=== PATIENT | female | born 1995 | race Caucasian/White ===

== ENCOUNTER 2017-10-27 15:04 | Observation (INO) | payer OTHER ==
[2017-10-27] MEDS ORDERED: NA CHLORIDE 0.9% 1,000 ML ONE (16:38)
[2017-10-27 16:45] LABS: Absolute Lymphocytes (CBC) 1.3 K/uL (0.7-4.9); Absolute Monocytes 0.9 K/uL (0.1-1.3); Absolute Neutrophil 11.9 K/uL (1.8-8.0); Basophils % 0.2 % (0-1.3); Hematocrit 35.7 % (36.0-45.0); MCH 30.3 pg (27.0-35.0); MCV 93.3 fL (80-100); MPV 11.7 fL (7.6-11.3); Monocytes % 6.1 % (3.3-12.3); RBC Red Blood Cell Count 3.82 M/uL (3.86-4.86)
[2017-10-27] MEDS ORDERED: Ringers Lactate 1,000 ML IV ONE ×2 (17:03→19:09)
[2017-10-27 17:42] LABS: Urine Blood NEGATIVE (NEG); Urine Glucose NEGATIVE (NEG); Urine Protein 1+ (NEG); Urine pH 5.5 (5.0-7.0)
[2017-10-27] MEDS ORDERED: PROMETHAZINE 25 MG/ML VIAL ONE (17:45)
--- NOTE | 2017-10-27 19:20 | ER ---
Nurse's Notes [facility] Name: Haley Liu Age: 22 yrs Sex: Female : 1995 Arrival Date: 10/27/2017 Time: 15:08 Bed 19 Private MD: ALLAN SAHA Diagnosis: Vomiting;Dehydration Presentation: 10/27 15:38 Presenting complaint: Patient states: Seen by Dr. John this morning for OB ss appointment. Pt reports she has been having N/V x 2 days and was seen in L\\T\\D last night and given a Phenergan shot. Pt reports that Dr. John instructed her to come to ER because she might be dehydrated. Pt did not come to ER right away because she "had a lot to do today". Transition of care: patient was not received from another setting of care. Onset of symptoms was October 25, 2017. Risk Assessment: Do you want to hurt yourself or someone else? Patient reports no desire to harm self or others. Initial Sepsis Screen: Does the patient meet any 2 criteria? No. Patient's initial sepsis screen is negative. Does the patient have a suspected source of infection? No. Patient's initial sepsis screen is negative. Care prior to arrival: None. 15:38 Method Of Arrival: Ambulatory ss 15:38 Acuity: SARAH 3 ss 15:41 Note Pt is 35 weeks . 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 - Social history:: Smoking status: Patient/guardian denies using tobacco. - Ebola Screening: : Patient denies exposure to infectious person Patient denies travel to an Ebola-affected area in the 21 days before illness onset. Screenin:40 Abuse screen: Denies threats or abuse. Nutritional screening: N/V x 2 days. rb1 Tuberculosis screening: No symptoms or risk factors identified. Fall Risk None identified. Assessment: 15:40 General: Appears uncomfortable, Behavior is calm, cooperative, Denies fever. General: rb1 pt. is 35 weeks . Neuro: Level of Consciousness is awake, alert, obeys commands, Oriented to person, place, time, situation. Cardiovascular: Capillary refill < 3 seconds is brisk in bilateral fingers. Respiratory: Airway is patent Respiratory effort is even, unlabored, Respiratory pattern is regular, symmetrical. GI: Reports nausea, vomiting. : No signs and/or symptoms were reported regarding the genitourinary system. Derm: Skin is pink, warm \\T\\ dry. Musculoskeletal: Range of motion: intact in all extremities. 15:40 Pain: Denies pain. rb1 16:00 Reassessment: [facility] is at pt. bedside. rb1 16:22 Reassessment: [facility] recommends inpatient care for depression and for suicide rb1 ideation with a plan. 16:40 Reassessment: Patient appears in no apparent distress at this time. No changes from rb1 previously documented assessment. 17:40 Reassessment: Pt. is feeling very nauseous; provider notified. Received order for rb1 Phenergan 12.5 mg IVP once. 18:40 Reassessment: Patient appears in no apparent distress at this time. Patient and/or rb1 family updated on plan of care and expected duration. Pain level reassessed. Patient is alert, oriented x 3, equal unlabored respirations, skin warm/dry/pink. Denies having contractions. 19:00 Reassessment: RECD REPORT FROM MARGE FERNANDEZ. 22YO WF P/W DEHYDRATION AND HYPEREMESIS, bp DIRECTED TO ER BY OB-HOSE SUSPENDER CUTTER, 35WK . PT CONTINUES +NAUSEA/VOMITING, IVF INFUSING. 19:03 Reassessment: Labor and Delivery brought Betamethasone Sodium Phosphate/Betamethasone rb1 Acetate 30 mg/ 5 ml. Received order from the L \\T\\ D nurse JIM Garcia for 2.5 ml to be given IM x once. The pt. is currently in the ED receiving IV fluids due to dehydration and requested for us to call L \\T\\ D to ask for her 1829 dose of this medication. Medication was administered in the left gluteus. Vital Signs: 15:40 BP 134 / 85; Pulse 89; Resp 18; Temp 98.6(TE); Pulse Ox 97% on R/A; Weight 56.25 kg; ss Height 5 ft. 4 in. (162.56 cm); Pain 6/10; 16:54 BP 120 / 71 Sitting (auto/reg); Pulse 92; Resp 18; Pulse Ox 97% on R/A; Pain 0/10; vd2 17:45 BP 125 / 85; Pulse 90; Resp 17; Pulse Ox 100% ; rb1 18:31 BP 135 / 95; Pulse 80; Resp 18; Pulse Ox 99% on R/A; rb1 19:00 BP 102 / 78; Pulse 99; Resp 14; Pulse Ox 100% ; bp 20:00 BP 138 / 77; Pulse 68; Resp 14; Pulse Ox 97% ; bp 15:40 Body Mass Index 21.28 (56.25 kg, 162.56 cm) ss 18:31 pt. was vomiting rb1 ED Course: 15:08 Patient arrived in ED. sb2 15:09 ALLAN SAHA is Private Physician. sb2 15:35 Sonido Catalan PA is PHCP. jr8 15:35 Sincere Cardenas MD is Attending Physician. jr8 15:40 Triage completed. ss 15:40 Arm band placed on right wrist. ss 15:40 Patient has correct armband on for positive identification. Bed in low position. Call rb1 light in reach. Side rails up X 1. Pulse ox on. NIBP on. 16:10 Inserted saline lock: 22 gauge in right antecubital area, using aseptic technique. ss Blood collected. 16:55 Jackie Guy, JIM is Primary Nurse. ss 19:00 Report given to JIM Nguyen. rb1 19:08 Primary Nurse role handed off by Jackie Guy RN bp 19:08 Patrick Rucker RN is Primary Nurse. bp 19:19 Antwon oJhn MD is Referral Physician. jr8 19:22 Antwon John MD is Hospitalizing Provider. jr8 20:22 No provider procedures requiring assistance completed. Patient admitted, IV remains in bp place. Administered Medications: Discontinued: Lactated Ringers Solution 1000 ml IV at bolus continuous 16:40 Drug: NS 0.9% 1000 ml Route: IV; Rate: 1000 ml; Site: right antecubital; ss 18:00 Follow up: IV Status: Completed infusion rb1 16:54 CANCELLED (Physician Discretion): NS 0.9% 1000 ml IV at 1000 ml once jr8 17:08 Drug: Lactated Ringers Solution 1000 ml Route: IV; Rate: 1000 ml/hr; Site: right rb1 antecubital; 18:45 Follow up: IV Status: Completed infusion rb1 17:44 Drug: Phenergan 12.5 mg Route: IVP; Site: right antecubital; rb1 19:07 Follow up: Response: Nausea unchanged bp 19:07 Drug: Lactated Ringers Solution 1000 ml Route: IV; Rate: bolus; Site: right antecubital;bp 19:41 Follow up: IV Status: Order to discontinue infusion bp 19:42 Drug: Zofran 4 mg Route: IVP; Site: right wrist; bp 19:45 Follow up: Response: No adverse reaction bp 19:42 Drug: Lactated Ringers Solution 1000 ml Route: IV; Rate: 150 ml/hr; Site: right wrist; bp 20:42 Follow up: IV Status: Infusion continued upon admission bp Output: 18:30 Gastric: 200ml (Emesis); Total: 200ml. rb1 Outcome: 19:20 Discharge ordered by . jrTiffanie 19:23 Decision to Hospitalize by Provider. jr8 20:41 Admitted to L \\T\\ D, accompanied by tech, family with patient, via wheelchair, room 279, bp with chart, Report called to PEDRITO FERNANDEZ 20:41 Condition: stable 20:41 Instructed on the need for admit. 21:07 Patient left the ED. bp Signatures: Jackie Guy, RN RN Celine Saxena 2 Sonido Catalan PA PA jr8 Marge Collins RN RN rb1 Patrick Rucker RN RN bp Guerda March sb2 Corrections: (The following items were deleted from the chart) 19:26 18:31 BP 135 / 95; Pulse 80bpm; Resp 18bpm; Pulse Ox 99% RA; rb1 rb1
--- NOTE | 2017-10-27 19:20 | EDPHYS ---
Physician Documentation [facility] Name: Haley Liu Age: 22 yrs Sex: Female : 1995 Arrival Date: 10/27/2017 Time: 15:08 Bed 19 Private MD: ALLAN SAHA ED Physician Sincere Cardenas HPI: 10/27 16:31 This 22 yrs old Female presents to ER via Ambulatory with complaints of n/v. jr8 16:31 Patient stated that she is 35 weeks . Has had 4 days worth of vomiting. Saw L\T\D jr8 last night and was given medication. Saw OB today and told to come to ED for IV hydration. Baby moving just fine. Was monitored last night without acute finding. No bleeding or discharge. No abdominal pain, diarrhea, or fevers . Severity of symptoms: At their worst the symptoms were moderate in the emergency department the symptoms are unchanged. The patient has not experienced similar symptoms in the past. The patient has been recently seen by a physician: the patient's primary care provider. 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 - Social history:: Smoking status: Patient/guardian denies using tobacco. - Ebola Screening: : Patient denies exposure to infectious person Patient denies travel to an Ebola-affected area in the 21 days before illness onset. ROS: 16:31 Eyes: Negative for injury, pain, redness, and discharge, ENT: Negative for injury, jr8 pain, and discharge, Neck: Negative for injury, pain, and swelling, Cardiovascular: Negative for chest pain, palpitations, and edema, Respiratory: Negative for shortness of breath, cough, wheezing, and pleuritic chest pain, Back: Negative for injury and pain, MS/Extremity: Negative for injury and deformity, Skin: Negative for injury, rash, and discoloration, Neuro: Negative for headache, weakness, numbness, tingling, and seizure. 16:31 Abdomen/GI: Positive for nausea and vomiting, Negative for abdominal pain, diarrhea, constipation, abdominal cramps, abdominal distension, anorexia, dysphagia, hematemesis, black/tarry stool, rectal pain, rectal bleeding, bowel incontinence, flatulence. Exam: 16:36 Eyes: Pupils equal round and reactive to light, extra-ocular motions intact. Lids and jr8 lashes normal. Conjunctiva and sclera are non-icteric and not injected. Cornea within normal limits. Periorbital areas with no swelling, redness, or edema. ENT: Nares patent. No nasal discharge, no septal abnormalities noted. Tympanic membranes are normal and external auditory canals are clear. Oropharynx with no redness, swelling, or masses, exudates, or evidence of obstruction, uvula midline. Mucous membranes moist. Neck: Trachea midline, no thyromegaly or masses palpated, and no cervical lymphadenopathy. Supple, full range of motion without nuchal rigidity, or vertebral point tenderness. No Meningismus. Cardiovascular: Regular rate and rhythm with a normal S1 and S2. No gallops, murmurs, or rubs. Normal PMI, no JVD. No pulse deficits. Respiratory: Lungs have equal breath sounds bilaterally, clear to auscultation and percussion. No rales, rhonchi or wheezes noted. No increased work of breathing, no retractions or nasal flaring. Abdomen/GI: Soft, non-tender, with normal bowel sounds. No distension or tympany. No guarding or rebound. No evidence of tenderness throughout. Gravid abdomen Back: No spinal tenderness. No costovertebral tenderness. Full range of motion. Skin: Warm, dry with normal turgor. Normal color with no rashes, no lesions, and no evidence of cellulitis. MS/ Extremity: Pulses equal, no cyanosis. Neurovascular intact. Full, normal range of motion. Neuro: Awake and alert, GCS 15, oriented to person, place, time, and situation. Cranial nerves II-XII grossly intact. Motor strength 5/5 in all extremities. Sensory grossly intact. Cerebellar exam normal. Normal gait. Vital Signs: 15:40 BP 134 / 85; Pulse 89; Resp 18; Temp 98.6(TE); Pulse Ox 97% on R/A; Weight 56.25 kg; ss Height 5 ft. 4 in. (162.56 cm); Pain 6/10; 16:54 BP 120 / 71 Sitting (auto/reg); Pulse 92; Resp 18; Pulse Ox 97% on R/A; Pain 0/10; vd2 17:45 BP 125 / 85; Pulse 90; Resp 17; Pulse Ox 100% ; rb1 18:31 BP 135 / 95; Pulse 80; Resp 18; Pulse Ox 99% on R/A; rb1 19:00 BP 102 / 78; Pulse 99; Resp 14; Pulse Ox 100% ; bp 20:00 BP 138 / 77; Pulse 68; Resp 14; Pulse Ox 97% ; bp 15:40 Body Mass Index 21.28 (56.25 kg, 162.56 cm) ss 18:31 pt. was vomiting rb1 MDM: 15:35 Patient medically screened. jr8 19:18 Data reviewed: vital signs, nurses notes, lab test result(s), and as a result, I will jr8 discharge patient. Data interpreted: Pulse oximetry: on room air is 100 %. Interpretation: normal. Counseling: I had a detailed discussion with the patient and/or guardian regarding: the historical points, exam findings, and any diagnostic results supporting the discharge/admit diagnosis, lab results, the need for outpatient follow up, an OB/Gyne specialist, to return to the emergency department if symptoms worsen or persist or if there are any questions or concerns that arise at home. Response to treatment: the patient's symptoms have markedly improved after treatment, patient is well hydrated. ED course: Has urinated a couple of times while in ED. Still vomiting. Will admit to Dr. John . 10/27 15:41 Order name: Basic Metabolic Panel; Complete Time: 16:50 [facility] 10/27 15:41 Order name: CBC with Diff; Complete Time: 16:55 [facility] 10/27 15:41 Order name: Creatinine for Radiology; Complete Time: 16:37 [facility] 10/27 17:10 Order name: Urine Dipstick--Ancillary (enter results); Complete Time: 17:43 10/27 15:41 Order name: IV Saline Lock; Complete Time: 16:32 10/27 15:41 Order name: Labs collected and sent; Complete Time: 16:32 [facility] 10/27 15:41 Order name: Urine Dipstick-Ancillary (obtain specimen); Complete Time: 16:56 jr Administered Medications: Discontinued: Lactated Ringers Solution 1000 ml IV at bolus continuous 16:40 Drug: NS 0.9% 1000 ml Route: IV; Rate: 1000 ml; Site: right antecubital; ss 18:00 Follow up: IV Status: Completed infusion rb1 16:54 CANCELLED (Physician Discretion): NS 0.9% 1000 ml IV at 1000 ml once jr8 17:08 Drug: Lactated Ringers Solution 1000 ml Route: IV; Rate: 1000 ml/hr; Site: right rb1 antecubital; 18:45 Follow up: IV Status: Completed infusion rb1 17:44 Drug: Phenergan 12.5 mg Route: IVP; Site: right antecubital; rb1 19:07 Follow up: Response: Nausea unchanged bp 19:07 Drug: Lactated Ringers Solution 1000 ml Route: IV; Rate: bolus; Site: right antecubital;bp 19:41 Follow up: IV Status: Order to discontinue infusion bp 19:42 Drug: Zofran 4 mg Route: IVP; Site: right wrist; bp 19:45 Follow up: Response: No adverse reaction bp 19:42 Drug: Lactated Ringers Solution 1000 ml Route: IV; Rate: 150 ml/hr; Site: right wrist; bp 20:42 Follow up: IV Status: Infusion continued upon admission bp Disposition: 10/27/17 19:23 Hospitalization ordered by Antwon John for Observation. Preliminary diagnosis are Vomiting, Dehydration. - Bed requested for [facility]. - Status is Observation. bp - Condition is Fair. - Problem is new. - Symptoms have improved. UTI on Admission? No Addendum: 11/01/2017 23:40 Co-signature as Attending Physician, Sincere Cardenas MD. r n Signatures: Dispatcher [employer] EDNV Ximena Staton RN JIM Sincere Cardenas MD MD rn Smirch, Shelby, RN RN ss Sonido Catalan PA PA jr8 Shahla Collins, RN RN rb1 Patrick Rucker RN RN bp Corrections: (The following items were deleted from the chart) 10/27 16:54 16:49 NS 0.9% 1000 ml IV at 1000 ml once ordered. jr8 jr8 16:56 15:41 Urine Test ordered. 8 19:20 19:20 10/27/2017 19:20 Discharged to Home. Impression: Dehydration; Vomiting. Condition jr8 is Stable. Forms are Medication Reconciliation Form, Thank You Letter, Antibiotic Education, Prescription Opioid Use. Follow up: Antwon John; When: 1 - 2 days; Reason: Recheck today's complaints, Continuance of care, Re-evaluation by your physician. Problem is new. Symptoms have improved. jr8 19:22 19:18 ED course: No more vomiting. Has urinated a couple of times while in ED. Feeling jr8 better. Consulted Dr. John. Ok to go home if she is doing better. Will f/u on outpatient basis. If worse to come back . jr8 20:08 19:23 Hospitalization Ordered by Antwon John MD for Observation. Preliminary mw diagnosis is Vomiting; Dehydration. Bed requested for [facility]. Status is Observation. Condition is Fair. Problem is new. Symptoms have improved. UTI on Admission? No. jr8 21:07 20:08 10/27/2017 19:23 Hospitalization Ordered by Antwon John MD for Observation. bp Preliminary diagnosis is Vomiting; Dehydration. Bed requested for [facility]. Status is Observation. Condition is Fair. Problem is new. Symptoms have improved. UTI on Admission? No. mw
[2017-10-27] MEDS ORDERED: ONDANSETRON 4 MG/2 ML VIAL ONE (19:26)
[2017-10-27] MEDS ORDERED: PROMETHAZINE 25 MG/ML VIAL IV PRN (21:24)
[2017-10-27] MEDS ORDERED: ACETAMINOPHEN 500 MG TAB PO PRN (21:24)
[2017-10-27] MEDS ORDERED: ZOLPIDEM TARTRATE 10 MG TABLET PO PRN (21:42)
[2017-10-27] MEDS: PROMETHAZINE 25 MG/ML VIAL IM PRN (21:58)
[2017-10-27] MEDS: METOCLOPRAMIDE 10 MG/2mL INJ IV PRN (21:58)
[2017-10-27 22:34] VITALS: BMI 21.1
[2017-10-28] MEDS: ONDANSETRON 4 MG/2 ML VIAL IV PRN ×2 (00:53→07:18)
[2017-10-28 02:20] VITALS: O2SAT 99
[2017-10-28] MEDS: PROMETHAZINE 25 MG/ML VIAL IM PRN (02:49)
[2017-10-28] MEDS: Ringers Lactate 1,000 ML IV SCH ×2 (02:50→09:55)
[2017-10-28] MEDS: METOCLOPRAMIDE 10 MG/2mL INJ IV PRN ×2 (03:33→09:07)
[2017-10-28 05:47] LABS: BUN Blood Urea Nitrogen 7 mg/dL (7-18); Bicarbonate 18 mmol/L (21-32); Glucose Level 106 mg/dL (74-106); Sodium Level 140 mmol/L (136-145)
[2017-10-28 05:54] LABS: Absolute Lymphocytes (CBC) 1.1 K/uL (0.7-4.9); Absolute Monocytes 0.5 K/uL (0.1-1.3); Absolute Neutrophil 9.8 K/uL (1.8-8.0); Basophils % 0.1 % (0-1.3); Hematocrit 28.3 % (36.0-45.0); Lymphocytes % 9.9 % (15.3-44.8); MCV 90.8 fL (80-100); MPV 11.4 fL (7.6-11.3); RBC Red Blood Cell Count 3.11 M/uL (3.86-4.86)
[2017-10-28] MEDS ORDERED: PANTOPRAZOLE 40MG TABLET PO SCH (07:30)
[2017-10-28 08:49] LABS: Blood Morphology Comment NOT SEEN (NOT SEEN); Platelet Estimate ADEQ
--- NOTE | 2017-10-28 12:18 | PREOPHP ---
Date of Admission: 10/27/2017 History Of Present Illness: This is a 22-year-old, 2 para 0, at 35 weeks and 2-3 days. Has been seen in consultation with Dr. Cristiano Grayson in [place]. History of cardiomyopathy she said was di agnosed in 2003. Screening thus far for herself and the baby seems to have been quite normal. It rojas s been suggested she be delivered at 38 weeks because of high risk concerns that Dr. Grayson has express ed. The patient has had approximately 24-36 hours of nausea and vomiting, has not been able to keep anything down. She has been on Zofran and promethazine. Came to the emergency room. Was noted to b e dehydrated. Started on hydration, but was still vomiting. She has been started on Reglan for anti emetic purposes. The patient has not vomited now in about 10 hours. Potassium levels were normal, b ut she was obviously mild to moderately dehydrated. Blood sugars are normal, so she does not apparen tly have diabetic ketoacidosis or anything of that nature. She has a history of esophageal reflux an d gastric problems has been seen by Dr. Lowery and was told she had 12 ulcers in her esophagus and st omach. We will start her on Nexium and continue Reglan, and if we can get her to either stop vomitin g or vomit less, we will dismiss her as she looks quite alert and does not seem to be in any acute di stress. The remainder of the physical exam is quite normal. Baby looks good. She is not in labor. Family History: Noncontributory to current illness. Allergies: SHE HAS NO ALLERGIES. SHE DOES NOT SMOKE. Diagnosis: Intrauterine gestation, 35 weeks and 3 days with persistent vomiting and mild to moderate dehydration. NBC/MODL Voice ID: [id number]
[2017-10-28 13:49] VITALS: BP 111/65; TEMP 97.4
== END 2017-10-28 13:15 | disposition home or self-care (01) ==
LOC: ER 15:04 → ERHOLD 20:22 → 2ND-WC 20:25
PROVIDERS: ADMIT Specialist; ATTEND Specialist
DX: O21.2 Late vomiting of pregnancy (principal); O26.899 Other specified pregnancy related conditions, unspecified trimester; E86.0 Dehydration; Z3A.01 Less than 8 weeks gestation of pregnancy; K22.10 Ulcer of esophagus without bleeding; K25.9 Gastric ulcer, unspecified as acute or chronic, without hemorrhage or perforation
CPT/HCPCS: 36415; 80048; 81003; 85025; 99285; G0378; J2405; J2550; J2765; J7030

== ENCOUNTER 2017-11-14 16:43 | Inpatient (IN) | payer OTHER ==
[2017-11-14] MEDS ORDERED: METHYLERGONOVINE 0.2MG/ML AMP IM PRN (17:14)
[2017-11-14] MEDS ORDERED: MEPERIDINE HCL 25 MG/0.5 ML IV PRN (17:14)
[2017-11-14] MEDS ORDERED: MIDAZOLAM HCL 2 MG/2 ML INJ IV PRN (17:14)
[2017-11-14] MEDS ORDERED: Ringers Lactate 1,000 ML IV PRN (17:14)
[2017-11-14] MEDS ORDERED: BUTORPHANOL 1 MG/ML INJ IV PRN (17:14)
[2017-11-14] MEDS ORDERED: CARBOPROST TROME 250 MCG/ML IM PRN (17:14)
[2017-11-14] MEDS ORDERED: PROMETHAZINE 25 MG/ML VIAL IM PRN (17:14)
[2017-11-14] MEDS ORDERED: OXYTOCIN/LR 20 UNIT/1,000 ML BAG IV ONE (17:24)
[2017-11-14] MEDS ORDERED: OXYTOCIN/LR 20 UNIT/1,000 ML BAG IV SCH (18:00)
[2017-11-14] MEDS ORDERED: Ringers Lactate 1,000 ML IV SCH (18:00)
[2017-11-14 18:10] LABS: RPR Titer ND
[2017-11-14 18:13] LABS: Absolute Lymphocytes (CBC) 1.8 K/uL (0.7-4.9); Absolute Monocytes 0.9 K/uL (0.1-1.3); Absolute Neutrophil 11.5 K/uL (1.8-8.0); Basophils % 0.1 % (0-1.3); Eosinophils % 0.2 % (0-4.4); Hematocrit 29.3 % (36.0-45.0); Lymphocytes % 12.3 % (15.3-44.8); MCH 30.1 pg (27.0-35.0); MCV 91.5 fL (80-100); MPV 12.1 fL (7.6-11.3); Monocytes % 6.2 % (3.3-12.3)
[2017-11-14 18:16] LABS: Urine Appearance CLOUDY; Urine Bilirubin NEGATIVE (NEG); Urine Blood 2+ (NEG); Urine Color YELLOW; Urine Glucose NEGATIVE (NEG); Urine Protein NEGATIVE (NEG); Urine Specific Gravity 1.015 (1.005-1.030); Urine Urobilinogen 0.2 mg/dL (0.2-1.0); Urine pH 6.5 (5.0-7.0)
[2017-11-14 18:44] VITALS: BMI 23.0
[2017-11-14 18:47] LABS: Urine Microscopic Reflex ORDER UMIC
[2017-11-14 18:48] LABS: Urine Culture Reflex Order REFLEXED
[2017-11-14 18:49] LABS: Urine Bacteria <20 /HPF (<20); Urine RBC NONE SEEN /HPF (NONE SEEN)
[2017-11-14] MEDS ORDERED: ROPIVACAINE HCL 100 ML IV PRN (21:14)
[2017-11-14] MEDS ORDERED: FENTANYL CITR 100 MCG/2 ML IV ONE (21:14)
[2017-11-14] MEDS ORDERED: ROPIVACAINE HCL 0.2% 20ML AMP IV ONE (21:15)
[2017-11-14 22:03] LABS: RPR (Rapid Plasma Reagin) NON-REACT (NON-REACT)
[2017-11-14] MEDS ORDERED: BUPIVACAINE 0.25% PF 10 ML VIAL ONE (22:33)
--- NOTE | 2017-11-14 23:34 | PREOPHP ---
Date of Admission: 11/14/2017 History Of Present Illness: Haley Liu is a 22-year-old female, at 38 weeks' gestation, had a h istory of cardiomyopathy, but was seen in consultation with high-risk INSTRUCTIONAL MATERIAL DIRECTOR who thought she was fine and did not have any significant cardiac problems. They thought she would be able to labor and portia cam without problems, suggested delivery at 38 weeks. The patient came in the office this morning, c ontracting, 2.5 cm, and was sent to Labor and Delivery. She was observed for a while, but showed no cervical change in having only a regular contractions, went home, but has re-presented having more re gular contractions. The patient is now 3 cm, but the baby is still fairly high. Membranes bulging. Baby looks good. Good reactive pattern. Vital signs are all stable. We will admit, put her on lig ht Pitocin. At this point, she seems to be uncomfortable. We gave her Stadol IV and Phenergan IM. She was reporting some chest discomfort. I think this is more anxiety more than anything else. If i t continues, however, we will get a Cardiology consult. Doing well at this point. KELSEA/CHARLENE Voice ID: [id number]
[2017-11-15] MEDS ORDERED: Oxycodone HCl/Acetaminophen 1 TAB TAB PO PRN (01:10)
[2017-11-15] MEDS ORDERED: BISACODYL 10 MG RECTAL SUPP RECT PRN (01:10)
[2017-11-15] MEDS ORDERED: ACETAMINOPHEN 500 MG TAB PO PRN (01:10)
[2017-11-15] MEDS ORDERED: DIPHENHYDRAMINE 25 MG TAB/CAP PO PRN (01:10)
[2017-11-15] MEDS ORDERED: DOCUSATE NA/SENNA CONC 1 TAB PO PRN (01:10)
[2017-11-15] MEDS ORDERED: OXYTOCIN/LR 20 UNITS/1,000 ML BAG IV SCH (02:00)
[2017-11-15] MEDS: IBUPROFEN 200 MG TAB PO PRN ×2 (07:44→17:00)
--- NOTE | 2017-11-15 12:07 | OP ---
Hospital Course: Haley Liu, 22-year-old female, 2, para 0, miscarriage 1, spontaneous, supposed history of cardiomyopathy in 2013, was seen in consultation by Dr. Kenny in [facility] and Dr. Cristiano Grayson in [place], is thought to be normal, no problems and vaginal delivery sug gested. 38 weeks, suggested for delivery, patient came in today, ramila, noted to be 2 to 2.5, seen in Labor and Delivery, irregular contractions and according to nurses, she wished to go home. S [facility] home, came back later in more active labor. Admitted to the hospital, started on IV drip Pitocin , progressed rapidly, epidural anesthesia to approximately 4-5 cm, second stage, consisted of 1 push, spontaneous vaginal delivery of an estimated 7-pound female, 8 and 9, two small first-degree l acerations repaired with 2-0 chromic, [place] delivery of the placenta, inspected and noted to be inta ct and normal. Less than 300 cc blood loss. Rh positive, immune to Rubella. Negative beta strep sc reen. Tolerated all procedures well. Mild nausea noted. Final Diagnoses: Intrauterine gestation, 38 weeks and 1 day at time of delivery, history of cardiomy opathy, no active problems with the heart, spontaneous vaginal delivery, epidural anesthesia. KELSEA/CHARLENE Voice ID: [id number] Report ID: [id number]
--- NOTE | 2017-11-15 12:19 | PN ---
the patient has done quite well. She is ambulating, voiding, lochia is normal. Rh positi ve, immune to Rubella. She has not had a Tdap shot in over a year, full discussion about this during the . The patient is offered a Tdap whether or not she will accept it, we will see. Full instructions given to report any temperature elevation of 100 degrees or greater, severe p ain, heavy bleeding, fever or any other type of abnormalities. We will go over it again tomorrow. T he patient has no complaints or problems. She will be dismissed sometime tomorrow after breakfast. She will contact the office today for her checkup. She says she wants Nexplanon for control and she will start the process of getting that approved. KELSEA/CHARLENE Voice ID: [id number] Report ID: [id number]
[2017-11-15] MEDS: Oxycodone HCl/Acetaminophen 1 TAB TAB PO PRN (19:55)
[2017-11-16] MEDS: Oxycodone HCl/Acetaminophen 1 TAB TAB PO PRN (05:30)
[2017-11-16] MEDS ORDERED: Tdap (Diph,Pertuss(Acell),Tet Vac) 0.5 ML SYR IMVAC ONE (07:54)
[2017-11-16 08:16] VITALS: BP 142/84; TEMP 97.5
--- NOTE | 2017-11-17 05:36 | DS ---
Date of Discharge: 11/16/2017 Hospital Course: This is a 22-year-old female, 2, para 0, at 38 weeks 1 day, history of card iomyopathy but she has been cleared by Dr. Kenny, welfare visitor, as being healthy and no significant cardiac issues. She was also seen by Dr. Tyler Grayson and he suggested that she be delivered at 38 w eeks. Patient in fact went into labor at 38 weeks and 1 day, came in and subsequently delivered an e stimated 7 pound female, Apgars 9 and 9. Epidural anesthesia. Two small first-degree lacerations, r equiring 2 stitches each. 300 cc blood loss, with delivery of the placenta which was inspected and n oted to be intact and normal. Beta strep negative. She is immune to Rubella and Rh positive. Tdap has been discussed with the patient on numerous occasions and again today. She is dismissed this mor ty with tramadol, although she may elect to take Motrin instead. Final Diagnoses: Intrauterine gestation, 38 weeks 1 day, vaginal delivery, epidural anesthesia. KELSEA/CHARLENE Voice ID: [id number] Report ID: [id number]
[2017-11-17 19:04] LABS: HBsAG Nonreactive (Nonreactive)
== END 2017-11-16 09:05 | disposition home or self-care (01) | DRG 775 ==
LOC: 2ND-WC 16:43
PROVIDERS: ADMIT Specialist; ATTEND Specialist
PROC: 10E0XZZ Delivery of Products of Conception, External Approach (ICD-10-PCS; principal; 2017-11-15)
PROC: 0HQ9XZZ Repair Perineum Skin, External Approach (ICD-10-PCS; 2017-11-15)
DX: O70.0 First degree perineal laceration during delivery (principal); Z3A.38 38 weeks gestation of pregnancy; Z37.0 Single live birth; Z23 Encounter for immunization
CPT/HCPCS: 36415; 81003; 81015; 85025; 86592; 86850; 86900; 86901; 87086; 87088; 87340; 90715; J0595; J2210; J2550; J2590; J2795; J3010

== ENCOUNTER 2018-05-01 08:43 | Emergency (ER) | payer OTHER, SELFPAY ==
--- NOTE | 2018-05-01 09:15 | ER ---
Nurse's Notes [facility] Name: Haley Liu Age: 22 yrs Sex: Female : 1995 Arrival Date: 05/01/2018 Time: 08:46 Bed 15 Private MD: ALLAN SAHA Diagnosis: Dental caries Presentation: 05/01 08:49 Presenting complaint: Patient states: toothache x 2-3 days ago. Transition of care: aa5 patient was not received from another setting of care. Onset of symptoms was April 2018. Risk Assessment: Do you want to hurt yourself or someone else? Patient reports no desire to harm self or others. Initial Sepsis Screen: Does the patient meet any 2 criteria? No. Patient's initial sepsis screen is negative. Does the patient have a suspected source of infection? No. Patient's initial sepsis screen is negative. Care prior to arrival: None. 08:49 Method Of Arrival: Ambulatory aa5 08:49 Acuity: SARAH 4 aa5 Triage Assessment: 10:09 General: Appears uncomfortable, Behavior is calm, cooperative. 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 - Social history:: Smoking status: Patient/guardian denies using tobacco, Patient/guardian denies using alcohol, street drugs, The patient lives with family, with spouse. - Ebola Screening: : No symptoms or risks identified at this time. - Family history:: not pertinent. Screenin:06 Abuse screen: Denies threats or abuse. Denies injuries from another. Nutritional ls4 screening: No deficits noted. Tuberculosis screening: No symptoms or risk factors identified. Fall Risk None identified. Assessment: 10:07 EENT: Reports pain in lower left second molar (#18) Pain is 10 out of 10 on a pain ls4 scale. Vital Signs: 08:50 BP 125 / 83; Pulse 77; Resp 16 S; Temp 97.6(TE); Pulse Ox 99% on R/A; Height 5 ft. 4 aa5 in. (162.56 cm) (R); Pain 9/10; 08:57 Weight 66.54 kg (M); 3 08:57 Body Mass Index 25.18 (66.54 kg, 162.56 cm) [facility] ED Course: 08:46 Patient arrived in ED. mr 08:47 ALLAN SAHA is Private Physician. mr 08:49 Triage completed. aa5 08:50 Arm band placed on. aa5 08:52 Kadeem Ojeda MD is Attending Physician. ga2 09:55 Candy Enrique, RN is Primary Nurse. ls4 10:06 Patient has correct armband on for positive identification. Bed in low position. Call ls4 light in reach. Side rails up X 1. 10:06 No provider procedures requiring assistance completed. Patient did not have IV access ls4 during this emergency room visit. Administered Medications: 09:45 Drug: TORadol 60 mg Route: IM; Site: right deltoid; ls4 10:00 Follow up: Response: No adverse reaction; Marked relief of symptoms ls4 Outcome: 09:15 Discharge ordered by . ma2 10:18 Patient left the ED. ls4 10:18 Discharge instructions given to patient, Instructed on discharge instructions, follow ls4 up and referral plans. medication usage, Demonstrated understanding of instructions, follow-up care, medications, Prescriptions given X 2. 15:46 Discharged to home ambulatory. ls4 15:46 Condition: good Signatures: Kim Damon ClintIvelisse, RN RN aa5 Julianna Mar [facility] Kadeem Ojeda MD MD ma2 Stewart, Lisa, JIM RN ls4 Corrections: (The following items were deleted from the chart) 10:10 08:50 PMHx: CARIDOMYOPATHY; aa5 ls4
--- NOTE | 2018-05-01 09:15 | EDPHYS ---
Physician Documentation [facility] Name: Haley Liu Age: 22 yrs Sex: Female : 1995 Arrival Date: 05/01/2018 Time: 08:46 Bed 15 Private MD: ALLAN SAHA ED Physician Kadeem Ojeda HPI: 05/01 09:13 This 22 yrs old Female presents to ER via Ambulatory with complaints of ma2 Toothache. 09:13 The patient presents with pain. Onset: The symptoms/episode began/occurred gradually, 2 ma2 day(s) ago. Duration: The symptoms are continuous. Associated signs and symptoms: Pertinent negatives: dysphagia, inability to eat, redness in area, swelling. Severity of symptoms: At their worst the symptoms were moderate, in the emergency department the symptoms are unchanged. 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 - Social history:: Smoking status: Patient/guardian denies using tobacco, Patient/guardian denies using alcohol, street drugs, The patient lives with family, with spouse. - Ebola Screening: : No symptoms or risks identified at this time. - Family history:: not pertinent. ROS: 09:13 Constitutional: Negative for fever, chills, and weight loss. ma2 09:13 ENT: Positive for dental pain, Negative for ear pain, hearing loss, Teeth pain sinus congestion. 09:13 All other systems are negative. Exam: 09:13 Constitutional: This is a well developed, well nourished patient who is awake, alert, ma2 and in no acute distress. Head/Face: Normocephalic, atraumatic. Eyes: Pupils equal round and reactive to light, extra-ocular motions intact. Lids and lashes normal. Conjunctiva and sclera are non-icteric and not injected. Cornea within normal limits. Periorbital areas with no swelling, redness, or edema. Neck: Trachea midline, no thyromegaly or masses palpated, and no cervical lymphadenopathy. Supple, full range of motion without nuchal rigidity, or vertebral point tenderness. No Meningismus. Chest/axilla: Normal chest wall appearance and motion. Nontender with no deformity. No lesions are appreciated. Cardiovascular: Regular rate and rhythm with a normal S1 and S2. No gallops, murmurs, or rubs. Normal PMI, no JVD. No pulse deficits. Respiratory: Lungs have equal breath sounds bilaterally, clear to auscultation and percussion. No rales, rhonchi or wheezes noted. No increased work of breathing, no retractions or nasal flaring. Abdomen/GI: Soft, non-tender, with normal bowel sounds. No distension or tympany. No guarding or rebound. No evidence of tenderness throughout. 09:13 ENT: TM's: are normal, Nose: is normal, Mouth: Posterior pharynx: is normal, Dental exam: abscess, is not appreciated, dental caries, that is mild, that is moderate, specifically in the lower left second molar (#18), gum swelling, that is mild, Voice: is normal. Vital Signs: 08:50 BP 125 / 83; Pulse 77; Resp 16 S; Temp 97.6(TE); Pulse Ox 99% on R/A; Height 5 ft. 4 aa5 in. (162.56 cm) (R); Pain 9/10; 08:57 Weight 66.54 kg (M); dh3 08:57 Body Mass Index 25.18 (66.54 kg, 162.56 cm) 3 MDM: 08:52 Patient medically screened. md2 09:13 Differential diagnosis: dental caries. Data reviewed: vital signs, nurses notes. ma2 Counseling: I had a detailed discussion with the patient and/or guardian regarding: the historical points, exam findings, and any diagnostic results supporting the discharge/admit diagnosis, the presence of at least one elevated blood pressure reading (>120/80) during this emergency department visit, the need for outpatient follow up. Response to treatment: the patient's symptoms have resolved after treatment. Administered Medications: 09:45 Drug: TORadol 60 mg Route: IM; Site: right deltoid; ls4 10:00 Follow up: Response: No adverse reaction; Marked relief of symptoms ls4 Disposition: 05/01/18 09:15 Discharged to Home. Impression: Dental caries. - Condition is Stable. - Discharge Instructions: Dental Pain. - Prescriptions for Augmentin 875- 125 mg Oral Tablet - take 1 tablet by ORAL route every 12 hours for 10 days; 20 tablet. Tylenol- Codeine #3 300-30 mg Oral Tablet - take 2 tablet by ORAL route every 6 hours As needed; 6 tablet. - Medication Reconciliation Form, Thank You Letter, Antibiotic Education, Prescription Opioid Use form. - Follow up: Private Physician; When: Tomorrow; Reason: Continuance of care. Signatures: Ivelisse Jaramillo RN RN aa5 Kadeem Ojeda MD MD ma2 Candy Enrique RN RN ls4 Corrections: (The following items were deleted from the chart) 10:10 08:50 PMHx: CARIDOMYOPATHY; aa5 ls4 10:18 09:15 05/01/2018 09:15 Discharged to Home. Impression: Dental caries. Condition is ls4 Stable. Forms are Medication Reconciliation Form, Thank You Letter, Antibiotic Education, Prescription Opioid Use. Follow up: Private Physician; When: Tomorrow; Reason: Continuance of care. ma2
[2018-05-01] MEDS ORDERED: KETOROLAC 30 MG/ML INJ ONE (10:13)
[2018-05-01 10:45] VITALS: BP 125/83; TEMP 97.6; O2SAT 99
== END 2018-05-01 10:18 | disposition home or self-care (01) ==
LOC: ER 08:43
DX: K02.9 Dental caries, unspecified (principal)
CPT/HCPCS: 96372; 99283

== ENCOUNTER 2019-01-01 11:43 | Inpatient (IN) | payer SELFPAY ==
[2019-01-01] MEDS ORDERED: FENTANYL CITR 100 MCG/2 ML ONE ×2 (13:26→15:24)
[2019-01-01] MEDS ORDERED: ONDANSETRON 4 MG/2 ML VIAL ONE (13:26)
[2019-01-01] MEDS ORDERED: KETOROLAC 30 MG/ML INJ ONE (13:26)
[2019-01-01] MEDS ORDERED: FAMOTIDINE 20 MG/2 ML VIAL IV ONE (13:27)
[2019-01-01 13:33] LABS: Absolute Lymphocytes (CBC) 1.1 K/uL (0.7-4.9); Basophils % 0.5 % (0-1.3); Hematocrit 39.6 % (36.0-45.0); Lymphocytes % 13.7 % (15.3-44.8); MPV 9.5 fL (7.6-11.3); RBC Red Blood Cell Count 4.29 M/uL (3.86-4.86)
[2019-01-01 13:41] LABS: Urine Blood NEGATIVE (NEG); Urine Glucose NEGATIVE (NEG); Urine Protein TRACE (NEG)
[2019-01-01 13:56] LABS: Albumin 4.2 g/dL (3.4-5.0); Bilirubin Direct 2.2 mg/dL (0-0.2); Bilirubin Total 2.9 mg/dL (0.2-1.0); Potassium 3.5 mmol/L (3.5-5.1); Protein, Total 8.1 g/dL (6.4-8.2)
[2019-01-01 13:58] LABS: Urine Bacteria >50 /HPF (<20); Urine Culture Reflex Order NOT NEEDED; Urine Mucus MOD /HPF (NONE SEEN); Urine RBC <5 /HPF (NONE SEEN)
--- NOTE | 2019-01-01 14:03 | RAD REPORT ---
EXAM DESCRIPTION: US - Abdomen Exam Limited - 01/01/2019 1:43 pm CLINICAL HISTORY: upper abd/epigastric pain, vomiting COMPARISON: Abdomen Exam Limited dated 06/20/2015 FINDINGS: The gallbladder demonstrates multiple shadowing gallstones. No pericholecystic fluid or ga llbladder wall thickening. The common bile duct is dilated measuring 13 mm. The liver demonstrates no findings of intrahepatic biliary dilatation. IMPRESSION: Cholelithiasis. Dilated common duct measuring 13 mm.
--- NOTE | 2019-01-01 14:40 | RAD REPORT ---
EXAM DESCRIPTION: CTAbdomen Pelvis W Contrast - 01/01/2019 2:26 pm CLINICAL HISTORY: Abdominal pain. upper abd pain. vomiting COMPARISON: Abdomen Pelvis W Contrast dated 06/20/2015; CT ABD PELVIS W CONTRAST dated 11/14/2012 TECHNIQUE: Biphasic CT imaging of the abdomen and pelvis was performed with 100 ml non-ionic IV cont rast. All CT scans are performed using dose optimization technique as appropriate and may include automated exposure control or mA/KV adjustment according to patient size. FINDINGS: The lung bases are clear. The liver demonstrates mild intrahepatic biliary dilatation. Common bile duct is dilated to 10 mm as it traverses the pancreatic head. Several gallstones are present gallbladder. A 5 mm stone is suspect ed in the distal common bile duct. Spleen, pancreas, adrenal glands and kidneys are within normal wilson its. No bowel obstruction, free air, free fluid or abscess. The appendix is normal. No evidence of signi ficant lymphadenopathy. No suspicious bony findings. IMPRESSION: Cholelithiasis is identified with suspicion of a 5 mm stone in the distal common bile du ct, compatible with choledocholithiasis. This results in mild to moderate intrahepatic and extrahepat ic biliary tree dilatation. Followup MRCP evaluation may be helpful.
--- NOTE | 2019-01-01 15:16 | ER ---
Nurse's Notes [facility] Name: Haley Liu Age: 23 yrs Sex: Female : 1995 Arrival Date: 01/01/2019 Time: 11:[address] Private MD: Diagnosis: acute abdominal pain;acute vomiting;choledocholithiasis with obstruction Presentation: 01/01 12:10 Presenting complaint: Patient states: Nausea, vomiting, and back pain for the past 2 aj1 days. Patient reports upper back pain. Denies fever. Transition of care: patient was not received from another setting of care. Onset of symptoms was December 2018. Risk Assessment: Do you want to hurt yourself or someone else? Patient reports no desire to harm self or others. Initial Sepsis Screen: Does the patient meet any 2 criteria? No. Patient's initial sepsis screen is negative. Does the patient have a suspected source of infection? No. Patient's initial sepsis screen is negative. Care prior to arrival: None. 12:10 Method Of Arrival: Ambulatory aj1 12:10 Acuity: SARAH 3 aj1 Triage Assessment: 12:11 General: Appears in no apparent distress. uncomfortable, Behavior is calm, cooperative, aj1 appropriate for age. Pain: Complains of pain in thoracic area Pain currently is 9 out of 10 on a pain scale. Neuro: Level of Consciousness is awake, alert, obeys commands. Cardiovascular: Patient's skin is warm and dry. Respiratory: Airway is patent Respiratory effort is even, unlabored, Respiratory pattern is regular, symmetrical. GI: Reports nausea, vomiting, Patient currently denies diarrhea. 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 - Social history:: Smoking status: Patient/guardian denies using tobacco. - Ebola Screening: : Patient denies travel to an Ebola-affected area in the 21 days before illness onset. - Family history:: not pertinent. - Hospitalizations: : No recent hospitalization is reported. Screenin:02 Abuse screen: Denies threats or abuse. Denies injuries from another. Nutritional ca1 screening: No deficits noted. Tuberculosis screening: No symptoms or risk factors identified. Fall Risk None identified. Assessment: 13:02 General: Appears in no apparent distress. uncomfortable, Behavior is cooperative, ca1 appropriate for age, crying. Pain: Complains of pain in back, right upper quadrant and left upper quadrant Pain currently is 10 out of 10 on a pain scale. Pain began 2 hours ago. Is continuous, Aggravated by repositioning. Neuro: Level of Consciousness is awake, alert, obeys commands, Oriented to person, place, time, situation, Appropriate for age. Cardiovascular: Heart tones S1 S2 present Capillary refill < 3 seconds Patient's skin is warm and dry. Respiratory: Airway is patent Respiratory effort is even, unlabored, Respiratory pattern is regular, symmetrical, Breath sounds are clear bilaterally. GI: Abdomen is round non-distended, Bowel sounds present X 4 quads. Abd is soft X 4 quads Abdomen is tender to palpation in right upper quadrant and left upper quadrant Reports nausea, vomiting. : No deficits noted. No signs and/or symptoms were reported regarding the genitourinary system. EENT: No deficits noted. No signs and/or symptoms were reported regarding the EENT system. Derm: Skin is intact, is healthy with good turgor, Skin is pink, warm \T\ dry. Musculoskeletal: Circulation, motion, and sensation intact. Capillary refill < 3 seconds, Range of motion: intact in all extremities. 14:00 Reassessment: Patient appears in no apparent distress at this time. Patient and/or ca1 family updated on plan of care and expected duration. Pain level reassessed. Patient is alert, oriented x 3, equal unlabored respirations, skin warm/dry/pink. 15:00 Reassessment: Patient appears in no apparent distress at this time. Patient and/or ca1 family updated on plan of care and expected duration. Pain level reassessed. Patient is alert, oriented x 3, equal unlabored respirations, skin warm/dry/pink. 16:09 Reassessment: Patient appears in no apparent distress at this time. Patient and/or ca1 family updated on plan of care and expected duration. Pain level reassessed. Patient is alert, oriented x 3, equal unlabored respirations, skin warm/dry/pink. Dr. Dakota at bedside. 17:00 Reassessment: Patient appears in no apparent distress at this time. No changes from ca1 previously documented assessment. Patient is alert, oriented x 3, equal unlabored respirations, skin warm/dry/pink. Vital Signs: 12:11 BP 136 / 91; Pulse 81; Resp 16; Temp 98.1; Pulse Ox 100% on R/A; Weight 84.82 kg (R); aj1 Height 5 ft. 4 in. (162.56 cm) (R); Pain 9/10; 13:02 BP 151 / 98; Pulse 78; Resp 16 S; Pulse Ox 100% on R/A; ca1 14:00 BP 131 / 79; Pulse 68; Resp 17 S; Pulse Ox 100% on R/A; ca1 15:00 BP 135 / 79; Pulse 65; Resp 18 S; Pulse Ox 100% on R/A; ca1 16:09 BP 122 / 76; Pulse 76; Resp 16 S; Pulse Ox 100% on R/A; ca1 17:26 BP 112 / 72; Pulse 73; Resp 16; Temp 98.4(O); Pulse Ox 100% ; lt1 12:11 Body Mass Index 32.10 (84.82 kg, 162.56 cm) aj1 ED Course: 11:46 Patient arrived in ED. mr 12:11 Triage completed. aj1 12:11 Arm band placed on Patient placed in waiting room, Patient notified of wait time. EKG aj1 completed in triage. Results shown to MD. 12:47 Marianna Silver, RN is Primary Nurse. ca1 13:02 Patient has correct armband on for positive identification. Placed in gown. Bed in low ca1 position. Call light in reach. Side rails up X 1. Pulse ox on. NIBP on. Warm blanket given. 13:02 No provider procedures requiring assistance completed. ca1 13:03 Freddy Schaefer MD is Attending Physician. wa 13:24 Initial lab(s) drawn, by me, sent to lab. Inserted saline lock: 20 gauge in right lt1 antecubital area, using aseptic technique. 13:51 US Abdomen Limited In Process Unspecified. EDMS 14:27 CT Abd/Pelvis - IV Contrast Only In Process Unspecified. EDMS 15:15 Aileen Duncan MD is Hospitalizing Provider. wa 15:52 Protime (+INR) Sent. ca1 17:47 Patient admitted, IV remains in place. ca1 17:48 Patient moved to MRI via wheelchair. ca1 Administered Medications: 13:30 Drug: Zofran 4 mg Route: IVP; Site: right antecubital; ca1 14:30 Follow up: Response: No adverse reaction; Nausea is decreased ca1 13:32 Drug: fentaNYL (PF) 25 mcg {Note: RASS - 0.} Route: IVP; Site: right antecubital; ca1 14:30 Follow up: Response: No adverse reaction; Pain is decreased; RASS: Alert and Calm (0) ca1 13:35 Drug: Pepcid 20 mg Route: IVP; Site: right antecubital; ca1 14:30 Follow up: Response: No adverse reaction; Pain is increased ca1 13:40 Drug: TORadol 30 mg Route: IVP; Site: right antecubital; ca1 14:30 Follow up: Response: No adverse reaction; Pain is decreased ca1 15:18 Drug: Flagyl 500 mg Volume: 100 ml; Route: IVPB; Rate: 200 ml/hr; Infused Over: 30 ca1 mins; Site: right antecubital; 16:08 Follow up: Response: No adverse reaction; IV Status: Completed infusion ca1 15:20 Drug: fentaNYL (PF) 75 mcg {Note: RASS - 0.} Route: IVP; Site: right antecubital; ca1 15:54 Follow up: Response: No adverse reaction; Pain is decreased; RASS: Alert and Calm (0) ca1 16:09 Drug: LevaQUIN 500 mg Volume: 100 ml; Route: IVPB; Infused Over: 60 mins; Site: right ca1 antecubital; 17:20 Follow up: Response: No adverse reaction; Pain is unchanged, physician notified; RASS: ca1 Alert and Calm (0); IV Status: Completed infusion 17:20 Drug: Dilaudid 1 mg {Note: RASS - 0.} Route: IVP; Site: right antecubital; ca1 18:00 Follow up: Response: No adverse reaction; Pain is decreased; RASS: Alert and Calm (0) ca1 Outcome: 15:16 Decision to Hospitalize by Provider. wa 17:47 Admitted to Tele accompanied by tech, via wheelchair, room 405, with chart, Report ca1 called to JIM Porras 17:47 Condition: stable 17:47 Instructed on the need for admit. 18:22 Patient left the ED. lt1 Signatures: Dispatcher [employer] Cristy Taylor RN RN aj1 Nelson, Kim mr Freddy Schaefer MD MD wa Acob, Cheryl, RN RN ca1 Ale Charles lt1
--- NOTE | 2019-01-01 15:17 | EDPHYS ---
Physician Documentation [facility] Name: Haley Liu Age: 23 yrs Sex: Female : 1995 Arrival Date: 01/01/2019 Time: 11:[address] Private MD: ED Physician Freddy Schaefer HPI: 01/01 13:36 This 23 yrs old Female presents to ER via Ambulatory with complaints of wa Nausea/Vomiting, Back Pain. 13:36 The patient presents to the emergency department with nausea, vomiting, abdominal pain. wa Onset: The symptoms/episode began/occurred gradually, 2 day(s) ago. Possible causes: unknown. The symptoms are aggravated by nothing. The symptoms are alleviated by nothing. Associated signs and symptoms: Pertinent positives: abdominal pain, nausea, vomiting, Pertinent negatives: diarrhea, dysuria, hematuria. Severity of symptoms: At their worst the symptoms were moderate in the emergency department the symptoms are worse markedly. The patient has not experienced similar symptoms in the past. The patient has not recently seen a physician. 23 yo F c/o upper abd pain that radiates to back with assoc. vomiting x 2 days. denies fever, diarrhea. 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 - Social history:: Smoking status: Patient/guardian denies using tobacco. - Ebola Screening: : Patient denies travel to an Ebola-affected area in the 21 days before illness onset. - Family history:: not pertinent. - Hospitalizations: : No recent hospitalization is reported. ROS: 13:41 Constitutional: Negative for fever, chills, and weight loss, Eyes: Negative for injury, wa pain, redness, and discharge, ENT: Negative for injury, pain, and discharge, Neck: Negative for injury, pain, and swelling, Cardiovascular: Negative for chest pain, palpitations, and edema, Respiratory: Negative for shortness of breath, cough, wheezing, and pleuritic chest pain, Back: Negative for injury and pain, : Negative for injury, bleeding, discharge, and swelling, MS/Extremity: Negative for injury and deformity, Skin: Negative for injury, rash, and discoloration, Neuro: Negative for headache, weakness, numbness, tingling, and seizure, Psych: Negative for depression, anxiety, suicide ideation, homicidal ideation, and hallucinations. 13:41 Abdomen/GI: Positive for abdominal pain, nausea and vomiting, Negative for diarrhea. 13:41 All other systems are negative. Exam: 13:42 Head/Face: Normocephalic, atraumatic. Eyes: Pupils equal round and reactive to light, wa extra-ocular motions intact. Lids and lashes normal. Conjunctiva and sclera are non-icteric and not injected. Cornea within normal limits. Periorbital areas with no swelling, redness, or edema. ENT: Nares patent. No nasal discharge, no septal abnormalities noted. Tympanic membranes are normal and external auditory canals are clear. Oropharynx with no redness, swelling, or masses, exudates, or evidence of obstruction, uvula midline. Mucous membranes moist. Neck: Trachea midline, no thyromegaly or masses palpated, and no cervical lymphadenopathy. Supple, full range of motion without nuchal rigidity, or vertebral point tenderness. No Meningismus. Chest/axilla: Normal chest wall appearance and motion. Nontender with no deformity. No lesions are appreciated. Cardiovascular: Regular rate and rhythm with a normal S1 and S2. No gallops, murmurs, or rubs. Normal PMI, no JVD. No pulse deficits. Respiratory: Lungs have equal breath sounds bilaterally, clear to auscultation and percussion. No rales, rhonchi or wheezes noted. No increased work of breathing, no retractions or nasal flaring. Skin: Warm, dry with normal turgor. Normal color with no rashes, no lesions, and no evidence of cellulitis. MS/ Extremity: Pulses equal, no cyanosis. Neurovascular intact. Full, normal range of motion. Neuro: Awake and alert, GCS 15, oriented to person, place, time, and situation. Cranial nerves II-XII grossly intact. Motor strength 5/5 in all extremities. Sensory grossly intact. Cerebellar exam normal. Normal gait. Psych: Awake, alert, with orientation to person, place and time. Behavior, mood, and affect are within normal limits. 13:42 Constitutional: The patient appears alert, tearful due to pain 13:42 Abdomen/GI: Inspection: abdomen appears normal, Bowel sounds: normal, in all quadrants, Palpation: moderate abdominal tenderness, in the epigastric area and right upper quadrant, voluntary guarding. Vital Signs: 12:11 BP 136 / 91; Pulse 81; Resp 16; Temp 98.1; Pulse Ox 100% on R/A; Weight 84.82 kg (R); aj1 Height 5 ft. 4 in. (162.56 cm) (R); Pain 9/10; 13:02 BP 151 / 98; Pulse 78; Resp 16 S; Pulse Ox 100% on R/A; ca1 14:00 BP 131 / 79; Pulse 68; Resp 17 S; Pulse Ox 100% on R/A; ca1 15:00 BP 135 / 79; Pulse 65; Resp 18 S; Pulse Ox 100% on R/A; ca1 16:09 BP 122 / 76; Pulse 76; Resp 16 S; Pulse Ox 100% on R/A; ca1 17:26 BP 112 / 72; Pulse 73; Resp 16; Temp 98.4(O); Pulse Ox 100% ; lt1 12:11 Body Mass Index 32.10 (84.82 kg, 162.56 cm) aj1 MDM: 13:03 Patient medically screened. mt 13:43 Differential diagnosis: noted yellowish urine, consider gallstones with ductal wa blockage. pancreatitis? r/o viral hepatitis. 15:09 Data reviewed: vital signs, nurses notes. Test interpretation: by ED physician or mt midlevel provider: labs noted for elevated liver enzymes including bilirubin. abd US noted for choledocholithiasis with ductal dilatation at 13 mm. . Response to treatment: the patient's symptoms have mildly improved after treatment. Physician consultation: Aileen Duncan MD. Admission orders: after a detailed discussion of the patient's condition and case, the admit orders are written by me. ED course: noted with ductal stone obstruction causing symptoms. will admit for eval for MR/ERCP. pain control. abx. 15:23 Test interpretation: by ED physician or midlevel provider: EKG: interp by me: HR 74. wa sinus. nml axis. no obvious zonal ischemic changes. 01/01 13:10 Order name: Basic Metabolic Panel; Complete Time: 15:02 mt 01/01 13:10 Order name: CBC with Diff; Complete Time: 13:46 mt 01/01 13:10 Order name: Hepatic Function; Complete Time: 15:02 mt 01/01 13:10 Order name: Lipase; Complete Time: 15:03 mt 01/01 13:10 Order name: Urine Microscopic Only; Complete Time: 15:02 mt 01/01 13:37 Order name: Urine Dipstick--Ancillary (enter results) 01/01 13:11 Order name: US Abdomen Limited; Complete Time: 15:03 mt 01/01 13:13 Order name: CT Abd/Pelvis - IV Contrast Only; Complete Time: 15:04 mt 01/01 13:37 Order name: Urine --Ancillary (enter results) 01/01 13:42 Order name: Urine --Ancillary EDNJ 01/01 13:42 Order name: Urine Dipstick-Ancillary EDNJ 01/01 13:46 Order name: Hepatitis Panel mt 01/01 15:24 Order name: Cholangiogram EDNJ 01/01 15:34 Order name: Protime (+INR) EDNJ 01/01 13:10 Order name: IV Saline Lock; Complete Time: 13:24 mt 01/01 13:10 Order name: Labs collected and sent; Complete Time: 13:24 mt 01/01 13:10 Order name: Urine Dipstick-Ancillary (obtain specimen); Complete Time: 13:33 mt 01/01 13:10 Order name: Urine Test (obtain specimen); Complete Time: 13:33 mt Administered Medications: 13:30 Drug: Zofran 4 mg Route: IVP; Site: right antecubital; ca1 14:30 Follow up: Response: No adverse reaction; Nausea is decreased ca1 13:32 Drug: fentaNYL (PF) 25 mcg {Note: RASS - 0.} Route: IVP; Site: right antecubital; ca1 14:30 Follow up: Response: No adverse reaction; Pain is decreased; RASS: Alert and Calm (0) ca1 13:35 Drug: Pepcid 20 mg Route: IVP; Site: right antecubital; ca1 14:30 Follow up: Response: No adverse reaction; Pain is increased ca1 13:40 Drug: TORadol 30 mg Route: IVP; Site: right antecubital; ca1 14:30 Follow up: Response: No adverse reaction; Pain is decreased ca1 15:18 Drug: Flagyl 500 mg Volume: 100 ml; Route: IVPB; Rate: 200 ml/hr; Infused Over: 30 ca1 mins; Site: right antecubital; 16:08 Follow up: Response: No adverse reaction; IV Status: Completed infusion ca1 15:20 Drug: fentaNYL (PF) 75 mcg {Note: RASS - 0.} Route: IVP; Site: right antecubital; ca1 15:54 Follow up: Response: No adverse reaction; Pain is decreased; RASS: Alert and Calm (0) ca1 16:09 Drug: LevaQUIN 500 mg Volume: 100 ml; Route: IVPB; Infused Over: 60 mins; Site: right ca1 antecubital; 17:20 Follow up: Response: No adverse reaction; Pain is unchanged, physician notified; RASS: ca1 Alert and Calm (0); IV Status: Completed infusion 17:20 Drug: Dilaudid 1 mg {Note: RASS - 0.} Route: IVP; Site: right antecubital; ca1 18:00 Follow up: Response: No adverse reaction; Pain is decreased; RASS: Alert and Calm (0) ca1 Disposition: 01/01/19 15:16 Hospitalization ordered by Aileen Duncan for Inpatient Admission. Preliminary diagnosis are acute abdominal pain, acute vomiting, choledocholithiasis with obstruction. - Bed requested for Telemetry/MedSurg (Inpatient). - Status is Inpatient Admission. lt1 - Condition is Stable. - Problem is new. - Symptoms have improved. UTI on Admission? No Signatures: Dispatcher [employer] EDMS Cristy Romero RN RN aj1 Freddy Schaefer MD MD wa Aguilar, Jose, RN RN ja1 Marianna Silver RN RN [facility] Jillian Charlesah lt1 Corrections: (The following items were deleted from the chart) 17:18 15:16 Hospitalization Ordered by Aileen Duncan MD for Inpatient Admission. Preliminary ja1 diagnosis is acute abdominal pain; acute vomiting; choledocholithiasis with obstruction. Bed requested for Telemetry/MedSurg (Inpatient). Status is Inpatient Admission. Condition is Stable. Problem is new. Symptoms have improved. UTI on Admission? No. mt 18:22 17:18 01/01/2019 15:16 Hospitalization Ordered by Aileen Duncan MD for Inpatient lt1 Admission. Preliminary diagnosis is acute abdominal pain; acute vomiting; choledocholithiasis with obstruction. Bed requested for Telemetry/MedSurg (Inpatient). Status is Inpatient Admission. Condition is Stable. Problem is new. Symptoms have improved. UTI on Admission? No. ja1
[2019-01-01] MEDS ORDERED: Levofloxacin500mg IV 500 MG/100 ML BAG IV ONE (15:25)
[2019-01-01] MEDS ORDERED: METRONIDAZOLE 500mg IVPB 500 MG/100 ML BAG IV ONE (15:25)
--- NOTE | 2019-01-01 15:43 | P.HP ---
Certification for Inpatient Patient admitted to: Inpatient With expected LOS: >2 Midnights Patient will require the following post-hospital care: None Practitioner: I am a practitioner with admitting privileges, knowledge of patient current condition, hospital course, and medical plan of care. Services: Services provided to patient in accordance with Admission requirements found in Title 42 Section 412.3 of the Code of Federal Regulations Patient History Date of Service: 01/01/19 Primary Care Provider: None Reason for admission: Abdominal pain History of Present Illness: Patient is a 23-year-old female with no significant past medical history other than cardiomyopathy which occurred due to her drug abuse in the past. Patient has been clean and sober for over 2 years. Has had echocardiogram and EKGs and cleared by her hand clipper Dr. Henson. She had recent . Patient was in her usual state of health until 3 days prior to admission when the patient had sudden onset of epigastric abdominal pain which was radiating to the back. Pain is constant moderate progressively worsening. No alleviating factors. Patient also reports some nausea and vomiting multiple times. She has had decreased p.o. intake. Denies any fevers chills shortness of breath or chest pain. Patient came into the ER for further evaluation of her worsening symptoms. In the ER her vital signs were stable she was afebrile workup revealed hyperbilirubinemia and elevated liver enzymes. Imaging studies reported gallstones and common bile duct dilatation with 5 mm stone in the CBD. Patient was given IV pain medications which improved her symptoms for about an hr. Patient was referred for admission. When seen in the ER patient was awake alert oriented x3 reporting pain Allergies No Known Drug Allergies Allergy (Verified 10/28/17 01:05) Unknown Home medications list reviewed: Yes Home Medications: Ucu531/FA/Omega3/Dha/Fish Oil [ Gummies] 1 each PO DAILY 10/27/17 Tramadol HCl [Ultram] 50 mg PO Q6HR PRN #15 tablet 11/16/17 - Past Medical/Surgical History Diabetic: No -: Cardiomyopathy Past Surgical History: Patient denies surgical history - Family History Father -: Hypertension, Lung disease, Diabetes Notes: CHF, MAC disease Mother Notes: psychologica disorders - Social History Smoking Status: Never smoker Alcohol use: No CD- Drugs: No Caffeine use: No Place of Residence: Home Review of Systems 10-point ROS is otherwise unremarkable Gastrointestinal: As per HPI Physical Examination - Vital Signs Temperature: 98.1 F Blood Pressure: 136/91 Pulse: 81 Respirations: 16 Pulse Ox (%): 100 - Physical Exam General: Alert, Oriented x3, Acute distress, Obese HEENT: Atraumatic, PERRLA, Mucous membr. moist/pink, EOMI, Scleral icterus Neck: Supple, 2+ carotid pulse no bruit Respiratory: Clear to auscultation bilaterally, Normal air movement Cardiovascular: No edema, Normal pulses, Regular rate/rhythm, Normal S1 S2 Gastrointestinal: Normal bowel sounds, Soft and benign, Non-distended, No tenderness, No rebound, No guarding, Tenderness (Epigastric and right upper quadrant) Musculoskeletal: No tenderness Integumentary: No rashes, No erythema Neurological: Normal gait, Normal speech, Normal strength at 5/5 x4 extr, Normal tone, Normal affect - Studies Laboratory Data (last 24 hrs) 01/01/19 13:22: WBC 8.3, Hgb 13.6, Hct 39.6, Plt Count 223 01/01/19 13:22: Sodium 139, Potassium 3.5, BUN 11, Creatinine 0.97, Glucose 124 H, Total Bilirubin 2.9 H, AST 249 H, ALT 573 H*, Alkaline Phosphatase 142 H, Lipase 158 Imagings Data: CT abd Choledocholithiasis 5mm stone. cholelithiasis. US abd CBD distention 13mm. cholelithiasis Assessment and Plan - Problems (Diagnosis) (1) Right upper quadrant abdominal pain Current Visit: Yes Status: Acute (2) Cholelithiasis Current Visit: Yes Status: Acute Qualifiers: Cholelithiasis location: gallbladder and bile duct Cholecystitis presence: without cholecystitis Biliary obstruction: with biliary obstruction Qualified Code(s): K80.71 - Calculus of gallbladder and bile duct without cholecystitis with obstruction (3) Choledocholithiasis Current Visit: Yes Status: Acute (4) Hyperbilirubinemia Current Visit: Yes Status: Acute (5) Obesity Current Visit: Yes Status: Acute Qualifiers: Obesity type: due to excess calories Obesity classification: adult class 1 (BMI 30 - 34.9) Serious obesity comorbidity presence: without serious comorbidity Body mass index: BMI 32.0-32.9 Qualified Code(s): E66.09 - Other obesity due to excess calories; Z68.32 - Body mass index (BMI) 32.0-32.9, adult - Plan NPO IV pain medications morphine 2mg IV q4hr MRCP Consult GI. Spoke with Dr. Lowery. Patient will need ERCP IV abx IVFs Discharge Plan: Home Plan to discharge in: 48 Hours - Advance Directives Does patient have a Living Will: No Does patient have a Durable POA for Healthcare: No
[2019-01-01 16:03] LABS: Protime INR 1.03
[2019-01-01] MEDS ORDERED: HYDROMORPHONE HCL 1 MG/ML INJ ONE (17:17)
[2019-01-01] MEDS: METRONIDAZOLE 500mg IVPB 500 MG/100 ML BAG IV SCH (18:34)
[2019-01-01 18:45] VITALS: BMI 32.1
[2019-01-01] MEDS ORDERED: KCL 20 MEQ/100 mL IVPB 20 MEQ/100 ML BAG IV SCH (20:00)
--- NOTE | 2019-01-01 20:02 | RAD REPORT ---
EXAM DESCRIPTION: MRI - Cholangiogram - 01/01/2019 6:13 pm CLINICAL HISTORY: Abdominal pain, nausea and vomiting COMPARISON: CT study December 01 TECHNIQUE: Axial and coronal heavily T2 weighted sequences were obtained. Coronal T2 HASTE fat satur ation static and coronal multiplane reconstruction imaging generated and reviewed. Horizontal and dorina tical axis rotational views obtained using maximum intensity projection (MIP) protocol. FINDINGS: A 6 millimeter mobile gallstone is present within the gallbladder. No other gallstones con firmed. Gallbladder wall does not appear edematous. No intrahepatic biliary tree dilatation. Extrahepatic biliary tree is mildly dilated to 9 mm. A 4 mil limeter duct stone is present distally. No stricture or mass. No pancreatic duct dilatation. IMPRESSION: Choledocholithiasis with 4 millimeter duct stone present. Common bile duct is dilated to 9 mm. Cholelithiasis.
[2019-01-01] MEDS ORDERED: HYDROMORPHONE HCL 2 MG/ML inj IM ONE (20:45)
[2019-01-01] MEDS ORDERED: PROMETHAZINE 25 MG/ML VIAL IM ONE (20:46)
[2019-01-01] MEDS: CIPROFLOXACIN 400mg IV 400 MG/200 ML BAG IV SCH (20:57)
[2019-01-01] MEDS: NA CHLORIDE 0.9% 1,000 ML IV SCH (20:57)
[2019-01-01] MEDS ORDERED: LORAZEPAM 0.5 MG TABLET PO ONE (23:23)
[2019-01-01] MEDS ORDERED: LIDOCAINE 1% MPF 5 ML VIAL ONE (23:29)
[2019-01-02] MEDS: MORPHINE 2 MG/ML SYR IV PRN ×2 (00:13→04:06)
[2019-01-02] MEDS: ONDANSETRON 4 MG/2 ML VIAL IV PRN ×5 (00:13→21:01)
[2019-01-02] MEDS: CIPROFLOXACIN 400mg IV 400 MG/200 ML BAG IV SCH ×3 (00:19→20:02)
[2019-01-02] MEDS: METRONIDAZOLE 500mg IVPB 500 MG/100 ML BAG IV SCH ×3 (00:19→17:00)
[2019-01-02] MEDS: NA CHLORIDE 0.9% 1,000 ML IV SCH ×4 (03:30→23:40)
[2019-01-02] MEDS: HYDROMORPHONE HCL 0.5 MG/0.5 ML INJ IV PRN ×5 (05:48→21:01)
[2019-01-02 06:01] LABS: Absolute Lymphocytes (CBC) 1.3 K/uL (0.7-4.9); Basophils % 0.3 % (0-1.3); Hematocrit 35.7 % (36.0-45.0); Lymphocytes % 26.4 % (15.3-44.8); MPV 9.5 fL (7.6-11.3); RBC Red Blood Cell Count 3.81 M/uL (3.86-4.86)
[2019-01-02 06:18] LABS: Albumin 3.1 g/dL (3.4-5.0); Potassium 3.7 mmol/L (3.5-5.1); Protein, Total 6.3 g/dL (6.4-8.2)
[2019-01-02] MEDS ORDERED: KCL 20 MEQ/100 mL IVPB 20 MEQ/100 ML BAG IV SCH (09:00)
[2019-01-02] MEDS ORDERED: KETOROLAC 30 MG/ML INJ IV PRN (12:09)
--- NOTE | 2019-01-02 12:22 | EKG ---
Test Date: 2019-01-01 Test Time: 12:28:02 Grain Thresher: JAKOB MEASUREMENT RESULTS: Intervals: Rate: 74 TN: 154 QRSD: 86 QT: 402 QTc: 446 [place]: P: 64 TN: 154 QRS: 71 T: 53 INTERPRETIVE STATEMENTS: Normal sinus rhythm Normal ECG Compared to ECG 08/07/2014 11:46:15 Myocardial infarct finding no longer present Electronically Signed On 01-02-19 12:19:38 CHIMNEY CONSTRUCTION SUPERVISOR by Kahlil Card
--- NOTE | 2019-01-02 14:10 | P.PN ---
Subjective Date of Service: 01/02/19 Primary Care Provider: None Chief Complaint: Abdominal pain Patient is still complaining of abdominal pain, rated as severe. No vomiting. She also denies any diarrhea. She has been afebrile. Physical Examination - Vital Signs Temperature: 98.1 F Blood Pressure: 113/65 Pulse: 79 Respirations: 18 Pulse Ox (%): 96 - Physical Exam General: Alert, In no apparent distress, Oriented x3 HEENT: Mucous membr. moist/pink Neck: Supple Respiratory: Clear to auscultation bilaterally, Normal air movement Cardiovascular: No edema, Regular rate/rhythm, Normal S1 S2, No murmurs Gastrointestinal: Normal bowel sounds, Soft and benign, Non-distended, Tenderness (Epigastrium and right upper quadrant.) Musculoskeletal: No swelling, No erythema Integumentary: No rashes Neurological: Normal speech, Normal strength at 5/5 x4 extr Assessment And Plan - Current Problems (Diagnosis) (1) Choledocholithiasis Current Visit: Yes Status: Acute (2) Hyperbilirubinemia Current Visit: Yes Status: Acute (3) Obesity Current Visit: Yes Status: Acute Qualifiers: Obesity type: due to excess calories Obesity classification: adult class 1 (BMI 30 - 34.9) Serious obesity comorbidity presence: without serious comorbidity Body mass index: BMI 32.0-32.9 Qualified Code(s): E66.09 - Other obesity due to excess calories; Z68.32 - Body mass index (BMI) 32.0-32.9, adult - Plan LFT have trended down. Continue supportive measures with IV hydration, IV hydromorphone p.r.n. and Toradol IV p.r.n. for pain. Continue antibiotic coverage. Awaiting GI consult. The patient may need both ERCP and lap cholecystectomy. Continue to monitor liver enzymes. Keep NPO.
[2019-01-02] MEDS ORDERED: Ringers Lactate 1,000 ML IV ONE (17:18)
[2019-01-02] MEDS ORDERED: PROPOFOL 200 MG/20 ML VIAL IV ONE (17:36)
[2019-01-02] MEDS ORDERED: LIDOCAINE 1% MPF 5 ML VIAL ONE (17:36)
--- NOTE | 2019-01-02 18:54 | ENDO RPT ---
[address], [address] ERCP PROCEDURE REPORT EXAM DATE: 01/02/2019 PATIENT NAME: Haley Liu MR #: [id number] BIRTHDATE: 1995 ATTENDING: Freddy Lowery Dr STATUS: inpatient RESTAURANT CASHIER: Pia Hargrove and Jnaa Quick RN INDICATIONS: The patient is a 23 yr old Female here for an ERCP due to stone, abdominal pain, abnormal Liver Function Tests, and abnormal imaging PROCEDURE PERFORMED: ERCP MEDICATIONS: Per Anesthesia. CONSENT: The patient understands the risks and benefits of the procedure and understands that these risks include, but are not limited to: sedation, allergic reaction, infection, perforation and/or bleeding. Alternative means of evaluation and treatment include, among others: physical exam, x-rays, and/or surgical intervention. The patient elects to proceed with this endoscopic procedure. DESCRIPTION OF PROCEDURE: During intra-op preparation period all mechanical medical equipment was checked for proper function. Hand hygiene and appropriate measures for infection prevention was taken. Procedure, possible complications, and alternatives including but not limited to the possibility of bleeding, perforation, tear, infection, sepsis, need for surgery, need for blood transfusion, and anesthesia related complications were explained to the patient. In addition, 5-30% incidence of acute pancreatitis as a result of ERCP were explained. After the risks, benefits and alternatives of the procedure were thoroughly explained, Informed was verified, confirmed and timeout was successfully executed by the treatment team. With the patient in left semi-prone position, medications were administered intravenously.The [id number] ([id number]) was passed from the mouth into the esophagus and further advanced from the esophagus into the stomach. From stomach scope was directed to the second portion of the duodenum. Major papilla was aligned with the duodenoscope. The scope position was confirmed fluoroscopically. Rest of the findings/therapeutics are given below. The scope was then completely withdrawn from the patient and the procedure completed. The pulse, BP, and O2 saturation were monitored and documented by the physician and the nursing staff throughout the entire procedure. The patient was cared for as planned according to standard protocol. The patient was then discharged to recovery in stable condition and with appropriate post procedure care. Filling defect was noted in the common bile duct. A stricture was found at the ampulla / common bile duct with a defective fluoroscopy machine - no fluoro pedal. ADVERSE EVENT: none IMPRESSIONS: 1. Filling defect in the distal common bile duct 2. 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 antibiotics 2. will refer to tertiary center with well functioning fluoroscopy machine REPEAT EXAM: Freddy Lowery Dr eSigned: Freddy Lowery Dr 01/02/2019 6:53 PM cc: CPT CODES: ICD9 CODES: PATIENT NAME: Haley LiuDamián MR#: [id number]
--- NOTE | 2019-01-02 19:10 | RAD REPORT ---
EXAM DESCRIPTION: RAD - Fluoroscopy ERCP - 01/02/2019 7:04 pm FINDINGS: There were 4 spot images submitted from a fluoroscopic assisted ERCP. Detail is extremely limited on the images and correlation is needed with findings during real-time evaluation. Fluoro time was 5 minutes 31 seconds.
[2019-01-03] MEDS: METRONIDAZOLE 500mg IVPB 500 MG/100 ML BAG IV SCH ×3 (00:36→16:47)
[2019-01-03] MEDS: HYDROMORPHONE HCL 0.5 MG/0.5 ML INJ IV PRN ×6 (01:23→20:52)
[2019-01-03] MEDS: ONDANSETRON 4 MG/2 ML VIAL IV PRN ×4 (01:23→20:52)
[2019-01-03 04:51] LABS: AST/SGOT 185 U/L (15-37); Albumin 2.7 g/dL (3.4-5.0); Alkaline Phosphatase 103 U/L (45-117); BUN Blood Urea Nitrogen 7 mg/dL (7-18); Bicarbonate 23 mmol/L (21-32); Bilirubin Total 1.6 mg/dL (0.2-1.0); Glucose Level 74 mg/dL (74-106); Potassium 3.7 mmol/L (3.5-5.1); Protein, Total 5.6 g/dL (6.4-8.2); Sodium Level 140 mmol/L (136-145)
[2019-01-03 04:52] LABS: ALT/SGPT 355 U/L (12-78)
[2019-01-03] MEDS ORDERED: KCL 20 MEQ/100 mL IVPB 20 MEQ/100 ML BAG IV SCH (08:00)
[2019-01-03] MEDS: CIPROFLOXACIN 400mg IV 400 MG/200 ML BAG IV SCH ×2 (09:27→20:22)
[2019-01-03] MEDS: NA CHLORIDE 0.9% 1,000 ML IV SCH ×2 (10:39→18:27)
--- NOTE | 2019-01-03 15:24 | P.DS ---
Admission Date: 01/01/19 Discharge Date: 01/03/19 Primary Care Provider: None Disposition: [facility] Discharge Condition: FAIR Reason for Admission: Abdominal pain Consultations: GI-Dr. Lowery Procedures: ERCP - Problems (1) Choledocholithiasis Current Visit: Yes Status: Acute (2) Hyperbilirubinemia Current Visit: Yes Status: Acute (3) Obesity Current Visit: Yes Status: Acute Qualifiers: Obesity type: due to excess calories Obesity classification: adult class 1 (BMI 30 - 34.9) Serious obesity comorbidity presence: without serious comorbidity Body mass index: BMI 32.0-32.9 Qualified Code(s): E66.09 - Other obesity due to excess calories; Z68.32 - Body mass index (BMI) 32.0-32.9, adult Brief History of Present Illness: 23-year-old woman with a remote history of cardiomyopathy presented to the emergency department with a complaint of sudden onset of epigastric pain, worse with meals and associated with nausea and vomiting. Images studies in the emergency department demonstrated common bile duct dilatation and gallstones. Her liver enzymes and total bilirubin were elevated. The patient was therefore admitted further management of choledocholithiasis. Hospital Course: She was treated supportively with IV hydration, IV hydromorphone p.r.n. for pain and kept NPO. She was evaluated by GI-Dr. Lowery. ERCP was attempted, patient noted to have biliary stricture, but Dr. Lowery report for faulty fluoroscopy and could not complete the procedure. He therefore recommended patient to be transferred to our facility where ERCP can be performed. Her vital sign of the stable. Patient has been afebrile. Liver enzymes and total bilirubin of started trending down. She has been accepted [facility] to [facility]. She is deemed stable for transfer. Vital Signs/Physical Exam: Temp Pulse Resp BP Pulse Ox 98.3 F 66 18 111/58 L 95 01/03/19 12:00 01/03/19 12:00 01/03/19 13:42 01/03/19 12:00 01/03/19 13:42 General: Alert, In no apparent distress, Oriented x3 HEENT: Mucous membr. moist/pink Neck: Supple, JVD not distended Respiratory: Clear to auscultation bilaterally, Normal air movement Cardiovascular: No edema, Regular rate/rhythm, Normal S1 S2 Gastrointestinal: Normal bowel sounds, Tenderness (Epigastrium and RUQ) Musculoskeletal: No swelling, No erythema Integumentary: No rashes Neurological: Normal speech Laboratory Data at Discharge: WBC 4.7 K/uL (4.3-10.9) D 01/02/19 05:31 Hgb 12.2 g/dL (12.0-15.0) 01/02/19 05:31 Hct 35.7 % (36.0-45.0) L 01/02/19 05:31 Plt Count 189 K/uL (152-406) 01/02/19 05:31 PT 12.1 SECONDS (9.5-12.5) 01/01/19 15:50 INR 1.03 01/01/19 15:50 Sodium 140 mmol/L (136-145) 01/03/19 03:50 Potassium 3.7 mmol/L (3.5-5.1) 01/03/19 03:50 BUN 7 mg/dL (7-18) 01/03/19 03:50 Creatinine 0.65 mg/dL (0.55-1.3) 01/03/19 03:50 Glucose 74 mg/dL (74-106) 01/03/19 03:50 Total Bilirubin 1.6 mg/dL (0.2-1.0) H 01/03/19 03:50 AST 185 U/L (15-37) H 01/03/19 03:50 ALT 355 U/L (12-78) H* 01/03/19 03:50 Alkaline Phosphatase 103 U/L (45-117) 01/03/19 03:50 Lipase 158 U/L (73-393) 01/01/19 13:22 Home Medications: NK [No Home Meds] 01/01/19
[2019-01-03 21:44] VITALS: O2SAT 97
[2019-01-03 22:07] VITALS: BP 123/72; TEMP 98.6
[2019-01-04 14:35] LABS: HBsAG Nonreactive (Nonreactive)
--- OUTSIDE RECORDS SUMMARY | 2019-01-07 21:20 | XMS REPORT ---
:1995 [facility] Address [address] [place] [address] Care Team Providers Name Role Phone PAULA GRAYSON Unavailable Unavailable Problems This patient has no known problems. Allergies, Adverse Reactions, Alerts This patient has no known allergies or adverse reactions. Medications This patient has no known medications. Results Test Description Test Time Test Comments Text Results Atomic Results Result Comments COMPREHENSIVE METABOLIC PANEL 2019-01-06 10:48:00 Test Item Value Reference Range Comments TOTAL PROTEIN (BEAKER) (test 6.5 gm/dL 6.0-8.3 ssei=538) ALBUMIN (BEAKER) (test 3.7 g/dL 3.5-5.0 bfyp=7218) ALKALINE PHOSPHATASE 110 U/L 40-150 (BEAKER) (test vabj=716) BILIRUBIN TOTAL (BEAKER) 1.0 mg/dL 0.2-1.2 (test exmq=747) SODIUM (BEAKER) (test 141 meq/L 136-145 ojcz=510) POTASSIUM (BEAKER) (test 4.0 meq/L 3.5-5.1 grcr=983) CHLORIDE (BEAKER) (test 107 meq/L 98-107 mifl=086) CO2 (BEAKER) (test mlbu=609) 27 meq/L 22-29 BLOOD UREA NITROGEN (BEAKER) 7 mg/dL 7-21 (test clcw=035) CREATININE (BEAKER) (test 0.80 mg/dL 0.57-1.25 vfpt=114) GLUCOSE RANDOM (BEAKER) 178 mg/dL 70-105 (test cnvb=055) CALCIUM (BEAKER) (test 8.8 mg/dL 8.4-10.2 vzew=985) AST (SGOT) (BEAKER) (test 172 U/L 5-34 fpuy=846) ALT (SGPT) (BEAKER) (test 386 U/L 6-55 uksl=406) EGFR (BEAKER) (test 89 mL/min/1.73 sq m ESTIMATED GFR IS NOT pape=2493) ACCURATE CREATININE CLEARANCE IN PREDICTING GLOMERULAR FILTRATION RATE. ESTIMATED GFR IS NOT APPLICABLE FOR DIALYSIS PATIENTS. CBC (HEMOGRAM ONLY)2019-01-06 10:30:00 Test Item Value Reference Range Comments WHITE BLOOD CELL COUNT (BEAKER) (test pqjq=673) 12.2 K/ L 3.5-10.5 RED BLOOD CELL COUNT (BEAKER) (test euox=600) 3.80 M/ L 3.93-5.22 HEMOGLOBIN (BEAKER) (test kevo=265) 11.9 GM/DL 11.2-15.7 HEMATOCRIT (BEAKER) (test kdcz=760) 36.6 % 34.1-44.9 MEAN CORPUSCULAR VOLUME (BEAKER) (test zjcf=245) 96.3 fL 79.4-94.8 MEAN CORPUSCULAR HEMOGLOBIN (BEAKER) (test 31.3 pg 25.6-32.2 wyvm=941) MEAN CORPUSCULAR HEMOGLOBIN CONC (BEAKER) (test 32.5 GM/DL 32.2-35.5 ssfe=716) RED CELL DISTRIBUTION WIDTH (BEAKER) (test 15.3 % 11.7-14.4 zagh=676) PLATELET COUNT (BEAKER) (test mndd=098) 206 K/CU MM 150-450 MEAN PLATELET VOLUME (BEAKER) (test boox=634) 11.4 fL 9.4-12.3 NUCLEATED RED BLOOD CELLS (BEAKER) (test 0 /100 WBC 0-0 dzcj=607) FL, [id number] 08:59:00Reason for exam:->bile duct diseaseIs the patient ?->NoWhen was patient's last menstrual cycle?->12/05/18FINAL REPORT A fluoroscopic unit was utilized for a procedure performed in the operating room. No interpretation was requested. Please refer to the operative report regarding findings. Please refer to PACS for patient radiation dose information. Signed: Adilene Victoria MDReport Verified Date/Time: 01/05/2019 08:59:15 Reading Location: [facility] Radiology Reading Room [facility]IC [id number] 05:12:00 Test Item Value Reference Range Comments TOTAL PROTEIN (BEAKER) 5.9 gm/dL 6.0-8.3 (test tmrs=927) ALBUMIN (BEAKER) (test 3.4 g/dL 3.5-5.0 nirk=1121) ALKALINE PHOSPHATASE 120 U/L 40-150 (BEAKER) (test bzog=167) BILIRUBIN TOTAL (BEAKER) 1.5 mg/dL 0.2-1.2 (test uwte=741) SODIUM (BEAKER) (test 140 meq/L 136-145 wnte=489) POTASSIUM (BEAKER) (test 4.0 meq/L 3.5-5.1 dqfb=549) CHLORIDE (BEAKER) (test 109 meq/L 98-107 eyxu=876) CO2 (BEAKER) (test 25 meq/L 22-29 mtnk=657) BLOOD UREA NITROGEN 4 mg/dL 7-21 (BEAKER) (test zmbo=826) CREATININE (BEAKER) (test 0.74 mg/dL 0.57-1.25 pkrs=242) GLUCOSE RANDOM (BEAKER) 90 mg/dL 70-105 (test dvbw=087) CALCIUM (BEAKER) (test 8.5 mg/dL 8.4-10.2 dgzo=995) AST (SGOT) (BEAKER) (test 194 U/L 5-34 eyff=181) ALT (SGPT) (BEAKER) (test 348 U/L 6-55 emle=925) EGFR (BEAKER) (test 97 mL/min/1.73 sq m ESTIMATED GFR IS NOT vjcj=8383) ACCURATE CREATININE CLEARANCE IN PREDICTING GLOMERULAR FILTRATION RATE. ESTIMATED GFR IS NOT APPLICABLE FOR DIALYSIS PATIENTS. [id number] 06:55:00 Test Item Value Reference Range Comments LIPASE (BEAKER) (test nryc=690) 30 U/L 8-78 COMPREHENSIVE METABOLIC [id number] 06:55:00 Test Item Value Reference Range Comments TOTAL PROTEIN (BEAKER) 6.1 gm/dL 6.0-8.3 (test cihu=359) ALBUMIN (BEAKER) (test 3.5 g/dL 3.5-5.0 flrd=0702) ALKALINE PHOSPHATASE 129 U/L 40-150 (BEAKER) (test yrkq=446) BILIRUBIN TOTAL (BEAKER) 2.7 mg/dL 0.2-1.2 (test yacy=792) SODIUM (BEAKER) (test 139 meq/L 136-145 biea=769) POTASSIUM (BEAKER) (test 3.7 meq/L 3.5-5.1 tmtj=189) CHLORIDE (BEAKER) (test 108 meq/L 98-107 kevi=487) CO2 (BEAKER) (test 25 meq/L 22-29 cpct=440) BLOOD UREA NITROGEN 4 mg/dL 7-21 (BEAKER) (test qxiz=136) CREATININE (BEAKER) (test 0.76 mg/dL 0.57-1.25 czag=430) GLUCOSE RANDOM (BEAKER) 139 mg/dL 70-105 (test utnz=447) CALCIUM (BEAKER) (test 8.5 mg/dL 8.4-10.2 siek=545) AST (SGOT) (BEAKER) (test 228 U/L 5-34 kpxe=676) ALT (SGPT) (BEAKER) (test 374 U/L 6-55 jkdc=160) EGFR (BEAKER) (test 94 mL/min/1.73 sq m ESTIMATED GFR IS NOT xstx=8476) ACCURATE CREATININE CLEARANCE IN PREDICTING GLOMERULAR FILTRATION RATE. ESTIMATED GFR IS NOT APPLICABLE FOR DIALYSIS PATIENTS. PROTHROMBIN TIME/[id number] 06:49:00 Test Item Value Reference Range Comments PROTIME (BEAKER) (test ppho=791) 12.6 seconds 11.9-14.2 INR (BEAKER) (test cvne=997) 1.0 <=5.9 Effective 07/26/2018: PT Reference Range ChangeNew: 11.9-14.2 Previous: 11.7- 14.7RECOMMENDED COUMADIN/WARFARIN INR THERAPY RANGESSTANDARD DOSE: 2.0-3.0 Includes: PROPHYLAXIS for venous thrombosis, systemic embolization; TREATMENT for venous thrombosis and/or pulmonary embolus.HIGH RISK: Target INR is2.5-3.5 for patients wiht mechanical heart valves.CBC W/PLT COUNT & AUTO [id number] 06:09:00 Test Item Value Reference Range Comments WHITE BLOOD CELL COUNT (BEAKER) (test gzrn=387) 4.7 K/ L 3.5-10.5 RED BLOOD CELL COUNT (BEAKER) (test ulwf=717) 3.76 M/ L 3.93-5.22 HEMOGLOBIN (BEAKER) (test khzc=303) 11.7 GM/DL 11.2-15.7 HEMATOCRIT (BEAKER) (test hvqx=340) 35.6 % 34.1-44.9 MEAN CORPUSCULAR VOLUME (BEAKER) (test yrex=701) 94.7 fL 79.4-94.8 MEAN CORPUSCULAR HEMOGLOBIN (BEAKER) (test 31.1 pg 25.6-32.2 vpnm=761) MEAN CORPUSCULAR HEMOGLOBIN CONC (BEAKER) (test 32.9 GM/DL 32.2-35.5 wukk=162) RED CELL DISTRIBUTION WIDTH (BEAKER) (test 14.4 % 11.7-14.4 qsgh=322) PLATELET COUNT (BEAKER) (test fsad=420) 187 K/CU MM 150-450 MEAN PLATELET VOLUME (BEAKER) (test xyew=809) 11.1 fL 9.4-12.3 NUCLEATED RED BLOOD CELLS (BEAKER) (test 0 /100 WBC 0-0 ixhl=804) NEUTROPHILS RELATIVE PERCENT (BEAKER) (test 54 % rlls=074) LYMPHOCYTES RELATIVE PERCENT (BEAKER) (test 31 % kiws=491) MONOCYTES RELATIVE PERCENT (BEAKER) (test 11 % rohz=146) EOSINOPHILS RELATIVE PERCENT (BEAKER) (test 3 % qcld=409) BASOPHILS RELATIVE PERCENT (BEAKER) (test 0 % wuxa=089) NEUTROPHILS ABSOLUTE COUNT (BEAKER) (test 2.52 K/ L 1.56-6.13 wcei=025) LYMPHOCYTES ABSOLUTE COUNT (BEAKER) (test 1.43 K/ L 1.18-3.74 ejsw=823) MONOCYTES ABSOLUTE COUNT (BEAKER) (test 0.52 K/ L 0.24-0.36 pjvx=537) EOSINOPHILS ABSOLUTE COUNT (BEAKER) (test 0.15 K/ L 0.04-0.36 bokd=983) BASOPHILS ABSOLUTE COUNT (BEAKER) (test 0.01 K/ L 0.01-0.08 gpiz=017) IMMATURE GRANULOCYTES-RELATIVE PERCENT (BEAKER) 0 % 0-1 (test lbxg=0774)
== END 2019-01-03 22:30 | disposition short-term general hospital (02) | DRG 446 ==
LOC: ER 11:43 → ERHOLD 15:30 → 4TH 17:49
PROVIDERS: ADMIT Family Medicine; ATTEND Family Medicine
PROC: 0FJB8ZZ Inspection of Hepatobiliary Duct, Via Natural or Artificial Opening Endoscopic (ICD-10-PCS; principal; 2019-01-02 17:00)
DX: K80.50 Calculus of bile duct without cholangitis or cholecystitis without obstruction (principal); E80.6 Other disorders of bilirubin metabolism; E66.9 Obesity, unspecified; Z68.32 Body mass index [BMI] 32.0-32.9, adult
CPT/HCPCS: 36415; 74177; 74181; 76705; 80048; 80053; 80074; 80076; 81003; 81015; 81025; 83690; 85025; 85610; 93005; 94760; 96365; 96367; 96375; 99285; C1769; J0744; J1170; J2270; J2405; J2550; J2704; J3010; J7030; J7120; Q9967

== ENCOUNTER 2019-07-27 11:40 | Emergency (ER) | payer SELFPAY ==
--- OUTSIDE RECORDS SUMMARY | 2019-07-27 11:50 | XMS REPORT | Clinical Summary ---
:1995 Author Organization [facility] Address [address] [place] [address] Care Team Providers Name Role Phone Unavailable Primary Care Provider Unavailable Allergies No Known Allergies Medications Medication Sig Dispensed Refills Start Date End Date Status traMADol (ULTRAM) Take 1 tablet 20 tablet 0 01/06/2019 019 Discontinued 50 mg tablet (50 mg total) by mouth every 6 (six) hours as needed for Pain for up to 5 days. Max Daily Amount: 200 mg HYDROcodone-acetam Take 1 tablet 20 tablet 0 01/06/20192018 inophen (NORCO by mouth every 5-325) 5-325 mg 6 (six) hours per tablet as needed for Pain for up to 5 days. Max Daily Amount: 4 tablets Active Problems Problem Noted Date Choledocholithiasis 01/04/2019 Encounters Date Type Specialty Care Team Description 01/05/2019 Anesthesia Event Rudi Elliott CRNA 01/05/2019 Surgery Jimi, LAPAROSCOPY,CHO SHEKHAR Cuevas MD 01/05/2019 Anesthesia Event Gastroenterology Alexys Karimi MD 01/05/2019 Surgery Gastroenterology Santy, ERCP,PAPILL OTOMY MD Darrian 01/04/2019 Travel 01/03/2019 Hospital General Internal [place] Choledochol ithiasis - Encounter Medicine [place] (Primary Dx) 01/06/2019 01/03/2019 Orders Only Internal Medicine [place] MD after 07/26/2018 Family History Medical History Relation Name Comments Diabetes Father Relation Name Status Comments Father Social History Tobacco Use Types Packs/Day Years Used Date Never Smoker Smokeless Tobacco: Never Used Alcohol Use Drinks/Week oz/Week Comments No Alcohol Habits Answer Date Recorded How often do you have a drink containing alcohol? Never 01/04/2019 How many drinks containing alcohol do you have on a typical Not asked day when you are drinking? How often do you have six or more drinks on one occasion? No t asked Sex Assigned at Date Recorded Not on file Job Start Date Occupation Industry Not on file Not on file Not on file Travel History Travel Start Travel End No recent travel history available. Last Filed Vital Signs Vital Sign Reading Time Taken Blood Pressure 110/58 01/06/2019 10:51 AM PHOTOGRAPHIC PROCESS WORKER Pulse 76 01/06/2019 10:51 AM PHOTOGRAPHIC PROCESS WORKER Temperature 36.5 C (97.7 F) 01/06/2019 10:51 AM PHOTOGRAPHIC PROCESS WORKER Respiratory Rate 17 01/06/2019 10:51 AM PHOTOGRAPHIC PROCESS WORKER Oxygen Saturation 97% 01/06/2019 10:51 AM PHOTOGRAPHIC PROCESS WORKER Inhaled Oxygen Concentration - - Weight 86.2 kg (190 lb) 01/04/2019 12:34 AM PHOTOGRAPHIC PROCESS WORKER Height 162.6 cm (5' 4") 01/04/2019 12:34 AM PHOTOGRAPHIC PROCESS WORKER Body Mass Index 32.61 01/04/2019 12:34 AM PHOTOGRAPHIC PROCESS WORKER Plan of Treatment Health Maintenance Due Date Last Done Comments INFLUENZA VACCINE (#1) 2018 04/11/2017 Procedures Procedure Name Priority Date/Time Associated Diagnosis Comme nts TRANSFUSION SERVICE 01/06/2019 5:52 REPORT - SCAN PM PHOTOGRAPHIC PROCESS WORKER CBC (HEMOGRAM ONLY) Routine 01/06/2019 10:21 Resu lts for this AM PHOTOGRAPHIC PROCESS WORKER procedure are i n the results section. COMPREHENSIVE Routine 01/06/2019 10:21 Results fo r this METABOLIC PANEL AM PHOTOGRAPHIC PROCESS WORKER procedure ar e in the results section. TISSUE EXAM AP Routine 01/05/2019 5:09 Results for this PM PHOTOGRAPHIC PROCESS WORKER procedure are i n the results section. LAPAROSCOPY,CHOLECYST 01/05/2019 3:17 Choledocholithi asis ECTOMY PM PHOTOGRAPHIC PROCESS WORKER Special Needs REQ TF ABORH, MANUAL Routine 01/05/2019 12:45 PM Results for this PHOTOGRAPHIC PROCESS WORKER procedure are i n the results section. TYPE AND SCREEN, OMKAR 01/05/2019 11:53 AM Resu lts for this AUTOMATED PHOTOGRAPHIC PROCESS WORKER procedure are i n the results section. [place] ERCP Routine 01/05/2019 7:45 AM Results for this PHOTOGRAPHIC PROCESS WORKER procedure are i n the results section. REPORT OF PROCEDURE 01/05/2019 7:25 AM - ENDOSCOPY URL PHOTOGRAPHIC PROCESS WORKER ERCP,BALLOON 01/05/2019 7:00 AM Abnormal findings on SWEEPING PHOTOGRAPHIC PROCESS WORKER diagnostic imaging of digestive system Case Notes OKAYED BY GLORIA TO POST IN R OOM 2 @ 7:00/JOEL 01/04 @ 1:05 Special Needs (C-ARM) PROCEDURE W/ C-ARM 01/05/2019 7:00 AM PHOTOGRAPHIC PROCESS WORKER Abnormal fi ndings on diagnostic imaging of digestive system Case Notes OKAYED BY GLORIA TO POST IN R OOM 2 @ 7:00/JOEL 01/04 @ 1:05 Special Needs (C-ARM) ERCP,PAPILLOTOMY 01/05/2019 7:00 AM PHOTOGRAPHIC PROCESS WORKER Abnorma l findings on diagnostic imaging of digestive system Case Notes OKAYED BY GLORIA TO POST IN R OOM 2 @ 7:00/JOEL 01/04 @ 1:05 Special Needs (C-ARM) POCT , URINE Routine 01/05/2019 6:49 AM PHOTOGRAPHIC PROCESS WORKER Results for this procedure are i n the results section . COMPREHENSIVE METABOLIC Routine 01/05/2019 3:33 AM PHOTOGRAPHIC PROCESS WORKER Results for this PANEL procedure are i n the results section . CBC W/PLT COUNT & AUTO Routine 01/04/2019 5:48 AM PHOTOGRAPHIC PROCESS WORKER Results for this DIFFERENTIAL procedure are i n the results section . PROTHROMBIN TIME/INR Routine 01/04/2019 5:48 AM PHOTOGRAPHIC PROCESS WORKER Results for this procedure are i n the results section . LIPASE Routine 01/04/2019 5:48 AM PHOTOGRAPHIC PROCESS WORKER Resu lts for this procedure are i n the results section . CBC W/PLT COUNT & AUTO Routine 01/04/2019 5:48 AM PHOTOGRAPHIC PROCESS WORKER Results for this DIFFERENTIAL procedure are i n the results section . COMPREHENSIVE METABOLIC Routine 01/04/2019 5:48 AM PHOTOGRAPHIC PROCESS WORKER Results for this PANEL procedure are i n the results section . after 07/26/2018 Results TRANSFUSION SERVICE REPORT - SCAN (01/06/2019 5:52 PM PHOTOGRAPHIC PROCESS WORKER) Narrative Performed At This result has an attachment that is no t available. CBC (Hemogram only) (01/06/2019 10:21 AM PHOTOGRAPHIC PROCESS WORKER) WBC 12.2 (H) 3.5 - 10.5 K/L [facility] RBC 3.80 (L) 3.93 - 5.22 M/L [facility] Hemoglobin 11.9 11.2 - 15.7 GM/DL [facility] Hematocrit 36.6 34.1 - 44.9 % [facility] MCV 96.3 (H) 79.4 - 94.[address] [facility] MCH 31.3 25.6 - 32.[address] [facility] MCHC 32.5 32.2 - 35.5 GM/DL [facility] RDW 15.3 (H) 11.7 - 14.4 % [facility] Platelets 206 150 - 450 K/CU MM [facility] MPV 11.4 9.4 - 12.3 fL [facility] nRBC 0 0 - 0 /[address] [facility] Specimen Blood Performing Organization Address City/State/Zipcode Phone Number [facility] [address] [place] [address] CENTER Comprehensive metabolic panel (01/06/2019 10:21 AM PHOTOGRAPHIC PROCESS WORKER)Only the most recent of3 resultswithin the time period is included. Protein, Total 6.5 6.0 - 8.3 gm/dL [facility] Albumin 3.7 3.5 - 5.0 g/dL [facility] Alkaline Phosphatase 110 40 - 150 U/L [facility] Total Bilirubin 1.0 0.2 - 1.2 mg/dL [facility] Sodium 141 136 - 145 meq/L [facility] Potassium 4.0 3.5 - 5.1 meq/L [facility] Chloride 107 98 - 107 meq/L [facility] CO2 27 22 - 29 meq/L [facility] BUN 7 7 - 21 mg/dL [facility] Creatinine 0.80 0.57 - 1.25 mg/dL [facility] ER Glucose 178 (H) 70 - 105 mg/dL [facility] Calcium 8.8 8.4 - 10.2 mg/dL [facility] ER AST 172 (H) 5 - 34 U/L [facility] ER ALT 386 (H) 6 - 55 U/L [facility] ER EGFR 89Comment: ESTIMATED GFR mL/min/1.73 sq m [facility] IS NOT ACCURATE [facility] CREATININE CLEARANCE IN PREDICTING GLOMERULAR FILTRATION RATE. ESTIMATED GFR IS NOT APPLICABLE FOR DIALYSIS PATIENTS. Specimen Blood Performing Organization Address City/State/Zipcode Phone Number [place] [phone] [place] [address] CENTER Tissue Exam (01/05/2019 5:09 PM PHOTOGRAPHIC PROCESS WORKER) Case Report Surgical Pathology Report Case: [id number] [facility] Authorizing Provider:Mason Mcmahon MDCollected: 01/05/2019 1709 [facility] Ordering Location: [facility] PERIOPERATIVE Received:01/08/2019 0821 SERVICES Pathologist: Cecy Sam MD Specimen:Gallbladder DIAGNOSIS GALLBLADDER, CHOLECYSTECTOMY: CH I [facility] - CHRONIC CHOLECYSTITIS WITH EROSION [facility] - CHOLELITHIASIS - ONE REACTIVE LYMPH NODE Signing Pathologist Direct Phone Line: CPT Code(s) CC/ew [facility] [id number] [facility] CLINICAL HISTORY [facility] Preoperative and postoperative diagnosis: Choled ocholithiasis. [facility] SPECIMEN SOURCE Gallbladder tissue [facility] GROSS DESCRIPTION Received in one part. [facility] Received in formalin labeled with the patient's name, accession number, and "gallbladder" is a previously opened gallbladder measuring 7 x 4 x 1.5 cm with an attached cystic duct measuring 0.5 cm in diameter x 0.2 cm. A node is not identified. The serosal surface is vazquez-g reen and smooth. There are 10 mL of adherent yellow-green viscid bile admixed with two bosselated, ovoid, henderson yellow calculi measuring 0.2 and 0.6 cm in greatest dimensio n. Mucosa is green, velvety slightly, no discrete lesions are identified. The wall measures up to 0.2 cm thick. Ink code: Adventitial surface margin blue and d uct blue. Mining Engineering Technologist sections are submitted in cassettes A1-A2 with the margins included in cassette A1. KM/bc MICROSCOPIC DESCRIPTION Performed [facility] Specimen Tissue Performing Organization Address City/[facility] Phone Number [address] [address] C[place]H, manual (01/05/2019 12:45 PM PHOTOGRAPHIC PROCESS WORKER) ABO Grouping A [facility] Rh Factor POS [facility] Specimen Blood Performing Organization Address City/[facility] Phone Number [address] [phone] Type and screen, automated (01/05/2019 11:53 AM PHOTOGRAPHIC PROCESS WORKER) ABO/RH AUTOMATED (BEAKER) A POSITIVE [facility] Ab Scrn NEGATIVE [facility] Specimen Blood Performing Organization Address [facility] Phone Number [address] [phone] [place] ERCP (01/05/2019 7:45 AM PHOTOGRAPHIC PROCESS WORKER) Specimen Narrative Performed At FINAL REPORT GE RIS A fluoroscopic unit was utilized for a p rocedure performed in the operating room. No interpretation was re quested. Please refer to the operative report regarding findings. Ple ase refer to PACS for patient radiation dose information. Signed: Adilene Victoria MD Report Verified Date/Time:01/05/2019 08:59:15 Reading Location: [facility] Reading Room Procedure Note Interface, External Ris In - 01/05/2019 9:01 AM PHOTOGRAPHIC PROCESS WORKER FINAL REPORT A fluoroscopic unit was utilized for a p rocedure performed in the operating room. No interpretation was re quested. Please refer to the operative report regarding findings. Ple ase refer to PACS for patient radiation dose information. Signed: Adilene Victoria MD Report Verified Date/Time: 01/05/2019 0 8:59:15 Reading Location: [facility] Reading Room Performing Organization Address City/State/Zipcode Phone Number GE RIS REPORT OF PROCEDURE - ENDOSCOPY URL (01/05/2019 7:25 AM PHOTOGRAPHIC PROCESS WORKER) Narrative Performed At This result has an attachment that is no t available. POCT , urine (01/05/2019 6:49 AM PHOTOGRAPHIC PROCESS WORKER) Test Urine, POC Negative Control line present?, POC Yes Background clear?, POC Yes UPT Cassette Lot #, POC [id number] UPT Cassette Expiration Date, POC 10-29-2019 Specimen CBC with platelet count + automated diff (01/04/2019 5:48 AM PHOTOGRAPHIC PROCESS WORKER) WBC 4.7 3.5 - 10.5 K/L [facility] RBC 3.76 (L) 3.93 - 5.22 M/L [facility] Hemoglobin 11.7 11.2 - 15.7 GM/DL [facility] Hematocrit 35.6 34.1 - 44.9 % [facility] MCV 94.7 79.4 - 94.8 fL [facility] MCH 31.1 25.6 - 32.2 pg [facility] MCHC 32.9 32.2 - 35.5 GM/DL [facility] RDW 14.4 11.7 - 14.4 % [facility] Platelets 187 150 - 450 K/CU MM [facility] MPV 11.1 9.4 - 12.3 fL [facility] nRBC 0 0 - 0 /100 WBC [facility] % Neutros 54 % [facility] % Lymphs 31 % [facility] % Monos 11 % [facility] % Eos 3 % [facility] % Baso 0 % [facility] # Neutros 2.52 1.56 - 6.13 K/L [facility] # Lymphs 1.43 1.18 - 3.74 K/L [facility] # Monos 0.52 (H) 0.24 - 0.36 K/L [facility] # Eos 0.15 0.04 - 0.36 K/L [facility] # Baso 0.01 0.01 - 0.08 K/L [facility] Immature Granulocytes-Relative 0 0 - 1 % C HI [facility] Specimen Blood Performing Organization Address City/State/Zipcode Phone Number [facility] [address] [place] [address] CENTER Prothrombin time/INR (01/04/2019 5:48 AM PHOTOGRAPHIC PROCESS WORKER) Protime 12.6 11.9 - 14.2 seconds [facility] INR 1.0 <=5.9 [facility] Specimen Blood Narrative Performed At Effective 07/26/2018: PT Reference Range [facility] Change New: 11.9-14.2Previous: 11.7-14.7 RECOMMENDED COUMADIN/WARFARIN INR THERAPY RANGES STANDARD DOSE: 2.0-3.0Includes: PROPHYLAXIS for venous thrombosis, systemic embolization; TREATMENT for venous thrombosis and/or pulmonary embolus. HIGH RISK: Target INR is 2.5-3.5 for patients wiht mechanical heart valves. Performing Organization Address City/State/Zipcode Phone Number [place] [phone] [place] [address] [place] Lipase (01/04/2019 5:48 AM PHOTOGRAPHIC PROCESS WORKER) Lipase 30 8 - 78 U/L [facility] Specimen Blood Performing Organization Address [facility]/Zipcode Phone Number [address] [address] [place] after 07/26/2018 Advance Directives For more information, please contact:[address] [phone] Code Status Date Activated Date Inactivated Comments Full Code 01/04/2019 1:20 AM 01/06/2019 2:12 PM This code status was determined by: Patient
--- OUTSIDE RECORDS SUMMARY | 2019-07-27 11:51 | XMS REPORT ---
:1995 Author Organization [facility] t Address [facility] [place] [address] Care Team Providers Name Role Phone SRUTHI GRAYSON Attending Clinician Unavailable SRUTHI GRAYSON Admitting Clinician Unavailable Problems This patient has no known problems. Allergies, Adverse Reactions, Alerts This patient has no known allergies or adverse reactions. Medications This patient has no known medications. Procedures This patient has no known procedures. Results Test Description Test Time Test Comments Results Result Comments Source TISSUE EXAM 2019-01-10 Surgical Pathology 14:05:00 Report Case: [id number] Authorizing Provider: Mason Krause MD Collected: 01/05/2019 1709 Ordering Location: [facility] PERIOPERATIVE Received: 01/08/2019 0821 SERVICES Pathologist: Cecy Sam MD Specimen: Gallbladder GALLBLADDER, CHOLECYSTECTOMY: - CHRONIC CHOLECYSTITIS WITH EROSION - CHOLELITHIASIS - ONE REACTIVE LYMPH NODE Signing Pathologist Direct Phone Line: [phone] jhon signed by Cecy Sam MD on 01/10/2019 at 2:05 [facility]/ [id number] and postoperative diagnosis: Choledocholithiasis.G allbladder tissueReceived in one part. Received in formalin labeled with the patient's name, accession number, and "gallbladder" is a previously opened gallbladder measuring 7 x 4 x 1.5 cm with an attached cystic duct measuring 0.5 cm in diameter x 0.2 cm. A node is not identified. The serosal surface is vazquez-green and smooth. There are 10 mL of adherent yellow-green viscid bile admixed with two bosselated, ovoid, henderson yellow calculi measuring 0.2 and 0.6 cm in greatest dimension. Mucosa is green, velvety slightly, no discrete lesions are identified. The wall measures up to 0.2 cm thick.Ink code: Adventitial surface margin blue and duct blue.Customer Response Representative sections are submitted in cassettes A1-A2 with the margins included in cassette A1. KM/bc Performed COMPREHENSIVE METABOLIC PANEL 2019-01-06 10:48:00 Test Item Value Reference Range Interpretation Comme nts TOTAL PROTEIN (BEAKER) 6.5 gm/dL 6.0-8.3 (test code = 770) ALBUMIN (BEAKER) (test code 3.7 g/dL 3.5-5.0 = 1145) ALKALINE PHOSPHATASE 110 U/L 40-150 (BEAKER) (test code = 346) BILIRUBIN TOTAL (BEAKER) 1.0 mg/dL 0.2-1.2 (test code = 377) SODIUM (BEAKER) (test code 141 meq/L 136-145 = 381) POTASSIUM (BEAKER) (test 4.0 meq/L 3.5-5.1 code = 379) CHLORIDE (BEAKER) (test 107 meq/L 98-107 code = 382) CO2 (BEAKER) (test code = 27 meq/L 22-29 355) BLOOD UREA NITROGEN 7 mg/dL 7-21 (BEAKER) (test code = 354) CREATININE (BEAKER) (test 0.80 mg/dL 0.57-1.25 code = 358) GLUCOSE RANDOM (BEAKER) 178 mg/dL 70-105 H (test code = 652) CALCIUM (BEAKER) (test code 8.8 mg/dL 8.4-10.2 = 697) AST (SGOT) (BEAKER) (test 172 U/L 5-34 H code = 353) ALT (SGPT) (BEAKER) (test 386 U/L 6-55 H code = 347) EGFR (BEAKER) (test code = 89 mL/min/1.73 sq m ESTIMATED GFR IS NOT 1092) ACCURATE CRE ATININE CLEARANCE IN [place] EDICTING GLOMERULAR FILT RATION RATE. ESTIMATED GFR IS NOT APPLICABLE FOR DIALYSIS PATIENTS. CBC (HEMOGRAM ONLY)2019-01-06 10:30:00 Test Item Value Reference Range Interpretation Comments WHITE BLOOD CELL COUNT (BEAKER) 12.2 K/ L 3.5-10.5 H (test code = 775) RED BLOOD CELL COUNT (BEAKER) 3.80 M/ L 3.93-5.22 L (test code = 761) HEMOGLOBIN (BEAKER) (test code = 11.9 GM/DL 11.2-15.7 410) HEMATOCRIT (BEAKER) (test code = 36.6 % 34.1-44.9 411) MEAN CORPUSCULAR VOLUME (BEAKER) 96.3 fL 79.4-94.8 H (test code = 753) MEAN CORPUSCULAR HEMOGLOBIN 31.3 pg 25.6-32.2 (BEAKER) (test code = 751) MEAN CORPUSCULAR HEMOGLOBIN CONC 32.5 GM/DL 32.2-35.5 (BEAKER) (test code = 752) RED CELL DISTRIBUTION WIDTH 15.3 % 11.7-14.4 H (BEAKER) (test code = 412) PLATELET COUNT (BEAKER) (test 206 K/CU MM 150-450 code = 756) MEAN PLATELET VOLUME (BEAKER) 11.4 fL 9.4-12.3 (test code = 754) NUCLEATED RED BLOOD CELLS 0 /100 WBC 0-0 (BEAKER) (test code = 413) [place], [id number] 08:59:00Reason for exam:->bile duct diseaseIs the patient ?->NoWhen was patient's last menstrual cycle?->12/05/18FINAL REPORT A fluoroscopic unit was utilized for a procedure performed in the operating room. No interpretation was requested. Please refer to the operative report regarding findings. Please refer to PACS for patient radiation dose information. Signed: Adilene Victoria MDReport Verified Date/Time: 01/05/2019 08:59:15 Reading Location: [facility] Radiology Reading Room REHENSIVE METABOLIC [id number] 05:12:00 Test Item Value Reference Range Interpretation Comments TOTAL PROTEIN 5.9 gm/dL 6.0-8.3 L (BEAKER) (test code = 770) ALBUMIN (BEAKER) 3.4 g/dL 3.5-5.0 L (test code = 1145) ALKALINE PHOSPHATASE 120 U/L 40-150 (BEAKER) (test code = 346) BILIRUBIN TOTAL 1.5 mg/dL 0.2-1.2 H (BEAKER) (test code = 377) SODIUM (BEAKER) (test 140 meq/L 136-145 code = 381) POTASSIUM (BEAKER) 4.0 meq/L 3.5-5.1 (test code = 379) CHLORIDE (BEAKER) 109 meq/L 98-107 H (test code = 382) CO2 (BEAKER) (test 25 meq/L 22-29 code = 355) BLOOD UREA NITROGEN 4 mg/dL 7-21 L (BEAKER) (test code = 354) CREATININE (BEAKER) 0.74 mg/dL 0.57-1.25 (test code = 358) GLUCOSE RANDOM 90 mg/dL 70-105 (BEAKER) (test code = 652) CALCIUM (BEAKER) 8.5 mg/dL 8.4-10.2 (test code = 697) AST (SGOT) (BEAKER) 194 U/L 5-34 H (test code = 353) ALT (SGPT) (BEAKER) 348 U/L 6-55 H (test code = 347) EGFR (BEAKER) (test 97 mL/min/1.73 ESTIMA ALAINA GFR IS code = 1092) sq m NOT ACCURATE CREATININE CLEARANCE IN PREDICTING GLOMERULAR FILTRATION RATE . ESTIMATED GFR I S NOT APPLICABLE FOR DIALYSIS PATIEN TS. [id number] 06:55:00 Test Item Value Reference Range Interpretation Comments LIPASE (BEAKER) (test code = 749) 30 U/L 8-78 COMPREHENSIVE METABOLIC [id number] 06:55:00 Test Item Value Reference Range Interpretation Comments TOTAL PROTEIN 6.1 gm/dL 6.0-8.3 (BEAKER) (test code = 770) ALBUMIN (BEAKER) 3.5 g/dL 3.5-5.0 (test code = 1145) ALKALINE PHOSPHATASE 129 U/L 40-150 (BEAKER) (test code = 346) BILIRUBIN TOTAL 2.7 mg/dL 0.2-1.2 H (BEAKER) (test code = 377) SODIUM (BEAKER) (test 139 meq/L 136-145 code = 381) POTASSIUM (BEAKER) 3.7 meq/L 3.5-5.1 (test code = 379) CHLORIDE (BEAKER) 108 meq/L 98-107 H (test code = 382) CO2 (BEAKER) (test 25 meq/L 22-29 code = 355) BLOOD UREA NITROGEN 4 mg/dL 7-21 L (BEAKER) (test code = 354) CREATININE (BEAKER) 0.76 mg/dL 0.57-1.25 (test code = 358) GLUCOSE RANDOM 139 mg/dL 70-105 H (BEAKER) (test code = 652) CALCIUM (BEAKER) 8.5 mg/dL 8.4-10.2 (test code = 697) AST (SGOT) (BEAKER) 228 U/L 5-34 H (test code = 353) ALT (SGPT) (BEAKER) 374 U/L 6-55 H (test code = 347) EGFR (BEAKER) (test 94 mL/min/1.73 ESTIMA ALAINA GFR IS code = 1092) sq m NOT ACCURATE CREATININE CLEARANCE IN PREDICTING GLOMERULAR FILTRATION RATE . ESTIMATED GFR I S NOT APPLICABLE FOR DIALYSIS PATIEN TS. PROTHROMBIN [id number] 06:49:00 Test Item Value Reference Range Interpretation Comments PROTIME (BEAKER) (test code = 12.6 seconds 11.9-14.2 759) INR (BEAKER) (test code = 370) 1.0 <=5.9 Effective 07/26/2018: PT Reference Range ChangeNew: 11.9-14.2 Previous: 11.7- 14.7RECOMMENDED COUMADIN/WARFARIN INR THERAPY RANGESSTANDARD DOSE: 2.0-3.0 Includes: PROPHYLAXIS for venous thrombosis, systemic embolization; TREATMENT for venous thrombosis and/or pulmonary embolus.HIGH RISK: Target INR is2.5-3.5 for patients wiht mechanical heart valves.CBC W/PLT COUNT & AUTO [id number] 06:09:00 Test Item Value Reference Range Interpretation Comments WHITE BLOOD CELL COUNT (BEAKER) 4.7 K/ L 3.5-10.5 (test code = 775) RED BLOOD CELL COUNT (BEAKER) 3.76 M/ L 3.93-5.22 L (test code = 761) HEMOGLOBIN (BEAKER) (test code = 11.7 GM/DL 11.2-15.7 410) HEMATOCRIT (BEAKER) (test code = 35.6 % 34.1-44.9 411) MEAN CORPUSCULAR VOLUME (BEAKER) 94.7 fL 79.4-94.8 (test code = 753) MEAN CORPUSCULAR HEMOGLOBIN 31.1 pg 25.6-32.2 (BEAKER) (test code = 751) MEAN CORPUSCULAR HEMOGLOBIN CONC 32.9 GM/DL 32.2-35.5 (BEAKER) (test code = 752) RED CELL DISTRIBUTION WIDTH 14.4 % 11.7-14.4 (BEAKER) (test code = 412) PLATELET COUNT (BEAKER) (test 187 K/CU MM 150-450 code = 756) MEAN PLATELET VOLUME (BEAKER) 11.1 fL 9.4-12.3 (test code = 754) NUCLEATED RED BLOOD CELLS 0 /100 WBC 0-0 (BEAKER) (test code = 413) NEUTROPHILS RELATIVE PERCENT 54 % (BEAKER) (test code = 429) LYMPHOCYTES RELATIVE PERCENT 31 % (BEAKER) (test code = 430) MONOCYTES RELATIVE PERCENT 11 % (BEAKER) (test code = 431) EOSINOPHILS RELATIVE PERCENT 3 % (BEAKER) (test code = 432) BASOPHILS RELATIVE PERCENT 0 % (BEAKER) (test code = 437) NEUTROPHILS ABSOLUTE COUNT 2.52 K/ L 1.56-6.13 (BEAKER) (test code = 670) LYMPHOCYTES ABSOLUTE COUNT 1.43 K/ L 1.18-3.74 (BEAKER) (test code = 414) MONOCYTES ABSOLUTE COUNT (BEAKER) 0.52 K/ L 0.24-0.36 H (test code = 415) EOSINOPHILS ABSOLUTE COUNT 0.15 K/ L 0.04-0.36 (BEAKER) (test code = 416) BASOPHILS ABSOLUTE COUNT (BEAKER) 0.01 K/ L 0.01-0.08 (test code = 417) IMMATURE GRANULOCYTES-RELATIVE 0 % 0-1 PERCENT (BEAKER) (test code = 2661)
[2019-07-27 12:51] LABS: Urine Blood NEGATIVE (NEG); Urine Glucose NEGATIVE (NEG); Urine Protein TRACE (NEG); Urine Specific Gravity >1.030 (1.005-1.030); Urine pH 5.5 (5.0-7.0)
[2019-07-27 13:21] LABS: Absolute Lymphocytes (CBC) 0.9 K/uL (0.7-4.9); Basophils % 0.3 % (0-1.3); Hematocrit 39.4 % (36.0-45.0); Lymphocytes % 7.8 % (15.3-44.8); MPV 10.7 fL (7.6-11.3); RBC Red Blood Cell Count 4.25 M/uL (3.86-4.86)
[2019-07-27] MEDS ORDERED: NA CHLORIDE 0.9% 1,000 ML ONE (13:22)
[2019-07-27] MEDS ORDERED: ONDANSETRON 4 MG/2 ML VIAL ONE (13:22)
[2019-07-27 13:56] LABS: BUN Blood Urea Nitrogen 7 mg/dL (7-18); Bicarbonate 24 mmol/L (21-32); Glucose Level 97 mg/dL (74-106); HCG, Quantitative 89330 mIU/mL (1-3); Potassium 3.9 mmol/L (3.5-5.1); Sodium Level 137 mmol/L (136-145)
[2019-07-27 14:30] VITALS: BP 114/50; TEMP 97.7; O2SAT 96
--- NOTE | 2019-07-30 17:00 | EDPHYS ---
Physician Documentation [facility] Name: Haley Liu Age: 24 yrs Sex: Female : 1995 Arrival Date: 07/27/2019 Time: 11:42 Bed 15 Private MD: SHAUNNA Physician Tramaine Mace HPI: 07/26 12:42 This 24 yrs old Female presents to ER via Ambulatory with complaints of bill Vomiting. 12:42 The patient presents to the emergency department with nausea, vomiting, that is bill intermittent. Onset: The symptoms/episode began/occurred 2 day(s) ago. Possible causes: . The symptoms are aggravated by food , The symptoms are alleviated by remaining still. Associated signs and symptoms: The patient has no apparent associated signs or symptoms. Severity of symptoms: At their worst the symptoms were mild in the emergency department the symptoms are unchanged. The patient has not experienced similar symptoms in the past. 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 - Social history:: Smoking status: Patient denies any tobacco usage or history of. - Family history:: not pertinent. ROS: 12:42 Constitutional: Negative for fever, chills, and weight loss, Eyes: Negative for injury, bill pain, redness, and discharge, ENT: Negative for injury, pain, and discharge, Neck: Negative for injury, pain, and swelling, Cardiovascular: Negative for chest pain, palpitations, and edema, Respiratory: Negative for shortness of breath, cough, wheezing, and pleuritic chest pain, Back: Negative for injury and pain, : Negative for injury, bleeding, discharge, and swelling, MS/Extremity: Negative for injury and deformity, Skin: Negative for injury, rash, and discoloration, Neuro: Negative for headache, weakness, numbness, tingling, and seizure, Psych: Negative for depression, anxiety, suicide ideation, homicidal ideation, and hallucinations, Allergy/Immunology: Negative for hives, rash, and allergies, Endocrine: Negative for neck swelling, polydipsia, polyuria, polyphagia, and marked weight changes, Hematologic/Lymphatic: Negative for swollen nodes, abnormal bleeding, and unusual bruising. 12:42 Abdomen/GI: Positive for nausea and vomiting. Exam: 12:42 Constitutional: This is a well developed, well nourished patient who is awake, alert, bill and in no acute distress. Head/Face: Normocephalic, atraumatic. Eyes: Pupils equal round and reactive to light, extra-ocular motions intact. Lids and lashes normal. Conjunctiva and sclera are non-icteric and not injected. Cornea within normal limits. Periorbital areas with no swelling, redness, or edema. ENT: Nares patent. No nasal discharge, no septal abnormalities noted. Tympanic membranes are normal and external auditory canals are clear. Oropharynx with no redness, swelling, or masses, exudates, or evidence of obstruction, uvula midline. Mucous membranes moist. Neck: Trachea midline, no thyromegaly or masses palpated, and no cervical lymphadenopathy. Supple, full range of motion without nuchal rigidity, or vertebral point tenderness. No Meningismus. Chest/axilla: Normal chest wall appearance and motion. Nontender with no deformity. No lesions are appreciated. Cardiovascular: Regular rate and rhythm with a normal S1 and S2. No gallops, murmurs, or rubs. Normal PMI, no JVD. No pulse deficits. Respiratory: Lungs have equal breath sounds bilaterally, clear to auscultation and percussion. No rales, rhonchi or wheezes noted. No increased work of breathing, no retractions or nasal flaring. Back: No spinal tenderness. No costovertebral tenderness. Full range of motion. Skin: Warm, dry with normal turgor. Normal color with no rashes, no lesions, and no evidence of cellulitis. MS/ Extremity: Pulses equal, no cyanosis. Neurovascular intact. Full, normal range of motion. Neuro: Awake and alert, GCS 15, oriented to person, place, time, and situation. Cranial nerves II-XII grossly intact. Motor strength 5/5 in all extremities. Sensory grossly intact. Cerebellar exam normal. Normal gait. Psych: Awake, alert, with orientation to person, place and time. Behavior, mood, and affect are within normal limits. 12:42 Abdomen/GI: Inspection: abdomen appears normal, Bowel sounds: normal, Palpation: abdomen is soft and non-tender, Liver: no appreciated palpable abnormalities, Hernia: not appreciated. Vital Signs: 12:03 BP 114 / 50; Pulse 91; Resp 18; Temp 97.7; Pulse Ox 96% on R/A; Weight 86.18 kg; Height ph 5 ft. 3 in. (160.02 cm); 14:00 BP 110 / 64; Pulse 88; Resp 16; Temp 97.8(O); Pulse Ox 99% on R/A; Pain 0/10; ls4 12:03 Body Mass Index 33.66 (86.18 kg, 160.02 cm) ph MDM: 12:03 Patient medically screened. [facility] 12:44 Data reviewed: vital signs, nurses notes, lab test result(s), urinalysis. [facility] 12:44 Differential diagnosis: Nonspecific abd pain, viral gastroenteritis, gastroenteritis. [facility] Data interpreted: invasive physician: not applicable for this patient encounter. Counseling: I had a detailed discussion with the patient and/or guardian regarding: the historical points, exam findings, and any diagnostic results supporting the discharge/admit diagnosis, lab results, the need for outpatient follow up, for definitive care, an OB/Gyne specialist. Medication response: Zofran markedly relieved the patient's nausea. 12:47 ED course: 1 st trimesre, nausea and vomiting, no ob yet, no pelvic pain, no vag bill bleeding , pt explained plan, will fu, return if symptoms worsen. 13:52 ED course: improved, will dc to follow up, hyperemesis , gravidarium. [facility] 07/26 12:33 Order name: Urine Dipstick--Ancillary (enter results); Complete Time: 13:51 07/26 12:33 Order name: Urine --Ancillary (enter results); Complete Time: 13:51 07/26 12:41 Order name: Quantitative Hcg; Complete Time: 14:02 [facility] 07/26 12:41 Order name: Abo/rh Typing; Complete Time: 13:51 [facility] 07/26 12:41 Order name: Basic Metabolic Panel; Complete Time: 14:02 [facility] 07/26 12:41 Order name: CBC with Diff; Complete Time: 13:51 [facility] 07/26 12:41 Order name: Urine Test (obtain specimen); Complete Time: 13:23 [facility] 07/26 12:41 Order name: IV Saline Lock; Complete Time: 13:23 [facility] 07/26 12:41 Order name: Labs collected and sent; Complete Time: 13: [facility] 07/26 12:41 Order name: NPO; Complete Time: 13: [facility] 07/26 12:41 Order name: Urine Dipstick-Ancillary (obtain specimen); Complete Time: 13:23 [facility] Administered Medications: 13:10 Drug: NS 0.9% 1000 ml Route: IV; Rate: 1 bolus; Site: right antecubital; ls4 14:20 Follow up: IV Status: Completed infusion; IV Intake: 1000ml ls4 13:10 Drug: Zofran (Ondansetron) 4 mg Route: IVP; Site: right antecubital; ls4 13:30 Follow up: Response: No adverse reaction; Marked relief of symptoms ls4 Disposition: 07/27/19 13:52 Discharged to Home. Impression: Vomiting, related conditions, unspecified, first trimester. - Condition is Stable. - Discharge Instructions: Hyperemesis Gravidarum, Nausea and Vomiting, Adult, First Trimester of , Nsnk-nx-Vnop, Nausea and Vomiting, Adult, Qtrx-vw-Zcit, First Trimester of , Pelvic Rest. - Prescriptions for Diclegis 10- 10 mg Oral tablet,delayed release (DR/EC) - take 1 tablet by ORAL route 3 times per day and 2 tablets at bedtime; 60 tablet. Vitamin 27- 0.8 mg Oral Tablet - take 1 tablet by ORAL route once daily; 30 tablet. Zofran 4 mg Oral Tablet - take 1 tablet by ORAL route every 12 hours As needed; 20 tablet. - Medication Reconciliation Form, Thank You Letter, Antibiotic Education, Prescription Opioid Use form. - Follow up: Private Physician; When: 2 - 3 days; Reason: Recheck today's complaints, Continuance of care, Re-evaluation by your physician. Follow up: Antwon John; When: 2 - 3 days; Reason: Recheck today's complaints, Re-evaluation by your physician. - Problem is new. - Symptoms have improved. Signatures: Dispatcher [employer] Tramaine Garcia MD MD cha Hall, Patricia RN RN Candy Souza RN RN ls4 Corrections: (The following items were deleted from the chart) 14:19 13:52 07/27/2019 13:52 Discharged to Home. Impression: Vomiting; related ls4 conditions, unspecified, first trimester. Condition is Stable. Discharge Instructions: Hyperemesis Gravidarum, Nausea and Vomiting, Adult, First Trimester of , Wcxn-sb-Kmwl, Nausea and Vomiting, Adult, Azsr-ek-Obbc, First Trimester of , Pelvic Rest. Prescriptions for Diclegis 10-10 mg Oral tablet,delayed release (DR/EC) - take 1 tablet by ORAL route 3 times per day and 2 tablets at bedtime; 60 tablet, Vitamin 27-0.8 mg Oral Tablet - take 1 tablet by ORAL route once daily; 30 tablet, Zofran 4 mg Oral Tablet - take 1 tablet by ORAL route every 12 hours As needed; 20 tablet. and Forms are Medication Reconciliation Form, Thank You Letter, Antibiotic Education, Prescription Opioid Use. Follow up: Private Physician; When: 2 - 3 days; Reason: Recheck today's complaints, Continuance of care, Re-evaluation by your physician. Follow up: Antwon John; When: 2 - 3 days; Reason: Recheck today's complaints, Re-evaluation by your physician. Problem is new. Symptoms have improved. bill
--- NOTE | 2019-07-30 17:00 | ER ---
Nurse's Notes [facility] Name: Haley Liu Age: 24 yrs Sex: Female : 1995 Arrival Date: 07/27/2019 Time: 11:42 Bed 15 Private MD: Diagnosis: Vomiting; related conditions, unspecified, first trimester Presentation: 07/26 12:03 Chief complaint: Patient states: Persistent N/V x 1 week, LMP May 29, positive UPT ph approx 3 weeks ago but is unable to get in to see OB, denies abdominal pain, fever or diarrhea. Coronavirus screen: Patient denies a cough. Patient denies shortness of breath or difficulty breathing. Patient denies measured and/or subjective temperature greater than 100.4F prior to today's visit. Patient denies travel on a cruise ship or to a country the [facility] currently lists as an affected area. Patient denies contact with known and/or suspected case of COVID-19. Ebola Screen: No symptoms or risks identified at this time. Initial Sepsis Screen: Does the patient meet any 2 criteria? No. Patient's initial sepsis screen is negative. Does the patient have a suspected source of infection? No. Patient's initial sepsis screen is negative. Risk Assessment: Do you want to hurt yourself or someone else? Patient reports no desire to harm self or others. Onset of symptoms was July 27, 2019. 12:03 Method Of Arrival: Ambulatory ph 12:03 Acuity: SARAH 3 ph Triage Assessment: 12:10 General: Appears in no apparent distress. Behavior is calm, cooperative. ls4 12:10 Pain: Denies pain. Neuro: No deficits noted. Cardiovascular: No deficits noted. ls4 Respiratory: No deficits noted. Denies cough, shortness of breath labored breathing. GI: Reports nausea, vomiting. Derm: Skin is pink, warm \T\ dry. Musculoskeletal: No deficits noted. 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 - Social history:: Smoking status: Patient denies any tobacco usage or history of. - Family history:: not pertinent. Screenin:24 Abuse screen: Denies threats or abuse. Denies injuries from another. Nutritional ls4 screening: No deficits noted. Tuberculosis screening: No symptoms or risk factors identified. Fall Risk None identified. Assessment: 12:10 GI: Abdomen is round non-distended, Bowel sounds present X 4 quads. Abd is soft and non ls4 tender X 4 quads. 13:10 Reassessment: Patient appears in no apparent distress at this time. Patient and/or ls4 family updated on plan of care and expected duration. Pain level reassessed. Patient is alert, oriented x 3, equal unlabored respirations, skin warm/dry/pink. Patient denies pain at this time. 14:10 Reassessment: Patient appears in no apparent distress at this time. Patient and/or ls4 family updated on plan of care and expected duration. Pain level reassessed. Patient is alert, oriented x 3, equal unlabored respirations, skin warm/dry/pink. Vital Signs: 12:03 BP 114 / 50; Pulse 91; Resp 18; Temp 97.7; Pulse Ox 96% on R/A; Weight 86.18 kg; Height ph 5 ft. 3 in. (160.02 cm); 14:00 BP 110 / 64; Pulse 88; Resp 16; Temp 97.8(O); Pulse Ox 99% on R/A; Pain 0/10; ls4 12:03 Body Mass Index 33.66 (86.18 kg, 160.02 cm) ph ED Course: 11:42 Patient arrived in ED. ag5 12:03 Tramaine Mace MD is Attending Physician. bill 12:05 Triage completed. ph 12:05 Arm band placed on Patient placed in an exam room. ph 12:10 Patient has correct armband on for positive identification. Bed in low position. Call ls4 light in reach. Side rails up X 1. environmental monitoring technician on. Pulse ox on. Sitter at bedside. 12:10 Warm blanket given. Verbal reassurance given. ls4 12:24 Candy Enrique, JIM is Primary Nurse. ls4 12:35 No provider procedures requiring assistance completed. Inserted saline lock: 18 gauge ls4 in right antecubital area, using aseptic technique. Blood collected. 12:35 Initial lab(s) drawn, by me, sent to lab. Urine collected: clean catch specimen. ls4 Patient maintains SpO2 saturation greater than 95% on room air. 13:52 Antwon John MD is Referral Physician. [facility] 14:19 IV discontinued, intact, bleeding controlled, No redness/swelling at site. Pressure ls4 dressing applied. Administered Medications: 13:10 Drug: NS 0.9% 1000 ml Route: IV; Rate: 1 bolus; Site: right antecubital; ls4 14:20 Follow up: IV Status: Completed infusion; IV Intake: 1000ml ls4 13:10 Drug: Zofran (Ondansetron) 4 mg Route: IVP; Site: right antecubital; ls4 13:30 Follow up: Response: No adverse reaction; Marked relief of symptoms ls4 Intake: 14:20 IV: 1000ml; Total: 1000ml. ls4 Outcome: 13:52 Discharge ordered by . [facility] 14:19 Patient left the ED. ls4 14:19 Discharged to home ambulatory, with family. ls4 14:19 Condition: improved 14:19 Discharge instructions given to patient, Instructed on discharge instructions, follow up and referral plans. medication usage, safety practices, Demonstrated understanding of instructions, follow-up care, medications, Prescriptions given X 3. Signatures: Tramaine Mace MD MD cha Hall, Patricia RN RN Candy Souza RN RN ls4 Blanca Orellana ag5
== END 2019-07-27 14:19 | disposition home or self-care (01) ==
LOC: ER 11:40
DX: O21.9 Vomiting of pregnancy, unspecified (principal); Z3A.00 Weeks of gestation of pregnancy not specified
CPT/HCPCS: 36415; 80048; 81003; 81025; 84702; 85025; 86900; 86901; 96361; 96374; 99285; J2405; J7030

== ENCOUNTER 2019-08-23 07:44 | Emergency (ER) | payer OTHER ==
[2019-08-23] MEDS ORDERED: METOCLOPRAMIDE 10 MG/2mL INJ ONE (08:56)
[2019-08-23] MEDS ORDERED: NA CHLORIDE 0.9% 1,000 ML ONE (08:56)
[2019-08-23] MEDS ORDERED: NA CHLORIDE 0.9% 50 ML IV ONE (08:57)
--- OUTSIDE RECORDS SUMMARY | 2019-08-23 09:07 | XMS REPORT | Clinical Summary ---
:1995 Author Organization [facility] Address [address] [place] [address] Care Team Providers Name Role Phone Unavailable [...] Only Internal Medicine El Durham MD after 08/22/2018 Family History Medical History Relation Name Comments [...] Taken Blood Pressure 110/58 01/06/2019 10:51 AM CONVEYOR FEEDER Pulse 76 01/06/2019 10:51 AM CONVEYOR FEEDER Temperature 36.5 C (97.7 F) 01/06/2019 10:51 AM CONVEYOR FEEDER Respiratory Rate 17 01/06/2019 10:51 AM CONVEYOR FEEDER Oxygen Saturation 97% 01/06/2019 10:51 AM CONVEYOR FEEDER Inhaled Oxygen Concentration - - Weight 86.2 kg (190 lb) 01/04/2019 12:34 AM CONVEYOR FEEDER Height 162.6 cm (5' 4") 01/04/2019 12:34 AM CONVEYOR FEEDER Body Mass Index 32.61 01/04/2019 12:34 AM CONVEYOR FEEDER Plan of Treatment Health Maintenance Due Date Last Done Comments INFLUENZA VACCINE (#1) 2018 04/11/2017 Procedures Procedure Name Priority Date/Time Associated Diagnosis Comme nts TRANSFUSION SERVICE 01/06/2019 5:52 REPORT - SCAN PM CONVEYOR FEEDER CBC (HEMOGRAM ONLY) Routine 01/06/2019 10:21 Resu lts for this AM CONVEYOR FEEDER procedure are i n the results section. COMPREHENSIVE Routine 01/06/2019 10:21 Results fo r this METABOLIC PANEL AM CONVEYOR FEEDER procedure ar e in the results section. TISSUE EXAM AP Routine 01/05/2019 5:09 Results for this PM CONVEYOR FEEDER procedure are i n the results section. LAPAROSCOPY,CHOLECYST 01/05/2019 3:17 Choledocholithi asis ECTOMY PM CONVEYOR FEEDER Special Needs REQ TF ABORH, MANUAL Routine 01/05/2019 12:45 PM Results for this CONVEYOR FEEDER procedure are i n the results section. TYPE AND SCREEN, OMKAR 01/05/2019 11:53 AM Resu lts for this AUTOMATED CONVEYOR FEEDER procedure are i n the results section. FL ERCP Routine 01/05/2019 7:45 AM Results for this CONVEYOR FEEDER procedure are i n the results section. REPORT OF PROCEDURE 01/05/2019 7:25 AM - ENDOSCOPY URL CONVEYOR FEEDER ERCP,BALLOON 01/05/2019 7:00 AM Abnormal findings on SWEEPING CONVEYOR FEEDER diagnostic imaging of digestive system Case Notes OKAYED BY GLORIA TO POST IN R OOM 2 @ 7:00/JOEL 01/04 @ 1:05 Special Needs (C-ARM) PROCEDURE W/ C-ARM 01/05/2019 7:00 AM CONVEYOR FEEDER Abnormal fi ndings on diagnostic imaging of digestive system Case Notes OKAYED BY GLORIA TO POST IN R OOM 2 @ 7:00/JOEL 01/04 @ 1:05 Special Needs (C-ARM) ERCP,PAPILLOTOMY 01/05/2019 7:00 AM CONVEYOR FEEDER Abnorma l findings on diagnostic imaging of digestive system Case Notes OKAYED BY GLORIA TO POST IN R OOM 2 @ 7:00/JOEL 01/04 @ 1:05 Special Needs (C-ARM) POCT , URINE Routine 01/05/2019 6:49 AM CONVEYOR FEEDER Results for this procedure are i n the results section . COMPREHENSIVE METABOLIC Routine 01/05/2019 3:33 AM CONVEYOR FEEDER Results for this PANEL procedure are i n the results section . CBC W/PLT COUNT & AUTO Routine 01/04/2019 5:48 AM CONVEYOR FEEDER Results for this DIFFERENTIAL procedure are i n the results section . PROTHROMBIN TIME/INR Routine 01/04/2019 5:48 AM CONVEYOR FEEDER Results for this procedure are i n the results section . LIPASE Routine 01/04/2019 5:48 AM CONVEYOR FEEDER Resu lts for this procedure are i n the results section . CBC W/PLT COUNT & AUTO Routine 01/04/2019 5:48 AM CONVEYOR FEEDER Results for this DIFFERENTIAL procedure are i n the results section . COMPREHENSIVE METABOLIC Routine 01/04/2019 5:48 AM CONVEYOR FEEDER Results for this PANEL procedure are i n the results section . after 08/22/2018 Results TRANSFUSION SERVICE REPORT - SCAN (01/06/2019 5:52 PM CONVEYOR FEEDER) Narrative Performed At This result has an attachment that is no t available. CBC (Hemogram only) (01/06/2019 10:21 AM CONVEYOR FEEDER) WBC 12.2 (H) 3.5 - 10.5 K/L [facility] RBC 3.80 (L) 3.93 - 5.22 M/L [facility] Hemoglobin 11.9 11.2 - 15.7 GM/DL [facility] Hematocrit 36.6 34.1 - 44.9 % [facility] MCV 96.3 (H) 79.4 - 94.8 fL [facility] MCH 31.3 25.6 - 32.2 [address] [facility] MCHC 32.5 32.2 - 35.5 GM/DL [facility] RDW 15.3 (H) 11.7 - 14.4 % [facility] Platelets 206 150 - 450 K/CU MM [facility] MPV 11.4 9.4 - 12.3 fL [facility] nRBC 0 0 - 0 /100 WBC [facility] Specimen Blood Performing Organization Address City/State/Zipcode Phone Number [facility] [address] [place] [address] CENTER Comprehensive metabolic panel (01/06/2019 10:21 AM CONVEYOR FEEDER)Only the most recent of3 resultswithin the time period is included. Protein, Total 6.5 6.0 - 8.3 gm/dL [facility] ER Albumin 3.7 3.5 - 5.0 g/dL [facility] Alkaline Phosphatase 110 40 - 150 U/L [facility] ER Total Bilirubin 1.0 0.2 [...] ER Creatinine 0.80 0.57 - 1.25 mg/dL [facility] ER Glucose 178 (H) 70 - 105 mg/dL [facility]Sven ALTH [facility] ER Calcium 8.8 8.4 - 10.2 mg/dL [facility] ER AST 172 (H) 5 - 34 U/L [facility] ALTH [facility] ER ALT 386 (H) 6 - 55 U/L [facility] ALTH [facility] ER EGFR 89Comment: ESTIMATED GFR mL/min/1.73 sq m [facility] IS NOT ACCURATE [facility] CREATININE CLEARANCE IN PREDICTING GLOMERULAR FILTRATION RATE. ESTIMATED GFR IS NOT APPLICABLE FOR DIALYSIS PATIENTS. Specimen Blood Performing Organization Address City/State/Zipcode Phone Number [place] [phone] [place] [address] CENTER Tissue Exam (01/05/2019 5:09 PM CONVEYOR FEEDER) Case Report Surgical Pathology Report Case: [id number] [facility] Authorizing Provider:Mason Mcmahon MDCollected: 01/05/2019 1709 [facility] Ordering Location: [facility] PERIOPERATIVE Received:01/08/2019 0821 SERVICES Pathologist: Cecy Sam MD Specimen:Gallbladder DIAGNOSIS GALLBLADDER, CHOLECYSTECTOMY: [facility] - CHRONIC CHOLECYSTITIS WITH EROSION [facility] - CHOLELITHIASIS - ONE REACTIVE LYMPH NODE Signing Pathologist Direct Phone Line: [phone] CPT Code(s) CC/ew [facility] ALTH [address] [facility] ER CLINICAL HISTORY [facility] Preoperative and postoperative diagnosis: Choled ocholithiasis. [facility] SPECIMEN SOURCE Gallbladder tissue [facility] GROSS DESCRIPTION Received in one part. [facility] Received in formalin labeled with the patient's [...] surface margin blue and d uct blue. Manufacturing Clerk sections are submitted in cassettes A1-A2 with the margins included in cassette A1. KM/bc MICROSCOPIC DESCRIPTION Performed [facility] ER Specimen Tissue Performing Organization Address City/[facility] Phone Number [address] [address] C[place] ABORH, manual (01/05/2019 12:45 PM CONVEYOR FEEDER) ABO Grouping A [facility] Rh Factor POS [facility] Specimen Blood Performing Organization Address City/[facility] Phone Number [address] [phone] Type and screen, automated (01/05/2019 11:53 AM CONVEYOR FEEDER) ABO/RH AUTOMATED (BEAKER) A POSITIVE [facility] Ab Scrn NEGATIVE [facility] Specimen Blood Performing Organization Address [facility] Phone Number [address] [phone] [place] ERCP (01/05/2019 7:45 AM CONVEYOR FEEDER) Specimen Narrative Performed At FINAL REPORT GE RIS A fluoroscopic unit was utilized for a p rocedure performed in the operating room. No interpretation was re quested. Please refer to the operative report regarding findings. Ple ase refer to PACS for patient radiation dose information. Signed: Adilene Victoria MD Report Verified Date/Time:01/05/2019 08:59:15 Reading Location: [facility] Reading Room Procedure Note Interface, External Ris In - 01/05/2019 9:01 AM CONVEYOR FEEDER FINAL REPORT A fluoroscopic unit was utilized for a p rocedure performed in the operating room. No interpretation was re quested. Please refer to the operative report regarding findings. Ple ase refer to PACS for patient radiation dose information. Signed: Adilene Victoria MD Report Verified Date/Time: 01/05/2019 0 8:59:15 Reading Location: [facility] Reading Room Performing Organization Address City/State/Zipcode Phone Number GE RIS REPORT OF PROCEDURE - ENDOSCOPY URL (01/05/2019 7:25 AM CONVEYOR FEEDER) Narrative Performed At This result has an attachment that is no t available. POCT , urine (01/05/2019 6:49 AM CONVEYOR FEEDER) Test Urine, POC Negative Control line present?, POC Yes Background clear?, POC Yes UPT Cassette Lot #, POC [id number] UPT Cassette Expiration Date, POC 10-29-2019 Specimen CBC with platelet count + automated diff (01/04/2019 5:48 AM CONVEYOR FEEDER) WBC 4.7 3.5 - 10.5 K/L [facility] RBC 3.76 (L) 3.93 - 5.22 M/L [facility] Hemoglobin 11.7 11.2 - 15.7 GM/DL [facility] Hematocrit 35.6 34.1 - 44.9 % [facility] MCV 94.7 79.4 - 94.8 fL [facility] MCH 31.1 25.6 - 32.2 pg [facility] MCHC 32.9 32.2 - 35.5 GM/DL [facility] RDW 14.4 11.7 - 14.4 % [facility] Platelets 187 150 - 450 K/CU MM [facility] MPV 11.1 9.4 - 12.3 fL [facility] nRBC 0 0 - 0 /100 WBC [facility] % Neutros 54 % [facility] % Lymphs 31 % [facility] % Monos 11 % [facility] % Eos 3 % [facility] % Baso 0 % [facility] # Neutros 2.52 1.56 - 6.13 K/L [facility] # Lymphs 1.43 1.18 - 3.74 K/L [facility] # Monos 0.52 (H) 0.24 - 0.36 K/L [facility] # Eos 0.15 0.04 - 0.36 K/L [facility] # Baso 0.01 0.01 - 0.08 K/L [facility] Immature Granulocytes-Relative 0 0 - 1 % C HI [facility] Specimen Blood Performing Organization Address City/State/Zipcode Phone Number [facility] [address] [place] [address] CENTER Prothrombin time/INR (01/04/2019 5:48 AM CONVEYOR FEEDER) Protime 12.6 11.9 - 14.2 seconds [facility] INR 1.0 <=5.9 [facility] Specimen Blood Narrative Performed At Effective 07/26/2018: PT Reference Range [facility] Change New: 11.9-14.2Previous: 11.7-14.7 RECOMMENDED COUMADIN/WARFARIN INR THERAPY RANGES STANDARD DOSE: 2.0-3.0Includes: PROPHYLAXIS for venous thrombosis, systemic embolization; TREATMENT for venous thrombosis and/or pulmonary embolus. HIGH RISK: Target INR is 2.5-3.5 for patients wiht mechanical heart valves. Performing Organization Address City/State/Zipcode Phone Number [place] [phone] [place] [address] [place] Lipase (01/04/2019 5:48 AM CONVEYOR FEEDER) Lipase 30 8 - 78 U/L [facility] Specimen Blood Performing Organization Address [facility]/Zipcode Phone Number [address] [address] [place] after 08/22/2018 Advance Directives For more information, please contact:[address] [phone] Code Status Date Activated Date Inactivated Comments Full Code 01/04/2019 1:20 AM 01/06/2019 2:12 PM This code status was determined by: Patient
--- OUTSIDE RECORDS SUMMARY | 2019-08-23 09:09 | XMS REPORT | Summary of Care ---
:1995 Author Organization [facility] Address [address] [place] [address] Care Team Providers Name Role Phone Robert Shah Primary Care Provider Reason for Visit Reason Comments New OB Visit Encounter Details Date Type Department Care Team Description 08/02/2019 Initial [facility] [place] RMP- Stephanie Mojica upervision of high risk , antepartum (Primary Dx); Visit CHIDI Emmanuel Mult[facility]; [address] Nausea an d vomiting during prior to 22 weeks gestation; [address] Obesity in ; [place], [place] BMI 32.0-32.9,a dult [id number] [phone] Allergies No Known Allergiesdocumented as of this encounter (statuses as of 08/02/2019) Medications Medication Sig Dispensed Refills Start Date End Date Status ondansetron Take 4 mg by 0 Activ e (ZOFRAN) 4 mg mouth every 8 tablet (eight) hours as needed. proMETHazine 25 mg Take 1 tablet 30 tablet 1 08/02/2019 Active tabletIndications: by mouth every Nausea and vomiting 4 (four) hours during as needed for prior to 22 weeks Nausea and gestation Vomiting (N/V). LOESTRIN FE Take 1 tablet 1 Package 3 09/11/2018 08/02/2019 Di scontinued (MICROGESTIN FE by mouth 03/19) 1 mg-20 mcg daily. (21)/75 mg (7) tabletIndications: Oral contraception initial prescription documented as of this encounter (statuses as of 08/02/2019) Active Problems Problem Noted Date Cervical Papanicolaou smear negative within last 12 mo [facility] 05/04/2017 Overview: 12/2016 NIL see scanned records Supervision of high-risk 04/05/2017 History of miscarriage 04/05/2017 Cardiomyopathy 04/05/2017 Overview: As per patient diagnosed in 2013, last t ana seen by fitness sales associate was x1year ago Estimated Date of Delivery Comments Yes 03/05/2020 documented as of this encounter (statuses as of 08/02/2019) Resolved Problems Problem Noted Date Resolved Date Encounter for routine gynecological examination 01/16/2014 04/05/2017 Overview: ICD10 Diagnosis Term Change House Attendant Utility Screening for STD (sexually transmitted disease) 01/16/2014 04/05/2017 OCP (oral contraceptive pills) initiation 01/16/2014 04/05/2017 Dysmenorrhea 01/16/2014 04/05/2017 Irregular menstrual cycle 01/16/2014 04/05/2017 documented as of this encounter (statuses as of 08/02/2019) Immunizations Name Administration Dates Next Due Influenza Virus Vaccine Quad IM 3+ YRS 04/11/2017 Td 10/16/2010 documented as of this encounter Social History Tobacco Use Types Packs/Day Years Used Date Never Smoker Smokeless Tobacco: Never Used Alcohol Use Drinks/Week oz/Week Comments No Estimated Date of Delivery Comments Yes 03/05/2020 Sex Assigned at Date Recorded Not on file Job Start Date Occupation Industry Not on file Not on file Not on file Travel History Travel Start Travel End No recent travel history available. COVID-19 Exposure Response Date Recorded In the last month, have you been in contact with No / Unsure 08/02/2019 10:45 AM CDT someone who was confirmed or suspected to have Coronavirus / COVID-19? documented as of this encounter Last Filed Vital Signs Vital Sign Reading Time Taken Comments Blood Pressure 110/78 08/02/2019 10:47 AM CDT Pulse 78 08/02/2019 10:47 AM CDT Temperature 36.1 C (97 F) 08/02/2019 10:47 AM CDT Respiratory Rate 16 08/02/2019 10:47 AM CDT Oxygen Saturation - - Inhaled Oxygen Concentration - - Weight 84 kg (185 lb 2 oz) 08/02/2019 10:47 AM CDT Height 160 cm (5' 3") 08/02/2019 10:47 AM CDT Body Mass Index 32.79 08/02/2019 10:47 AM CDT documented in this encounter Progress Notes Stephanie Mojica, ENVIRONMENTAL MARKETER - 08/02/2019 10:30 AM CDT Chief complaint: Chief Complaint Patient presents with New OB Visit HPI CC: Initial Visit Haley Liu is a 24 year old, , /White female. Patient's last menstrual period was 05/30/2019 (approximate). She is 9w1d with an intrauterine . Her Estimated Date ofDelivery: 03/05/20. She is being seen today for her first obstetrical visit. Patient complains of nausea and was started on Zofran.She denies FM, contractions, LOF and bleeding today. Patient denies current or past physical, sexual or emotional abuse. OB History Para Term AB Living 3 1 1 1 1 SAB TAB Ectopic Multiple Live Births 1 1 # Outcome Date GA Lbr Bg/2nd Weight Sex Delivery Anes PTL Lv 3 Current 2 Term 11/15/17 41w3d 6 lb 6 oz (2.892 kg) F Vag-Spont JERAMY 1 SAB 02/05/16 8w0d Histories OB History Para Term AB Living 3 1 1 1 1 SAB TAB Ectopic Multiple Live Births 1 1 # Outcome Date GA Lbr Bg/2nd Weight Sex Delivery Anes PTL Lv 3 Current 2 Term 11/15/17 41w3d 6 lb 6 oz (2.892 kg) F Vag-Spont JERAMY 1 SAB 02/05/16 8w0d Past Medical History: Diagnosis Date Anxiety 2014 ongoing, controlled, not on medication Cardiomyopathy 2013 does not do regularly 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 Chlamydia 01/2016 treated Depression 2014 ongoing, controlled, not on medication Dysmenorrhea 01/16/2014 Irregular menstrual cycle 01/16/2014 Family History Problem Relation Age of Onset Diabetes Father Heart Father Breast Cancer Maternal Grandmother No Significant Medical Problems Mother No Significant Medical Problems Sister No Significant Medical Problems Brother High cholesterol NoFHx Hypertension NoFHx Mental retardation NoFHx Neurological NoFHx Osteoporosis NoFHx Psychiatry NoFHx Other - see comments NoFHx Arthritis NoFHx Asthma NoFHx defects NoFHx Colon Cancer NoFHx Ovarian Cancer NoFHx Uterine Cancer NoFHx Cancer NoFHx Depression NoFHx Genetic NoFHx Family Status Relation Name Status Fa Alive MGMo Mo Alive Sis Alive Bro Alive MGFa PGMo PGFa NoFHx (Not Specified) Past Surgical History: Procedure Laterality Date CHOLECYSTECTOMY 12/2018 gallbladder removed Social History Socioeconomic History Marital status: Spouse name: Not on file Number of children: 0 Years of education: Not on file Highest education level: Not on file Occupational History Occupation: none Social Needs Financial resource strain: Not on file Food insecurity: Worry: Not on file Inability: Not on file Transportation needs: Medical: Not on file Non-medical: Not on file Tobacco Use Smoking status: Never Smoker Smokeless tobacco: Never Used Substance and Sexual Activity Alcohol use: No Drug use: No Sexual activity: Yes Partners: Male Comment: last sexual intercourse 08/01/2019 Lifestyle Physical activity: Days per week: Not on file Minutes per session: Not on file Stress: Not on file Relationships Social connections: Talks on phone: Not on file Gets together: Not on file Attends latter-day service: Not on file Active member of club or organization: Not on file Attends meetings of clubs or organizations: Not on file Relationship status: Not on file Intimate partner violence: Fear of current or ex partner: Not on file Emotionally abused: Not on file Physically abused: Not on file Forced sexual activity: Not on file Other Topics Concern Service Not Asked Blood Transfusions No Caffeine Concern Not Asked Occupational Exposure Not Asked Hobby Hazards Not Asked Sleep Concern Not Asked Stress Concern Not Asked Weight Concern Not Asked Special Diet Not Asked Back Care Not Asked Exercise Not Asked Bike Helmet Not Asked Seat Belt Not Asked Self-Exams Not Asked Social History Narrative No domestic violence or abuse Patient lives with father and brother and child. Mandaen preference: [employer]. No inside pets in the home. Social History Substance and Sexual Activity Sexual Activity Yes Partners: Male Comment: last sexual intercourse 08/01/2019 Genetic Screen Autism / Mental Retardation: No Tyler Disease: No Congenital Heart Defect: No Cystic Fibrosis: No Down Syndrome: No Familial Dysautonomia: No Hemophilia or other Blood Disorders: No Carissa Chorea: No Maternal Metabolic Disorder--specify (eg. Type 1 Diabetes, PKU): No Muscular Dystrophy: No Neural Tube Defect: No Recurrent Loss or a Stillbirth: No Sickle Cell Disease or Trait: No Sandeep Sachs: No Teratological Substances (specify type & strength/dose) since LMP: No Thalassemia: No Other Inherited Genetic or Chromosomal Disorder (specify): No No Significant History of Genetic Disorders: No Significant History of Genetic Disorders Labs Labs are pending. Radiology No new radiology. Allergies Haley has No Known Allergies. Medications Haley has a current medication list which includes the following prescription(s): ondansetron. Review of Systems Constitutional: Negative for activity change, appetite change, fatigue, unexpected weight change, weight gain and weight loss. HENT: Negative for sore throat. Eyes: Negative for visual disturbance. Respiratory: Negative for cough and shortness of breath. Breasts: Negative for discharge, mass, pain and unequal size. Cardiovascular: Negative for chest pain, palpitations and leg swelling. Gastrointestinal: Negative. Negative for abdominal pain, anal bleeding, blood in stool, constipation, diarrhea, nausea, rectal pain and vomiting. Genitourinary: Negative for bladder incontinence, dysuria, urgency, flank pain, vaginal bleeding, vaginal discharge, genital sores, vaginal pain and pelvic pain. Skin: Negative for color change and rash. Neurological: Negative. Negative for dizziness, syncope and headaches. Psychiatric/Behavioral: Negative for confusion, self-injury and sleep disturbance. The patient is not nervous/anxious. Hematological: Negative for cold intolerance and heat intolerance. Endocrine: Negative for hair loss, cold intolerance, heat intolerance, weight gain and weight loss. BP 110/78 (BP Location: Right arm, Patient Position: Sitting, BP CUFF SIZE: Adult Medium) | Pulse 78 | Temp 36.1 C (97 F) (Oral) | Resp 16 | Ht 5' 3" (1.6 m) | Wt 185 lb 2 oz (84 kg) | LMP 05/30/2019 (Approximate) | BMI 32.79 kg/m Pregravid BMI: 35.1 Physical Exam Vitals reviewed. Constitutional: She is oriented to person, place, and time. She appears well- developed, well-nourished and well-groomed. She has no deformities. Neck: No tenderness and no mass. No thyroid nodules and no thyromegaly palpated. Cardiovascular: Regular rate and rhythm. No murmur auscultated. Pulmonary/Chest: Breath sounds clear to auscultation. Normal inspiratory effort. Abdominal: Abdomen is soft. No mass palpated. No tenderness present. There is no guarding. Neuro/Psychiatric: She has a normal mood and affect. She is oriented to person, place, and time. Skin: Skin normal. No lesion and no rash present. Breast: Right breast exhibits no mass, no nipple discharge and no tenderness. Left breast exhibits no mass, no nipple discharge and no tenderness. Normal left breast and normal right breast Rectal: normal rectum External genitalia: Normal external genitalia appropriate for age. Normal hair distribution. No labial lesion. Vagina:Normal vagina. No lesion inspected. No abnormal vaginal discharge found. Cervix: Normal cervix. No lesion. No tenderness and no discharge present. Uterus: Uterus is normal size and non-tender. Normal uterus Adnexa: Right adnexa without tenderness or mass. Left adnexa without tenderness or mass. Normal leftadnexa and normal right adnexa Anus/perineum: Normal perineum. PHYSICAL: General Exam: HEENT: Normal Thyroid: Normal Lymph Node: Normal Neurological: Normal Abdomen: Normal Skin: Normal Extremities: Normal Pelvic Exam: Vulva: Normal Vagina: Normal Cervix: Normal Uterus: 8cm Weeks Adnexa: Normal Spines: Average Sacrum: Concave Subpubic Arch: Normal Assessment/Plan Supervision of high risk , antepartum (primary encounter diagnosis) Multiparity Comment: Routine Visit Plan: POCT URINALYSIS W SPECIFIC GRAVITY, POCT TEST, POCT URINALYSIS W SPECIFIC GRAVITY, PAP Smear-Liquid Based, GC & CHLAMYDIA AMPLIFIED ASSAY, TRICHOMONAS AMPLIFIED ASSAY, CBC WITH DIFF, HCV ANTIBODY, HEPATITIS B SURFACE ANTIGEN, HIV 1/2 AG-AB WITH REFLEX, WORKUP, BLOOD BANK, POCT URINALYSIS W SPECIFIC GRAVITY, RUBELLA SCREEN (YURIDIA) IGG, GALV ONLY - SYPHILIS IGG/IGM, URINE CULTURE, VZV ANTIBODY SCREEN, Glucose 1 Hour Post Prandial, VZV ANTIBODY SCREEN, URINE CULTURE, GALV ONLY - SYPHILIS IGG/IGM, RUBELLA SCREEN (YURIDIA) IGG, HIV 1/2 AG-AB WITH REFLEX, HEPATITIS B SURFACE ANTIGEN, HCV ANTIBODY, CBC WITH DIFF, TRICHOMONAS AMPLIFIED ASSAY, GC & CHLAMYDIA AMPLIFIED ASSAY, PAP Smear-Liquid Based, WORKUP, BLOOD BANK, CBC WITH DIFFERENTIAL, Glucose 1 Hour Post Prandial Denies zika virus risk, signs and symptoms such as fever,rash,joint pain, conjunctivitis (red eyes), muscle pain, headaches; outside [place] travel to areas affected by zika, and FOB exposure to zika.Educated on use of mosquito repellent. Covid x12 screening done, screening results are negative. Nausea and vomiting during prior to 22 weeks gestation Comment: patient complains of symtpoms Plan: proMETHazine 25 mg tablet Obesity in BMI 32.0-32.9,adult Comment: BMI: 32.79 Plan: Patient encouraged to limit weight gain and advised to eat healthy diet, fruits, vegetables, increased fiber and water intake and protein low in fat. Encouraged exercise for 30 min everyday; begin regimen with caution to prevent injury. Encouraged to decrease BMI to <25. Return to clinic in 4 weeks. Discussed treatment options. Medications as ordered. Reviewed patient instructions and provided printed copy. This visit did not involve counseling and coordination that comprised more than 50% of the visit time. CHIDI Lopez 08/02/2019 1:18 PM Minna Mayo RN - 08/02/2019 10:30 AM CDTPatient is 24 year old female here for current . Patient is . 1) Previous delivery methods Vaginal delivery 2) Patient is not experiencing cramping 3) Patient is not experiencing bleeding. 4) LMP: 05/30/2019 5) Last Pap was: 12/2017 Results: Neg per patient, 6) Have you had a flu vaccine this season? no 7) PPD candidate? no 8) Patient complains of Nausea all day. Went to ER for nausea was given Zofran. 9) Patient denies history of physical, emotional, or sexual abuse. Patient states she currently feels safe at home. NOB packet given and reviewed with patient. documented in this encounter Plan of Treatment Date Type Specialty Care Team Description 08/03/2019 Transmission Superintendent Visit [facility], [facility] 08/30/2019 Routine Visit [facility] Katy Mojica, ENVIRONMENTAL MARKETER [address] [facility] [place], [place] [address] [phone] Name Type Priority Associated Diagnoses Date/Ti me PAP Smear-Liquid Based LAB Routine Supervision of hig h risk 08/02/2019 11:41 AM , antepartum CDT GC & CHLAMYDIA AMPLIFIED LAB Routine Supervision of h igh risk 08/02/2019 11:41 AM ASSAY , antepartum CDT TRICHOMONAS AMPLIFIED LAB Routine Supervision of high risk 08/02/2019 11:41 AM ASSAY , antepartum CDT CBC WITH DIFF LAB Routine Supervision of high risk 11:35 AM , antepartum CDT HCV ANTIBODY LAB Routine Supervision of high risk 05/2019 11:35 AM , antepartum CDT HEPATITIS B SURFACE LAB Routine Supervision of high r isk 08/02/2019 11:35 AM ANTIGEN , antepartum CDT HIV 1/2 AG-AB WITH REFLEX LAB Routine Supervision of high risk 08/02/2019 11:35 AM , antepartum CDT RUBELLA SCREEN (YURIDIA) LAB Routine Supervision of hig h risk 08/02/2019 11:35 AM IGG , antepartum CDT GALV ONLY - SYPHILIS LAB Routine Supervision of high risk 08/02/2019 11:35 AM IGG/IGM , antepartum CDT URINE CULTURE LAB Routine Supervision of high risk 11:41 AM , antepartum CDT VZV ANTIBODY SCREEN LAB Routine Supervision of high r isk 08/02/2019 11:35 AM , antepartum CDT CBC WITH DIFFERENTIAL LAB Routine Supervision of high risk 08/02/2019 11:35 AM , antepartum CDT Name Type Priority Associated Diagnoses Order S chedule POCT URINALYSIS W LAB Routine Supervision of high ris k 20 Occurrences starting SPECIFIC GRAVITY , antepartum until 05/28/2020, 1 c ompleted PAP Smear-Liquid Based LAB Routine Supervision of hig h risk Expected: 08/02/2019, , antepartum s: 08/01/2020 GC & CHLAMYDIA AMPLIFIED LAB Routine Supervision of h igh risk Expected: 08/02/2019, ASSAY , antepartum s: 08/01/2020 TRICHOMONAS AMPLIFIED LAB Routine Supervision of high risk Expected: 08/02/2019, ASSAY , antepartum s: 08/01/2020 CBC WITH DIFF LAB Routine Supervision of high risk Ex pected: 08/02/2019, , antepartum s: 08/01/2020 HCV ANTIBODY LAB Routine Supervision of high risk Exp ected: 08/02/2019, , antepartum s: 08/01/2020 HEPATITIS B SURFACE LAB Routine Supervision of high r isk Expected: 08/02/2019, ANTIGEN , antepartum s: 08/01/2020 HIV 1/2 AG-AB WITH LAB Routine Supervision of high ri sk Expected: 08/02/2019, REFLEX , antepartum s: 08/01/2020 WORKUP, BLOOD LAB Routine Supervision of hig h risk Expected: 08/02/2019, BANK , antepartum s: 08/01/2020 POCT URINALYSIS W LAB Routine Supervision of high ris k 20 Occurrences starting SPECIFIC GRAVITY , antepartum until 05/28/2020 RUBELLA SCREEN (YURIDIA) LAB Routine Supervision of hig h risk Expected: 08/02/2019, IGG , antepartum s: 08/01/2020 GALV ONLY - SYPHILIS LAB Routine Supervision of high risk Expected: 08/02/2019, IGG/IGM , antepartum s: 08/01/2020 URINE CULTURE LAB Routine Supervision of high risk Ex pected: 08/02/2019, , antepartum s: 08/01/2020 VZV ANTIBODY SCREEN LAB Routine Supervision of high r isk Expected: 08/02/2019, , antepartum s: 08/01/2020 Glucose 1 Hour Post LAB Routine Supervision of high r isk Expected: 08/02/2019, Prandial , antepartum s: 08/01/2020 Health Maintenance Due Date Last Done Comments INFLUENZA VACCINE (Season 10/30/2019 04/11/2017 Ended) HPV VACCINES (1 - Female 07/23/2020 Postpon ed from 2-dose series) 07/11/2006 (Preg nant or ) CHLAMYDIA SCREENING 08/01/2020 08/02/2019, 04/05/2017, 01/16/2014, Additional history exists DTaP,Tdap,and Td Vaccines 08/01/2020 10/16/2010 Postpo adria from (2 - Tdap) 07/11/2006 (Preg nant or ) Depression Screening 08/01/2020 08/02/2019 PAP SMEAR 01/26/2021 01/26/2018 PNEUMOCOCCAL 0-64 YEARS Aged Out No longe r eligible COMBINED SERIES based on patient 's age to complete this topic documented as of this encounter Procedures Procedure Name Priority Date/Time Associated Diagnosis Comme nts POCT URINALYSIS Routine 08/02/2019 10:47 Supervision of high R esults for this AM CDT risk , procedure ar e in antepartum the results section. POCT TEST Routine 08/02/2019 10:46 Supervision of hi gh Results for this AM CDT risk , procedure ar e in antepartum the results section. documented in this encounter Results POCT URINALYSIS W SPECIFIC GRAVITY (08/02/2019 10:47 AM CDT) Pathologist Sig nature POCT U SP GRAV . 1.005 - 1.025 mg/dl POCT PH U 6 5 - 8 mg/dl POCT U LEUK EST 1+ Negative - Negative POCT U NIT negative Negative - Negative POCT U PROT 1+ Negative - Negative POCT U GLU negative Negative - Negative POCT U KETONE negative Negative - Negative POCT U UROBILI . 0.2 - 1 mg/dl POCT U BILI . Negative - Negative POCT U BLD negative Negative - Negative POCT U COLOR POCT U APPEAR Specimen Urine - URINE, CLEAN CATCH POCT TEST (08/02/2019 10:46 AM CDT) Pathologist Sig nature POCT PREG Positive On board controls acceptable Yes with C Line POCT PREG LOT # POCT PREG TEST DATE Specimen Urine - URINE, CLEAN CATCH documented in this encounter Visit Diagnoses Diagnosis Supervision of high risk , ante - Primary Multiparity Nausea and vomiting during mynor or to 22 weeks gestation Obesity in Obesity complicating , childbir th, or the puerperium, unspecified as to episode of care or not applicable BMI 32.0-32.9,adult Body Mass Index 32.0-32.9, adult documented in this encounter Insurance Payer Benefit Plan / Subscriber ID Effective Phone Address T ype Group Dates MEDICAID MEDICAID PENDING [id number] [place] [address] documented as of this encounter Advance Directives Name Relationship Healthcare Agent Relationship Co mmunication Zan Liu Father Primary healthcare agent Kevin Pinto Significant Other First alternate healthcare agent
--- OUTSIDE RECORDS SUMMARY | 2019-08-23 09:09 | XMS REPORT | Continuity of Care Document ---
:1995 Author Organization [facility] t Address [address] [place] [address] Care Team Providers Name Role Phone Ultrasound Attending Clinician Unavailable Robert Mai Attending Clinician JAY GRAYSON Attending Clinician Unavailable Jay Grayson MD Attending Clinician Reynaldo Elliott CRNA Attending Clinician Jimi BONDS Attending Clinician Darrian Karimi MD Attending Clinician Santy BONDS Attending Clinician JAY GRAYSON Admitting Clinician Unavailable Problems Condition Condition Condition Status Onset Resolution Last Treating Co mments Source Name Details Category Date Date Treatment Clinician Date Choledocho Choledocho Disease Active 2018-[address] lithiasis lithiasis 03-06 [facility] Allergies, Adverse Reactions, Alerts This patient has no known allergies or adverse reactions. Family History Family Member Diagnosis Comments Start Date Stop Date Source Natural father Diabetes [facility] Social History Social Habit Start Date Stop Date Quantity Comments Source History SDOH Alcohol [facility] History SDOH Alcohol [facility] Binge [facility] Sex Assigned [facility] History SDOH Alcohol 2019-01-04 2019-01-[address] [facility] Luvanessa - Frequency 00:00:00 00:00:00 [facility] Smoking Status Start Date Stop Date Source Never smoker [facility] M edical Center Medications Ordered Filled Start Stop Current Ordering Indication Dosage Frequency Signature Comments Components Source Medication Medication Date Date Medication? Clinician (SIG) Name Name HYDROcodone 2018-02- No 1{tbl} Take [address] -acetaminop 03-08 tablet by Moni willett (NORCO 00:00: 23:59 mouth Medic al 5-325) 00 :00 every 6 Center 5-325 mg (six) per tablet hours as needed for Pain for up to 5 days. Max Daily Amount: 4 tablets traMADol 2018-02 No 50mg Take [address] (ULTRAM) 50 03-08 tablet (50 L ukes - mg tablet 00:00: 00:00 mg total) Me dical 00 :00 by mouth Center every 6 (six) hours as needed for Pain for up to 5 days. Max Daily Amount: 200 mg Vital Signs Vital Name Observation Time Observation Value Comments Source Systolic blood 2019-01-06 10:51:00 110 mm[Hg] [facility] Diastolic blood 2019-01-06 10:51:00 58 mm[Hg] [facility] Heart rate 2019-01-06 10:51:00 76 /min [facility] Body temperature 2019-01-06 10:51:00 36.5 Esme [facility] Respiratory rate 2019-01-06 10:51:00 17 /min [facility] Oxygen saturation in 2019-01-06 10:51:00 97 /min [facility] Arterial blood by Medical Ce nter Pulse oximetry Body height 2019-01-04 00:34:00 162.6 cm [facility] Body weight Measured 2019-01-04 00:34:00 86.183 kg [facility] BMI 2019-01-04 00:34:00 32.61 kg/m2 [facility] Procedures Procedure Date / Time Performed Performing Clinician Sour e TRANSFUSION SERVICE 2019-01-06 17:52:09 ProviderGustavo Ranken [facility] Vipin REPORT - SCAN Scanning [facility] 2019-01-06 10:21:[address] [facility] CBC (HEMOGRAM ONLY) 2019-01-06 10:21:00 El Grayson [facility] TISSUE EXAM 2019-01-05 17:09:00 Mason Krause [facility] LAPAROSCOPY,CHOLECYSTECTO 2019-01-05 15:17:00 Mason Krause [facility] ABORH, MANUAL 2019-01-05 12:45:00 Dede Frank [facility] TYPE AND SCREEN, 2019-01-05 11:53:00 Gladys Bell [facility] [place] ERCP 2019-01-05 07:45:00 Darrian Madera [facility] REPORT OF PROCEDURE - 2019-01-05 07:25:33 Darrian Madera [facility] ENDOSCOPY [facility] ERCP,PAPILLOTOMY 2019-01-05 07:00:00 Darrian Madera [facility] PROCEDURE W/ C-ARM 2019-01-05 07:00:00 Darrian Madera [facility] ERCP,BALLOON SWEEPING 2019-01-05 07:00:00 Darrian Madera [facility] POCT , URINE 2019-01-05 06:49:[address] [facility] 2019-01-05 03:33:00 El Grayson [facility] 2019-01-04 05:48:[address] [facility] LIPASE 2019-01-04 05:48:00 Curtis Pierson [facility] PROTHROMBIN TIME/INR 2019-01-04 05:48:00 Curtis Pierson [facility] CBC W/PLT COUNT & AUTO 2019-01-04 05:48:00 [facility] Plan of Care Planned Activity Planned Date Details Comments Source Future Scheduled 2018-10-[address] [facility] - Test 00:00:00 (#1) [code = [facility] INFLUENZA VACCINE (#1)] Encounters Start End Encounter Admission Attending Care Care Encounter Source Date/Time Date/Time Type Type Clinicians Facility Department ID 2019-08-22 2019-08-22 Photographic Process Attendant Javier, [facility] [id number] 11:25:11 11:55:11 Visit [facility] PORTFOLIO ARCHITECT [id number] [facility] [id number] MATERNAL [id number] & CHILD [address] 2019-08-07 2019-08-07 Telephone Pablo [facility] [id number] 00:00:00 00:00:00 Zina Jones PORTFOLIO ARCHITECT [id number] [facility] [id number] MATERNAL [id number] & CHILD 107 [address] Results Test Description Test Time Test Comments Results Result Comments Source Tissue Exam 2019-01-10 14:05:00 Test Item Value Reference Range Interpretation Comme nts Case Report (test code = 104) Surgical Pathology Report Case: [id number] Authorizing Provider: Mason Krause MD Collected: 01/05/2019 1709 Ordering Location: [facility] PERI[facility] Received: 01/08/2019 0821 SERVICES Pathologist: Cecy Sam MD Specimen: Gallbladder DIAGNOSIS (test code = 3220) b0zyqYDiOBGen7qjQWEhvDTzUaVySyOvYjIsMg pc iUDtSAxrvoCeZOwwp2BnU8ZxLoPjSPmzlkJgPNNz VuloivrpRBThTQL9okGeYDLwAXmbHKKwWWgvNm7l aJWchDorPrAoELCnp2rodgMWmwopcAv0s1aeURJo YdO4nSGgNOnaO6rdbpKouGLxGORsLWh0sZ62HRAc vF1anIFxQIhdadJtMdO6IRwxLNVzHoW0LTZwbRPd XTRtQ8soNWRaLZlqVKUzJDpvpBZxTBK3qJwlw4C0 iLUrnPQwbQaeZuUkPgPpYTOHb7NoIFh3rCtaX7Aa MFXuAlE0tKTtINYoBDtkKDNfNGMjiiQ2dY08WWdg suB1uNPuh1Iky77ye446kC1iqMXeALE0FXOrZVNb oTGbQDDnBNK2YUMecPViK3t2MsWyqXMiW2B7CvGk hRNhE5I4XhZocNRuT8S6CeZdmGBpYPNkkJFuFo8w pHCdvQDkdh7jct85ZZH3d7UodPieWFT7OHW8OjZm Lf5trLObKKRqFF1lGmCtpDCtKZFmre07hWleJQbk njHydN6fLwHuSPJxvMPxUJLdVL8ydZKcIOEzxG7j tgchLQAhPwKkttzsSIOjdAfkuiNtOd1srIqnIEF7 UCgyF3wfdY4rOwR5HKjqK1vytR3oMBe6BWwnfGV4 XPFizH0uFP4omgrps6exLoMoKD9erczxx8udWuGc SM8bcrx2y9biUoNkTM9shsjkq3gtCjYgEZphVJQj sgwsWBBxr1AgqkblMAIzm7KqO4IbuYhzS34gaPls N76gIAFhrOypmH8hfNchdH8eGaJrYsNwDGkxiTpe wPUvchfwEOmjncDmSUgawqihGRBfZYviJ4fvKkUw CMGeaVlcAYrxl0FeQUMpWUKqBfGuJ2KDAYERHPVV DERzXBNIV2eAY2nMXLWELU5RNKlgjSRnWONxTAOU SPLFXasKQOKAS3kPG2eHZHyHORWaM0cXHGOBKb2Z YN5GNCGbhjBcBG3qO2yOCBNSHYWMPDBKQIGhJXYn ohIySC3sA93WWKYBCBQWLRIVQXoDKDAEPS9EBDPf kOFrBOBgdw00MGZ2AnXhh5Y9VZO9VUIkDFTxt2sl SWTzoXDuFnXwLcHmTtRgCuhhaAEcEZAjPoLfr7in o311nWCmj4oiZENdNvE0mKTyPVQyqKXdJ767HMXj LRfye8hwf7FpDINcxWRln1I5IHWZzjpegNh9nIsc G92sq6H0XuwpI5rdOYYuNAWfD8TjWK5sHRHyRar2 OQG4GIV9NXNaWHUjJ2UxBJ2bLSEjuWIbAYp7s6uz qBajHBCyESJ1j4ohUEchxlUdXL4qtw4njHg4l4mm fhXnLORbCMVjzAQEIABlS6EwlRlxKf1ulOk9oJhh KflrMNS9Bmh7NA4xlw05frx8eRlmDULmobhqWkA5 IRnmKLQaexujGLh0VFjhPKFryUH5FRGbeABvA7Ck QUAgSZ6bcen8UFT4QBemNSRlCrO4RWButOQmTDEt wNozJEtof585AAC8ChCdYV7oS9Zkw7O4pF7tzKZr VWBtgAFgPfCiNARfyg8hsCGtBAoyu2YzPGU6jyC0 qQTjlRRnVULhNaE9NOkpBY8slx97ONPkKLL1gz0x vLEugOncbyXayFLlDAutD0PoGAQgl563KSIbI4Cy SZEdm0K2zsSyViEpYNWafRY8gyL0UCOoUV5cmmdl h7ksLFrlQJtoNKXktkF1jxC8KXTicGItX7MwqB4w ZNCdUQ9hoeeel3ffTDA8VOudDNKqHXH9MjSlILVc v0Blqpj1VaYhw9FyiWCzNNkoX30zc237UKSvapFl W1fmmQBcocifiNTkjqmcTOjlcaI3WHMgGAkypknl NYHxGJbwX2gcAkOgWXBtxSrtOVxzh8ZvQQHxXSCe MbUmwYMwTJMtDaw0EQPvxWWpVXKeErInA8chyvqo OaACKUDus5qxB8fgtYBBbMJeD3RdAVqsqiGmWHvk OZshKyXgVTr7MB67FrFhMXRiaa01 CPT Code(s) (test code = 3357) i5duuVKmFNHygOLdDzUqLSUhWTMnn5gsICXa bGFu PzWpAsQcPnSeDhdzhXTiUYFeClHnb7seg953mQNd w6kkXOUmMiL9hNNuKMMszSWhI380WGMpISxvr7tj t6IoORUdcHEbj0M4TYNPommakFb3pCxwR91sm9W9 MeyjE7iwOQQoHIYfU3WsCX6rJHXfGkt2ELK6QLE4 PPNoHDBxP8VkNL0gZMTnhJTgCFd5p5iauPjlPWVy BYU4h9phNHilkrZiPG5nke7ztNq5z7fbcjEyAMWm MVRpzPGEVSHpB9XnrUwsHe0jsJx9eMsvHdirFJP6 Iml5FB6vrw02nai6tQtpWLOmolfsRsT4ZIlcOXGd dsebENl9KVboUCSdkSvcBHyqKPFnjxbdBEwlHMQr pTxkKZopILFbAmfrXOpvGJChBEJ2YHazf111EBP0 PSfan0lmj3yabIEwNbr6HIXbKeOqVlrhUZhyh3Gp p6nvYDAbzp0xWRG1jUEhfOkij7A6aDDyBWLngIQg maAaBOZkGfM3TYajJK7eiq50ELKyGOY8it3tkLGb pFudvbQrzZOdBYoaB4ZbDEYep265CUKjL5BwQRDt k9A8olWcQzJxQNGtxJL0zfP4YDVvFCg6rHWtzbV3 lfWwzVUuQ8vcxX36YnMeoFBnP2PtlQ93SbWroQYn M4LbfG58WvBmdIGiU5PflH25WnLjrSVuPNTggVGd Py4fgJNkbMBpd0DjrGQqWJilE25os896XCJtfxUe C6xkpDHcyysliTQcwsaeOSpxlaS0ADRfBSGbSIko XGYxXGZzMjBcbGFuZzEwMzNcaGljaFxmMVxkYmNo YSDkQVbmS1rsIuCuJrBeSKOQVf5djhXakPDoWIz4 PeG8GABpyd9= CLINICAL HISTORY (test code = 3356) e6homUZyPPLqwPHaWvDkSMSvBKXni8k cZGVmbGFu KbDdFkXkTuXcMjqdnYWrUYAoAgEeu2phi915pRCq k3otTEMkOtF4vIZrUFKoaYXuC490i0uqc1xpaoPg xRB9NOVyFTO7UJsjqfOudyA5NJvrgSXyQzY1TCzv tbNmTFrecuTsbpFkHxh3VTSiN683MZP2zKhhp1za JRA8VPVlWABwLiWwNb5coQOkO010CWQdWRWUNTDk cSa6WJDvmkOuplJczKIGc335B070k4xfQVFdydBa cFlUnjyrd5ipV600KLQviHAnlaRyKhFzFTAstPEq mHM1BQVaNL6sbgowUxXqRC3nbqlmMqJsAT2oqjo7 ZbHtJP0ynosbYqPvUTpqYJPkoqduAWAbx9Gqmsdh LB1jH6Xqw6O2iN1urHHmQZIciUAcCdOcKIBxhk5k uXRiGFwru8FgZSV6ofS4rNHzpIFdSRHyXT43Licl f3EmJrtsBMT8KSDhcfYtf2Vru3lxCsNcbtOtA2fc T5DvEXBqIZGjWNAtJsZwyiXgv6Jnf0RpvBYukUm2 s3qyOXKpRQQfjDeqe4luLIC5SRCnT9O3wYVjt3bb DFzvQHIaxSD8gcrvOPjnCHBsxiT1hrriCGfrJWLw aQZ5bzopFNqkISNvArD4qkrsSFuvJEHwEYB3SAji x983UIA9NDqhCcboOAplVYQbjuUymwAtfHyhJRNu VGEnUKtaYJNhKOfsDIDvXIJnMsFgsXpqfEsicP7e MwOnGpNqTWzlEQ6vZBWaA9ufkCFlWVBqHDJiY4pp EvOdwW2ydUxiBXbtnxJuHCXtcpEExkDkgCXnIVTq syEqLU3oBKCdv0UmdHDvFEAejyEjDRvrA50wg8sq IbXKsP8jYVOkY8asbXm3pWzrm4ptJyvnOLR6 SPECIMEN SOURCE (test code = 3377) z3vhgNCgSOUlhYOwFbAjRYDlQJRfa0zm ZGVmbGFu BeQeRqYrLuKeKnpyzOZsWYWfCmFpq0vsl215mFVz q7uyMUTzLjY1cJVjAKHbnREnP850a0vgd8tbyvZv dLL7LZQpQEX1YYbfdoAvtpT6IAwqqSDkCaL6SGcm cuMiZUnbvdGhpwCcMig6VWKpJ375MCM0bJeiz8dc JOK6YKPrJGDhIjYdXh0xzFMcD228QMSqVHCFFLOx cRp7OFNonwXozsTeaYZEl633E092o1cpKZFscxHe vRnChaafd9tbP403CWGlfKVibuInXxNiYAWoeAGx vIE5MNExPH1qpagdDsDiVI5imazyDxKyMS6mfhb7 CiCuIS0szqqcYdRdTTtlCWHnqniyRGLzn5Uvhekr OU4zE0Xmj2J8aF4shTUmSHXuoWRiFtGlSHVkcj1d nVGuEBnbr8UmGXD7moN1aKZcpBMiHNSkTG37Edsc q4RbMxhiSMR5KTObmsZys1Yef1jtBqNjxgXnP9es K3PmTKUaEGIgAMSjHwUklbHzd8Fgm3JuhPCzfJp8 q5qmRJZgCOQvzYspi2btHBV8PIRbP1T9qZYat5xi BYfnMCHbcSK7avnqWOdqPQXextP4nuxsVDqeAPOt mRJ3bolaRFedIAMfWiL6qxluOBfjNMUdYMN9TOuk c327PHM4LGjjMkacNNgiSDLmtnVwayQcqEfaIAWc UZOxDUuaFBIxSUpdWHNqLMSpPnCqvLvewLexnC8i AnLtDqPsILceRG1wZUFaN6dtfMFkRMTnPYWqJ2jv PmWbfR3kzCnnNPvhupOyZZytjFojrXCoJDVkWDKi n0W2UKgsVRX8 GROSS DESCRIPTION (test code = 3366) a7qjmMScKNBjxCVgGfFjHFPlAUUew5 lcZGVmbGFu KaRdZzCuVhCiOqpdoKGrKKQhUvVbq5nam344hGCj y1rwIYZrBvM5rWUuMXSgxHYwB009RHMvERvrn7ok l8UcIVOnoZEof0T9KIJLmjeemZw5xEnxU75jh3F0 KnimO1onTDDnAUAcQ4ViPU8fUUHtCvx6GOV0JEP5 DCCsRQLvU8VwNF4dKAArfVSbBWv7x9oflDyoQEZl OTU1l5xmMDfldnKfCN4lwp9ivBp8r9yhndHcSEUw OAXjsDCRIMCkG0BctPltMo6qyXv2mStyBlouXZJ9 Ige7YX3ngo36jth4yJzzQCBktpwoHpH0DLbxKBNn wddvJBm7NSwbFCNwoDbuEDurCPIharkeLOwfERIs xUrmDOlcDDHgDbmaCWddPZUwZQB8RFhsg454MZR1 ZIzpf2faq8ccmQOlBpc4HNWaJpHlZgrcCMiqy2Qx a1zmMFNhqy7iQOC3gWWxcTewh0Z3vZCkYDGctUOk gmDsRWUdSjW7JTshEK9cnx23CRVkPXN8bp0coTAh aQptksNpjTIdZToiR6ZgZEIah055TXOpD4EcIDRp l0V3gmTxYcDpJSLlzRE8qvZ0MKJiTVr2iRTecmJ2 atEyfURnP7tkbS46UeMdbRUnR4SvaU57GmNrtELj L4UltO61OnFcoJDtT1JjrR60CkLlsCQpPKClnUMn Wr8pdXZzvGLsx0EttCBxDAosP92tc622SBHokpDl B8gucDBuflicvHSgeoarZMemcnO2BVInZCTtFJmi XGYxXGZzMjBcbGFuZzEwMzNcaGljaFxmMVxkYmNo [file] FDNeBNF5PIZLDG1zEPpJW3KxTSbsVMV6 MICROSCOPIC DESCRIPTION (test code = j1xkaLHyVVWdyOXtMwPaXIIdMLDxv7 [place] [address]) NvOvJcOsIiWuSkvsgHUsPMPnJzYmq7jzn402zLYl t6xeKREwXnM4fSVyQJVorGSgM696p7hki6rtjmXt fDE4PPVgXFD0MKaomlBhpgY2GQvdiOKyBlY8HNwv kjFzOJsorpEdkfYuKxv4SZNdI433PSV0jSzop0te YBZ5SRVlSAJaUrOdNi7lzGVbU773UDJwLTCILTLi jAt7MALooqEgzvGtiQFKq004O076l2ynWEOdtbIa cFkQqvryg6fqJ129DUOhsCHyotVgJiRzIPXmaAIt fZP2PHGmAJ4vjicjDfRxWR5parebXgDzCS4lill9 ZgRkEY7vmsgfTiZeQIvwPSRadzaeRJGlp7Vgkqau VE5qE4Vay7E6eW4arYHaVTPiwFLoKfUdMEYnxg3d kSLsHPxoh8MqLHG8jlP5nNPwwZAlIFOcCC15Ablj b3YcApzeEPL9PBRgbhKlg9Czm7tsAsPzalQrK0br E8XvRFSmNJXtMUYeAyQstgHih2Dxq5BtpNTodLr9 w1ewJGAkXNKcxFoic4tpXUA3ZACsS8M9vUTim1vo UTorLTTyvGU4llghVRwkTLJtyeA5bpuxFNsuREQp fYG1wffdDTkuPZZeGbG8vrxcRPabFGFsNWY2XZvk b477YCQ0ZNguNlmrPXebYXKevwMtctUrpAcqCOUf CNIlMXapWTCfHBzbKOFtNCMcZaIabUvsvBrpjW5y XcRvFkLyQYmoXN2fVOGrS6fwlCCjCAAmVYGkV9wx ZeOpzU8pmMcoJZsytvSeRVRhtlYkbu0iSQNvqNMc fQ== [id number] 14:05:00Surgical Pathology Report Case: [id number] Authorizing Provider: Mason Krause MD Collected: 01/05/2019 1709 Ordering Location: [facility] PER[facility] Received: 01/08/2019 0821 SERVICES Pathologist: Cecy Sam MD Specimen: Ga llbladder GALLBLADDER, CHOLECYSTECTOMY: - CHRONIC CHOLECYSTITIS WITH EROSION - CHOLELITHIASIS - ONE REACTIVE LYMPH NODESigning Pathologist Direct Phone Line: [phone] signed by Cecy Sam MD on 01/10/2019 at 2:05 [facility]/ [id number] and postoperative diagnosis: Choledocholithiasis.Gallbladder tissueReceived in one part. Received in formalin labeled with the patient's name, accession number, and "gallbladder" is a previously opened gallbladder measuring 7 x 4 x 1.5 cm with an attached cystic d uct measuring 0.5 cm in diameter x 0.2 cm. A node is not identified. The serosal surface is vazquez-green and smooth. There are 10 mL of adherent yellow- green viscid bile admixed with two bosselated, ovoid, henderson yellow calculi measuring 0.2 and 0.6 cm in greatest dimension. Mucosa is green, velvety s lightly, no discrete lesions are identified. The wall measures up to 0.2 cm thick.Ink code: Adventitial surface margin blue and duct blue.First Assist sections are submitted in cassettes A1-A2 withthe margins included in cassette A1. KM/ PerformedComprehensive metabolic [id number] 10:48:00 Test Item Value Reference Range Interpretation Comments Protein, Total (test 6.5 6.0- 8.3 gm/dL code = 2885-2) Albumin (test code = 3.7 g/dL 3.5-5 98084-7) Alkaline Phosphatase 110 U/L 40-150 (test code = 6768-6) Total Bilirubin (test 1.0 mg/dL 0.2-1.2 code = 1975-2) Sodium (test code = 141 meq/L 660-934 5009-2) Potassium (test code = 4.0 meq/L 3.5-5.1 2823-3) Chloride (test code = 107 meq/L 98-107 2075-0) CO2 (test code = 27 meq/L 22-29 2028-9) BUN (test code = 7 mg/dL 7-21 3094-0) Creatinine (test code = 0.80 mg/dL 0.57-1.25 2160-0) Glucose (test code = 178 mg/dL 70-105 H 2345-7) Calcium (test code = 8.8 mg/dL 8.4-10.2 05091-5) AST (test code = 172 U/L 5-34 H 1920-8) ALT (test code = 386 U/L 6-55 H 1742-6) EGFR (test code = 89 mL/min/1.73 [place] [address]-8) NOT ACCURATE CREATININE CLEARANCE IN PREDICTING GLOMERULAR FILTRATION RATE . ESTIMATED GFR I S NOT APPLICABLE FOR DIALYSIS PATIEN TS. Lab Interpretation Abnormal (test code = 29492-5) [facility]PRE[facility] MET[facility]OL[facility] [id number] 10:48:00 Test Item Value Reference Range Interpretation Comments TOTAL PROTEIN 6.5 gm/dL 6.0-8.3 (BEAKER) (test code = 770) ALBUMIN (BEAKER) 3.7 g/dL 3.5-5.0 (test code = 1145) ALKALINE PHOSPHATASE 110 U/L 40-150 (BEAKER) (test code = 346) BILIRUBIN TOTAL 1.0 mg/dL 0.2-1.2 (BEAKER) (test code = 377) SODIUM (BEAKER) (test 141 meq/L 136-145 code = 381) POTASSIUM (BEAKER) 4.0 meq/L 3.5-5.1 (test code = 379) CHLORIDE (BEAKER) 107 meq/L 98-107 (test code = 382) CO2 (BEAKER) (test 27 meq/L 22-29 code = 355) BLOOD UREA NITROGEN 7 mg/dL 7-21 (BEAKER) (test code = 354) CREATININE (BEAKER) 0.80 mg/dL 0.57-1.25 (test code = 358) GLUCOSE RANDOM 178 mg/dL 70-105 H (BEAKER) (test code = 652) CALCIUM (BEAKER) 8.8 mg/dL 8.4-10.2 (test code = 697) AST (SGOT) (BEAKER) 172 U/L 5-34 H (test code = 353) ALT (SGPT) (BEAKER) 386 U/L 6-55 H (test code = 347) EGFR (BEAKER) (test 89 mL/min/1.73 ESTIMA ALAINA GFR IS code = 1092) sq m NOT ACCURATE CREATININE CLEARANCE IN PREDICTING GLOMERULAR FILTRATION RATE . ESTIMATED GFR I S NOT APPLICABLE FOR DIALYSIS PATIEN TS. CBC (Hemogram only)2019-01-06 10:30:00 Test Item Value Reference Range Interpretation Comments WBC (test code = 6690-2) 12.2 3.5- 10.5 K/L H RBC (test code = 789-8) 3.80 3.93- 5.22 M/L L MCHC (test code = 786-4) 32.5 32.2- 35.5 GM/DL Hematocrit (test code = 4544-3) 36.6 % 34.1-44.9 MCV (test code = 787-2) 96.3 fL 79.4-94.8 H MCH (test code = 785-6) 31.3 pg 25.6-32.2 RDW (test code = 788-0) 15.3 % 11.7-14.4 H Platelets (test code = 777-3) 206 150- 450 K/CU MM MPV (test code = 05598-0) 11.4 fL 9.4-12.3 nRBC (test code = 413) 0 0- 0 /100 WBC Lab Interpretation (test code = Abnormal 28869-9) [facility] 10:30:00 Test Item Value Reference [...] WBC 0-0 (BEAKER) (test code = 413) ABORH, [id number] 13:33:00 Test Item Value Reference Range Interpretation Comments ABO Grouping (test code = 2588) A Rh Factor (test code = 2589) POS [facility] CenterType and screen, [id number] 13:00:00 Test Item Value Reference Range Interpretation Comments ABO/RH AUTOMATED (BEAKER) (test A POSITIVE code = 2260) Ab Scrn (test code = 890-4) NEGATIVE [facility] CenterFL, [id number] 08:59:00Reason for exam:- >bile duct diseaseIs the patient ?->NoWhen was patient's last menstrual cycle?->12/05/18FINAL REPORT A fluoroscopic unit was utilized for a procedure performed in the operating room. No interpretation was requested. Please refer to the operative report regarding findings. Please refer to PACS for patient radiation dose information. Signed: Adilene Muñoz Verified Date/Time: 01/05/2019 08:59:15 Reading Location: [facility] Radiology Reading Room [facility] [id number] 08:59:00Interface, External Ris In - 01/05/2019 9:01 AM CSTFINAL REPORT A fluoroscopic unit was utilized for a procedure performed in the operating room. No interpretation was requested. Please refer to the operative report regarding findings. Please refer to PACS for patient radiationdose information. Signed: Adilene Muñoz Verified Date/Time: 01/05/2019 08:59:15 Reading Loc ation: [facility] , [id number] 06:49:00 Test Item Value Reference Range Interpretation Comments Test Urine, POC (test Negative code = 4660951) Control line present?, POC (test Yes code = 0467213) Background clear?, POC (test code Yes = 5410954) UPT Cassette Lot #, POC (test code [id number] = [id number]) UPT Cassette Expiration Date, POC 10-29-2019 (test code = 3473963) [facility] CenterCOMPREHENSIVE METABOL[facility] [id number] 05:12:00 Test Item Value Reference Range Interpretation [...] S NOT APPLICABLE FOR DIALYSIS PATIEN TS. [id number] 06:55:00 Test Item Value Reference Range Interpretation Comments Lipase (test code = 3040-3) 30 U/L 878 Lab Interpretation (test code = Normal 52087-6) [facility] CenterLIPASE2019-11-07 06:55:00 Test Item Value Reference Range Interpretation Comments LIPASE (BEAKER) (test code = 749) 30 U/L 8-78 COMPREHENSIVE METABOLIC [id number] 06:55:00 Test Item Value Reference Range Interpretation [...] S NOT APPLICABLE FOR DIALYSIS PATIEN TS. Prothrombin time/[id number] 06:49:00 Test Item Value Reference Range Interpretation Comments Protime (test code = 12.6 11.9- 14.2 5902-2) seconds INR (test code = 1.0 <=5.9 6301-6) TEGAN (test code = TEGAN) Effective 07/26/2018: PT Reference Range ChangeNew: 11.9-14.2 Previous: 11.7-14.7 RECOMMENDED COUMADIN/WARFARIN INR THERAPY RANGESSTANDARD DOSE: 2.0-3.0 Includes: PROPHYLAXIS for venous thrombosis, systemic embolization; TREATMENT for venous thrombosis and/or pulmonary embolus.HIGH RISK: Target INR is 2.5-3.5 for patients wiht mechanical heart valves. Lab Interpretation Normal (test code = 16962-4) [facility] CenterPROTHROMBIN TIME/[id number] 06:49:00 Test Item Value Reference Range Interpretation [...] is2.5-3.5 for patients wiht mechanical heart valves.CBC with platelet count + automated [id number] 06:09:00 Test Item Value Reference Range Interpretation Comments WBC (test code = 6690-2) 4.7 3.5- 10.5 K/L RBC (test code = 789-8) 3.76 3.93- 5.22 M/L L MCHC (test code = 786-4) 32.9 32.2- 35.5 GM/DL Hematocrit (test code = 4544-3) 35.6 % 34.1-44.9 MCV (test code = 787-2) 94.7 fL 79.4-94.8 MCH (test code = 785-6) 31.1 pg 25.6-32.2 RDW (test code = 788-0) 14.4 % 11.7-14.4 Platelets (test code = 777-3) 187 150- 450 K/CU MM MPV (test code = 76646-3) 11.1 fL 9.4-12.3 nRBC (test code = 413) 0 0- 0 /100 WBC % Neutros (test code = 429) 54 % % Lymphs (test code = 430) 31 % % Monos (test code = 431) 11 % % Eos (test code = 432) 3 % % Baso (test code = 437) 0 % # Neutros (test code = 670) 2.52 1.56- 6.13 K/L # Lymphs (test code = 414) 1.43 1.18- 3.74 K/L # Monos (test code = 415) 0.52 0.24- 0.36 K/L H # Eos (test code = 416) 0.15 0.04- 0.36 K/L # Baso (test code = 417) 0.01 0.01- 0.08 K/L Immature Granulocytes-Relative 0 % 0-1 (test code = 2801) Lab Interpretation (test code = Abnormal 16609-9) [facility] W/PLT COUNT & AUTO [id number] 06:09:00 Test Item Value Reference Range Interpretation [...] % 0-1 PERCENT (BEAKER) (test code = 2807)
--- OUTSIDE RECORDS SUMMARY | 2019-08-23 09:09 | XMS REPORT | Summary of Care ---
:1995 Author Organization [facility] Address [address] [place] [address] Care Team Providers Name Role Phone Robert Shah Primary Care Provider Reason for Visit Reason Comments New OB Visit Encounter Details Date Type Department Care Team Description 08/02/2019 Initial [facility] RMP- Stephanie Mojica upervision of high risk , antepartum (Primary Dx); Visit [facility] Multiparity; [address] Nausea an d vomiting during prior to 22 weeks gestation; [address] Obesity in ; [place], [place] BMI 32.0-32.9,a dult [id number] [phone] Allergies No Known Allergiesdocumented as of this [...] Papanicolaou smear negative within last 12 mo [facility] 05/04/2017 Overview: 12/2016 NIL see scanned records Supervision of high-risk 04/05/2017 History of miscarriage 04/05/2017 Cardiomyopathy 04/05/2017 Overview: As per patient diagnosed in 2013, last t ana seen by lean coach was x1year ago Estimated Date of Delivery Comments Yes 03/05/2020 documented as of this encounter (statuses as of 08/02/2019) Resolved Problems Problem Noted Date Resolved Date Encounter for routine gynecological examination 01/16/2014 04/05/2017 Overview: ICD10 Diagnosis Term It Trainer Utility Screening for STD (sexually transmitted disease) [...] in this encounter Progress Notes Stephanie Mojica, GARMENT MANUFACTURING SUPERVISOR - 08/02/2019 10:30 AM CDT Chief complaint: [...] does not do regularly follow up with Senior Cytogenetic Technologist Chlamydia 01/2016 treated Depression 2014 ongoing, controlled, [...] file Gets together: Not on file Attends taoist service: Not on file Active member of [...] lives with father and brother and child. Roman Catholic preference: Spiritism. No inside pets in the home. Social [...] Date Type Specialty Care Team Description 08/03/2019 Noise Tester Visit [facility] Satellites Lab, [facility] 08/30/2019 Routine Visit OB Satellites Katy Mojica, GARMENT MANUFACTURING SUPERVISOR [address] [facility] Ana [place], [place] [address] [phone] Name Type Priority Associated Diagnoses Date/Ti me [...] T ype Group Dates MEDICAID MEDICAID PENDING 2019-[address] [place] [address] documented as of this encounter Advance Directives Name Relationship Healthcare Agent Relationship Co mmunication Zan Liu Father Primary healthcare agent Kevin Pinto Significant Other First alternate healthcare agent
--- OUTSIDE RECORDS SUMMARY | 2019-08-23 09:09 | XMS REPORT | Summary of Care ---
:1995 Author Organization [facility] - Health Address [address] [place] [address] Care Team Providers Name Role Phone Robert Shah Primary Care Provider Encounter Details Date Type Department Care Team Description 08/02/2019 Orders Only [facility] Doctor Unassigned, No [address] [facility] Name [place] [id number] Allergies No Known Allergiesdocumented as of this encounter (statuses as of 08/02/2019) Medications Medication Sig Dispensed Refills Start Date End Date Status LOESTRIN FE (MICROGESTIN Take 1 tablet by 1 Package 3 09/12/19 19 Active FE 03/19) 1 mg-20 mcg mouth daily. (21)/75 mg (7) tabletIndications: Oral contraception initial prescription ondansetron (ZOFRAN) 4 Take 4 mg by 0 Active mg tablet mouth every 8 (eight) hours as needed. documented as of this encounter (statuses as of 08/02/2019) Active Problems Problem Noted Date Cervical Papanicolaou smear negative within last 12 mo [facility] 05/04/2017 Overview: 12/2016 NIL see scanned records Supervision of high-risk 04/05/2017 History of miscarriage 04/05/2017 Cardiomyopathy 04/05/2017 Overview: As per patient diagnosed in 2013, last t ana seen by pharmacy benefit manager was x1year ago Estimated Date of Delivery Comments Yes 03/05/2020 documented as of this encounter (statuses as of 08/02/2019) Resolved Problems Problem Noted Date Resolved Date Encounter for routine gynecological examination 01/16/2014 04/05/2017 Overview: ICD10 Diagnosis Term Data Entry Processor Utility Screening for STD (sexually transmitted disease) [...] of this encounter Last Filed Vital Signs Not on filedocumented in this encounter Plan of Treatment Health Maintenance Due Date Last Done Comments Depression Screening 09/12/2019 09/11/2018 INFLUENZA VACCINE (Season 10/30/2019 04/11/2017 Ended) HPV VACCINES (1 - Female 07/23/2020 Postpon ed from 2-dose series) 07/11/2006 (Preg nant or ) CHLAMYDIA SCREENING 08/01/2020 08/02/2019, 04/05/2017, 01/16/2014, Additional history exists DTaP,Tdap,and Td Vaccines 08/01/2020 10/16/2010 Postpo adria from (2 - Tdap) 07/11/2006 (Preg nant or ) PAP SMEAR 01/26/2021 01/26/2018 PNEUMOCOCCAL 0-64 YEARS Aged Out No longe r eligible COMBINED SERIES based on patient 's age to complete this topic documented as of this encounter Procedures Procedure Name Priority Date/Time Associated Diagnosis Comme nts REPORT OF Routine 08/02/2019 12:01 AM CDT documented in this encounter Results Not on filedocumented in this encounter Insurance Payer Benefit Plan / Subscriber ID Effective Phone Address T ype Group Dates MEDICAID MEDICAID PENDING 2019-[address] [place] [address] documented as of this encounter Advance Directives Name Relationship Healthcare Agent Relationship Co mmunication Zan Liu Father Primary healthcare agent Kevin Pinto Significant Other First alternate healthcare agent
--- OUTSIDE RECORDS SUMMARY | 2019-08-23 09:10 | XMS REPORT | Summary of Care ---
:1995 Author Organization [facility] Address [address] [place] [address] Care Team Providers Name Role Phone Robert Shah Primary Care Provider Reason for Referral (Routine) Status Reason Specialty Diagnoses / Referred By Referred To Procedures Contact Contact New Request Maternal Diagnoses Supervision of high risk in first trimester Stephanie Mojica Medicine Procedures CONSULT MATERNAL MEDICINE ULTRASOUND Preferred Location: [facility] [address] [place] [address] Reason for Visit Reason Comments Referral/consult Encounter Details Date Type Department Care Team Description [facility]/07[facility]2019 [facility] F[facility] Referral/consult [place]anca [address] [place] [address] [address] [place] [address] [phone] Allergies No Known Allergiesdocumented as of this encounter (statuses as of 08/08/2019) Medications Medication Sig Dispensed Refills Start Date End Date Status proMETHazine 25 mg Take 1 tablet by 30 tablet 1 08/02/2019 Active tabletIndications: mouth every 4 Nausea and vomiting (four) hours as during prior needed for Nausea to 22 weeks gestation and Vomiting (N/V). ondansetron (ZOFRAN) 4 Take 1 tablet by 30 tablet 0 08/03/2019 Active mg tabletIndications: mouth every 8 Nausea and vomiting (eight) hours as during prior needed for Nausea to 22 weeks gestation and Vomiting (N/V). vit Take 1 Packet by 30 Each 6 08/08/2019 Active 80-uisg-xduth-dha mouth daily. (SELECT-OB + DHA) 29 mg iron-1 mg -250 mg combo packIndications: Supervision of high risk in first trimester documented as of this encounter (statuses as of 08/08/2019) Active Problems Problem Noted Date Cervical Papanicolaou smear negative within last 12 mo [facility] 05/04/2017 Overview: 12/2016 NIL see scanned records Supervision of high-risk 04/05/2017 History of miscarriage 04/05/2017 Cardiomyopathy 04/05/2017 Overview: As per patient diagnosed in 2013, last t ana seen by pit tanner was x1year ago Estimated Date of Delivery Comments Yes 03/05/2020 documented as of this encounter (statuses as of 08/08/2019) Resolved Problems Problem Noted Date Resolved Date Encounter for routine gynecological examination 01/16/2014 04/05/2017 Overview: ICD10 Diagnosis Term Manager Social Utility Screening for STD (sexually transmitted disease) 01/16/2014 04/05/2017 OCP (oral contraceptive pills) initiation 01/16/2014 04/05/2017 Dysmenorrhea 01/16/2014 04/05/2017 Irregular menstrual cycle 01/16/2014 04/05/2017 documented as of this encounter (statuses as of 08/08/2019) Immunizations Name Administration Dates Next Due Influenza [...] filedocumented in this encounter Plan of Treatment Date Type Specialty Care Team Description 08/30/2019 Routine Visit OB Satellites Katy Mojica, MACHINE BOSS [address] [place], [place] [address] [phone] Health Maintenance Due Date Last Done Comments INFLUENZA VACCINE (Season 10/30/2019 04/11/2017 Ended) HPV VACCINES (1 - Female 07/23/2020 Postpon ed from 2-dose series) 07/11/2006 (Preg nant or ) CHLAMYDIA SCREENING 08/01/2020 08/02/2019, 08/02/2019, 04/05/2017, Additional history exists DTaP,Tdap,and Td Vaccines 08/01/2020 10/16/2010 Postpo adria from (2 - Tdap) 07/11/2006 (Preg nant or ) Depression Screening 08/01/2020 08/02/2019 PAP SMEAR 01/26/2021 01/26/2018 PNEUMOCOCCAL 0-64 YEARS Aged Out No longe r eligible COMBINED SERIES based on patient 's age to complete this topic documented as of this encounter Results Not on filedocumented in this encounter Visit Diagnoses Diagnosis Supervision of high risk in rst trimester - Primary Unspecified high-risk documented in this encounter Insurance Payer Benefit Plan / Subscriber ID Effective Dates Phone Addre ss Type Group [facility] MEDICAID OF xxxxxxxxx 2019-Present [phone] [place] [address] [place] [address] documented as of this encounter Advance Directives Name Relationship Healthcare Agent Relationship Co mmunication Zan Liu Father Primary healthcare agent Kevin Pinto Significant Other First alternate healthcare agent
--- OUTSIDE RECORDS SUMMARY | 2019-08-23 09:10 | XMS REPORT | Summary of Care ---
:1995 Author Organization [facility] [employer] Address [address] [place] [address] Care Team Providers Name Role Phone Robert Shah Primary Care Provider Reason for Visit Reason Comments Assessment Encounter Details Date Type Department Care Team Description 08/03/2019 Telephone [facility] RMP- A Stephanie Dunbar FNP Assessment [address] [facility] [address] [place] [address] [address] [place] [address] [phone] Allergies No Known Allergiesdocumented as of this encounter (statuses as of 08/03/2019) Medications Medication Sig Dispensed Refills Start Date End Date Status proMETHazine 25 mg Take 1 tablet 30 tablet 1 08/02/2019 Active tabletIndications: by mouth every Nausea and vomiting 4 (four) hours during as needed for prior to 22 weeks Nausea and gestation Vomiting (N/V). ondansetron Take 1 tablet 30 tablet 0 08/03/2019 Act roxana (ZOFRAN) 4 mg by mouth every tabletIndications: 8 (eight) Nausea and vomiting hours as during needed for prior to 22 weeks Nausea and gestation Vomiting (N/V). ondansetron Take 4 mg by 0 08/03/2019 Disc ontinued (ZOFRAN) 4 mg mouth every 8 tablet (eight) hours as needed. documented as of this encounter (statuses as of 08/03/2019) Active Problems Problem Noted Date Cervical Papanicolaou smear negative within last 12 mo [facility] 05/04/2017 Overview: 12/2016 NIL see scanned records Supervision of high-risk 04/05/2017 History of miscarriage 04/05/2017 Cardiomyopathy 04/05/2017 Overview: As per patient diagnosed in 2013, last t ana seen by learning support assistant was x1year ago Estimated Date of Delivery Comments Yes 03/05/2020 documented as of this encounter (statuses as of 08/03/2019) Resolved Problems Problem Noted Date Resolved Date Encounter for routine gynecological examination 01/16/2014 04/05/2017 Overview: ICD10 Diagnosis Term Geothermal Operations Engineer Utility Screening for STD (sexually transmitted disease) 01/16/2014 04/05/2017 OCP (oral contraceptive pills) initiation 01/16/2014 04/05/2017 Dysmenorrhea 01/16/2014 04/05/2017 Irregular menstrual cycle 01/16/2014 04/05/2017 documented as of this encounter (statuses as of 08/03/2019) Immunizations Name Administration Dates Next Due Influenza [...] Treatment Date Type Specialty Care Team Description 08/06/2019 Angle Furnaceman Visit OB Satellites Lab, [facility] 08/30/2019 Routine Visit OB Satellites Katy Mojica, ATTORNEY RECRUITER [address] [facility], [place] [address] [phone] Health Maintenance Due Date Last Done Comments [...] filedocumented in this encounter Visit Diagnoses Diagnosis Nausea and vomiting during mynor or to 22 weeks gestation - Primary documented in this encounter Insurance Payer Benefit Plan / Subscriber ID Effective Phone Address T ype Group Dates MEDICAID MEDICAID PENDING 2019-[address] [place] [address] documented as of this encounter Advance Directives Name Relationship Healthcare Agent Relationship Co mmunication Zan Liu Father Primary healthcare agent eKvin Pinto Significant Other First alternate healthcare agent
--- OUTSIDE RECORDS SUMMARY | 2019-08-23 09:10 | XMS REPORT | Summary of Care ---
:1995 Author Organization [facility] [employer] Address [address] [place] [address] Care Team Providers Name Role Phone Robert Shah Primary Care Provider Reason for Visit Reason Comments Assessment Encounter Details Date Type Department Care Team Description 08/03/2019 Telephone [facility] RMP- A Stephanie Dunbar FNP Assessment [address] [facility] [address] [place] [address] [address] [place] [address] [phone] Allergies No Known Allergiesdocumented as of this [...] Papanicolaou smear negative within last 12 mo [facility] 05/04/2017 Overview: 12/2016 NIL see scanned records Supervision of high-risk 04/05/2017 History of miscarriage 04/05/2017 Cardiomyopathy 04/05/2017 Overview: As per patient diagnosed in 2013, last t ana seen by clinical medical transcriptionist was x1year ago Estimated Date of Delivery Comments Yes 03/05/2020 documented as of this encounter (statuses as of 08/03/2019) Resolved Problems Problem Noted Date Resolved Date Encounter for routine gynecological examination 01/16/2014 04/05/2017 Overview: ICD10 Diagnosis Term Entry Processor Utility Screening for STD (sexually [...] Date Type Specialty Care Team Description 08/06/2019 Property And Equipment Clerk Visit OB Satellites Lab, [facility] 08/30/2019 Routine Visit [facility] Satellites Katy Mojica, LOAN TELLER [address] [facility], [place] [address] [phone] Health Maintenance Due Date Last Done Comments [...] T ype Group Dates MEDICAID MEDICAID PENDING 2019-[address] [place] [address] documented as of this encounter Advance Directives Name Relationship Healthcare Agent Relationship Co mmunication Zan Liu Father Primary healthcare agent Kevin Pinto Significant Other First alternate healthcare agent
--- OUTSIDE RECORDS SUMMARY | 2019-08-23 09:10 | XMS REPORT | Summary of Care ---
:[address] [facility] Address [address] [place] [address] Care Team Providers Name Role Phone Robert Shah Primary Care Provider Reason for Referral (Routine) Status Reason Specialty Diagnoses / Referred By Referred To Procedures Contact Contact New Request Maternal Diagnoses Supervision of high risk in first trimester Stephanie Mojica Medicine Procedures CONSULT MATERNAL MEDICINE ULTRASOUND Preferred Location: [facility] [address] [place] [address] Reason for Visit Reason Comments Referral/consult Encounter Details Date Type Department Care Team Description 08/07/2019 [facility] FNP Referral/consult [place]anca [address] [place] [address] [address] [place] [address] [phone] Allergies No Known Allergiesdocumented as of this [...] Packet by 30 Each 6 08/08/2019 Active 93-hjtl-vxlcy-dha mouth daily. (SELECT-OB + DHA) 29 mg iron-1 mg -250 mg combo packIndications: Supervision of high risk in first trimester documented as of this encounter (statuses as of 08/08/2019) Active Problems Problem Noted Date Cervical Papanicolaou smear negative within last 12 mo [facility] 05/04/2017 Overview: 12/2016 NIL see scanned records Supervision of high-risk 04/05/2017 History of miscarriage 04/05/2017 Cardiomyopathy 04/05/2017 Overview: As per patient diagnosed in 2013, last t ana seen by creche attendant was x1year ago Estimated Date of Delivery Comments Yes 03/05/2020 documented as of this encounter (statuses as of 08/08/2019) Resolved Problems Problem Noted Date Resolved Date Encounter for routine gynecological examination 01/16/2014 04/05/2017 Overview: ICD10 Diagnosis Term Landing Worker Utility Screening for STD (sexually transmitted disease) [...] 08/30/2019 Routine Visit OB Satellites Katy Mojica, BUSINESS SERVICES CLERK [address] [place], [place] [address] [phone] Health Maintenance Due Date Last Done Comments [...] Effective Dates Phone Addre ss Type Group [facility] MEDICAID OF xxxxxxxxx 2019-Present [phone] [place] [address] [place] [address] documented as of this encounter Advance Directives Name Relationship Healthcare Agent Relationship Co mmunication Zan Liu Father Primary healthcare agent Kevin Pinto Significant Other First alternate healthcare agent
--- OUTSIDE RECORDS SUMMARY | 2019-08-23 09:10 | XMS REPORT | Summary of Care ---
:1995 Author Organization [facility] [employer] Address [address] [place] [address] Care Team Providers Name Role Phone Robert Shah Primary Care Provider Reason for Visit Reason Comments Assessment Encounter Details Date Type Department Care Team Description 08/03/2019 Telephone [facility] RMP- A Stephanie Dunbar FNP Assessment [address] [facility] [address] [place] [address] [address] [place] [address] [phone] Allergies No Known Allergiesdocumented as of this [...] negative within last 12 mo [facility] 05/04/2017 Overview: 12/2016 NIL see scanned records Supervision of high-risk 04/05/2017 History of miscarriage 04/05/2017 Cardiomyopathy 04/05/2017 Overview: As per patient diagnosed in 2013, last t ana seen by merchandising manager was x1year ago Estimated Date of Delivery Comments Yes 03/05/2020 documented as of this encounter (statuses as of 08/03/2019) Resolved Problems Problem Noted Date Resolved Date Encounter for routine gynecological examination 01/16/2014 04/05/2017 Overview: ICD10 Diagnosis Term Inside Sales Trainer Utility Screening for STD (sexually transmitted [...] Date Type Specialty Care Team Description 08/06/2019 Sole Scraper Visit OB Satellites Lab, [facility] 08/30/2019 Routine Visit OB Satellites Katy Mojica, CORRECTIONS OFFICER [address] [facility], [place] [address] [phone] Health Maintenance Due Date Last Done Comments [...] T ype Group Dates MEDICAID MEDICAID PENDING 2019-[address] [place] [address] documented as of this encounter Advance Directives Name Relationship Healthcare Agent Relationship Co mmunication Zan Liu Father Primary healthcare agent Kevin Pinto Significant Other First alternate healthcare agent
--- OUTSIDE RECORDS SUMMARY | 2019-08-23 09:11 | XMS REPORT | Summary of Care ---
:1995 Author Organization [facility] Address [address] [place] [address] Care Team Providers Name Role Phone Robert Shah Primary Care Provider Reason for Visit Reason Comments ULTRASOUND (Routine) Status Reason Specialty Diagnoses / Referred By Referred To Procedures Contact Contact Closed Maternal Diagnoses Supervision of high risk in first trimester Stephanie Mojica Medicine Procedures CONSULT MATERNAL MEDICINE ULTRASOUND Preferred Location: [facility] [address] [place] [address] Encounter Details Date Type Department Care Team Description 08/22/2019 Bobcat [facility] size-date Ultrasound- Blanca BONDS discrepancy in first [address] [facility] [address] trimester [place], [place] [address] [place], [place] [phone] [address] Allergies No Known Allergiesdocumented as of this encounter (statuses as of 08/22/2019) Medications Medication Sig Dispensed Refills Start Date [...] Packet by 30 Each 6 08/08/2019 Active 82-cyld-wfsam-dha mouth daily. (SELECT-OB + DHA) 29 mg iron-1 mg -250 mg combo packIndications: Supervision of high risk in first trimester documented as of this encounter (statuses as of 08/22/2019) Active Problems Problem Noted Date Cervical Papanicolaou smear negative within last 12 mo [facility] 05/04/2017 Overview: 12/2016 NIL see scanned records Supervision of high-risk 04/05/2017 History of miscarriage 04/05/2017 Cardiomyopathy 04/05/2017 Overview: As per patient diagnosed in 2013, last t ana seen by automation qa tester was x1year ago Estimated Date of Delivery Comments Yes 03/05/2020 documented as of this encounter (statuses as of 08/22/2019) Resolved Problems Problem Noted Date Resolved Date Encounter for routine gynecological examination 01/16/2014 04/05/2017 Overview: ICD10 Diagnosis Term Surveillance Camera Technician Utility Screening for STD (sexually transmitted disease) 01/16/2014 04/05/2017 OCP (oral contraceptive pills) initiation 01/16/2014 04/05/2017 Dysmenorrhea 01/16/2014 04/05/2017 Irregular menstrual cycle 01/16/2014 04/05/2017 documented as of this encounter (statuses as of 08/22/2019) Immunizations Name Administration Dates Next Due Influenza [...] been in contact with No / Unsure 08/21/2019 2:09 PM CDT someone who was confirmed or suspected to have Coronavirus / COVID-19? documented as of this encounter Last Filed Vital Signs Not on filedocumented in this encounter Plan of Treatment Date Type Specialty Care Team Description 08/30/2019 Routine Visit OB Satellites Katy Mojica, LICENSED VETERINARY TECHNICIAN [address] [place], [place] [address] [phone] Health Maintenance Due Date Last Done Comments INFLUENZA VACCINE (Season 10/30/2019 04/11/2017 Ended) HPV VACCINES (1 - Female 07/23/2020 Postpon ed from 2-dose series) 07/11/2006 (Preg nant or ) CHLAMYDIA SCREENING 08/01/2020 08/02/2019, 08/02/2019, 04/05/2017, Additional history exists DTaP,Tdap,and Td Vaccines 08/01/2020 10/16/2010 Postpo adria from (2 - Tdap) 07/11/2006 (Preg nant or ) Depression Screening 08/01/2020 08/02/2019 PAP SMEAR 08/01/2022 08/02/2019, 01/26/2018 PNEUMOCOCCAL 0-64 YEARS Aged Out No longe r eligible COMBINED SERIES based on patient 's age to complete this topic documented as of this encounter Results Not on filedocumented in this encounter Visit Diagnoses Diagnosis Uterine size-date discrepancy in first t rimester Uterine size date discrepancy, antepartu m condition or complication documented in this encounter Insurance Payer Benefit Plan / Subscriber ID Effective Dates Phone Addre ss Type Group [facility] MEDICAID OF xxxxxxxxx 2019-Present [phone] [address] Medicaid [place] [id number] [place] [address] documented as of this encounter Advance Directives Name Relationship Healthcare Agent Relationship Co mmunication Zan Liu Father Primary healthcare agent Kevin Pinto Significant Other First alternate healthcare agent
[2019-08-23 09:19] LABS: Absolute Lymphocytes (CBC) 1.1 K/uL (0.7-4.9); Basophils % 0.3 % (0-1.3); Hematocrit 40.2 % (36.0-45.0); Lymphocytes % 9.4 % (15.3-44.8); MPV 10.1 fL (7.6-11.3); RBC Red Blood Cell Count 4.41 M/uL (3.86-4.86)
[2019-08-23 10:22] LABS: BUN Blood Urea Nitrogen 6 mg/dL (7-18); Bicarbonate 23 mmol/L (21-32); Glucose Level 89 mg/dL (74-106); HCG, Quantitative 110349 mIU/mL (1-3); Potassium 3.4 mmol/L (3.5-5.1); Sodium Level 135 mmol/L (136-145)
--- NOTE | 2019-08-23 10:29 | ER ---
Nurse's Notes [facility] Name: Haley Liu Age: 24 yrs Sex: Female : 1995 Arrival Date: 08/23/2019 Time: 07:51 Bed 13 Private MD: None, None Diagnosis: Vomiting;Viral infection, unspecified;Threatened Presentation: 08/22 08:04 Chief complaint: Patient states: "I've been throwing up since Tuesday. I'm 12 weeks ss . I started cramping and spotting Tuesday." Seen by OB yesterday and had an ultrasound, but was not told anything. Pt states, "they don't listen to anything I say at [facility]" When asked COVID screening question patient states, "I've had fever, cough, sore throat, body aches and a runny nose for the past week.". Coronavirus screen: Surgical mask placed on patient. Patient moved to private room, placed in contact and droplet isolation with eye protection until further assessment. Patient reports a cough. Patient denies shortness of breath or difficulty breathing. Patient reports a measured and/or subjective temperature greater than 100.4F. Patient denies travel on a cruise ship or to a country the [facility] currently lists as an affected area. Patient denies contact with known and/or suspected case of COVID-19. Ebola Screen: Patient denies exposure to infectious person. Patient denies travel to an Ebola-affected area in the 21 days before illness onset. Initial Sepsis Screen: Does the patient meet any 2 criteria? No. Patient's initial sepsis screen is negative. Does the patient have a suspected source of infection? No. Patient's initial sepsis screen is negative. Risk Assessment: Do you want to hurt yourself or someone else? Patient reports no desire to harm self or others. Onset of symptoms was August 16, 2019. 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 - Social history:: Smoking status: Patient denies any tobacco usage or history of. Screenin:23 Abuse screen: Denies threats or abuse. Denies injuries from another. Nutritional ph screening: No deficits noted. Tuberculosis screening: No symptoms or risk factors identified. Fall Risk None identified. Assessment: 09:21 General: Appears in no apparent distress. comfortable, well groomed, Behavior is calm, ph cooperative, appropriate for age, Reports chills for fever for > 3 days. Pain: Complains of pain in suprapubic area Quality of pain is described as crampy. Neuro: Level of Consciousness is awake, alert, obeys commands, Oriented to person, place, time, situation. Cardiovascular: Capillary refill < 3 seconds in bilateral fingers Patient's skin is warm and dry. Respiratory: Airway is patent Respiratory effort is even, unlabored, Respiratory pattern is regular, symmetrical. Respiratory: Reports cough that is. GI: Abdomen is round non-distended, Reports lower abdominal pain, nausea, vomiting. : Reports cramping, vaginal bleeding that is spotty. EENT: Reports nasal congestion nasal discharge pain when swallowing. Derm: Skin is intact, is healthy with good turgor, Skin is pink, warm \\T\\ dry. Musculoskeletal: Circulation, motion, and sensation intact. Range of motion: intact in all extremities. 10:37 Reassessment: Patient appears in no apparent distress at this time. Patient and/or ph family updated on plan of care and expected duration. Pain level reassessed. Patient is alert, oriented x 3, equal unlabored respirations, skin warm/dry/pink. Pt continues to c/o nausea, ERP notified, see MAR. 11:20 Reassessment: Patient appears in no apparent distress at this time. Patient and/or ph family updated on plan of care and expected duration. Pain level reassessed. Patient is alert, oriented x 3, equal unlabored respirations, skin warm/dry/pink. Patient states feeling better. Patient states symptoms have improved. Vital Signs: 08:04 BP 126 / 91; Pulse 88; Resp 14; Temp 98.5(TE); Pulse Ox 100% on R/A; Weight 86.18 kg; ss Height 5 ft. 3 in. (160.02 cm); Pain 0/10; 10:00 BP 118 / 78; Pulse 81; Resp 18; Temp 98.0; Pulse Ox 99% on R/A; ph 11:21 BP 120 / 84; Pulse 76; Resp 18; Temp 98.0; Pulse Ox 100% on R/A; ph 08:04 Body Mass Index 33.66 (86.18 kg, 160.02 cm) ED Course: 07:51 Patient arrived in ED. mr 07:51 None, None is Private Physician. mr 08:07 Triage completed. ss 08:08 Arm band placed on left wrist. ss 08:13 [facility]. jr8 08:13 Kevin Hagen MD is Attending Physician. jr8 08:28 Li Pompa RN is Primary Nurse. ph 09:00 Initial lab(s) drawn, by me, sent to lab. Inserted saline lock: 22 gauge in right ph antecubital area, using aseptic technique. Blood collected. 09:23 Patient has correct armband on for positive identification. Placed in gown. Bed in low ph position. Call light in reach. Side rails up X 1. Pulse ox on. NIBP on. Door closed. Noise minimized. Warm blanket given. 10:40 No provider procedures requiring assistance completed. ph 11:21 IV discontinued, intact, bleeding controlled, No redness/swelling at site. Pressure ph dressing applied. 11:46 Health Dept notified/ PUI # [id number]/ Lulú in lab notified. eb Administered Medications: 09:15 Drug: NS 0.9% 1000 ml Route: IV; Rate: 1000 ml; Site: right antecubital; ph 11:19 Follow up: Response: No adverse reaction; IV Status: Completed infusion; IV Intake: ph 1000ml 09:15 Drug: Reglan 10 mg {Note: mixed in 50 mL NS.} Route: IVP; Site: right antecubital; ph 11:20 Follow up: Response: No adverse reaction; Nausea unchanged ph 10:36 Drug: Zofran (Ondansetron) 8 mg Route: IVP; Site: right antecubital; ph 11:20 Follow up: Response: No adverse reaction; Nausea is decreased ph 10:36 CANCELLED (Duplicate Order): Zofran (Ondansetron) 8 mg IVP once; over 2 minutes ph 11:18 Drug: Potassium Chloride 20 mEq Route: PO; ph 11:20 Follow up: Response: No adverse reaction ph Intake: 11:19 IV: 1000ml; Total: 1000ml. ph Outcome: 10:28 Discharge ordered by MD. nagel 11:21 Discharged to home ambulatory. ph 11:21 Condition: improved 11:21 Discharge instructions given to patient, Instructed on discharge instructions, follow up and referral plans. medication usage, Demonstrated understanding of instructions, follow-up care, medications, Prescriptions given X 2. 11:22 Patient left the ED. ph Addendum: 08/24/2019 16:17 Addendum: Other pt notified of negative COVID-19 swab results. Pt advised to remain in d m5 isolation until fever free for 3 days and to return to the ED for worsening symptoms. Signatures: Sharlene Geller RN RN dmKim Watt Shelby RN RN Sonido Steve PA PA jr8 Hall, Patricia, RN RN Georgia Obrien Corrections: (The following items were deleted from the chart) 08/22 11:20 11:19 Response: No adverse reaction; Nausea is decreased ph ph
--- NOTE | 2019-08-23 10:29 | EDPHYS ---
Physician Documentation [facility] Name: Haley Liu Age: 24 yrs Sex: Female : 1995 Arrival Date: 08/23/2019 Time: 07:51 Bed 13 Private MD: None, None ED Physician Kevin Hagen HPI: 08/22 09:08 This 24 yrs old Female presents to ER via Ambulatory with complaints of jr8 Vaginal Bleeding, + Preg <12wks, Vomiting. 09:08 The patient presents to the emergency department with vaginal bleeding, that is light, jr8 described as spotting. The estimated gestational age is 12 weeks. course: care: at a clinic, Leakage of Fluid: none appreciated, Ultrasound: the patient had an ultrasound, on August 20, 2019, which was normal, Risk/complications: no obvious risks or complications are appreciated. Associated signs and symptoms: Pertinent positives: abdominal pain. The patient has not experienced similar symptoms in the past. The patient has been recently seen by a physician:. Patient stated that she had some light spotting over the weekend. Saw [facility] [employer] [facility] who did US. No abnormal findings. 12 weeks gestation. Stated that she came today because she still has spotting but has been vomiting non stop. Stated that she has also had cough, fever, headache, body aches, and fatigue for 2 weeks as well. Denies being swabbed for COVID . 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 - Social history:: Smoking status: Patient denies any tobacco usage or history of. ROS: 09:08 Eyes: Negative for injury, pain, redness, and discharge, ENT: Negative for injury, jr8 pain, and discharge, Neck: Negative for injury, pain, and swelling, Cardiovascular: Negative for chest pain, palpitations, and edema, Respiratory: Negative for shortness of breath, cough, wheezing, and pleuritic chest pain, Back: Negative for injury and pain, MS/Extremity: Negative for injury and deformity, Skin: Negative for injury, rash, and discoloration. 09:08 Constitutional: Positive for body aches, chills, fatigue, fever, malaise, poor PO intake. 09:08 Abdomen/GI: Positive for nausea and vomiting, abdominal cramps, Negative for diarrhea. 09:08 Neuro: Positive for headache. 09:11 : Positive for vaginal bleeding. jr8 Exam: 09:11 Eyes: Pupils equal round and reactive to light, extra-ocular motions intact. Lids and jr8 lashes normal. Conjunctiva and sclera are non-icteric and not injected. Cornea within normal limits. Periorbital areas with no swelling, redness, or edema. ENT: Nares patent. No nasal discharge, no septal abnormalities noted. Tympanic membranes are normal and external auditory canals are clear. Oropharynx with no redness, swelling, or masses, exudates, or evidence of obstruction, uvula midline. Mucous membranes moist. Neck: Trachea midline, no thyromegaly or masses palpated, and no cervical lymphadenopathy. Supple, full range of motion without nuchal rigidity, or vertebral point tenderness. No Meningismus. Cardiovascular: Regular rate and rhythm with a normal S1 and S2. No gallops, murmurs, or rubs. Normal PMI, no JVD. No pulse deficits. Respiratory: Lungs have equal breath sounds bilaterally, clear to auscultation and percussion. No rales, rhonchi or wheezes noted. No increased work of breathing, no retractions or nasal flaring. Abdomen/GI: Soft, non-tender, with normal bowel sounds. No distension or tympany. No guarding or rebound. No evidence of tenderness throughout. Back: No spinal tenderness. No costovertebral tenderness. Full range of motion. Skin: Warm, dry with normal turgor. Normal color with no rashes, no lesions, and no evidence of cellulitis. MS/ Extremity: Pulses equal, no cyanosis. Neurovascular intact. Full, normal range of motion. Neuro: Awake and alert, GCS 15, oriented to person, place, time, and situation. Cranial nerves II-XII grossly intact. Motor strength 5/5 in all extremities. Sensory grossly intact. Cerebellar exam normal. Normal gait. Vital Signs: 08:04 BP 126 / 91; Pulse 88; Resp 14; Temp 98.5(TE); Pulse Ox 100% on R/A; Weight 86.18 kg; ss Height 5 ft. 3 in. (160.02 cm); Pain 0/10; 10:00 BP 118 / 78; Pulse 81; Resp 18; Temp 98.0; Pulse Ox 99% on R/A; ph 11:21 BP 120 / 84; Pulse 76; Resp 18; Temp 98.0; Pulse Ox 100% on R/A; ph 08:04 Body Mass Index 33.66 (86.18 kg, 160.02 cm) ss MDM: 08:13 Patient medically screened. jr8 10:24 Data reviewed: vital signs, nurses notes, lab test result(s), and as a result, I will jr8 discharge patient. Data interpreted: Pulse oximetry: on room air is 100 %. Interpretation: normal. Counseling: I had a detailed discussion with the patient and/or guardian regarding: the historical points, exam findings, and any diagnostic results supporting the discharge/admit diagnosis, lab results, the need for outpatient follow up, an OB/Gyne specialist, to return to the emergency department if symptoms worsen or persist or if there are any questions or concerns that arise at home. ED course: Discussed with patient that repeat US today will not add value to assessment. If bleeding has not worsened and she is not feeling worse. Best to wait and see if it progresses or not given recent normal US. Explained to her if her bleeding becomes worse and/or she passes tissue to come back to ED for US. Otherwise needs to f/u with OB. Will start her on another type of nausea medication to see if it improves her vomiting. Needs to isolate until COVID swab comes back . 08/22 08:26 Order name: Quantitative Hcg; Complete Time: 10:24 08/22 08:26 Order name: Abo/rh Typing; Complete Time: 10:03 08/22 08:26 Order name: Basic Metabolic Panel; Complete Time: 10:24 08/22 08:26 Order name: CBC with Diff 08/22 08:41 Order name: COVID-19 08/22 08:26 Order name: IV Saline Lock; Complete Time: 09:24 08/22 08:26 Order name: Labs collected and sent; Complete Time: 09:24 08/22 08:26 Order name: NPO; Complete Time: 08:44 Administered Medications: 09:15 Drug: NS 0.9% 1000 ml Route: IV; Rate: 1000 ml; Site: right antecubital; ph 11:19 Follow up: Response: No adverse reaction; IV Status: Completed infusion; IV Intake: ph 1000ml 09:15 Drug: Reglan 10 mg {Note: mixed in 50 mL NS.} Route: IVP; Site: right antecubital; ph 11:20 Follow up: Response: No adverse reaction; Nausea unchanged ph 10:36 Drug: Zofran (Ondansetron) 8 mg Route: IVP; Site: right antecubital; ph 11:20 Follow up: Response: No adverse reaction; Nausea is decreased ph 10:36 CANCELLED (Duplicate Order): Zofran (Ondansetron) 8 mg IVP once; over 2 minutes ph 11:18 Drug: Potassium Chloride 20 mEq Route: PO; ph 11:20 Follow up: Response: No adverse reaction ph Disposition: 19:40 Co-signature as Attending Physician, Kevin Hagen MD. [email or web address] Disposition: 08/23/19 10:28 Discharged to Home. Impression: Vomiting, Viral infection, unspecified, Threatened . - Condition is Stable. - Discharge Instructions: Threatened Miscarriage, Vaginal Bleeding During , First Trimester, Pelvic Rest, COVID-19. - Prescriptions for Reglan 10 mg Oral Tablet - take 1 tablet by ORAL route every 8 hours As needed; 60 tablet. Zofran 8 mg Oral Tablet - take 1 tablet by ORAL route every 12 hours As needed; 20 tablet. - Medication Reconciliation Form, Thank You Letter, Antibiotic Education, Prescription Opioid Use form. - Follow up: Private Physician; When: 5 - 6 days; Reason: Recheck today's complaints, Continuance of care, Re-evaluation by your physician. - Problem is new. - Symptoms have improved. Signatures: Dispatcher [employer] EDMS Jackie Guy RN RN ss Roszak, Josh, PA PA jr8 Li Pompa RN RN ph Holmes, Maurice, MD MD 7 Corrections: (The following items were deleted from the chart) 10:36 10:36 Zofran (Ondansetron) 8 mg IVP once; over 2 minutes ordered. ph ph 11:22 10:28 08/23/2019 10:28 Discharged to Home. Impression: Vomiting; Viral infection, ph unspecified; Threatened . Condition is Stable. Forms are Medication Reconciliation Form, Thank You Letter, Antibiotic Education, Prescription Opioid Use. Follow up: Private Physician; When: 5 - 6 days; Reason: Recheck today's complaints, Continuance of care, Re-evaluation by your physician. Problem is new. Symptoms have improved. jr8
[2019-08-23] MEDS ORDERED: ONDANSETRON 4 MG/2 ML VIAL ONE (10:39)
[2019-08-23] MEDS ORDERED: POTASSIUM CL SA 10 MEQ TAB PO ONE (10:39)
[2019-08-23 11:43] VITALS: TEMP 98
[2019-08-23 11:44] VITALS: BP 120/84; O2SAT 100
[2019-08-23 12:30] LABS: Blood Morphology Comment NOT SEEN (NOT SEEN); Platelet Estimate ADEQ; Urine White Blood Cell Casts OK
== END 2019-08-23 11:22 | disposition home or self-care (01) ==
LOC: ER 07:44
DX: O20.0 Threatened abortion (principal); Z20.828 Contact with and (suspected) exposure to other viral communicable diseases; Z3A.12 12 weeks gestation of pregnancy
CPT/HCPCS: 96361; 85025; 80048; 36415; 86900; 86901; 84702; 96375; 96374; 99284; U0001; J2765; J7030; J2405

== ENCOUNTER 2019-09-22 10:57 | Emergency (ER) | payer OTHER ==
--- OUTSIDE RECORDS SUMMARY | 2019-09-22 11:01 | XMS REPORT | Clinical Summary ---
:1995 Author Organization [facility] Address [address] [place] [address] Care Team Providers Name Role Phone Unavailable [...] Only Internal Medicine El Durham MD after 09/21/2018 Family History Medical History Relation Name Comments [...] Taken Blood Pressure 110/58 01/06/2019 10:51 AM [employer] Pulse 76 01/06/2019 10:51 AM [employer]CH[employer] Temperature 36.5 C (97.7 F) 01/06/2019 10:51 AM [employer] ARCHITECT Respiratory Rate 17 01/06/2019 10:51 AM [employer] ARCHITECT Oxygen Saturation 97% 01/06/2019 10:51 AM [employer] ARCHITECT Inhaled Oxygen Concentration - - Weight 86.2 kg (190 lb) 01/04/2019 12:34 AM [employer] ARCHITECT Height 162.6 cm (5' 4") 01/04/2019 12:34 AM [employer] ARCHITECT Body Mass Index 32.61 01/04/2019 12:34 AM [employer] ARCHITECT Plan of Treatment Health Maintenance Due Date Last Done Comments INFLUENZA VACCINE (#1) 2018 04/11/2017 Procedures Procedure Name Priority Date/Time Associated Diagnosis Comme nts TRANSFUSION SERVICE 01/06/2019 5:52 REPORT - SCAN PM [employer] CBC (HEMOGRAM ONLY) Routine 01/06/2019 10:21 Resu lts for this AM [employer] procedure are i n the results section. COMPREHENSIVE Routine 01/06/2019 10:21 Results fo r this METABOLIC PANEL AM [employer] procedure ar e in the results section. TISSUE EXAM AP Routine 01/05/2019 5:09 Results for this PM [employer] procedure are i n the results section. LAPAROSCOPY,CHOLECYST 01/05/2019 3:17 Choledocholithi asis ECTOMY PM [employer] Special Needs REQ TF ABORH, MANUAL Routine 01/05/2019 12:45 PM Results for this [employer] procedure are i n the results section. TYPE AND SCREEN, OMKAR 01/05/2019 11:53 AM Resu lts for this AUTOMATED [employer] procedure are i n the results section. FL ERCP Routine 01/05/2019 7:45 AM Results for this [employer] procedure are i n the results section. REPORT OF PROCEDURE 01/05/2019 7:25 AM - ENDOSCOPY URL [employer] ERCP,BALLOON 01/05/2019 7:00 AM Abnormal findings on SWEEPING [employer] ARCHITECT diagnostic imaging of digestive system Case Notes OKAYED BY GLORIA TO POST IN R OOM 2 @ 7:00/JOEL 01/04 @ 1:05 Special Needs (C-ARM) PROCEDURE W/ C-ARM 01/05/2019 7:00 AM [employer] ARCHITECT Abnormal fi ndings on diagnostic imaging of digestive system Case Notes OKAYED BY GLORIA TO POST IN R OOM 2 @ 7:00/JOEL 01/04 @ 1:05 Special Needs (C-ARM) ERCP,PAPILLOTOMY 01/05/2019 7:00 AM [employer] ARCHITECT Abnorma l findings on diagnostic imaging of digestive system Case Notes OKAYED BY GLORIA TO POST IN R OOM 2 @ 7:00/JOEL 01/04 @ 1:05 Special Needs (C-ARM) POCT , URINE Routine 01/05/2019 6:49 AM [employer] ARCHITECT Results for this procedure are i n the results section . COMPREHENSIVE METABOLIC Routine 01/05/2019 3:33 AM [employer] ARCHITECT Results for this PANEL procedure are i n the results section . CBC W/PLT COUNT & AUTO Routine 01/04/2019 5:48 AM [employer] ARCHITECT Results for this DIFFERENTIAL procedure are i n the results section . PROTHROMBIN TIME/INR Routine 01/04/2019 5:48 AM [employer] ARCHITECT Results for this procedure are i n the results section . LIPASE Routine 01/04/2019 5:48 AM [employer] ARCHITECT Resu lts for this procedure are i n the results section . CBC W/PLT COUNT & AUTO Routine 01/04/2019 5:48 AM [employer] ARCHITECT Results for this DIFFERENTIAL procedure are i n the results section . COMPREHENSIVE METABOLIC Routine 01/04/2019 5:48 AM [employer]S ARCHITECT Results for this PANEL procedure are i n the results section . after 09/21/2018 Results TRANSFUSION SERVICE REPORT - SCAN (01/06/2019 5:52 PM [employer] ARCHITECT) Narrative Performed At This result has an attachment that is no t available. CBC (Hemogram only) (01/06/2019 10:21 AM [employer] ARCHITECT) WBC 12.2 (H) 3.5 - 10.5 K/L [facility] RBC 3.80 (L) 3.93 - 5.22 M/L [facility] Hemoglobin 11.9 11.2 - 15.7 GM/DL [facility] Hematocrit 36.6 34.1 - 44.9 % [facility] MCV 96.3 (H) 79.4 - 94.8 fL [facility] MCH 31.3 25.6 - 32.2 pg [facility] MCHC 32.5 32.2 - 35.5 GM/DL [facility] RDW 15.3 (H) 11.7 - 14.4 % [facility] Platelets 206 150 - 450 K/CU MM [facility] MPV 11.4 9.4 - 12.3 fL [facility] nRBC 0 0 - 0 /100 WBC [facility] Specimen Blood Performing Organization Address City/State/Zipcode Phone Number [facility] [address] [place] [address] CENTER Comprehensive metabolic panel (01/06/2019 10:21 AM [employer] ARCHITECT)Only the most recent of3 resultswithin the time period is included. Protein, Total 6.5 6.0 - 8.3 gm/dL [facility] Albumin 3.7 3.5 - 5.0 g/dL [facility] Alkaline Phosphatase 110 40 - 150 U/L [facility] Total Bilirubin 1.0 0.2 [...] ER Creatinine 0.80 0.57 - 1.25 mg/dL [facility] ER Glucose 178 (H) 70 - 105 mg/dL [facility] ER Calcium 8.8 8.4 - 10.2 mg/dL [facility] ER AST 172 (H) 5 - 34 U/L [facility] ALTH [facility] ER ALT 386 (H) 6 - 55 U/L [facility] ALTH [facility] ER EGFR 89Comment: ESTIMATED GFR mL/min/1.73 sq m [facility] IS NOT ACCURATE [facility] CREATININE CLEARANCE IN PREDICTING GLOMERULAR FILTRATION RATE. ESTIMATED GFR IS NOT APPLICABLE FOR DIALYSIS PATIENTS. Specimen Blood Performing Organization Address City/State/Zipcode Phone Number [place] [phone] [place] [address] CENTER Tissue Exam (01/05/2019 5:09 PM [employer] ARCHITECT) Case Report Surgical Pathology Report Case: [id number] [facility] Authorizing Provider:Mason Mcmahon MDCollected: 01/05/2019 1709 [facility] Ordering Location: [facility] Received:01/08/2019 0821 SERVICES Pathologist: Cecy Sam MD Specimen:Gallbladder DIAGNOSIS GALLBLADDER, CHOLECYSTECTOMY: CH I [facility] - CHRONIC CHOLECYSTITIS WITH EROSION [facility] - CHOLELITHIASIS - ONE REACTIVE LYMPH NODE Signing Pathologist Direct Phone Line: CPT Code(s) CC/ew [facility] ALTH [id number] [facility] ER CLINICAL HISTORY [facility] Preoperative and postoperative diagnosis: Choled ocholithiasis. [facility] SPECIMEN SOURCE Gallbladder tissue [facility] DES[facility] Received in one part. [facility] Received in formalin labeled with the [...] surface margin blue and d uct blue. Lining Vamper sections are submitted in cassettes A1-A2 with the margins included in cassette A1. KM/bc MICROSCOPIC DESCRIPTION Performed [facility] ER Specimen Tissue Performing Organization Address City/[facility] Phone Number [address] [address] C[place] ABORH, manual (01/05/2019 12:45 PM [employer] ARCHITECT) ABO Grouping A [facility] Rh Factor POS [facility] Specimen Blood Performing Organization Address City/[facility] Cent[facility]ode Phone Number [address] [phone] Type and screen, automated (01/05/2019 11:53 AM [employer] ARCHITECT) ABO/RH AUTOMATED (BEAKER) A POSITIVE [facility] Ab Scrn NEGATIVE [facility] Specimen Blood Performing Organization Address [facility] Cent[facility]ode Phone Number [address] [phone] [place] ERCP (01/05/2019 7:45 AM [employer] ARCHITECT) Specimen Narrative Performed At FINAL REPORT GE RIS A fluoroscopic unit was utilized for a p rocedure performed in the operating room. No interpretation was re quested. Please refer to the operative report regarding findings. Ple ase refer to PACS for patient radiation dose information. Signed: Adilene Victoria MD Report Verified Date/Time:01/05/2019 08:59:15 Reading Location: [facility] Reading Room Procedure Note Interface, External Ris In - 01/05/2019 9:01 AM [employer] ARCHITECT FINAL REPORT A fluoroscopic unit was utilized for a p rocedure performed in the operating room. No interpretation was re quested. Please refer to the operative report regarding findings. Ple ase refer to PACS for patient radiation dose information. Signed: Adilene Victoria MD Report Verified Date/Time: 01/05/2019 0 8:59:15 Reading Location: [facility] Reading Room Performing Organization Address City/State/Zipcode Phone Number GE RIS REPORT OF PROCEDURE - ENDOSCOPY URL (01/05/2019 7:25 AM [employer] ARCHITECT) Narrative Performed At This result has an attachment that is no t available. POCT , urine (01/05/2019 6:49 AM [employer] ARCHITECT) Test Urine, POC Negative Control line present?, POC Yes Background clear?, POC Yes UPT Cassette Lot #, POC [id number] UPT Cassette Expiration Date, POC 10-29-2019 Specimen CBC with platelet count + automated diff (01/04/2019 5:48 AM [employer] ARCHITECT) WBC 4.7 3.5 - 10.5 K/L [facility] RBC 3.76 (L) 3.93 - 5.22 M/L [facility] Hemoglobin 11.7 11.2 - 15.7 GM/DL [facility] Hematocrit 35.6 34.1 - 44.9 % [facility] MCV 94.7 79.4 - 94.8 fL [facility] MCH 31.1 25.6 - 32.2 pg [facility] MCHC 32.9 32.2 - 35.5 GM/DL [facility] RDW 14.4 11.7 - 14.4 % [facility] Platelets 187 150 - 450 K/CU MM [facility] MPV 11.1 9.4 - 12.3 fL [facility] nRBC 0 0 - 0 /100 WBC [facility] % Neutros 54 % [facility] % Lymphs 31 % [facility] % Monos 11 % [facility] % Eos 3 % [facility] % Baso 0 % [facility] # Neutros 2.52 1.56 - 6.13 K/L [facility] # Lymphs 1.43 1.18 - 3.74 K/L [facility] # Monos 0.52 (H) 0.24 - 0.36 K/L [facility] # Eos 0.15 0.04 - 0.36 K/L [facility] # Baso 0.01 0.01 - 0.08 K/L [facility] Immature Granulocytes-Relative 0 0 - 1 % [facility] Specimen Blood Performing Organization Address City/State/Zipcode Phone Number [facility] [address] [place] [address] CENTER Prothrombin time/INR (01/04/2019 5:48 AM [employer] ARCHITECT) Protime 12.6 11.9 - 14.2 seconds [facility] INR 1.0 <=5.9 [facility] Specimen Blood Narrative Performed At Effective 07/26/2018: PT Reference Range [facility] Change New: 11.9-14.2Previous: 11.7-14.7 RECOMMENDED COUMADIN/WARFARIN INR THERAPY RANGES STANDARD DOSE: 2.0-3.0Includes: PROPHYLAXIS for venous thrombosis, systemic embolization; TREATMENT for venous thrombosis and/or pulmonary embolus. HIGH RISK: Target INR is 2.5-3.5 for patients wiht mechanical heart valves. Performing Organization Address City/State/Zipcode Phone Number [place] [phone] [place] [address] CENTER Lipase (01/04/2019 5:48 AM [employer] SYSTEMS ARCHITECT) Lipase 30 8 - 78 U/L [facility] Specimen Blood Performing Organization Address [facility]/Zipcode Phone Number [address] [address] [place] after 09/21/2018 Advance Directives For more information, please contact:[address] [phone] Code Status Date Activated Date Inactivated Comments Full Code 01/04/2019 1:20 AM 01/06/2019 2:12 PM This code status was determined by: Patient
--- OUTSIDE RECORDS SUMMARY | 2019-09-22 11:02 | XMS REPORT | Continuity of Care Document ---
:1995 Author Organization [facility] t Address [address] [place] [address] Care Team Providers Name Role Phone Mojica FNP, R Attending Clinician Ultrasound Attending Clinician Unavailable Robert Mai Attending [...] Source Natural father Diabetes [facility] Social History Social Habit Start Date Stop Date Quantity Comments Source History SDOH Alcohol [facility] Std Drinks [facility] History SDOH Alcohol [facility] Binge [facility] Sex Assigned At [facility] History SDOH Alcohol 2019-01-04 2019-01-04 1 [facility] vanessa - Frequency 00:00:00 00:00:00 Medical Center Smoking Status Start Date Stop Date Source Never smoker [facility] edical Center Medications Ordered Filled Start Stop [...] days. Max Daily Amount: 4 tablets traMADol 2018-02- No 50mg Take [address] [facility] [address] (ULTRAM) 50 03-08 tablet (50 L ukes - mg tablet 00:00: 00:00 mg total) Me dical 00 :00 by mouth Center every 6 (six) hours as needed for Pain for up to 5 days. Max Daily Amount: 200 mg Vital Signs Vital Name Observation Time Observation Value Comments Source Systolic blood 2019-01-06 10:51:00 110 mm[Hg] [facility] Diastolic blood 2019-01-06 10:51:00 58 mm[Hg] [facility] Heart rate 2019-01-06 10:51:00 76 /min [facility] Body temperature 2019-01-06 10:51:00 36.5 Esme [facility] Respiratory rate 2019-01-06 10:51:00 17 /min [facility] Oxygen saturation in 2019-01-06 10:51:00 97 /min [facility] Arterial blood by Medical nter Pulse oximetry Body height 2019-01-04 00:34:[address] [facility] Body weight Measured 2019-01-04 00:34:00 86.183 kg [facility] BMI 2019-01-04 00:34:00 32.61 kg/m2 [facility] Procedures Procedure Date / Time Performed Performing Clinician Sourc e TRANSFUSION SERVICE 2019-01-06 17:52:09 ProviderGustavo [facility] Vipin REPORT - SCAN Scanning [facility] MET[facility]OL[facility] 2019-01-06 10:21:00 El Grayson [facility] CBC (HEMOGRAM ONLY) 2019-01-06 10:21:00 El Grayson [facility] TISSUE EXAM 2019-01-05 17:09:00 Mason Krause [facility] LAPAROSCOPY,CHOLECYSTECTO 2019-01-05 15:17:00 Mason Krause [facility] ABORH, MANUAL 2019-01-05 12:45:00 Dede Frank [facility] TYPE AND SCREEN, 2019-01-05 11:53:00 Gladys Bell [facility] [place] ERCP 2019-01-05 07:45:00 Darrian Madera [facility] REPORT OF PROCEDURE - 2019-01-05 07:25:33 Darrian Madera [facility] ENDOSCOPY [facility] ERCP,PAPILLOTOMY 2019-01-05 07:00:00 Santy [facility] PROCEDURE W/ C-ARM 2019-01-05 07:00:00 Darrian Madera [facility] ERCP,BALLOON SWEEPING 2019-01-05 07:00:00 Darrian Madera [facility] POCT , URINE 2019-01-05 06:49:00 Darrian Madera [facility] 2019-01-05 03:33:00 lE Grayson [facility] 2019-01-04 05:48:00 Curtis Pierson [facility] LIPASE 2019-01-04 05:48:00 Curtis Pierson [facility] PROTHROMBIN TIME/INR 2019-01-04 05:48:00 Dangelo [facility] CBC W/PLT COUNT & AUTO 2019-01-04 05:48:00 [facility] [place] Plan of Care Planned Activity Planned Date Details Comments Source Future Scheduled 2018-10-[address] [facility] - Test 00:00:00 (#1) [code = [facility] INFLUENZA VACCINE (#1)] Encounters Start End Encounter Admission Attending Care Care Encounter Source Date/Time Date/Time Type Type Clinicians Facility Department ID 2019-08-30 2019-08-30 Routine [facility] [id number] 10:00:24 10:40:25 Rosnicnda R BEAM BUILDER HELPER [id number] Visit [facility] 4.2.7.2.686 MATERNAL [id number] & CHILD 107 [facility] 2019-08-30 2019-08-30 Telephone [facility] [id number] 00:00:00 00:00:00 Rosnicnda R BEAM BUILDER HELPER [id number] [facility] 4.2.7.2.686 MATERNAL [id number] & CHILD 107 [facility] 2019-08-22 2019-08-22 Amortization Clerk Ultrasound, [facility] [id number] 11:25:11 11:55:11 Visit Taco-sarah BEAM BUILDER HELPER [id number] [facility] 4.2.7.2.686 MATERNAL [id number] & CHILD 369 [facility] 2019-08-07 2019-08-07 Telephone [facility] [id number] 00:00:00 00:00:00 Zina Jones BEAM BUILDER HELPER [id number] [facility] [id number] MATERNAL [id number] & CHILD 107 [facility] Results Test Description Test Time Test Comments Results Result Comments Source Tissue Exam 2019-01-10 14:05:00 Test Item Value Reference Range Interpretation Comme nts Case Report (test code = 104) Surgical Pathology Report Case: [id number] Authorizing Provider: Mason Krause MD Collected: 01/05/2019 1709 Ordering Location: [facility] PERI[facility] Received: 01/08/2019 0821 SERVICES Pathologist: Cecy Sam MD Specimen: Gallbladder DIAGNOSIS (test code = 3220) e2asyCRgMBZwt3jwFWDkgVOdXkFwPuFrXtRkCd pc fPWuUJakvwPlUKult2WuO2JeIoLtWXgtykTzNFUj EdapjqimTUNvJIK6mgHmIBLpFOnoLODpSUsnRt6a uYVekTjlJjDwBDTdp3koavBGubqakGh5c0qlKAHf AdQ3eHEjWLsnR0bazhAamYZxZXErXIp8eJ07PGQx bT3oxPEuPJaulnKqUpK1SFtuHYWrBaG1MDCbqKUt VEOzP3nvAGJbQRfyOHIxESycpODdNOS4xRgym2C5 rBGxmVScfUxcQuFlYwKjOYNPw8PaYEu8hAjbQ6Bb BGPhYrY3yXIvYVZcYHoiICWmGJHsdbA8kC06FEgn zyR6eUIvr2Sgr14th907tI8ubIObDDZ2GZBsLNQs kNLjFFNgXDP6GCZuwSDeP1j1SnDwvRHeT0J7OiNv bQWjK5L3AuFzeOXxD8L4HdRkdGAcHPAqsIOwOo5u pTOcxDEvvg1cyi35WUI5c3VucUzbIQL3IQB2TeDy Jt7pcJKwLRLtYF7eMlCepVVrSFVqud52zVinNXac ipFtfE2nXhLrZXDvfYSpPYQqCX7ffNUjDLXrpE9k ontlUMRfMjCdkggqQZHrdEyophOjCh6wvHkvDWN5 WGdmG3hdeC7rXmM5CKnyR7uztU1jMOs6CKyreKL6 XGVfbF8sHV1esqadb2nzZyLnLG9ptpxql1szQxPf XZ9pvmy3i3toPwKhTK5zxjhzo9raMrLvIQzoZEUp jcirGZUqj8UdkuvaBVXrq0LiR8FzzOzuH71mhTde Q22oRWGfcUpxsG7hgXznhR8lDkRiUkVfKQshgDct iYFkwtxzDDvjvpIaVYlhwrgrQOTxKYrzI3vxYlNa TMJruHyoRDkyg1LnWPPtXIAfTsFfH4ADSYQTTWSP HVZePOUWX7kWT4xFHVIBBV9RVSyfqHLaHONqTHLN FFYPHinFXTUJY0eCJ4dFNRsWEZCrT5lULJQXWo8H BT3XKVBpjdVaLG0wD1sHMGERMBQKJLJDIYKgGNRn kuKyXO7rI56ZINTHBOKBIVOSZXmFNJFGKY5ODAPz oPCpHAJubd77AWD3KzErp6R7PUZ7SMVqLDGep0xb SYLstLRjVqMoCgNiRmJrLdnidFFzOBGwNwIbk7ig l196bLYst4llSHLuQhN3kIRkRIOysARtA449YFEk GNirk7jjc5TxJOWtkGUhq9S0ZCLAhkolcTi6fIbr Q21nc6B5HzzlG4xmJYCnLFNyQ9ZyDA9rDAFbHrq7 IZZ6LAJ6UFDfEVPmW0OqLI3oFIJbePTjHAu2e6sk zGrcRPUvRBQ2q4qdEFcjxkZhWP8awv1onRz1u6pt zdMoFQApGSXhdIDGXLXdN9GpuMxtUe3gqAn2oDwg GpreZAH5Wkb3FJ3tow50fhn5xSquPUDiycujUhA1 CFpmGIXyykezDNt8WQtqQCBqtQF3GVQxgBLbQ7Jg DFMzPU1iuhn7ZZZ8WMdhNTSoUkY1OKZulERpPTRu xOknYSijm867LGQ6RpJrTE1xT4Ulc9H2mT7bcTIn MJEieQFyWtKaVHDnqv7sbAMpIJafj6JoOGE0ckL3 eMWmmBVnDCDwUvF5TSerWU2gfb31TLKbKOO3md5m xXGjnZtdatXrqTGuFMclV5EeTRUhx134AGSzK6Tc MJZts8Q2gcGsOgBlVHVpoLD3uxE8JMSkOC6srhqj f3fyDTxdHYyyZJCdsfQ3tvK6GZRbsNVhQ9UckZ8h NNBdYC3cabkdh9jyHOF5ZRadDAAdDBS9QoMaVAJu l3Zskmi3FjZsy6MzeMYaNIwyP97ym962HAVsqjKr W1tnkPXhnuzxvKYlaqtmAVwinbG9VIApHCvcyniy VODfLRfzO0gtPhKsLFVnoDcfVJymf0PdOLSbACMf WqLivTAnXHUyKpd2WDQlxQGcDTMrMkDqB0mauyyq RzFCGYKbx7fiN8nozRYWqPIcM4LuDUdtsiAlIMoq TEsoWnIhHVf2PZ39RzPxRNStgv24 CPT Code(s) (test code = 3357) l8avjGUaKDFuhZIwNcJxCRAqJMQxr2fsJJKm bGFu SmUjYuDtSaDsSvbqmUNwFGWrBdRlj7ltv129dPYr w0xeXRUoWjB6qTPjNWWvaRKaT133UGVqAMgep5dt r1ObUGZktYHaf1X0QULMlhgbdFv3uSanK15vp5T5 CfitQ5rsBYGkDQHhU0ItOS2qNSKnWmo9JXY6SBL7 PPNoHEUtD3MsWA6mRLUmjVFiIUn7m2aocEfjDGBs CVY4v0czVMkhdnHvFC1wod7mbVw2s3pszmNkVLVx PDAmpWQGCRObV8ZsvLapVh9svXy6aCsqRxqfPQJ2 Jgx4JC8wfi13dfo7ySymYCLdnjrcBuO4TWtmGLWq cdohXLe1VYojWBJqoZztULrgZQLynmbnQUgxHUYn vQwlUFedNJNpNhaqHMcvTYTuZYY5OCvnj054QIM2 VYoic0smo3szaYXyOtg7HSHbLaUuGrsfJEjoq5Ks w0zfHMRwhr9hZRZ3pNAkzPszz1M0yJBhFDXxiTUc avZrWBGgDxH6KWisPM6tnx39FDSiSAU8dc8boEXm gQaswtUodUKoROedK7MpHMDai233HYEhT2TqYKAi p0M6yeTmItNiVSFhvYJ0nwQ7VCXhSQj1hBJoqoB4 niWagKUrN4rvfB70XxOcjSAxI6AnaI65IwQgxAAm E2RbbT08WlQndIBoJ7VqzC51RqJktBKdQSRmfHPw Ut2woRPyhRIso5EfiVHuXXuiY98lv195RVXkqjTz W2lpeEFkiscbxQPgoastQWibxpM5WEPjNSEqFBpv XGYxXGZzMjBcbGFuZzEwMzNcaGljaFxmMVxkYmNo NXNiZYjnI7riXdDgSrQoZHEREe6zfmUhsTFyVBa3 GoU9YGXdkq5= CLINICAL HISTORY (test code = 3356) h0jrkQIfJACpiQZhCzZzTHGxOBJan7i cZGVmbGFu HlEwGbIyVcKeRummlJDhPUWiHfYct1muq758rDZh j0scTMOjUsR8gBZgUIVctFCzH180j0owz9ritgDo nVT3RJRsEXZ4RJritePlceC5EAjxuDOxDaW7ANis jmSoMDyidjUfemAyPmk6OATxO090DGY8kVccy6xr RVI5WMSwZRQpDqIvDf8hsOVtZ752VLElDLZBQFRt aRg2HTNakrYyxbZgwIORn974S698t0muZQPqebQi xWvZzikwi0djY763LGTulDFbqgOwMzKeLNZaaLRq lBV8TIAqFY2rscpxNiZeOI3zktnbGwPwAM1uinr3 XsItUE0anggwBnYtPMxaRGNickqtWRQne2Uouavx UW1nW2Odr5M0yR7ddHHvOCUwmXVdGrPhMBJzcx7h oKEmQAbli3JsYER7usG2lTBkcOZzIGKyAQ41Fgqu x6SuEyzxDID0ZFBseuOah5Jpd9drLzWgxsMdM8so K2WjVYZgRCIyVNLjVeHnzjAfj2Eoq1GgtAEyqTl8 v0vxYZGmYDWskBnjb6erJXM5AWJpV3H8uIWib8fq BFcaBJAkfPM3vvcbRVxqFPFqutS2wcgpIPqwAZTe tDI5lqcnVOejEMPqBkB2bnugJDpfFPFyMMR2HGty w411OTF2DQabKmvuXNbkUSQyfrLjbiPklEqbJIFx VBPrEQyhFARtZGzsXZNuHRIaVxJzeUyyyUyexG4x QyMgKxEqLSbsJT0zOSXwK3nhgGRpVYBbXRKsJ5jv NaPffA9wdIgrBRvlwfZxIWMdufEObkSwaMLoWWLz mcRwHA5nEXKxd9AfpWXdOBDrahZqWBghD91sn8cf DgPFwM8eNLDuZ3jadSk3iJqsy5fvJttvVBF2 SPECIMEN SOURCE (test code = 3377) p6ioeOWeQGJyyXCkPvGqDHIkAQVra2rv ZGVmbGFu SwSuZcHiEnIjEqbsgXUoZGVcZtJwa9ugy749bDVa c5ewNOLpAgS1sPHoFIYflUUmJ921t9agr9yghgDt nTX3IPBtYSW4DGtvwyYssqW0BArcgMIqSgK3FGwa xnSnMAlxouKfomMeKlr3KVCeP960DTM0sXzbi6ip WTB9OEKfTBLkNwXnAa0brKHnW417CPZvSLHTPUBs kDm6TQBcygNkjgCxnFLMl405G424z1ziIBXkfnDh qAgMmoasm4tsC446AZMznBIulgCnZiJgYBObcXSh iEA9NFQgCT3ukamoYnFiUY6aasorGoZcSY6beks5 EvVsLU8qpagoLnMvOTxaMCYdmgjzSYVgg1Vwfarz PJ8cV8Rcd0J1mC6drEHeLVEtzOPtCaGwFHGqab4g uPZwLXymn6NuGBN1snU0dNCkdIJsTFUnOI26Reap r9FhXluoQCT7PMIazoGks7Wbd0vjTpUitoUfW1ft F8RcRVNnVTQpZPDhUwDtwhBto9Htr5NbrBWybJe1 a5yrHUHlCFRmtQeuf9mnMDO8KGOqV4Z7cGMna7dz JMhgKJKmdQT8oigkBAofDAQomxQ8bihjEHqvRCXv bWV6agogJVcuKGMfYxQ7siyxJFzgIYDpNZV3YNtn t741EXA4FFbkMupxIKtqKZDeznFulqKyrUgmIXIs BRRjWLkaXYNsODjiNRWhSXQkKnBfnIhdeZqthF9y OjWjLmRhMJbkBQ4fAUOsT8wpqCTpGOZoXZXjW2sq LlKmvT5yyRcrEUqoonGtJIansIkqrXFaGMOoXFWk f7H8CTvvOSR4 GROSS DESCRIPTION (test code = 3366) p4eyuCCdENJhwAKnNnQaZGWdGWFuf0 lcZGVmbGFu YgLuQiMoLgEiCrfovDOcGOMeEsQqj0egl797bNTo h2odMZOhWxU6sRMySYRupUWwL480UQMeOFxvb7xg g8KcZWRogRYpb9T6ZCBMnaiuuBo6yCnuK19nk9K9 ViykJ0cxDMRxKEJaC7QaJD5lZWFnSuz4BRG5GCN1 XUWjESXkS9UjJI8zDACvxTJhNTq6n8pfhCazIOCr TWQ3i4uiKNiozoSoYC9kij3llZu1c6cfmrIyLNPo OESjjEDYANMlN2EmoXfkLu0naBe2tBapXqvtUUI5 Jyo0PE4xuq40vtp4kEmaAAElfbisJjX8RDyvXIBf fhjwYKt4LGgxOLTzuMdcHXgyKMJqbsdkFQxfXCPu lZxyPHcrTBZfFxjhYHksHMEiVRT4ADois056ARZ5 CBcmo0qqp0bmdUWvUet9ZCAxJwYqSoquXTcbh9Yl p3vhCSXzwy3iVIJ7qVTejGbgz5S8kJHkDRExwFNy mzLiZKOpYzG1ZLzfVI8fwb93JRZjJIE4gh1cnIYy lVkweuCjuXAzKHplC2DtNATbg016FTXfU7FwXNZi e8Y5pkMyIrNeJNLlgDQ7kvA4LFZvQVo0iBUinxP1 xfChbZByV9nqiZ32KuZllCRfV2OfgE32XxVnaOQh X7BjxI93FiVbcZPzC4QaqW02SuMvoPReQISgyONu Mv1ieRVydQPkr8GekIXbWVrmL80am876QDFkdpSm X5ljoOAqkwxknJWupjxoKBjtauP0AUMrHBSfGJrg XGYxXGZzMjBcbGFuZzEwMzNcaGljaFxmMVxkYmNo [file] TSDsQNL9HDGFNT4wHJcVM4CrRCpuWKR4 MICROSCOPIC DESCRIPTION (test code = m1rhtNIsXBMfwRJnJiVfOLLbVZRzt6 [place] [address] HlSmVuRgHxYoKqkqoRDpHTCcOdDxj9vcn799hHQw m5ydIBZpZyS3nHUqMHLjeMPfE389y0wkz3fumxEs xQX4IOUrVWX8GGssyxKnnxG5NErmtMBsVoN8RZno fhMfBCevroSpagVoOjp5WGEbZ483FLW6iMxbc4xf TEY8QEQpZIQiSyWfSe1bpKFlF110MXSxVDOITJLk cYy8MYMnksMiqbAqvYBXn525V956j4omSBNvhvIq xQwKuwpbv2kvJ254ZSKflFWbmzIaStPoWZCcdDPm cTW4LDTgVH8fsmekPwSzOU4uwtgdXgSwLQ0ctgm4 IjIgCZ6hcgulKhRyVNnwTKQidmjlCOUgh8Xwsvhj WL9dM3Swh0O1cL0wfVCsCGWbhXTwOmTfWLXktz1a fXDgTJagm8ExAPS2bvY1yUXkeFKdWJAkHJ00Jwmy d7OmCdiqFVA8EYCfpeFll7Hyd8hwDmUwnpUbM6ai F3OxOQKcWJWhBJOuXoYhuhCci5Htq9RpbTEsbAl9 a0guBMFuAUVbfWwoq1aeVGL5ZAIvX4P0wUEch9ah KQmzSFUarTB4ybqbZYkyEQIkryV7tjgfRQntBNCk aOF0ztgjNCgzZSIfWwK1hpezVAfbXEGjBSQ4OCdq h622NTY0DXbuAlsrNLztOINrhlEeywTttRffAKLu FQOmQKkoQGLcRSyqVUQaFAEwMmXhyLwmePdbnQ3w RzIrTrZrDUonQU2yONEmJ1kkkQNpGZFcXZEsZ7oz GuDbaG7pePxeDNgqhxSyCPSnpoMgmv6fAQIalOQc fQ== [facility] [id number] 14:05:00Surgical Pathology Report Case: [id number] Authorizing Provider: Mason Krause MD Collected: 01/05/2019 1709 Ordering Location: [facility] PER[facility] Received: 01/08/2019 0821 SERVICES Pathologist: Cecy Sam MD Specimen: Ga llbladder GALLBLADDER, CHOLECYSTECTOMY: - CHRONIC CHOLECYSTITIS WITH EROSION - CHOLELITHIASIS - ONE REACTIVE LYMPH NODESigning Pathologist Direct Phone Line: [phone] signed by Cecy Sam MD on 01/10/2019 at 2:05 [facility]/ [id number] and postoperative diagnosis: Choledocholithiasis.Gallbladder tissueReceived in one [...] code: Adventitial surface margin blue and duct blue.Area Loss Prevention Manager sections are submitted in cassettes A1-A2 withthe margins included in cassette A1. KM/bc PerformedComprehensive metabolic [id number] 10:48:00 Test Item Value Reference Range Interpretation Comments Protein, Total (test 6.5 6.0- 8.3 gm/dL code = 2885-2) Albumin (test code = 3.7 g/dL 3.5-5 27072-9) Alkaline Phosphatase 110 U/L 40-150 (test code = 6768-6) Total Bilirubin (test 1.0 mg/dL 0.2-1.2 code = 1975-2) Sodium (test code = 141 meq/L 439-682 1867-2) Potassium (test code = 4.0 meq/L 3.5-5.1 2823-3) Chloride (test code = 107 meq/L 98-107 2075-0) CO2 (test code = 27 meq/L 22-29 2027-9) BUN (test code = 7 mg/dL 7-21 3094-0) Creatinine (test code = 0.80 mg/dL 0.57-1.25 2160-0) Glucose (test code = 178 mg/dL 70-105 H 2345-7) Calcium (test code = 8.8 mg/dL 8.4-10.2 43418-6) AST (test code = 172 U/L 5-34 H 1920-8) ALT (test code = 386 U/L 6-55 H 1742-6) EGFR (test code = 89 mL/min/1.73 [place] [address]-6) NOT ACCURATE CREATININE CLEARANCE IN PREDICTING GLOMERULAR FILTRATION RATE . ESTIMATED GFR I S NOT APPLICABLE FOR DIALYSIS PATIEN TS. Lab Interpretation Abnormal (test code = 62495-4) [facility] [id number] 10:48:00 Test Item Value Reference Range Interpretation [...] 450 K/CU MM MPV (test code = 69050-0) 11.4 fL 9.4-12.3 nRBC (test code = 413) 0 0- 0 /100 WBC Lab Interpretation (test code = Abnormal 74916-1) [facility]2019-01-06 10:30:00 Test Item Value Reference [...] 0-0 (BEAKER) (test code = 413) ABORH, [id number] 13:33:00 Test Item Value Reference Range Interpretation Comments ABO Grouping (test code = 2588) A Rh Factor (test code = 2589) POS [facility] screen, [id number] 13:00:00 Test Item Value Reference Range Interpretation Comments ABO/RH AUTOMATED (BEAKER) (test A POSITIVE code = 2260) Ab Scrn (test code = 890-4) NEGATIVE [facility], [id number] 08:59:00Reason for exam:- >bile duct diseaseIs the patient ?->NoWhen was patient's last menstrual cycle?->12/05/18FINAL REPORT A fluoroscopic unit was utilized for a procedure performed in the operating room. No interpretation was requested. Please refer to the operative report regarding findings. Please refer to PACS for patient radiation dose information. Signed: Adilene Muñoz Verified Date/Time: 01/05/2019 08:59:15 Reading Location: [facility] Reading Room [facility] [id number] 08:59:00Interface, External Ris In - 01/05/2019 9:01 AM CSTFINAL REPORT A fluoroscopic unit was utilized for a procedure performed in the operating room. No interpretation was requested. Please refer to the operative report regarding findings. Please refer to PACS for patient radiationdose information. Signed: Adilene Muñoz Verified Date/Time: 01/05/2019 08:59:15 Reading Loc ation: [facility] Radiology [facility] [id number] 06:49:00 Test Item Value Reference Range Interpretation Comments Test Urine, POC (test Negative code = 5414565) Control line present?, POC (test Yes code = 2060544) Background clear?, POC (test code Yes = 3701502) UPT Cassette Lot #, POC (test code [id number] = [id number]) UPT Cassette Expiration Date, POC 10-29-2019 (test code = 5312592) [facility] [id number] 05:12:00 Test Item Value Reference Range Interpretation [...] I S NOT APPLICABLE FOR DIALYSIS PATIEN BARBIE. [id number] 06:55:00 Test Item Value Reference Range Interpretation Comments Lipase (test code = 3040-3) 30 U/L 8-78 Lab Interpretation (test code = Normal 93198-0) [facility]2019-[facility] 06:55:00 Test Item Value Reference Range Interpretation Comments LIPASE (BEAKER) (test code = 749) 30 U/L 8-78 COMPREHENSIVE METABOLIC [id number] 06:55:00 Test Item Value Reference Range Interpretation [...] NOT APPLICABLE FOR DIALYSIS PATIEN TS. Prothrombin time/[id number] 06:49:00 Test Item Value Reference Range Interpretation [...] valves. Lab Interpretation Normal (test code = 35385-9) [facility]PROTHROMBIN TIME/[id number] 06:49:00 Test Item Value Reference Range Interpretation [...] heart valves.CBC with platelet count + automated [id number] 06:09:00 Test Item Value Reference Range Interpretation [...] 450 K/CU MM MPV (test code = 79204-4) 11.1 fL 9.4-12.3 nRBC (test code = [...] 2801) Lab Interpretation (test code = Abnormal 59113-3) [facility] W/PLT COUNT & AUTO [id number] 06:09:00 Test Item Value Reference Range Interpretation [...] % 0-1 PERCENT (BEAKER) (test code = 6203)
[2019-09-22 12:14] LABS: Basophils % 0.3 % (0-1.3); Hematocrit 34.1 % (36.0-45.0); Lymphocytes % 7.6 % (15.3-44.8); MPV 11.1 fL (7.6-11.3); RBC Red Blood Cell Count 3.68 M/uL (3.86-4.86)
[2019-09-22] MEDS ORDERED: MAGNE/ALUM HYDROXD 30 ML UCUP ONE (12:20)
[2019-09-22] MEDS ORDERED: ONDANSETRON 4 MG/2 ML VIAL ONE ×2 (12:20→13:15)
[2019-09-22] MEDS ORDERED: LIDOCAINE VISCOUS 2% SOLN 15 ML UDC ONE (12:20)
[2019-09-22 12:21] LABS: Urine Blood NEGATIVE (NEG); Urine Glucose NEGATIVE (NEG); Urine Protein 1+ (NEG)
[2019-09-22 12:31] LABS: ALT/SGPT 62 U/L (12-78); AST/SGOT 33 U/L (15-37); Albumin 3.1 g/dL (3.4-5.0); Alkaline Phosphatase 83 U/L (45-117); BUN Blood Urea Nitrogen 8 mg/dL (7-18); Bicarbonate 24 mmol/L (21-32); Bilirubin Total 0.3 mg/dL (0.2-1.0); Glucose Level 94 mg/dL (74-106); Potassium 3.4 mmol/L (3.5-5.1); Protein, Total 7.3 g/dL (6.4-8.2); Sodium Level 139 mmol/L (136-145)
[2019-09-22 12:39] LABS: NT PRO-BNP 219 pg/mL (<125); Troponin I < 0.02 ng/mL (0.0-0.045)
[2019-09-22] MEDS ORDERED: NA CHLORIDE 0.9% 1,000 ML ONE (12:48)
[2019-09-22 13:18] LABS: Blood Morphology Comment NOT SEEN (NOT SEEN); Platelet Estimate ADEQ; Urine White Blood Cell Casts OK
--- NOTE | 2019-09-22 13:36 | RAD REPORT ---
EXAM DESCRIPTION: RAD - Chest Single View - 09/22/2019 12:47 pm CLINICAL HISTORY: burning COMPARISON: April 2013 TECHNIQUE: AP portable chest image was obtained 09/22/2019 12:47 pm . FINDINGS: Lungs are clear. Under penetrated portable technique and overlying breast soft tissues acc entuate lung bases. Heart and vasculature are normal. No measurable pleural effusion and no pneumotho rax. No acute bony abnormality seen. No acute aortic findings suspected. IMPRESSION: No acute cardiopulmonary process.
[2019-09-22] MEDS ORDERED: PROMETHAZINE INJ 25 MG/ML AMP ONE (13:59)
--- NOTE | 2019-09-22 14:06 | EDPHYS ---
Physician Documentation [facility] Name: Haley Liu Age: 24 yrs Sex: Female : 1995 Arrival Date: 09/22/2019 Time: 10:59 Bed 16 Private MD: ED Physician Tramaine Mace HPI: 09/21 12:04 This 24 yrs old Female presents to ER via Ambulatory with complaints of Chest bill Pain, Nausea/Vomiting, 16 Wks Preg. 12:04 The patient or guardian reports chest pain that is located primarily in the epigastric bill area, anterior chest wall. The pain does not radiate. Associated signs and symptoms: Pertinent positives: nausea, vomiting. The chest pain is described as burning. Duration: The patient or guardian reports multiple episodes, that are intermittent. Modifying factors: The symptoms are alleviated by nothing. the symptoms are aggravated by nothing. Severity of pain: At its worst the pain was mild in the emergency department the pain is unchanged. The patient has not experienced similar symptoms in the past. 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 - Social history:: Smoking status: Patient denies any tobacco usage or history of. - Family history:: not pertinent. ROS: 12:07 Constitutional: Negative for fever, chills, and weight loss, Eyes: Negative for injury, bill pain, redness, and discharge, ENT: Negative for injury, pain, and discharge, Neck: Negative for injury, pain, and swelling, Respiratory: Negative for shortness of breath, cough, wheezing, and pleuritic chest pain, Back: Negative for injury and pain, : Negative for injury, bleeding, discharge, and swelling, MS/Extremity: Negative for injury and deformity, Skin: Negative for injury, rash, and discoloration, Neuro: Negative for headache, weakness, numbness, tingling, and seizure, Psych: Negative for depression, anxiety, suicide ideation, homicidal ideation, and hallucinations, Allergy/Immunology: Negative for hives, rash, and allergies, Endocrine: Negative for neck swelling, polydipsia, polyuria, polyphagia, and marked weight changes, Hematologic/Lymphatic: Negative for swollen nodes, abnormal bleeding, and unusual bruising. 12:07 Cardiovascular: Positive for chest pain. 12:07 Respiratory: Positive for shortness of breath, at rest. with burning in esophagus after vomiting. Exam: 12:07 Constitutional: This is a well developed, well nourished patient who is awake, alert, bill and in no acute distress. Head/Face: Normocephalic, atraumatic. Eyes: Pupils equal round and reactive to light, extra-ocular motions intact. Lids and lashes normal. Conjunctiva and sclera are non-icteric and not injected. Cornea within normal limits. Periorbital areas with no swelling, redness, or edema. ENT: Nares patent. No nasal discharge, no septal abnormalities noted. Tympanic membranes are normal and external auditory canals are clear. Oropharynx with no redness, swelling, or masses, exudates, or evidence of obstruction, uvula midline. Mucous membranes moist. Neck: Trachea midline, no thyromegaly or masses palpated, and no cervical lymphadenopathy. Supple, full range of motion without nuchal rigidity, or vertebral point tenderness. No Meningismus. Chest/axilla: Normal chest wall appearance and motion. Nontender with no deformity. No lesions are appreciated. Cardiovascular: Regular rate and rhythm with a normal S1 and S2. No gallops, murmurs, or rubs. Normal PMI, no JVD. No pulse deficits. Respiratory: Lungs have equal breath sounds bilaterally, clear to auscultation and percussion. No rales, rhonchi or wheezes noted. No increased work of breathing, no retractions or nasal flaring. Abdomen/GI: Soft, non-tender, with normal bowel sounds. No distension or tympany. No guarding or rebound. No evidence of tenderness throughout. Back: No spinal tenderness. No costovertebral tenderness. Full range of motion. Skin: Warm, dry with normal turgor. Normal color with no rashes, no lesions, and no evidence of cellulitis. MS/ Extremity: Pulses equal, no cyanosis. Neurovascular intact. Full, normal range of motion. Neuro: Awake and alert, GCS 15, oriented to person, place, time, and situation. Cranial nerves II-XII grossly intact. Motor strength 5/5 in all extremities. Sensory grossly intact. Cerebellar exam normal. Normal gait. Psych: Awake, alert, with orientation to person, place and time. Behavior, mood, and affect are within normal limits. Vital Signs: 11:02 BP 116 / 61; Pulse 79; Resp 16; Temp 97.8; Pulse Ox 100% on R/A; Weight 82.55 kg; hb Height 5 ft. 3 in. (160.02 cm); Pain 7/10; 12:00 BP 111 / 78; Pulse 77; Resp 15 S; Pulse Ox 100% on R/A; ca1 12:35 Pulse Ox 100% on R/A; Pain 2/10; ks7 12:58 Pulse Ox 99% ; Pain 4/10; ks7 12:59 Pulse Ox 99% ; Pain 4/10; ks7 13:47 BP 104 / 75; Pulse 73; Resp 18; Temp 98(TE); Pulse Ox 100% on R/A; Pain 5/10; ks7 14:10 BP 106 / 93; Pulse 86; Resp 18; Temp 98(TE); Pulse Ox 100% ; Pain 3/10; ks7 14:26 Pulse Ox 100% ; Pain 0/10; ks7 14:43 Pulse Ox 99% on R/A; Pain 0/10; ks7 14:43 Pain 0/10; ks7 14:44 Pain 0/10; ks7 14:44 Pain 0/10; ks7 11:02 Body Mass Index 32.24 (82.55 kg, 160.02 cm) hb MDM: 11:13 Patient medically screened. bill 12:09 Differential diagnosis: anxiety, gastritis, gastroesophageal reflux disease (GERD), bill hiatal hernia, mitral valve prolapse, pleurisy, pulmonary embolus, stable angina, unstable angina. HEART Score: History: Slightly Suspicious (0), ECG: Normal (0), Age: < or = 45 years (0), Risk Factors: No Risk Factors Known (0), Troponin: < or = 1 x Normal Limit (0). The patient's deep vein thrombosis risk score was calculated as follows: Total Score: 0. This patient was found to be at low risk for a deep vein thrombosis by using the Well's assessment criteria. The patient's pulmonary embolism risk score was calculated as follows: Total Score: 0-2 points. This patient was found to be at low risk for a pulmonary embolism by using the Well's assessment criteria. VY Risk Score: TOTAL SCORE = 0. Data reviewed: vital signs, nurses notes, lab test result(s), EKG, radiologic studies. Data interpreted: desk monitor: rate is 77 beats/min, rhythm is normal sinus rhythm, Pulse oximetry: on room air is 100 %. Test interpretation: by ED physician or midlevel provider: ECG, plain radiologic studies. 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 09/21 12:03 Order name: CBC with Diff; Complete Time: 13:39 [facility] 09/21 12:03 Order name: Comprehensive Metabolic Panel; Complete Time: 12:56 [facility] 09/21 12:06 Order name: Urine Dipstick--Ancillary (enter results); Complete Time: 12:56 09/21 12:06 Order name: Urine --Ancillary (enter results); Complete Time: 12:56 09/21 12:07 Order name: Troponin I; Complete Time: 12:56 [facility] 09/21 12:07 Order name: BNP; Complete Time: 12:56 [facility] 09/21 12:07 Order name: Chest Single View XRAY; Complete Time: 13:39 [facility] 09/21 13:07 Order name: Urine Culture [facility] 09/21 13:18 Order name: CBC Smear Scan; Complete Time: 13:39 [facility] 09/21 12:03 Order name: FHT's; Complete Time: 12:34 [facility] 09/21 12:03 Order name: Urine Dipstick-Ancillary (obtain specimen); Complete Time: 12:34 [facility] 09/21 12:07 Order name: EKG; Complete Time: 12:07 [facility] 09/21 12:07 Order name: EKG - Nurse/Tech; Complete Time: 12:42 [facility] 09/21 13:41 Order name: PO challenge; Complete Time: 14:26 bill Administered Medications: Discontinued: NS 0.9% 1000 ml IV at 1 bolus Per protocol; 1000 mL bolus 12:25 Drug: Zofran (Ondansetron) 4 mg Route: IVP; Site: left antecubital; ks7 12:35 Follow up: Pulse Ox 100% RA; Pain 2/10 Adult ks7 12:59 Follow up: Pulse Ox 99% ; Pain 4/10 Adult ks7 14:44 Follow up: Pain 0/10 Adult ks7 12:35 Drug: GI Cocktail without - (Maalox Suspension 30 ml, Lidocaine Liquid 2 % 15 ks7 ml) Route: PO; 12:58 Follow up: Pulse Ox 99% ; Pain 4/10 Adult ks7 14:44 Follow up: Pain 0/10 Adult ks7 12:43 Drug: NS 0.9% 1000 ml Route: IV; Rate: 1 bolus; Site: left antecubital; ks7 13:11 Drug: Ondansetron (Zofran) 4 mg Route: IVP; Site: left antecubital; ks7 14:43 Follow up: Pain 0/10 Adult ks7 13:11 Drug: NS 0.9% 1000 ml Route: IV; Rate: 1 bolus; Site: left antecubital; ks7 13:56 Drug: Phenergan 12.5 mg Route: IVP; Site: left antecubital; ks7 14:26 Follow up: Pulse Ox 100% ; Pain 0/10 Adult ks7 14:43 Follow up: Pulse Ox 99% RA; Pain 0/10 Adult ks7 Disposition: 09/22/19 14:06 Discharged to Home. Impression: Gastro-esophageal reflux disease, related conditions, unspecified, second trimester, Vomiting, Cardiomyopathy - per history, Hypokalemia. - Condition is Stable. - Discharge Instructions: Potassium Content of Foods, Hyperemesis Gravidarum, Nausea and Vomiting, Adult, Eating Plan for Hyperemesis Gravidarum, Nausea and Vomiting, Adult, [id number], Hypokalemia. - Prescriptions for Diclegis 10- 10 mg Oral tablet,delayed release (DR/EC) - take 1 tablet by ORAL route 3 times per day and 2 tablets at bedtime; 60 tablet. Pepcid 20 mg Oral Tablet - take 1 tablet by ORAL route every 12 hours for 10 days; 20 tablet. Zofran 4 mg Oral Tablet - take 1 tablet by ORAL route every 12 hours As needed; 20 tablet. Phenergan 25 mg Rectal Suppository - insert 1 suppository by RECTAL route every 6 hours As needed; 12 suppository. - Medication Reconciliation Form, Thank You Letter, Antibiotic Education, Prescription Opioid Use form. - Follow up: Antwon John; When: 2 - 3 days; Reason: Recheck today's complaints, Continuance of care, Re-evaluation by your physician. Follow up: Kahlil Card; When: 2 - 3 days; Reason: Recheck today's complaints, Re-evaluation by your physician. - Problem is new. - Symptoms have improved. Signatures: Dispatcher [employer] EDMS Tramaine Mace MD MD cha Baxter, Heather, RN RN hb Songcuan, Kathleen, RN RN ks7 Corrections: (The following items were deleted from the chart) 14:45 14:06 09/22/2019 14:06 Discharged to Home. Impression: Gastro-esophageal reflux ks7 disease; related conditions, unspecified, second trimester; Vomiting; Cardiomyopathy - per history; Hypokalemia. Condition is Stable. Discharge Instructions: Hyperemesis Gravidarum, Nausea and Vomiting, Adult, Eating Plan for Hyperemesis Gravidarum, Nausea and Vomiting, Adult, [id number]-Hsmr, Potassium Content of Foods, Hypokalemia. Prescriptions for Diclegis 10-10 mg Oral tablet,delayed release (DR/EC) - take 1 tablet by ORAL route 3 times per day and 2 tablets at bedtime; 60 tablet, Pepcid 20 mg Oral Tablet - take 1 tablet by ORAL route every 12 hours for 10 days; 20 tablet, Zofran 4 mg Oral Tablet - take 1 tablet by ORAL route every 12 hours As needed; 20 tablet. and Forms are Medication Reconciliation Form, Thank You Letter, Antibiotic Education, Prescription Opioid Use. Follow up: Antwon John; When: 2 - 3 days; Reason: Recheck today's complaints, Continuance of care, Re-evaluation by your physician. Follow up: Kahlil Card; When: 2 - 3 days; Reason: Recheck today's complaints, Re-evaluation by your physician. Problem is new. Symptoms have improved. bill
--- NOTE | 2019-09-22 14:06 | ER ---
Nurse's Notes [facility] Name: Haley Liu Age: 24 yrs Sex: Female : 1995 Arrival Date: 09/22/2019 Time: 10:59 Bed 16 Private MD: Diagnosis: Gastro-esophageal reflux disease; related conditions, unspecified, second trimester;Vomiting;Cardiomyopathy-per history;Hypokalemia Presentation: 09/21 11:02 Chief complaint: Left sided abdominal pain, N/V/D, and burning chest pain x 2-3 days. hb Not tolerating fluids. Also reports she is 16 weeks , KVNG 03/05/20. Coronavirus screen: Proceed with normal triage. Ebola Screen: No symptoms or risks identified at this time. Initial Sepsis Screen: Does the patient meet any 2 criteria? No. Patient's initial sepsis screen is negative. Does the patient have a suspected source of infection? No. Patient's initial sepsis screen is negative. Risk Assessment: Do you want to hurt yourself or someone else? Patient reports no desire to harm self or others. Onset of symptoms was September 20, 2019. 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 - Social history:: Smoking status: Patient denies any tobacco usage or history of. - Family history:: not pertinent. Screenin:10 Abuse screen: Denies threats or abuse. Denies injuries from another. Nutritional ca1 screening: No deficits noted. Tuberculosis screening: No symptoms or risk factors identified. Fall Risk IV access (20 points). Assessment: 11:10 General: Appears in no apparent distress. uncomfortable, Behavior is cooperative, ca1 appropriate for age, crying. Pain: Complains of pain in chest, mid sternal, lower abdomen Pain does not radiate. Pain currently is 8 out of 10 on a pain scale. Quality of pain is described as burning, crampy, Pain began 2-3 days ago. Is continuous. Neuro: Level of Consciousness is awake, alert, obeys commands, Oriented to person, place, time, situation, Appropriate for age. Cardiovascular: Heart tones S1 S2 present Capillary refill < 3 seconds Patient's skin is warm and dry. Respiratory: Airway is patent Respiratory effort is even, unlabored, Respiratory pattern is regular, symmetrical, Breath sounds are clear bilaterally. GI: Abdomen is round non-distended, Bowel sounds present X 4 quads. Abd is soft and non tender X 4 quads. Reports nausea, vomiting. : No signs and/or symptoms were reported regarding the genitourinary system. : Denies vaginal bleeding. EENT: No signs and/or symptoms were reported regarding the EENT system. Derm: Skin is intact, is healthy with good turgor, Skin is pink, warm \T\ dry. Musculoskeletal: Circulation, motion, and sensation intact. Capillary refill < 3 seconds. 12:00 Reassessment: Patient appears in no apparent distress at this time. Patient and/or ca1 family updated on plan of care and expected duration. Pain level reassessed. Patient is alert, oriented x 3, equal unlabored respirations, skin warm/dry/pink. 12:57 Reassessment: pt c/o nausea and burning pain returning. notified MD. Ondansetron 4mg ks7 IVP ordered.. 13:36 Reassessment: pt c/o nausea after 8 mg Ondansetron IVP will notify . ks7 13:47 Reassessment: pt c/o continued nausea. notified md. new orders rec'd. ks7 14:25 Reassessment: FHT: 162 Patient states feeling better. phenergan helped with nausea.. ks7 14:42 Reassessment: Patient states feeling better. ks7 Vital Signs: 11:02 BP 116 / 61; Pulse 79; Resp 16; Temp 97.8; Pulse Ox 100% on R/A; Weight 82.55 kg; hb Height 5 ft. 3 in. (160.02 cm); Pain 7/10; 12:00 BP 111 / 78; Pulse 77; Resp 15 S; Pulse Ox 100% on R/A; ca1 12:35 Pulse Ox 100% on R/A; Pain 2/10; ks7 12:58 Pulse Ox 99% ; Pain 4/10; ks7 12:59 Pulse Ox 99% ; Pain 4/10; ks7 13:47 BP 104 / 75; Pulse 73; Resp 18; Temp 98(TE); Pulse Ox 100% on R/A; Pain 5/10; ks7 14:10 BP 106 / 93; Pulse 86; Resp 18; Temp 98(TE); Pulse Ox 100% ; Pain 3/10; ks7 14:26 Pulse Ox 100% ; Pain 0/10; ks7 14:43 Pulse Ox 99% on R/A; Pain 0/10; ks7 14:43 Pain 0/10; ks7 14:44 Pain 0/10; ks7 14:44 Pain 0/10; ks7 11:02 Body Mass Index 32.24 (82.55 kg, 160.02 cm) hb ED Course: 10:59 Patient arrived in ED. ag5 11:04 Triage completed. hb 11:04 Arm band placed on. hb 11:10 Marianna iSlver, JIM is Primary Nurse. ca1 11:10 Patient has correct armband on for positive identification. Placed in gown. Bed in low ca1 position. Call light in reach. Side rails up X2. cardiac monitor on. Pulse ox on. NIBP on. Warm blanket given. 11:13 Tramaine Mace MD is Attending Physician. bill 11:52 Initial lab(s) drawn, by me, held in ED. Inserted saline lock: 20 gauge in left ca1 antecubital area, using aseptic technique. Blood collected. Patient maintains SpO2 saturation greater than 95% on room air. 12:16 Report given to JIM Queen. ca1 12:33 BNP Sent. ks7 12:33 Troponin I Sent. ks7 12:42 Chest Single View XRAY Sent. ks7 12:47 Chest Single View XRAY In Process Unspecified. EDMS 13:12 Urine Culture Sent. ks7 14:06 Antwon John MD is Referral Physician. bill 14:06 Kahlil Card MD is Referral Physician. bill 14:24 No provider procedures requiring assistance completed. ks7 14:44 IV discontinued, intact, bleeding controlled, No redness/swelling at site. Pressure ks7 dressing applied. Administered Medications: Discontinued: NS 0.9% 1000 ml IV at 1 bolus Per protocol; 1000 mL bolus 12:25 Drug: Zofran (Ondansetron) 4 mg Route: IVP; Site: left antecubital; ks7 12:35 Follow up: Pulse Ox 100% RA; Pain 2/10 Adult ks7 12:59 Follow up: Pulse Ox 99% ; Pain 4/10 Adult ks7 14:44 Follow up: Pain 0/10 Adult ks7 12:35 Drug: GI Cocktail without - (Maalox Suspension 30 ml, Lidocaine Liquid 2 % 15 ks7 ml) Route: PO; 12:58 Follow up: Pulse Ox 99% ; Pain 4/10 Adult ks7 14:44 Follow up: Pain 0/10 Adult ks7 12:43 Drug: NS 0.9% 1000 ml Route: IV; Rate: 1 bolus; Site: left antecubital; ks7 13:11 Drug: Ondansetron (Zofran) 4 mg Route: IVP; Site: left antecubital; ks7 14:43 Follow up: Pain 0/10 Adult ks7 13:11 Drug: NS 0.9% 1000 ml Route: IV; Rate: 1 bolus; Site: left antecubital; ks7 13:56 Drug: Phenergan 12.5 mg Route: IVP; Site: left antecubital; ks7 14:26 Follow up: Pulse Ox 100% ; Pain 0/10 Adult ks7 14:43 Follow up: Pulse Ox 99% RA; Pain 0/10 Adult ks7 Outcome: 14:06 Discharge ordered by MD. khan 14:44 Discharged to home ambulatory. ks7 14:44 Condition: improved 14:44 Discharge instructions given to patient, Instructed on discharge instructions, medication usage, Demonstrated understanding of instructions, medications. 14:45 Patient left the ED. ks7 Signatures: Dispatcher [employer] EDHI Tramaine Mace MD MD cha Baxter, Heather RN JIM Marianna Silver RN RN ca1 Blanca Orellana ag5 Bernice Ramirez RN RN ks7 Corrections: (The following items were deleted from the chart) 11:59 11:10 GI: Abdomen is round non-distended, Bowel sounds present X 4 quads. Abd is soft ca1 and non tender X 4 quads. ca1
[2019-09-22 15:02] VITALS: TEMP 98
[2019-09-22 15:03] VITALS: BP 106/93
[2019-09-22 15:05] VITALS: O2SAT 99
== END 2019-09-22 14:45 | disposition home or self-care (01) ==
LOC: ER 10:57
DX: O99.612 Diseases of the digestive system complicating pregnancy, second trimester (principal); K21.9 Gastro-esophageal reflux disease without esophagitis; O99.412 Diseases of the circulatory system complicating pregnancy, second trimester; O99.282 Endocrine, nutritional and metabolic diseases complicating pregnancy, second trimester; E87.6 Hypokalemia; I42.9 Cardiomyopathy, unspecified; Z3A.16 16 weeks gestation of pregnancy
CPT/HCPCS: 87088; 85025; 87086; 36415; 81025; 81003; 84484; 80053; 83880; 71045; 96375; 96374; 99285; J2550; J7030; J2405 ×2

== ENCOUNTER 2020-02-26 04:15 | Inpatient (IN) | payer OTHER ==
--- OUTSIDE RECORDS SUMMARY | 2020-02-26 04:16 | XMS REPORT | Clinical Summary ---
:1995 Author Organization [facility] Address [address] [place] [address] Care Team Providers Name Role Phone Unavailable Primary Care Provider Unavailable Allergies No Known Allergies Medications No known medications Active Problems Problem Noted Date Choledocholithiasis 01/04/2019 Family History Medical History Relation Name Comments [...] Assigned at Date Recorded Not on file Last Filed Vital Signs Not on file Plan of Treatment Health Maintenance Due Date Last Done Comments LIPID PANEL 2015 CERVICAL CANCER SCREENING PAP ONLY (Age 21-65) 07/11/2016 INFLUENZA VACCINE (#1) 2019 04/11/2017 Results Not on fileafter 02/25/2019 Advance Directives For more information, please contact: [phone] Code Status Date Activated Date Inactivated Comments Full Code 01/04/2019 1:20 AM 01/06/2019 2:12 PM This code status was determined by: Patient
--- OUTSIDE RECORDS SUMMARY | 2020-02-26 04:17 | XMS REPORT | Continuity of Care Document ---
:1995 Author Organization [facility] t Address [address] [place] [address] Care Team Providers Name Role Phone Doctor Unassigned, Name Attending Clinician Unavailable Yunior MURILLO, Katy Attending Clinician Ultrasound Attending Clinician Unavailable Pablo MURILLO, N Attending Clinician SRUTHI GRAYSON Attending Clinician Unavailable SRUTHI GRAYSON Admitting Clinician Unavailable Payers Payer Name Policy Type Policy Number Effective Date Expiration Date S ource Problems Condition Condition Condition Status Onset Resolution Last Treating Co mments Source Name Details Category Date Date Treatment Clinician Date Choledocho Choledocho Disease Active 2018-[address] lithiasis lithiasis 03-06 Luke s - [facility]: [facility] Allergies, Adverse Reactions, Alerts This patient has no known allergies or adverse reactions. Family History Family Member Diagnosis Comments Start Date Stop Date Source Natural father Diabetes [facility] Social History Social Habit Start Date Stop Date Quantity Comments Source History SDOH [facility] History SDOH [facility] - Alcohol Binge Medical [facility] Sex Assigned At [facility] Moni mendez [facility] Tobacco use and 2019-01-08 2019-01-08 Never used [facility] Burnettes - exposure 00:00:00 00:00:00 [facility] Alcohol intake 2019-01-08 2019-01-08 Current [facility] Mims es - 00:00:00 00:00:00 non-drinker of Medical Ce nter alcohol (finding) History SDOH 2019-01-04 2019-01-04 1 BANG Valderrama - Alcohol Frequency 00:00:00 00:00:00 [facility] Smoking Status Start Date Stop Date Source Never smoker [facility] Medications This patient has no known medications. Procedures This patient has no known procedures. Plan of Care Planned Activity Planned Date Details Comments Source Future Scheduled 2019-10-30 INFLUENZA VACCINE [facility] Romerokes - Test 00:00:00 (#1) [code = [facility] INFLUENZA VACCINE (#1)] Future Scheduled 2016-07-11 Screening for BANG Mims es - Test 00:00:00 malignant neoplasm Medical C enter of cervix (procedure) [code = 208814594] Future Scheduled 2015 Lipid panel [facility] Patel s - Test 00:00:00 (procedure) [code = [facility] 11770032] Encounters Start End Encounter Admission Attending Care Care Encounter Source Date/Time Date/Time Type Type Clinicians Facility Department ID 2019-10-01 2019-10-01 Orders Doctor [facility] [id number] 00:00:00 00:00:00 Only Unassigned, DEXTER [id number] [facility] [id number] [id number] 2019-09-26 2019-09-[address] [facility] [id number] 00:00:00 00:00:00 Roshunda R SENIOR STAFF PSYCHOLOGIST [id number] REGIONAL [id number] MATERNAL [id number] & CHILD [address] [place] [address] 2019-08-30 2019-08-[address] [facility] [id number] 10:00:24 10:40:25 Roshunda R SENIOR STAFF PSYCHOLOGIST [id number] Visit REGIONAL 4.2.7.2.686 MATERNAL [id number] & CHILD [address] [facility] 2019-08-30 2019-08-30 Telephone Yunior [facility] [id number] 00:00:00 00:00:00 Stephanie Burns SENIOR STAFF PSYCHOLOGIST [id number] REGIONAL [id number] MATERNAL [id number] & CHILD 107 [facility] 2019-08-22 2019-08-22 Plush Cutter Ultrasound, [facility] [id number] 11:25:11 11:55:11 Visit Ang-Mfm SENIOR STAFF PSYCHOLOGIST [id number] REGIONAL [id number] MATERNAL [id number] & CHILD 369 [facility] 2019-08-07 2019-08-07 [facility] [id number] 00:00:00 00:00:00 Zina N SENIOR STAFF PSYCHOLOGIST [id number] [facility] [id number] MATERNAL [id number] & CHILD 107 [facility] Results Test Description Test Time Test Comments Results Result Comments Source TISSUE EXAM 2019-01-10 Surgical Pathology 14:05:00 Report Case: [id number] Authorizing Provider: Mason Krause MD Collected: 01/05/2019 1709 Ordering Location: [facility] PERIOPER[facility] Received: 01/08/2019 0821 SERVICES Pathologist: Cecy Sam MD Specimen: Gallbladder GALLBLADDER, CHOLECYSTECTOMY: - CHRONIC CHOLECYSTITIS WITH EROSION - CHOLELITHIASIS - ONE REACTIVE LYMPH NODE Signing Pathologist Direct Phone Line: [phone] john signed by Cecy Sam MD on 01/10/2019 at 2:05 [facility]/ [id number] and postoperative diagnosis: Choledocholithiasis.G allbladder tissueReceived in [...] code: Adventitial surface margin blue and duct blue.Supervisor Agency Appointments sections are submitted in cassettes [id number] with [...] NOT 1092) ACCURATE CRE ATININE CLEARANCE IN [place] EDICTING GLOMERULAR FILT RATION RATE. ESTIMATED GFR [...] 0-0 (BEAKER) (test code = 413) [place], [id number] 08:59:00Reason for exam:->bile duct diseaseIs the patient ?->NoWhen was patient's last menstrual cycle?->12/05/18FINAL REPORT A fluoroscopic unit was utilized for a procedure performed in the operating room. No interpretation was requested. Please refer to the operative report regarding findings. Please refer to PACS for patient radiation dose information. Signed: Adilene Victoria MDReport Verified Date/Time: 01/05/2019 08:59:15 Reading Location: [facility] Radiology Reading Room REHENSIVE METABOLIC [id number] 05:12:00 Test Item Value Reference Range Interpretation [...] S NOT APPLICABLE FOR DIALYSIS PATIEN TS. [id number] 06:55:00 Test Item Value Reference Range Interpretation Comments LIPASE (BEAKER) (test code = 749) 30 U/L 8-78 COMPREHENSIVE METABOLIC [id number] 06:55:00 Test Item Value Reference Range Interpretation [...] NOT APPLICABLE FOR DIALYSIS PATIEN TS. PROTHROMBIN TIME/[id number] 06:49:00 Test Item Value Reference Range Interpretation [...] mechanical heart valves.CBC W/PLT COUNT & AUTO [id number] 06:09:00 Test Item Value Reference Range Interpretation [...] % 0-1 PERCENT (BEAKER) (test code = 2801)
[2020-02-26] MEDS ORDERED: MEPERIDINE HCL 25 MG/ML SYR IV PRN ×2 (04:22)
[2020-02-26] MEDS ORDERED: MIDAZOLAM HCL 2 MG/2 ML INJ IV PRN (04:22)
[2020-02-26] MEDS ORDERED: Ringers Lactate 1,000 ML IV PRN ×2 (04:22)
[2020-02-26] MEDS ORDERED: METHYLERGONOVINE 0.2MG/ML AMP IM PRN ×2 (04:22)
[2020-02-26] MEDS ORDERED: BUTORPHANOL 1 MG/ML INJ IV PRN ×2 (04:22)
[2020-02-26] MEDS ORDERED: CARBOPROST TROME 250 MCG/ML IM PRN ×2 (04:22)
[2020-02-26] MEDS ORDERED: PROMETHAZINE INJ 25 MG/ML AMP IM PRN ×2 (04:22)
[2020-02-26] MEDS ORDERED: OXYTOCIN/LR 20 UNIT/1,000 ML BAG IV SCH ×3 (05:00→11:00)
[2020-02-26] MEDS ORDERED: Ringers Lactate 1,000 ML IV SCH ×2 (05:00)
[2020-02-26 05:06] VITALS: BMI 30.5
[2020-02-26 05:27] LABS: Urine Appearance CLOUDY; Urine Bilirubin NEGATIVE (NEG); Urine Blood NEGATIVE (NEG); Urine Color YELLOW; Urine Glucose NEGATIVE (NEG); Urine Protein NEGATIVE (NEG); Urine Urobilinogen 0.2 mg/dL (0.2-1.0); Urine pH 6.5 (5.0-7.0)
[2020-02-26 05:29] LABS: Urine Microscopic Reflex ORDER UMIC
[2020-02-26 05:38] LABS: Urine Bacteria 20-50 /HPF (<20); Urine RBC <5 /HPF (NONE SEEN)
[2020-02-26 05:39] LABS: Absolute Lymphocytes (CBC) 2.2 K/uL (0.7-4.9); Basophils % 0.2 % (0-1.3); Hematocrit 27.6 % (36.0-45.0); Lymphocytes % 20.5 % (15.3-44.8); MPV 10.6 fL (7.6-11.3); RBC Red Blood Cell Count 3.34 M/uL (3.86-4.86)
[2020-02-26] MEDS ORDERED: INFLUENZA VACCINE (for 3y+) 0.5 ML DOSE IMVAC ONE (08:00)
--- NOTE | 2020-02-26 08:06 | PREOPHP ---
Date of Admission: 02/26/2020 History Of Present Illness: Haley Liu is a 24-year-old 3, para 1, after 38 weeks and 5 , possibly 38 weeks and 6 days, seen in conjunction with Dr. Mandel, high-climate change risk assessor, history of cardiomyopathy. It has been suggested by high-climate change risk assessor that she deliver between 38 and 39 we eks. Family History: Father with hypertension and myocardial infarction, also with diabetes. Maternal un peter with lung cancer. Grandmother with colon and breast cancer, diagnosis of cardiomyopathy in 2013. Apparently, no major problems at this point. Allergies: NO ALLERGIES. Social History: No cigarette smoking. Physical Examination: HEENT: Clear. Pupils equal, round, reactive to light and accommodation. Conjunctivae well perfused . No oral, lingual, or buccal lesions. Chest and Lungs: Clear. Heart: Without murmurs, thrills, heaves, or rubs. Breasts: Without masses on previous visit. Abdomen: Term size. Baby is vertex, -1 station, 50% effaced cervix and 3 cm rupture of membranes, c lear fluid. Extremities: Clear without edema, cyanosis, or clubbing. Assessment And Plan: Labor talk given. Patient will be requesting epidural, which she will get once she is in active labor. Strep negative. COVID negative. Immune to rubella and Rh positive. Admit for delivery. KELSEA/CHARLENE Voice ID: [id number]
[2020-02-26] MEDS ORDERED: LIDOCAINE 2% INJ, 20 mL 0 ML ONE (08:11)
[2020-02-26] MEDS ORDERED: ROPIVACAINE HCL 100 ML EP ONE (08:12)
[2020-02-26] MEDS ORDERED: ROPIVACAINE HCL 0 ML ONE (08:12)
[2020-02-26] MEDS ORDERED: 0.2% ROPIVACAINE (200 MG/100 ML) BAG EP ONE (08:36)
[2020-02-26] MEDS ORDERED: ROPIVACAINE HCL 0.2% 20ML AMP IV ONE (08:37)
[2020-02-26] MEDS ORDERED: FENTANYL CITR 100 MCG/2 ML IV ONE (08:37)
[2020-02-26] MEDS ORDERED: LIDOCAINE 1.5% W/EPI AMP 5 ML ONE (09:32)
[2020-02-26] MEDS ORDERED: IBUPROFEN 200 MG TAB PO PRN (10:32)
[2020-02-26] MEDS ORDERED: Oxycodone HCl/Acetaminophen 1 TAB TAB PO PRN (10:32)
[2020-02-26] MEDS ORDERED: BISACODYL 10 MG RECTAL SUPP PR PRN (10:32)
[2020-02-26] MEDS ORDERED: ACETAMINOPHEN 500 MG TAB PO PRN (10:32)
[2020-02-26] MEDS ORDERED: DIPHENHYDRAMINE 25 MG TAB/CAP PO PRN (10:32)
[2020-02-26] MEDS ORDERED: DOCUSATE NA/SENNA CONC 1 TAB PO PRN (10:32)
--- NOTE | 2020-02-26 10:49 | OP ---
Surgeon: Antwon John MD Haley Liu is 24-year-old 3, para 1, at 38 weeks 5 days, history of cardiomyopathy, seen in conjunction with Dr. Mandel, high-vice president risk management, [facility], who advised deli very between 38 and 39 weeks. The patient is 38 weeks and 5 days. Rupture of membranes at 3 cm, blayne t into an active labor. Epidural anesthesia was established and gave good effect. Second stage of b asically 2 pushes. Delivery of a 7-pound male infant, Apgars 9 and 9. Two small first-degree lacera tions, 1 below the clitoris, 1 mmwubz-gs-brjbp stitch, 1 at the posterior fourchette, 2 gmsuma-ti-lqi ht stitches at those points. Schultze delivery of the placenta was inspected and noted to be intact and normal. Less than 300 mL blood loss. Rh positive. Immune to rubella and negative COVID. Vito ated all procedures well. Final Diagnoses: Intrauterine gestation, 38 weeks 5 days; history of cardiomyopathy; labor induction ; vaginal delivery; epidural anesthesia. KELSEA/CHARLENE Voice ID: [id number] Report ID: [id number]
[2020-02-26] MEDS ORDERED: IBUPROFEN 200 MG TAB PO ONE (16:36)
[2020-02-26] MEDS: Oxycodone HCl/Acetaminophen 1 TAB TAB PO PRN ×2 (17:25→22:05)
[2020-02-26 23:44] LABS: RPR (Rapid Plasma Reagin) NON-REACT (NON-REACT)
[2020-02-27] MEDS: Oxycodone HCl/Acetaminophen 1 TAB TAB PO PRN (04:54)
--- NOTE | 2020-02-27 07:41 | DS ---
Hospital Course: This is a 24-year-old 3, para 1, history of cardiomyopathy at 38 weeks 5 da ys, seen in conjunction with Dr. Mandel, high-financial risk manager, 3 cm on admission. Rupture of membran es, clear fluid, went to a very active labor pattern, received epidural anesthesia, second stage of b asically 1 set of pushes. Delivery of a 7-pound male infant, Apgars 9 and 9. Two small first-degree lacerations were repaired with 2-0 chromic bwsoef-yq-jekjq stitches, 1 just below the clitoris. The other one at the posterior fourchette, 2 stitches there. Schultze delivery of the placenta, minimal blood loss. Placenta inspected and noted to be intact and normal. Less than 300 mL blood loss. Rh positive, immune to rubella, negative strep, negative COVID. afebrile, ambulating, lochi a is normal. She is having after pains especially with breast-feeding, took Motrin. She said that w as insufficient and this morning was given 2 Percocets, requests something other than Motrin on dismi ssal. The patient apparently has a history of drug abuse and we have given her only 10 tramadol to b e taken very carefully. She knows this goes through the breast milk. The nurses will talk to her fu rther today as well as the freezer person and encouraged her to not take the tramadol in which case if she concurs, we will destroy the prescription. Right now though, we have to take the patient at her word and alleviate her discomfort. She has signed up for the Tdap shot before she leaves. This was offered numerous times during the . Final Diagnoses: Term intrauterine at 38 weeks 5 days, history of cardiomyopathy, labor in duction, vaginal delivery, epidural anesthesia. Tdap offered. KELSEA/CHARLENE Voice ID: [id number] Report ID: [id number]
[2020-02-27 11:55] VITALS: BP 132/76; TEMP 97.2
[2020-02-27] MEDS ORDERED: Tdap (Diph,Pertuss(Acell),Tet Vac) 0.5 ML SYR IMVAC ONE (13:29)
[2020-02-27] MEDS ORDERED: INFLUENZA VACCINE (for 3y+) 0.5 ML DOSE IMVAC ONE (14:00)
[2020-02-28 18:31] LABS: HBsAG Nonreactive (Nonreactive)
== END 2020-02-27 15:30 | disposition home or self-care (01) | DRG 806 ==
LOC: 2ND-WC 04:15
PROVIDERS: ADMIT Specialist; ATTEND Specialist
PROC: 10E0XZZ Delivery of Products of Conception, External Approach (ICD-10-PCS; principal; 2020-02-26)
PROC: 10907ZC Drainage of Amniotic Fluid, Therapeutic from Products of Conception, Via Natural or Artificial Opening (ICD-10-PCS; 2020-02-26)
PROC: 0HQ9XZZ Repair Perineum Skin, External Approach (ICD-10-PCS; 2020-02-26)
PROC: 3E033VJ Introduction of Other Hormone into Peripheral Vein, Percutaneous Approach (ICD-10-PCS; 2020-02-26)
DX: O99.42 Diseases of the circulatory system complicating childbirth (principal); I42.9 Cardiomyopathy, unspecified; Z37.0 Single live birth; O70.0 First degree perineal laceration during delivery; F19.11 Other psychoactive substance abuse, in remission; Z3A.38 38 weeks gestation of pregnancy; Z20.828 Contact with and (suspected) exposure to other viral communicable diseases; Z23 Encounter for immunization
CPT/HCPCS: 36415; 81003; 81015; 85025; 86592; 86901; 87086; 87088; 87340; 90471; 90715; J0595; J2210; J2550; J2590; J2795; J3010; J7120; Q2035; U0003

== ENCOUNTER 2020-07-31 20:45 | Emergency (ER) | payer OTHER ==
--- OUTSIDE RECORDS SUMMARY | 2020-07-31 20:48 | XMS REPORT | Continuity of Care Document ---
:1995 Author Organization [facility] t Address [address] [place] [address] Care Team Providers Name Role Phone Phil Jo MD Attending Clinician Doctor Unassigned, Name Attending Clinician Unavailable Yunior MURILLO, R Attending Clinician Ultrasound Attending Clinician Unavailable Robert Mai Attending Clinician SRUTHI GRAYSON Attending Clinician Unavailable SRUTHI GRAYSON Admitting Clinician Unavailable Payers Payer Name Policy Type Policy Number Effective Date Expiration Date S ource Problems Condition Condition Condition Status Onset Resolution Last Treating Co mments Source Name Details Category Date Date Treatment Clinician Date Primary Primary Problem Active [facility] dysmenorrh Dysmenorrh 4-22 da ea ea 00:00: Medical 00 Group Menorrhagi Menorrhagi Problem Active [facility] a a 4-22 da 00:00: Medical 00 Group Sterilizat Sterilizat Problem Active [facility] ion ion 4-22 da requested Requested 00:00: [facility] 00 Group Choledocho Choledocho Disease Active 2018-02 C [facility] lithiasis lithiasis 03-06 [place] [facility] Allergies, Adverse Reactions, Alerts This patient has no known allergies or adverse reactions. Family History Family Member Diagnosis Comments Start Date Stop Date Source Natural father Diabetes [facility] Social History Social Habit Start Date Stop Date Quantity Comments Source Sex Assigned At [facility] History [facility] - Alcohol Std Drinks [facility] B[facility] Tobacco use and 2019-01-08 2019-01-08 Never used [facility] - exposure 00:00:00 00:00:00 [facility] Alcohol intake 2019-01-08 2019-01-08 Current [facility] - 00:00:00 00:00:00 non-drinker of Medical nter alcohol (finding) History [facility] 2019-01-04 2019-01-04 1 [facility] - Alcohol Frequency 00:00:00 00:00:00 [facility] Smoking Status Start Date Stop Date Source Never smoker [facility] Medications Ordered Filled Start Stop Current Ordering Indication Dosage Frequency Signature Comments Components Source Medication Medication Date Date Medication? Clinician (SIG) Name Name amoxicillin amoxicillin No amoxicilli [facility] 500 mg 500 mg n 500 mg da capsule capsule capsule Medica l Group buspirone buspirone No buspirone [facility] 10 mg 10 mg 10 mg da tablet tablet tablet Medical Group Estarylla Estarylla No Estarylla [facility] 0.25 mg-35 0.25 mg-35 0.25 mg-35 da mcg tablet mcg tablet mcg tablet Medical Take 1 Take 1 Take 1 Group tablet tablet tablet every day every day every day by oral by oral by oral route. route. route. ibuprofen ibuprofen No 1 Q6H ibuprofen [facility] 800 mg 800 mg 800 mg da tablet Take tablet Take tablet Medical 1 tablet 1 tablet Take 1 Group every 6 every 6 tablet hours by hours by every 6 oral route oral route hours by as needed. as needed. oral route as needed. Tylenol-Cod Tylenol-Cod No Tylenol-Co [place] eine #3 300 eine #3 300 deine #3 da mg-30 mg mg-30 mg 300 mg-30 Me dical tablet 1-2 tablet 1-2 mg tablet Group p.o. q 6 p.o. q 6 1-2 p.o. q hrs PRN hrs PRN 6 hrs PRN pain pain pain Vital Signs Vital Name Observation Time Observation Value Comments Source BP Diastolic 2020-07-11 00:00:00 85 mm[Hg] [facility] Height 2020-07-11 00:00:00 62 [in_i] [facility] BMI (Body Mass 2020-07-11 00:00:00 30.9 kg/m2 [facility] director of training Medical Index) Group BP Systolic 2020-07-11 00:00:00 129 mm[Hg] [facility] Body Weight 2020-07-11 00:00:00 169 [lb_av] [facility] BP Diastolic 2020-06-19 00:00:00 80 mm[Hg] [facility] BP Systolic 2020-06-19 00:00:00 114 mm[Hg] [facility] Body Weight 2020-06-19 00:00:00 168.3 [lb_av] [facility] BP Diastolic 2020-05-19 00:00:00 76 mm[Hg] [facility] BP Systolic 2020-05-19 00:00:00 114 mm[Hg] [facility] Body Weight 2020-05-19 00:00:00 165 [lb_av] [facility] Procedures This patient has no known procedures. Plan of Care Planned Activity Planned Date Details Comments Source Diagnostic Test 2020-07-11 test, [facility] Pending 00:00:00 urine [code = Group test, urine] Diagnostic Test 2020-07-11 urinalysis, [facility] Pending 00:00:00 dipstick [code = Group urinalysis, dipstick] Future Scheduled Test 2019-10-[address] [facility] - 00:00:00 (#1) [code = Medical Center INFLUENZA VACCINE (#1)] Future Scheduled Test 2016-07-11 [facility] - [facility] malignant neoplasm Medical C enter of cervix (procedure) [code = 892146932] Future Scheduled Test 2015 Lipid panel [facility] - 00:00:00 (procedure) [code = Medical Center 73201379] Encounters Start End Encounter Admission Attending Care Care Encounter Source Date/Time Date/Time Type Type Clinicians Facility Department ID 2020-07-11 2020-07-11 David RAINEY [place] - [id number] [facility] 00:00:00 00:00:00 Discovery pranay Garcia MD: [address] [place] [id number] , Ph. [phone] 2020-06-19 2020-06-19 David RAINEY [place] - [id number] [facility] 00:00:00 00:00:00 Discovery pranay Garcia MD: [address] [place] [id number] , Ph. [phone] 2020-05-19 2020-05-19 David RAINEY [place] - [id number] [facility] 00:00:00 00:00:00 Discovery pranay Garcia MD: [address] [place] [phone] , Ph. [phone] 2020-04-21 2020-04-21 Telephone Ellen Jo [facility] [id number] 00:00:00 00:00:00 Phil Rios [id number] [place] [id number] Daniela [id number] [address] 2019-10-01 2019-10-01 Orders Doctor [facility] [id number] 00:00:00 00:00:00 Only UnassignedDEXTER [id number] [facility] [id number] [id number] 2019-09-26 2019-09-26 Telephone Yunior [facility] [id number] 00:00:00 00:00:00 Stephanie Burns CASTING MACHINE ADJUSTER [id number] [facility] [id number] MATERNAL [id number] & CHILD 107 [facility] 2019-08-30 2019-08-30 Routine Yunior [facility] [id number] 10:00:24 10:40:25 Rodgernda R CASTING MACHINE ADJUSTER [id number] Visit REGIONAL [id number] MATERNAL [id number] & CHILD 107 [facility] 2019-08-30 2019-08-30 Telephone Yunior [facility] [id number] 00:00:00 00:00:00 Rosnicnda R CASTING MACHINE ADJUSTER [id number] REG[facility]AL 4.2.7.2.686 MATERNAL [id number] & CHILD 107 [facility] 2019-08-22 2019-08-22 Cylinder Die Machine Operator Ultrasound, [facility] [id number] 11:25:11 11:55:11 Visit [facility] CASTING MACHINE ADJUSTER [id number] REGIONAL [id number] MATERNAL [id number] & CHILD 369 [facility] 2019-08-07 2019-08-07 Telephone Pablo [facility] [id number] 00:00:00 00:00:00 Zina Jones CASTING MACHINE ADJUSTER [id number] REG[facility] [id number] MATERNAL [id number] & CHILD 107 [facility] Results Test Description Test Time Test Comments Results Result Comments Source Urinalysis macro (dipstick) panel - Urine 2020-07-11 14:04:4 9 Test Item Value Reference Range Interpretation Comme nts Leukocytes (test code = Leukocytes) Trace Nitrite (test code = Nitrite) negative Urobilinogen (test code = Urobilinogen) .2 Protein (test code = Protein) Negative pH (test code = pH) 7.0 Blood (test code = Blood) Negative Specific [place] (test code = Specific [place]) 1.025 Ketone (test code = Ketone) Negative Bilirubin (test code = Bilirubin) Negative Glucose (test code = Glucose) Negative Appearance (test code = Appearance) Clear Color (test code = Color) Yellow [facility] test, [id number] 14:04:02 Test Item Value Reference Range Interpretation Comments Test (test code = negative Test) [facility] - [id number] 11:01:18 Test Item Value Reference Range Interpretation Comments Leukocytes (test code = Leukocytes) Trace Nitrite (test code = Nitrite) negative Urobilinogen (test code = .2 Urobilinogen) Protein (test code = Protein) 100 pH (test code = pH) 5.0 Blood (test code = Blood) Large Specific [place] (test code = 1.020 Specific [place]) Ketone (test code = Ketone) Negative Bilirubin (test code = Bilirubin) Negative Glucose (test code = Glucose) Negative Appearance (test code = Appearance) Clear Color (test code = Color) Yellow [facility]dipstick[facility] panel - [id number] 11:01:18 Test Item Value Reference Range Interpretation Comments Leukocytes (test code = Leukocytes) Trace Nitrite (test code = Nitrite) negative Urobilinogen (test code = .2 Urobilinogen) Protein (test code = Protein) 100 pH (test code = pH) 5.0 Blood (test code = Blood) Large Specific [place] (test code = 1.020 Specific [place]) Ketone (test code = Ketone) Negative Bilirubin (test code = Bilirubin) Negative Glucose (test code = Glucose) Negative Appearance (test code = Appearance) Clear Color (test code = Color) Yellow [facility], [id number] 10:29:05 Test Item Value Reference Range Interpretation Comments Test (test code = negative Test) [facility], [id number] 10:29:05 Test Item Value Reference Range Interpretation Comments Test (test code = negative Test) [facility] Differential panel - [id number] 10:20:00 Test Item Value Reference Range Interpretation Comments white blood count (test code = 9.6 K/uL 4.0-11.5 white blood count) red blood count (test code = red 3.79 M/uL 3.80-5.20 L blood count) hemoglobin (test code = 11.1 g/dL 10.5-15.7 hemoglobin) hematocrit (test code = 34.5 % 34.0-50.0 hematocrit) MCV [Entitic volume] (test code = 91.0 fL 86-100 11878-9) mean corpuscular hemoglobin (test 29.3 pg 26.2-33.4 code = mean corpuscular hemoglobin) mean corpuscular HGB conc (test 32.2 g/dL 30-34 code = mean corpuscular HGB conc) red cell distribution width (test 14.6 % 12.0-15.5 code = red cell distribution width) platelet count (test code = 231 K/uL 165-450 platelet count) mean platelet volume (test code = 10.5 fL 9.4-12.6 mean platelet volume) Segmented neutrophils/100 72.7 % 44.4-80.1 leukocytes in Blood (test code = 31268-2) Immature granulocytes [#/volume] 0.0 K/uL 0.0-0.03 in Blood (test code = 89773-0) lymphocyte% (test code = 20.3 % 10.0-50.0 lymphocyte%) mono % (test code = mono %) 5.4 % 3.6-12.0 eos % (test code = eos %) 1.0 % 0.0-5.4 Basophils/100 leukocytes in 0.3 % 0.1-1.2 Unspecified specimen (test code = 61617-0) Band form neutrophils [#/volume] 6.99 K/uL 1.56-6.13 H in Blood (test code = 95656-3) Lymphocytes [#/volume] in 2.0 K/uL 1.18-3.74 Unspecified specimen by Automated count (test code = 59927-1) mono # (test code = mono #) 0.52 K/uL 0.24-0.86 eos # (test code = eos #) 0.10 K/uL 0.04-0.36 basophil # (test code = basophil 0.03 K/uL 0.01-0.08 #) NRBC% (test code = NRBC%) 0 /100 WBC 0-0.2 NRBC# (test code = NRBC#) 0 K/uL [facility] [id number] 14:05:00Surgical Pathology Report Case: [id number] Aut horizing Provider: Mason Krause MD Collected: 01/05/2019 1709 Ordering Location: [facility] PERIOPER[facility]IVE Received: 01/08/2019 0821 SERVICES Pathologist: Cecy Sam MD Specimen: Gallbladder GALLBLADDER, CHOLECYSTECTOMY: - CHRONIC CHOLECYSTITIS WITH EROSION - CHOLELITHIASIS - ONE REACTIVE LYMPH NODESigning Pathologist Direct Phone Line: [phone] signed by Cecy Sam MD on 01/10/2019 at 2:05 [facility]/ [id number] and postoperative diagnosis: Choledocholithiasis.Gallbladder tissueReceived in one [...] code: Adventitial surface margin blue and duct blue.Mortgage Loan Interviewer sections are submitted in cassettes A1-A2 withthe margins included in cassette A1. KM/bc PerformedCOMPREHENSIVE METABOLIC [id number] 10:48:00 Test Item Value Reference Range Interpretation [...] NOT APPLICABLE FOR DIALYSIS PATIEN TS. CBC (HEMOGRAM ONLY)2019-01-06 10:30:00 Test Item Value [...] 0-0 (BEAKER) (test code = 413) [place], [id number] 08:59:00Reason for exam:->bile duct diseaseIs the patient ?->NoWhen was patient's last menstrual cycle?->12/05/18FINAL REPORT A fluoroscopic unit was utilized for a procedure performed in the operating room. No interpretation was requested. Please refer to the operative report regarding findings. Please refer to PACS for patient radiation dose information. Signed: Adilene Victoria MDReport Verified Date/Time: 01/05/2019 08:59:15 Reading Location: [facility] Radiology Reading Room REHENSIVE METABOLIC [id number] 05:12:00 Test Item Value Reference Range Interpretation [...] S NOT APPLICABLE FOR DIALYSIS PATIEN TS. [id number] 06:55:00 Test Item Value Reference Range Interpretation Comments LIPASE (BEAKER) (test code = 749) 30 U/L 8-78 COMPREHENSIVE METABOLIC [id number] 06:55:00 Test Item Value Reference Range Interpretation [...] NOT APPLICABLE FOR DIALYSIS PATIEN TS. PROTHROMBIN TIME/[id number] 06:49:00 Test Item Value Reference Range Interpretation [...] mechanical heart valves.CBC W/PLT COUNT & AUTO [id number] 06:09:00 Test Item Value Reference Range Interpretation [...] % 0-1 PERCENT (BEAKER) (test code = 2806)
[2020-07-31 21:14] LABS: Urine Blood 1+ (Negative); Urine Glucose Negative (Negative); Urine Protein Trace (Negative); Urine Specific Gravity 1.025 (1.005-1.030); Urine pH 5.5 (5.0-7.0)
[2020-07-31] MEDS ORDERED: ONDANSETRON 4 MG/2 ML VIAL ONE ×2 (21:45→22:58)
[2020-07-31] MEDS ORDERED: NA CHLORIDE 0.9% 1,000 ML ONE ×2 (21:45→22:58)
[2020-07-31] MEDS ORDERED: MORPHINE 2 MG/ML SYR ONE (21:45)
[2020-07-31 21:47] LABS: Basophils % 0.8 % (0-1.3); Hematocrit 33.7 % (36.0-45.0); Lymphocytes % 22.8 % (15.3-44.8); MPV 10.1 fL (7.6-11.3); RBC Red Blood Cell Count 3.88 M/uL (3.86-4.86)
[2020-07-31 22:06] LABS: Urine Bacteria <20 /HPF (<20)
[2020-07-31 22:07] LABS: Urine Mucus 2+ /HPF (NONE SEEN)
[2020-07-31 22:09] LABS: ALT/SGPT 38 U/L (12-78); AST/SGOT 10 U/L (15-37); Albumin 4.2 g/dL (3.4-5.0); Alkaline Phosphatase 54 U/L (45-117); BUN Blood Urea Nitrogen 9 mg/dL (7-18); Bicarbonate 23 mmol/L (21-32); Bilirubin Direct < 0.1 mg/dL (0-0.2); Bilirubin Total 0.3 mg/dL (0.2-1.0); Glucose Level 98 mg/dL (74-106); Lipase 83 U/L (73-393); Protein, Total 7.8 g/dL (6.4-8.2); Sodium Level 140 mmol/L (136-145)
[2020-07-31 22:11] LABS: Potassium 2.9 mmol/L (3.5-5.1)
[2020-07-31] MEDS ORDERED: POTASSIUM 25 MEQ EFFERV TAB ONE (22:44)
[2020-07-31] MEDS ORDERED: KCL 20 MEQ/100 mL IVPB 20 MEQ/100 ML BAG IV ONE (22:44)
[2020-07-31 23:10] LABS: Urine Specific Gravity/Preg 1.025 (1.005-1.030)
[2020-08-01] MEDS ORDERED: PROMETHAZINE INJ 25 MG/ML AMP ONE (00:29)
--- NOTE | 2020-08-01 02:44 | EDPHYS ---
Physician Documentation [facility] Name: Haley Liu Age: 25 yrs Sex: Female : 1995 Arrival Date: 07/31/2020 Time: 20:49 Bed 25 Private MD: ED Physician Salazar Jo HPI: 07/31 21:20 This 25 yrs old Female presents to ER via Ambulatory with complaints of pkl dehydrated. 21:20 The patient presents to the emergency department with nausea, that is moderate, pkl vomiting, diarrhea. Onset: The symptoms/episode began/occurred 2 day(s) ago. Possible causes: unknown. Associated signs and symptoms: Pertinent positives: headache. 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 - Social history:: Smoking status: unknown. ROS: 21:20 Eyes: Negative for injury, pain, redness, and discharge, ENT: Negative for injury, pkl pain, and discharge, Neck: Negative for injury, pain, and swelling, Cardiovascular: Negative for chest pain, palpitations, and edema, Respiratory: Negative for shortness of breath, cough, wheezing, and pleuritic chest pain. 21:20 Abdomen/GI: Positive for nausea, vomiting, and diarrhea. 21:20 Back: Negative for acute changes. 21:20 : Negative for urinary symptoms. 21:20 MS/extremity: Negative for acute changes. 21:20 Skin: Negative for rash. 21:20 Neuro: Negative for altered mental status, loss of consciousness. Exam: 21:20 Head/Face: Normocephalic, atraumatic. Eyes: Pupils equal round and reactive to light, pkl extra-ocular motions intact. Lids and lashes normal. Conjunctiva and sclera are non-icteric and not injected. Cornea within normal limits. Periorbital areas with no swelling, redness, or edema. ENT: Nares patent. No nasal discharge, no septal abnormalities noted. Tympanic membranes are normal and external auditory canals are clear. Oropharynx with no redness, swelling, or masses, exudates, or evidence of obstruction, uvula midline. Mucous membranes moist. Neck: Trachea midline, no thyromegaly or masses palpated, and no cervical lymphadenopathy. Supple, full range of motion without nuchal rigidity, or vertebral point tenderness. No Meningismus. Chest/axilla: Normal chest wall appearance and motion. Nontender with no deformity. No lesions are appreciated. Cardiovascular: Regular rate and rhythm with a normal S1 and S2. No gallops, murmurs, or rubs. Normal PMI, no JVD. No pulse deficits. Respiratory: Lungs have equal breath sounds bilaterally, clear to auscultation and percussion. No rales, rhonchi or wheezes noted. No increased work of breathing, no retractions or nasal flaring. Abdomen/GI: Soft, non-tender, with normal bowel sounds. No distension or tympany. No guarding or rebound. No evidence of tenderness throughout. Back: No spinal tenderness. No costovertebral tenderness. Full range of motion. Skin: Warm, dry with normal turgor. Normal color with no rashes, no lesions, and no evidence of cellulitis. MS/ Extremity: Pulses equal, no cyanosis. Neurovascular intact. Full, normal range of motion. Neuro: Awake and alert, GCS 15, oriented to person, place, time, and situation. Cranial nerves II-XII grossly intact. Motor strength 5/5 in all extremities. Sensory grossly intact. Cerebellar exam normal. Normal gait. Vital Signs: 20:52 BP 120 / 80; Pulse 60; Resp 18 S; Temp 97.1(TE); Pulse Ox 99% on R/A; Weight 76.2 kg; ad5 Height 5 ft. 4 in. (162.56 cm); 20:52 Body Mass Index 28.84 (76.20 kg, 162.56 cm) ad5 MDM: 21:03 Patient medically screened. pkl 08/01 02:39 Data reviewed: vital signs, nurses notes, lab test result(s), radiologic studies, CT pkl scan. ED course: Patient feeling better. Discussed lab and CT Scan results with patient Advised to follow up PCP in 2 to 3 days. Patient understood instructions. 07/31 21:14 Order name: Urine Dipstick-Ancillary; Complete Time: 21:16 EDMS 07/31 21:19 Order name: Basic Metabolic Panel pkl 07/31 21:19 Order name: Urine --Ancillary (enter results); Complete Time: 00:03 ds4 07/31 21:43 Order name: Basic Metabolic Panel; Complete Time: 22:32 EDMS 07/31 21:43 Order name: Liver (Hepatic) Function; Complete Time: 22:32 EDMS 07/31 21:43 Order name: Lipase; Complete Time: 22:32 EDMS 07/31 21:45 Order name: CBC with Automated Diff; Complete Time: 22:32 EDMS 07/31 21:45 Order name: Urine Microscopic Only; Complete Time: 22:32 EDMS 07/31 21:19 Order name: IV Saline Lock; Complete Time: 21:31 pkl 07/31 21:19 Order name: Labs collected and sent; Complete Time: 21:31 pkl 07/31 22:08 Order name: Urine Culture EDMS 07/31 22:35 Order name: CT Abd/Pelvis - IV Contrast Only pkl 07/31 23:48 Order name: SARS-COV-2 RT PCR; Complete Time: 00:03 EDMS 08/01 01:32 Order name: Potassium; Complete Time: 02:44 iw Administered Medications: 07/31 21:35 Drug: NS 0.9% 1000 ml Route: IV; Rate: 1000 ml; Site: left antecubital; iw 21:38 Drug: morphine 2 mg Route: IVP; Site: left antecubital; iw 21:38 Drug: Zofran (Ondansetron) 4 mg Route: IVP; Site: left antecubital; iw 22:45 Drug: Potassium Chloride 20 mEq Route: IV; Rate: calculated rate; Site: left iw antecubital; 22:45 Drug: Potassium Effervescent Tablet 50 mEq Route: PO; iw 23:55 Drug: NS 0.9% 1000 ml Route: IV; Rate: 125 ml/hr; Site: left antecubital; iw 08/01 00:20 Drug: Phenergan (promethazine) 12.5 mg Route: IVP; Site: left antecubital; iw 02:47 Drug: Cipro (ciprofloxacin) 500 mg Route: PO; Disposition: 08/01/20 02:43 Discharged to Home. Impression: Gastroenteritis. Urinary tract infection. Hypokalemia. - Condition is Stable. - Prescriptions for Zofran 4 mg Oral Tablet - take 1 tablet by ORAL route every 12 hours As needed; 10 tablet. Potassium Chloride 10 mEq Oral Capsule, Sustained Release - take 1 tablet by ORAL route every 12 hours; 10 tablet. Cipro 500 mg Oral Tablet - take 1 tablet by ORAL route every 12 hours for 5 days; 10 tablet. - Medication Reconciliation Form, Thank You Letter, Antibiotic Education, Prescription Opioid Use form. - Follow up: Private Physician; When: 2 - 3 days; Reason: Re-evaluation by your physician. - Problem is new. - Symptoms have improved. Signatures: Dispatcher [employer] EDMS Ximena Staton RN RN mw Lam, Pin, MD MD pkl Williams, Irene, RN RN iw Davidson, Andrea ad5 Corrections: (The following items were deleted from the chart) 07/31 22:37 22:22 CBC+H.LAB.BRZ ordered. EDTX EDTX 22:39 22:19 CORONAVIRUS ordered. EDTX EDTX 22:39 22:22 Basic Metabolic Panel ordered. EDTX EDTX 22:39 22:22 UA MICROSCOPIC+U.LAB.BRZ ordered. EDTX EDMS 22:39 22:22 HEPATIC FUNCTION+C.LAB.BRZ ordered. EDTX EDMS 22:39 22:22 LIPASE+C.LAB.BRZ ordered. [facility] 08/01 02:51 02:43 08/01/2020 02:43 Discharged to Home. Impression: Gastroenteritis. Urinary tract iw infection. Hypokalemia. Condition is Stable. Forms are Medication Reconciliation Form, Thank You Letter, Antibiotic Education, Prescription Opioid Use. Follow up: Private Physician; When: 2 - 3 days; Reason: Re-evaluation by your physician. Problem is new. Symptoms have improved. pkl
--- NOTE | 2020-08-01 02:44 | ER ---
Nurse's Notes [facility] Name: Haley Liu Age: 25 yrs Sex: Female : 1995 Arrival Date: 07/31/2020 Time: 20:49 Bed 25 Private MD: Diagnosis: Gastroenteritis. Urinary tract infection. Hypokalemia Presentation: 07/31 20:52 Chief complaint: Patient states: Pt reports n/v/d, body aches x 2 days. "dehydrated". ad5 Pt reports unable to tolerate po d/t nausea. Denies known sick contacts. Coronavirus screen: diarrhea, muscle pain. Ebola Screen: No symptoms or risks identified at this time. Initial Sepsis Screen: Does the patient meet any 2 criteria? No. Patient's initial sepsis screen is negative. Does the patient have a suspected source of infection? No. Patient's initial sepsis screen is negative. Risk Assessment: Do you want to hurt yourself or someone else? Patient reports no desire to harm self or others. Onset of symptoms was July 29, 2020. 20:52 Method Of Arrival: Ambulatory ad5 20:52 Acuity: SARAH 4 ad5 21:18 Acuity: SARAH 3 iw Triage Assessment: 20:56 General: Appears ill, Behavior is cooperative, agitated. Pain: Complains of pain in ad5 generalized body aches. 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 - Social history:: Smoking status: unknown. Screenin:44 Abuse screen: Denies threats or abuse. Denies injuries from another. Nutritional iw screening: No deficits noted. Tuberculosis screening: No symptoms or risk factors identified. Fall Risk IV access (20 points). Assessment: 21:43 General: Appears in no apparent distress. Behavior is calm, cooperative. Neuro: Level iw of Consciousness is awake, alert, obeys commands, Oriented to person, place, time, situation, Moves all extremities. Full function. Cardiovascular: Patient's skin is warm and dry. Respiratory: Respiratory effort is even, unlabored, Respiratory pattern is regular. GI: Abdomen is non-distended, Reports diarrhea, nausea, vomiting. Musculoskeletal: Range of motion: intact in all extremities. 22:45 Reassessment: Patient appears in no apparent distress at this time. Patient and/or iw family updated on plan of care and expected duration. Pain level reassessed. Patient is alert, oriented x 3, equal unlabored respirations, skin warm/dry/pink. Vital Signs: 20:52 BP 120 / 80; Pulse 60; Resp 18 S; Temp 97.1(TE); Pulse Ox 99% on R/A; Weight 76.2 kg; ad5 Height 5 ft. 4 in. (162.56 cm); 20:52 Body Mass Index 28.84 (76.20 kg, 162.56 cm) ad5 ED Course: 20:49 Patient arrived in ED. am4 20:54 Triage completed. ad5 20:55 Arm band placed on left wrist. ad5 21:03 Antonella Shah, JIM is Primary Nurse. iw 21:03 Salazar Jo MD is Attending Physician. pkl 21:29 Inserted saline lock: 20 gauge in left antecubital area, using aseptic technique. Blood ds4 collected. 21:43 Patient has correct armband on for positive identification. iw 23:18 CT Abd/Pelvis - IV Contrast Only In Process Unspecified. EDMS 04 02:50 No provider procedures requiring assistance completed. IV discontinued, intact, iw bleeding controlled, No redness/swelling at site. Pressure dressing applied. Administered Medications: 07/31 21:35 Drug: NS 0.9% 1000 ml Route: IV; Rate: 1000 ml; Site: left antecubital; iw 21:38 Drug: morphine 2 mg Route: IVP; Site: left antecubital; iw 21:38 Drug: Zofran (Ondansetron) 4 mg Route: IVP; Site: left antecubital; iw 22:45 Drug: Potassium Chloride 20 mEq Route: IV; Rate: calculated rate; Site: left iw antecubital; 22:45 Drug: Potassium Effervescent Tablet 50 mEq Route: PO; iw 23:55 Drug: NS 0.9% 1000 ml Route: IV; Rate: 125 ml/hr; Site: left antecubital; iw 08/01 00:20 Drug: Phenergan (promethazine) 12.5 mg Route: IVP; Site: left antecubital; iw 02:47 Drug: Cipro (ciprofloxacin) 500 mg Route: PO; pratik Outcome: 02:43 Discharge ordered by . kenji 02:50 Discharged to home ambulatory. iw 02:50 Condition: good 02:50 Discharge instructions given to patient, Instructed on discharge instructions, follow up and referral plans. medication usage, Demonstrated understanding of instructions, follow-up care, medications, Prescriptions given X 3. 02:51 Patient left the ED. iw Signatures: Dispatcher [employer] EDMS Ximena Staton, RN Salazar Quintero MD MD pkl Williams, Irene, RN RN iw Swanson, Donovan ds4 Grazyna Claire am4 Nadeem Urbina ad5
[2020-08-01 02:57] VITALS: BP 120/80; TEMP 97.1; O2SAT 99
[2020-08-01] MEDS ORDERED: CIPROFLOXACIN HCL 500 MG TAB ONE (03:04)
--- NOTE | 2020-08-01 18:23 | RAD REPORT ---
EXAM DESCRIPTION: CT - Abdomen Pelvis W Contrast - 08/01/2020 6:36 am CLINICAL HISTORY: The patient is 25 years old and is Female; ABD PAIN TECHNIQUE: Axial computed tomography images of the abdomen and pelvis with intravenous contrast. S agittal and coronal reformatted images were created and reviewed. This CT exam was performed using one or more of the following dose reduction techniques: automated exposure control, adjustment of t he mA and/or kV according to patient size, and/or use of iterative reconstruction technique. COMPARISON: No relevant prior studies available. FINDINGS: Lung bases: Unremarkable. No mass. No consolidation. ABDOMEN: Liver: Unremarkable. No mass. Gallbladder and bile ducts: Gallbladder is surgically absent. No ductal dilation. Pancreas: Unremarkable. No mass. No ductal dilation. Spleen: Unremarkable. No splenomegaly. Adrenals: Unremarkable. No mass. Kidneys and ureters: Unremarkable. No solid mass. No hydronephrosis. Stomach and bowel: Unremarkable. No obstruction. No mucosal thickening. PELVIS: Appendix: No findings to suggest acute appendicitis. Bladder: Unremarkable. No mass. Reproductive: Unremarkable as visualized. ABDOMEN and PELVIS: Intraperitoneal space: Unremarkable. No free air. No significant fluid collection. Bones/joints: No acute fracture. No dislocation. Soft tissues: Unremarkable. Vasculature: Unremarkable. No abdominal aortic aneurysm. Lymph nodes: Unremarkable. No enlarged lymph nodes. Tubes, lines and devices: Metallic devices in the region of the fallopian tubes which may represe nt sterilization clips. IMPRESSION: No acute findings in the abdomen or pelvis. Electronically signed by: Kojo Larson MD 07/31/2020 11:49 PM CDT Due to temporary technical issues with the PACS/Fluency reporting system, reports are being signed by the in house radiologists without review as a courtesy to insure prompt reporting. The interpreting radiologist is fully responsible for the content of the report.
== END 2020-08-01 02:51 | disposition home or self-care (01) ==
LOC: ER 20:45
DX: K52.9 Noninfective gastroenteritis and colitis, unspecified (principal); N39.0 Urinary tract infection, site not specified; E87.6 Hypokalemia; I42.9 Cardiomyopathy, unspecified; Z20.822 Contact with and (suspected) exposure to COVID-19
CPT/HCPCS: 87088; 85025; 87086; 80048; 36415 ×2; 81025; 84132; 80076; 83690; 74177; 96375; 96374; 99284; U0003; Q9967; J2550; J3480; J2270; J7030 ×2; J2405 ×2; 81003; 81015

== ENCOUNTER → 2021-02-19 | Emergency (ER) | payer OTHER ==
--- OUTSIDE RECORDS SUMMARY | 2021-02-19 10:29 | XMS REPORT | Continuity of Care Document ---
:1995 Author Organization [facility] t Address [address] [place] [address] Care Team Providers Name Role Phone G_Pappas Attending Clinician Unavailable Loki OLIVAREZ Attending Clinician Unavailable Sandro BONDS, Cam Attending Clinician Ministerio Attending Clinician Unavailable REJI Attending Clinician Unavailable Doctor Unassigned, Name Attending Clinician Unavailable Katy CHEATHAM Attending Clinician Unavailable Chaparrita MURILLO, R Attending Clinician Ultrasound Attending Clinician Unavailable Jared BONDS Attending Clinician Pablo MURILLO, N Attending Clinician SRUTHI GRAYSON Attending Clinician Unavailable G_Pappas Admitting Clinician Unavailable Physician, Primary or Family Admitting Clinician UnavailSRUTHI Davey Admitting Clinician Unavailable Payers Payer Name Policy Type Policy Number Effective Date Expiration Date Ry palacio [facility] [id number] MEGHAN (MEDICAID REPLACEMENT - HMO) [facility] [id number] 2019 CHOICE MEDICAID 00:00:00 MEDICAID OF [place] [id number] 2019 00:00:00 MEDICAID PENDING PENDING 2019 00:00:00 Advance Directives Directive Decision Effective Termination Comments Source Date Date Healthcare Agents on N/A Univ ersity [facility]Name[facility] Agent Medical RelationshipCommunicationGeorge Branch BroadsFatherHealth Care [phone] (Mobile)eKvin Woodardroger OtherFirst Alternate Health Care [phone] (Mobile) Problems Condition Condition Condition Status Onset Resolution Last Treating Co mments Source Name Details Category Date Date Treatment Clinician Date Primary Primary Problem Active [place] dysmenorrh Dysmenorrh 422 da ea ea 00:00: Group Menorrhagi Menorrhagi Problem Active [facility] a a 4-22 da 00:: Group Sterilizat Sterilizat Problem Active M [facility] ion ion 4-22 da requested Requested 00:00: [facility] 00 Group Obesity in Obesity in Disease Active 2020-0 U nivers 08-29 ity of 00:: [place] [facility] Multiparit Multiparit Disease Active 2019-0 U nivers y y 7 ity of 00:00: [place] [facility] Nausea and Nausea and Disease Active 2019-0 U nivers vomiting vomiting 08-29 ity of during during 00:: [place] 00 [facility] prior to prior to Branch 22 weeks 22 weeks gestation gestation Cervical Cervical Disease Active Overview: Un levy Papanicola Papanicola 3-12/2016 i ty of ou smear ou smear 00:00: NIL see [place] negative negative 00 scanned Medic al within within records Branch last 12 last 12 months months Supervisio Supervisio Disease Active U nivers n of n of 2-06 ity of high-risk high[place] [facility] Branch History of History of Disease Active U nivers miscarriag miscarriag 2-06 it y of e e 00:00: [place] [facility] Cardiomyop Cardiomyop Disease Active Overview : Univers athy athy 2-06 As per ity of 00:00: patient [place] diagnosed Medical in 2013, Branch last time seen by cardiolog ist was x1year ago Allergies, Adverse Reactions, Alerts Allergy Allergy Status Severity Reaction(s) Onset Inactive Treating Comm ents Source Name Type Date Date Clinician NO KNOWN Drug Active Univers ALLERGIE Class ity of S [facility] Social History Social Habit Start Date Stop Date Quantity Comments Source ASSERTION 2019-06-13 University 00:00:00 [facility] Sex Assigned At [facility] y of [facility] Exposure to Not sure [facility] SARS-CoV-2 [facility] (event) Branch Tobacco use and 2019-08-30 2019-08-30 Never used Univers y of exposure 00:00:00 00:00:00 [facility] Alcohol intake 2019-08-30 2019-08-30 Current University 00:00:00 00:00:00 non-drinker of [facility] alcohol Mcewen (finding) Smoking Status Start Date Stop Date Source Never smoker [facility] Medications Ordered Filled Start Stop Current Ordering Indication Dosage Frequency Signature Comments Components Source Medication Medication Date Date Medication? Clinician (SIG) Name Name ondansetron 2020-0 Yes [id number] 4mg Take 1 Univers (ZOFRAN) 4 7-02 tablet by ity of mg tablet 00:00: mouth [place] 00 every 8 Medical (eight) Branch hours as needed for Nausea and Vomiting (N/V). proMETHazin 2020-0 Yes [id number] 25mg Take 1 Univers e 25 mg 7-02 tablet by ity of tablet 00:00: mouth [place] 00 every 4 Medical (four) Branch hours as needed for Nausea and Vomiting (N/V). ondansetron 2020-0 Yes [id number] 4mg Take 1 Univers (ZOFRAN) 4 7-02 tablet by ity of mg tablet 00:00: mouth [place] 00 every 8 Medical (eight) Branch hours as needed for Nausea and Vomiting (N/V). ondansetron 2020-0 Yes [id number] 4mg Take 1 Univers (ZOFRAN) 4 7-02 tablet by ity of mg tablet 00:00: mouth [place] 00 every 8 Medical (eight) Branch hours as needed for Nausea and Vomiting (N/V). ondansetron 2020-0 Yes [id number] 4mg Take 1 Univers (ZOFRAN) 4 7-02 tablet by ity of mg tablet 00:00: mouth [place] 00 every 8 Medical (eight) Branch hours as needed for Nausea and Vomiting (N/V). ondansetron 2020-0 Yes [id number] 4mg Take 1 Univers (ZOFRAN) 4 7-02 tablet by ity of mg tablet 00:00: mouth [place] 00 every 8 Medical (eight) Branch hours as needed for Nausea and Vomiting (N/V). proMETHazin 2020- No [id number] 25mg Take 1 Univers e 25 mg 08-29 tablet by ity of tablet 00:00: 00:00 mouth [place] 00 :00 every 4 Medical (four) Branch hours as needed for Nausea and Vomiting (N/V). Yes [id number] 1{packe Take 1 Univers vit 6-10 t} Packet by ity of 33-iron-fol 00:00: mouth [place] ic-dha 00 daily. Medical (SELECT-OB Branch + DHA) 29 mg iron-1 mg -250 mg combo pack Yes [id number] 1{packe Take 1 Univers vit 6-10 t} Packet by ity of 33-iron-fol 00:00: mouth [place] ic-dha 00 daily. Medical (SELECT-OB Branch + DHA) 29 mg iron-1 mg -250 mg combo pack Yes [id number] 1{packe Take 1 Univers vit 6-10 t} Packet by ity of 33-iron-fol 00:00: mouth [place] ic-dha 00 daily. Medical (SELECT-OB Branch + DHA) 29 mg iron-1 mg -250 mg combo pack Yes [id number] 1{packe Take 1 Univers vit 6-10 t} Packet by ity of 33-iron-fol 00:00: mouth [place] ic-dha 00 daily. Medical (SELECT-OB Branch + DHA) 29 mg iron-1 mg -250 mg combo pack Yes [id number] 1{packe Take 1 Univers vit 6-10 t} Packet by ity of 33-iron-fol 00:00: mouth [place] ic-dha 00 daily. Medical (SELECT-OB Branch + DHA) 29 mg iron-1 mg -250 mg combo pack Yes [id number] 1{packe Take 1 Univers vit 6-10 t} Packet by ity of 33-iron-fol 00:00: mouth [place] ic-dha 00 daily. Medical (SELECT-OB Branch + DHA) 29 mg iron-1 mg -250 mg combo pack Yes [id number] 1{packe Take 1 Univers vit 6-10 t} Packet by ity of 33-iron-fol 00:00: mouth [place] ic-dha 00 daily. Medical (SELECT-OB Branch + DHA) 29 mg iron-1 mg -250 mg combo pack 2020-0 Yes [id number] 1{packe Take 1 Univers vit 6-10 t} Packet by ity of 33-iron-fol 00:00: mouth [place] ic-dha 00 daily. Medical (SELECT-OB Branch + DHA) 29 mg iron-1 mg -250 mg combo pack ondansetron 2020-0 2020- No 4mg Take 4 mg Univers (ZOFRAN) 4 6-05 06-05 by mouth ity of mg tablet 13:38: 00:00 every 8 [place] :[place] (eight) Medical hours as Branch needed. ondansetron 2020-0 2020- No 4mg Take 4 mg Univers (ZOFRAN) 4 6-05 06-05 by mouth ity of mg tablet 13:38: 00:00 every 8 [place] :[place] (eight) Medical hours as Branch needed. ondansetron 2020-0 2020- No 4mg Take 4 mg Univers (ZOFRAN) 4 6-05 06-05 by mouth ity of mg tablet 13:38: 00:00 every 8 [place] :[place] (eight) Medical hours as Branch needed. ondansetron 2020-0 Yes [id number] 4mg Take 1 Univers (ZOFRAN) 4 6-05 tablet by ity of mg tablet 00:00: mouth [place] 00 every 8 Medical (eight) Branch hours as needed for Nausea and Vomiting (N/V). ondansetron 2020-0 Yes [id number] 4mg Take 1 Univers (ZOFRAN) 4 6-05 tablet by ity of mg tablet 00:00: mouth [place] 00 every 8 Medical (eight) Branch hours as needed for Nausea and Vomiting (N/V). ondansetron 2020-0 Yes [id number] 4mg Take 1 Univers (ZOFRAN) 4 6-05 tablet by ity of mg tablet 00:00: mouth [place] 00 every 8 Medical (eight) Branch hours as needed for Nausea and Vomiting (N/V). ondansetron 2020-0 Yes [id number] 4mg Take 1 Univers (ZOFRAN) 4 6-05 tablet by ity of mg tablet 00:00: mouth [place] 00 every 8 Medical (eight) Branch hours as needed for Nausea and Vomiting (N/V). ondansetron 2020-0 Yes [id number] 4mg Take 1 Univers (ZOFRAN) 4 6-05 tablet by ity of mg tablet 00:00: mouth [place] 00 every 8 Medical (eight) Branch hours as needed for Nausea and Vomiting (N/V). ondansetron 2020-0 Yes [id number] 4mg Take 1 Univers (ZOFRAN) 4 6-05 tablet by ity of mg tablet 00:00: mouth [place] 00 every 8 Medical (eight) Branch hours as needed for Nausea and Vomiting (N/V). ondansetron 2020-0 2020- No [id number] 4mg Take 1 Univers (ZOFRAN) 4 6-05 07-02 tablet by ity of mg tablet 00:00: 00:00 mouth [place] 00 :00 every 8 Medical (eight) Branch hours as needed for Nausea and Vomiting (N/V). ondansetron 2020-0 Yes 4mg Take 4 mg U nivers (ZOFRAN) 4 6-04 by mouth ity o f mg tablet 16:10: every 8 [place] [address] (eight) Medical hours as Branch needed. ondansetron 2020-0 Yes 4mg Take 4 mg U nivers (ZOFRAN) 4 6-04 by mouth ity o f mg tablet 16:10: every 8 [place] 31 (eight) Medical hours as Branch needed. ondansetron 2020-0 Yes 4mg Take 4 mg U nivers (ZOFRAN) 4 6-04 by mouth ity o f mg tablet 16:10: every 8 [place] 31 (eight) Medical hours as Branch needed. proMETHazin 2020-0 Yes [id number] 25mg Take 1 Univers e 25 mg 6-04 tablet by ity of tablet 00:00: mouth [place] 00 every 4 Medical (four) Branch hours as needed for Nausea and Vomiting (N/V). proMETHazin 2020-0 Yes [id number] 25mg Take 1 Univers e 25 mg 6-04 tablet by ity of tablet 00:00: mouth [place] 00 every 4 Medical (four) Branch hours as needed for Nausea and Vomiting (N/V). proMETHazin 2020-0 Yes [id number] 25mg Take 1 Univers e 25 mg 6-04 tablet by ity of tablet 00:00: mouth [place] 00 every 4 Medical (four) Branch hours as needed for Nausea and Vomiting (N/V). proMETHazin 2020-0 Yes [id number] 25mg Take 1 Univers e 25 mg 6-04 tablet by ity of tablet 00:00: mouth [place] 00 every 4 Medical (four) Branch hours as needed for Nausea and Vomiting (N/V). proMETHazin 2020-0 Yes [id number] 25mg Take 1 Univers e 25 mg 6-04 tablet by ity of tablet 00:00: mouth [place] 00 every 4 Medical (four) Branch hours as needed for Nausea and Vomiting (N/V). proMETHazin 2020-0 Yes [id number] 25mg Take 1 Univers e 25 mg 6-04 tablet by ity of tablet 00:00: mouth [place] 00 every 4 Medical (four) Branch hours as needed for Nausea and Vomiting (N/V). proMETHazin 2020-0 Yes [id number] 25mg Take 1 Univers e 25 mg 6-04 tablet by ity of tablet 00:00: mouth [place] 00 every 4 Medical (four) Branch hours as needed for Nausea and Vomiting (N/V). proMETHazin 2020-0 Yes [id number] 25mg Take 1 Univers e 25 mg 6-04 tablet by ity of tablet 00:00: mouth [place] 00 every 4 Medical (four) Branch hours as needed for Nausea and Vomiting (N/V). proMETHazin 2019-0 2020- No [id number] 25mg Take 1 Univers e 25 mg 6-04 07-02 tablet by ity of tablet 00:00: 00:00 mouth [place] 00 :00 every 4 Medical (four) Branch hours as needed for Nausea and Vomiting (N/V). LOESTRIN Yes [id number] 1{tbl} Take 1 Univers (MICROGESTI 7-15 tablet by ity of N FE 03/19) 00:00: mouth [place] 1 mg-20 mcg 00 daily. Medica l (21)/75 mg Branch (7) tablet LOESTRIN FE 2020- No [id number] 1{tbl} Take 1 Univers (MICROGESTI 7-15 06-04 tablet by it y of N FE 03/19) 00:00: 00:00 mouth [place] 1 mg-20 mcg 00 :00 daily. Medica l (21)/75 mg Branch (7) tablet LOESTRIN 2020- No [id number] 1{tbl} Take 1 Univers (MICROGESTI 7-15 08-01 tablet by it y of N 03/19) 00:00: 00:00 mouth [place] 1 mg-20 mcg 00 :00 daily. Medica l (21)/75 mg Branch (7) tablet amoxicillin amoxicillin No amoxicilli [place] 500 mg [...] PRN 6 hrs PRN pain pain pain Immunizations Ordered Filled Immunization Date Status Comments [facility] Immunization Name Name SARS-COV-2 COVID-19 2020-04-10 Completed Unive rsity of PFIZER VACCINE 00:00:00 [facility] [place] [facility] Influenza Virus 2017-04-11 Completed Universit y of Vaccine Quad IM 3+ 00:00:[address] [facility] Influenza Virus 2017-04-11 Completed Universit y of Vaccine Quad IM 3+ 00:00:[address] [facility] Influenza Virus 2017-04-11 Completed Universit y of Vaccine Quad IM 3+ 00:00:[address] [facility] Influenza Virus 2017-04-11 Completed Universit y of Vaccine Quad IM 3+ 00:00:[address] [facility] Influenza Virus 2017-04-11 Completed Universit y of Vaccine Quad IM 3+ 00:00:[address] [facility] Influenza Virus 2017-04-11 Completed Universit y of Vaccine Quad IM 3+ 00:00:[address] [facility] Influenza Virus 2017-04-11 Completed Universit y of Vaccine Quad IM 3+ 00:00:[address] [facility] Influenza Virus 2017-04-11 Completed Universit y of Vaccine Quad IM 3+ 00:00:[address] [facility] Influenza Virus 2017-04-11 Completed Universit y of Vaccine Quad IM 3+ 00:00:[address] [facility] Influenza Virus 2017-04-11 Completed Universit y of Vaccine Quad IM 3+ 00:00:[address] [facility] Influenza Virus 2017-04-11 Completed Universit y of Vaccine Quad IM 3+ 00:00:[address] [facility] Influenza Virus 2017-04-11 Completed Universit y of Vaccine Quad IM 3+ 00:00:[address] [facility] Influenza Virus 2017-04-11 Completed Universit y of Vaccine Quad IM 3+ 00:00:[address] [facility] Influenza Virus 2017-04-11 Completed Universit y of Vaccine Quad IM 3+ 00:00:[address] [facility] Td 2010-10-16 Completed University of 00:00:00 [facility] Td 2010-10-16 Completed University of 00:00:00 [facility] Td 2010-10-16 Completed University of 00:00:00 [facility] Td 2010-10-16 Completed University of 00:00:00 [facility] Td 2010-10-16 Completed University of 00:00:00 [facility] Td 2010-10-16 Completed University of 00:00:00 [facility] Td 2010-10-16 Completed University of 00:00:00 [facility] Td 2010-10-16 Completed University of 00:00:00 [facility] Td 2010-10-16 Completed University of 00:00:00 [facility] Td 2010-10-16 Completed University of 00:00:00 [facility] Td 2010-10-16 Completed University of 00:00:00 [facility] Td 2010-10-16 Completed University of 00:00:00 [facility] Td 2010-10-16 Completed University of 00:00:00 [facility] Td 2010-10-16 Completed University of 00:00:00 [facility] Vital Signs Vital Name Observation Time Observation Value Comments Source Body Weight 2020-07-11 00:00:00 169 [lb_av] [facility] BP Diastolic 2020-07-11 00:00:00 85 mm[Hg] [facility] Height 2020-07-11 00:00:00 62 [in_i] [facility] BMI (Body Mass 2020-07-11 00:00:00 30.9 kg/m2 [facility] BP Systolic 2020-07-11 00:00:00 129 mm[Hg] [facility] BP Diastolic 2020-06-19 [...] 00:00:00 165 [lb_av] [facility] Systolic blood 2019-08-30 15:18:00 118 mm[Hg] Univer sity of pressure [facility] Diastolic blood 2019-08-30 15:18:00 85 mm[Hg] Unive rsity of [facility] Heart rate 2019-08-30 15:18:00 79 /min [facility] Body temperature 2019-08-30 15:18:00 36.83 Esme [facility] Respiratory rate 2019-08-30 15:18:00 16 /min [facility] Body height 2019-08-30 15:18:00 160 cm [facility] Body weight 2019-08-30 15:18:00 80.967 kg [facility] BMI 2019-08-30 15:18:00 31.62 kg/m2 [facility] Systolic blood 2019-08-30 15:18:00 118 mm[Hg] Univer sity of pressure [facility] Diastolic blood 2019-08-30 15:18:00 85 mm[Hg] Unive rsity of pressure [facility] Heart rate 2019-08-30 15:18:00 79 /min Universi ty of [facility] Body temperature 2019-08-30 15:18:00 36.83 Esme Univ ersity of [facility] Respiratory rate 2019-08-30 15:18:00 16 /min Univ ersity of [facility] Body height 2019-08-30 15:18:00 160 cm Universi ty of [facility] Body weight 2019-08-30 15:18:00 80.967 kg Universi ty of [facility] BMI 2019-08-30 15:18:00 31.62 kg/m2 Universi ty of [facility] Systolic blood 2019-08-02 15:47:00 110 mm[Hg] Univer sity of [facility] Diastolic blood 2019-08-02 15:47:00 78 mm[Hg] Unive rsity of pressure [facility] Heart rate 2019-08-02 15:47:00 78 /min Universi ty of [facility] Body temperature 2019-08-02 15:47:00 36.11 Esme [facility] Respiratory rate 2019-08-02 15:47:00 16 /min Univ ersity of [facility] Body height 2019-08-02 15:47:00 160 cm Universi ty of [facility] Body weight 2019-08-02 15:47:00 83.972 kg Universi ty of [facility] BMI 2019-08-02 15:47:00 32.79 kg/m2 Universi ty [facility] Procedures Procedure Date / Time Performed Performing Clinician Sour e EXTERNAL PROVIDER - 2019-10-01 05:01:00 [facility] POCT URINALYSIS 2019-08-30 15:20:00 Stephanie Cheatham [facility] POCT URINALYSIS 2019-08-02 15:47:00 Stephanie Cheatham [facility] POCT TEST 2019-08-02 15:46:00 Stephanie Cheahtam [facility] REPORT OF 2019-08-02 05:01:00 [facility]igned[facility] of Care Planned Activity Planned Date Details Comments Source Diagnostic Test 2020-07-11 test, [facility] [facility] Pending 00:00:00 urine [code = Group test, urine] Diagnostic Test 2020-07-11 urinalysis, [place] [facility] Pending 00:00:00 dipstick [code = Group urinalysis, dipstick] Encounters Start End Encounter Admission Attending Care Care Encounter Source Date/Time Date/Time Type Type Clinicians Facility Department ID 2020-07-11 2020-07-11 [id number] [place] 02:33:00 02:33:00 [id number] [facility] 2020-07-11 2020-07-11 Outpatient G_Pappas MM[facility] [id number] [place] 02:33:00 02:33:00 0516 [facility] 2020-07-11 2020-07-11 [id number] [place] 02:33:00 02:33:00 0623 [facility] 2020-07-11 2020-07-11 [place] [id number] [place] 02:33:00 02:33:00 0624 [facility] 2020-07-11 2020-07-11 David BRUNO [place] - [id number] Loki randolph 00:00:00 00:00:00 Discovery pranay Garcia MD: [address] [place] [phone] , Ph. [phone] 2020-06-19 2020-06-19 Outpatient G_Pappas MMG MMG [id number] [place] 11:58:00 11:58:00 0422 [facility] 2020-06-19 2020-06-19 Outpatient G_Pappas MMG MMG [id number] [place] 11:58:00 11:58:00 0423 [facility] 2020-06-19 2020-06-19 David BRUNO [place] - [id number] M at[facility] 00:00:00 00:00:00 Discovery pranay Garcia MD: [address] [place] [phone] , Ph. [phone] 2020-06-13 2020-06-13 Outpatient G[facility]appas [facility] [id number] [place] 10:58:00 10:58:00 [id number] Medical Group 2020-05-20 2020-05-20 Outpatient G_Pappas [facility] [id number] [place] 08:10:00 08:10:00 [id number] Medical Group 2020-05-19 2020-05-19 Outpatient G_Pappas [facility] [id number] [place] 04:57:00 04:57:00 [id number] [facility] 2020-05-19 2020-05-19 David SHARKEY [facility] [place] - [id number] Loki [facility] 00:00:00 00:00:00 Discovery pranay Garcia MD: [address] [place] [phone] , Ph. [phone] 2020-05-01 2020-05-01 Outpatient Katy OLIVAREZ [facility] [id number] Univers 11:00:00 11:00:00 ISAÍAS [facility] 2020-04-24 2020-04-24 Outpatient G_Pappas [facility] [id number] [place] 11:10:00 11:10:00 0225 Medical Group 2020-04-21 2020-04-21 Telephone Ellen Jo [facility] [id number] [facility] 00:00:00 00:00:00 Phil Rios [id number] afshin Strange [id number] Jasbir Daltonio [phone] [address] 2020-04-21 2020-04-21 Telephone Ellen Jo [facility] [id number] 00:00:00 00:00:00 Phil Rios [id number] Mart [id number] Professio [phone] [facility] [address] Building 2020-04-10 2020-04-10 Outpatient [facility] [id number] Univers 11:00:00 11:00:00 [id number] [facility] [place] [facility]10 2020-04-10 Outpatient R SHER, [facility] [id number] Univers 11:00:00 11:00:00 ISAÍAS ity [facility] 2020-01-30 2020-01-30 Outpatient Ministerio, [facility] RAD[facility] [id number] [facility] 09:30:00 09:30:00 Ziad [id number] [facility] [place] 2019-10-23 2019-10-23 Outpatient R [facility] [id number] Univers 10:00:00 10:00:00 [id number] [facility] 2019-10-23 2019-10-23 Outpatient P [facility] [id number] Univers 09:45:00 09:45:00 [facility] 2019-10-12 2019-10-12 Outpatient Ministerio, [facility] [id number] [facility] 10:30:00 10:30:00 Ziad [id number] [facility] [place] 2019-10-08 2019-10-08 Outpatient R REJI, [facility] [id number] Univers 11:40:00 11:40:00 PALLAVI de anday o [facility] 2019-10-08 2019-10-08 Outpatient R REJI, [facility] [id number] Univers 11:40:00 11:40:00 PALLAVI ity o [facility] 2019-10-01 2019-10-01 Orders Doctor SWAN [id number] Univers 00:00:00 00:00:00 Only Unassigned, DEXTER [id number] ity of [place] [facility] [id number] Sreekanth as [phone] [address] 2019-10-01 2019-10-01 Orders Doctor SWNA [id number] 00:00:00 00:00:00 Only UnassignedDEXTER [id number] [place] [facility] [id number] 2019-09-27 2019-09-27 Outpatient Katy CHEATHAM [facility] [id number] Univers 10:45:00 10:45:00 STEPHANIE ity o f [facility] 2019-09-27 2019-09-27 Outpatient R CHAPARRITA [facility] [id number] Univers 10:45:00 10:45:00 ROSHUNDA ity o [facility] 2019-09-26 2019-09-26 [facility] [id number] Univers 00:00:00 00:00:00 Roshunda R CHRISTIAN SCIENCE READER [id number] ity of REGIONAL [id number] Sreekanth as MATERNAL [phone] Med ical & CHILD [address] [place] [address] 2019-09-26 2019-09-26 [facility] [id number] 00:00:00 00:00:00 Roshunda R CHRI[employer]IAN SCIENCE READER [id number] REGIONAL [id number] MATERNAL [phone] & CHILD [address] [place] [address] 2019-08-30 2019-08-30 [facility] [id number] Univers 10:00:24 10:40:25 Roshunda R CHRISTIAN SCIENCE READER [id number] ity of Visit REGIONAL [id number] Sreekanth as MATERNAL [phone] Med ical & CHILD [address] [place] [address] 2019-08-30 2019-08-30 [facility] [id number] 10:00:24 10:40:25 Roshunda R CHRISTIAN SCIENCE READER 350.1.13.10 Visit REGIONAL 4.2.7.2.686 MATERNAL [id number] & CHILD [address] [place] [address] 2019-08-30 2019-08-30 Outpatient Katy CHEATHAM [facility] [id number] Univers 10:15:00 10:15:00 STEPHANIE ity o f [facility] 2019-08-30 2019-08-30 Outpatient R CHAPARRITA [facility] [id number] Univers 10:15:00 10:15:00 NIKHILNDA ity o f [facility] 2019-08-30 2019-08-30 Telephone Chaparrita [facility] [id number] [facility] 00:00:00 00:00:00 Nikhilyousuf R CHRISTIAN SCIENCE READER 350.1.13.10 ity of REGIONAL 4.2.7.2.686 Sreekanth as MATERNAL [id number] Med ical & CHILD 107 [facility] 2019-08-30 2019-08-30 Telephone Chaparrita [facility] [id number] 00:00:00 00:00:00 Nikhilyousuf R CHRISTIAN SCIENCE READER 350.1.13.10 REGIONAL 4.2.7.2.686 MATERNAL [id number] & CHILD 107 [facility] 2019-08-22 2019-08-22 Milk Wagon Driver Ultrasound, [facility] 1.2 .840.114 [id number] Univers 11:25:11 11:55:11 Visit Norma Coleamn CHRISTIAN SCIENCE READER 350.1.13.10 ity of REGIONAL 4.2.7.2.686 Sreekanth as MATERNAL [phone] Med ical & CHILD 369 [facility] 2019-08-22 2019-08-22 Milk Wagon Driver Ultrasound, [facility] [id number] 11:25:11 11:55:11 [facility] CHRISTIAN SCIENCE READER 350.1.13.10 REGIONAL 4.2.7.2.686 MATERNAL [id number] & CHILD 369 [facility] 2019-08-22 2019-08-22 Outpatient [facility] [id number] Univers 11:30:00 11:30:00 [id number] ity [facility] 2019-08-22 2019-08-22 Outpatient P [facility] [id number] Univers 11:30:00 11:30:00 ity [facility] 2019-08-07 2019-08-07 Telephone Pablo [facility] [id number] Univers 00:00:00 00:00:00 Zina Jones CHRISTIAN SCIENCE READER 350.1.13.10 it y of REGIONAL 4.2.7.2.686 Sreekanth as MATERNAL [id number] [facility] CHILD [address] [place] [address] 2019-08-07 2019-08-07 [facility] 1.2.840.114 [id number] 00:00:00 00:00:00 Zina Jones CHRISTIAN SCIENCE READER 350.1.13.10 REGIONAL 4.2.7.2.686 MATERNAL [id number] & [address] 2019-08-06 2019-08-06 Outpatient R [facility] [id number] -[id number] Univers 08:30:00 08:30:00 ity [facility] 2019-08-06 2019-08-06 [facility] [id number] Univers 08:30:00 08:30:00 NIKHILNDA ity o f [facility] 2019-08-03 2019-08-03 Outpatient R [facility] [id number] -[id number] Univers 08:30:00 08:30:00 ity [facility] 2019-08-03 2019-08-03 [facility] [id number] Univers 08:30:00 08:30:00 NIKHILNDA ity o f [facility] 2019-08-03 2019-08-03 [facility] [id number] Univers 00:00:00 00:00:00 Rosnicnda R CHRISTIAN SCIENCE READER 350.1.13.10 ity of REGIONAL 4.2.7.2.686 Sreekanth as MATERNAL [id number] [facility] [address] [place] [address] 2019-08-02 2019-08-02 [facility] 1.2.840.114 [id number] Univers 10:43:42 11:42:32 Rosnicnda R CHRISTIAN SCIENCE READER 350.1.13.10 ity of Visit REGIONAL 4.2.7.2.686 Sreekanth as MATERNAL [id number] Med ical & CHILD [address] [place] [address] 2019-08-02 2019-08-02 Outpatient R [facility] [id number] -[id number] Univers 10:00:00 10:00:00 ity [facility] 2019-08-02 2019-08-02 Outpatient R CHAPARRITA, [facility] [id number] Univers 10:00:00 10:00:00 STEPHANIE michelle o f [facility] 2019-08-02 2019-08-02 Orders Doctor [facility] 1.2.840.114 [id number] Univers 00:00:00 00:00:00 Only Unassigned, DEXTER 350.1.13.10 ity of [facility] 4.2.7.2.686 Sreekanth as [id number] [address] 2019-07-24 2019-07-24 Outpatient R [facility] [id number] -[id number] Univers 12:45:00 12:45:00 [id number] [facility] Results Test Description Test Time Test Comments [...] Blood (test code = Blood) Negative Specific Fabius (test code = Specific Fabius) 1.025 Ketone (test code = Ketone) Negative Bilirubin (test code = Bilirubin) Negative Glucose (test code = Glucose) Negative Appearance (test code = Appearance) Clear Color (test code = Color) Yellow [facility] [id number] 14:04:02 Test Item Value Reference Range Interpretation Comments Test (test code = negative Test) [facility]dipstick) panel - [id number] 11:01:18 Test Item Value Reference Range Interpretation Comments Leukocytes (test code = Leukocytes) Trace Nitrite (test code = Nitrite) negative Urobilinogen (test code = .2 Urobilinogen) Protein (test code = Protein) 100 pH (test code = pH) 5.0 Blood (test code = Blood) Large Specific Fabius (test code = 1.020 Specific Fabius) Ketone (test code = Ketone) Negative Bilirubin (test code = Bilirubin) Negative Glucose (test code = Glucose) Negative Appearance (test code = Appearance) Clear Color (test code = Color) Yellow [facility] (dipstick) panel - [id number] 11:01:18 Test Item Value Reference Range Interpretation Comments Leukocytes (test code = Leukocytes) Trace Nitrite (test code = Nitrite) negative Urobilinogen (test code = .2 Urobilinogen) Protein (test code = Protein) 100 pH (test code = pH) 5.0 Blood (test code = Blood) Large Specific Fabius (test code = 1.020 Specific Fabius) Ketone (test code = Ketone) Negative Bilirubin (test code = Bilirubin) Negative Glucose (test code = Glucose) Negative Appearance (test code = Appearance) Clear Color (test code = Color) Yellow [facility], [id number] 10:29:05 Test Item Value Reference Range Interpretation Comments Test (test code = negative Test) [facility], [id number] 10:29:05 Test Item Value Reference Range Interpretation Comments Test (test code = negative Test) [facility] Differential panel - [id number] 10:20:00 Test Item Value Reference Range Interpretation Comments white blood count (test code = 9.6 K/uL 4.0-11.5 white blood count) red blood count (test code = red 3.79 M/uL 3.80-5.20 L blood count) hemoglobin (test code = 11.1 g/dL 10.5-15.7 hemoglobin) hematocrit (test code = 34.5 % 34.0-50.0 hematocrit) MCV [Entitic volume] (test code = 91.0 fL 86-100 86171-0) mean corpuscular hemoglobin (test 29.3 pg 26.2-33.4 [...] 44.4-80.1 leukocytes in Blood (test code = 66279-7) Immature granulocytes [#/volume] 0.0 K/uL 0.0-0.03 in Blood (test code = 52285-4) lymphocyte% (test code = 20.3 % 10.0-50.0 lymphocyte%) mono % (test code = mono %) 5.4 % 3.6-12.0 eos % (test code = eos %) 1.0 % 0.0-5.4 Basophils/100 leukocytes in 0.3 % 0.1-1.2 Unspecified specimen (test code = 46887-8) Band form neutrophils [#/volume] 6.99 K/uL 1.56-6.13 H in Blood (test code = 58984-7) Lymphocytes [#/volume] in 2.0 K/uL 1.18-3.74 Unspecified specimen by Automated count (test code = 87847-0) mono # (test code = mono #) 0.52 K/uL 0.24-0.86 eos # (test code = eos #) 0.10 K/uL 0.04-0.36 basophil # (test code = basophil 0.03 K/uL 0.01-0.08 #) NRBC% (test code = NRBC%) 0 /100 WBC 0-0.2 NRBC# (test code = NRBC#) 0 K/uL [facility] URINALYSIS W SPECIFIC [id number] 15:20:00 Test Item Value Reference Range Interpretation Comments POCT U SP GRAV (test code = 3255) . 1.005-1.025 POCT PH U (test code = 3254) . 5-8 POCT U LEUK EST (test code = 3263) . Negative - Negative POCT U NIT (test code = 3262) . Negative - Negative POCT U PROT (test code = 3259) Trace Negative - Negative POCT U GLU (test code = 3256) Neg Negative - Negative POCT U KETONE (test code = 3258) . Negative - Negative POCT U UROBILI (test code = 3260) . 0.2-1 POCT U BILI (test code = 3261) . Negative - Negative POCT U BLD (test code = 3257) . Negative - Negative POCT U COLOR (test code = 3266) POCT U APPEAR (test code = 3267) [facility] [id number] 15:47:00 Test Item Value Reference Range Interpretation Comments POCT PREG (test code = 1605) Positive On board controls acceptable with C Yes Line (test code = 3574) POCT PREG LOT # (test code = 3575) POCT PREG TEST DATE (test code = 357) [facility] URINALYSIS W SPECIFIC [id number] 15:47:00 Test Item Value Reference Range Interpretation Comments POCT U SP GRAV (test code = . 1.005-1.025 3255) POCT PH U (test code = 3254) 6 mg/dl 5-8 POCT U LEUK EST (test code = 1+ Negative - Negative 3263) POCT U NIT (test code = 3262) negative Negative - Negative POCT U PROT (test code = 3259) 1+ Negative - Negative POCT U GLU (test code = 3256) negative Negative - Negative POCT U KETONE (test code = 3258) negative Negative - Negative POCT U UROBILI (test code = . 0.2-1 3260) POCT U BILI (test code = 3261) . Negative - Negative POCT U BLD (test code = 3257) negative Negative - Negative POCT U COLOR (test code = 3266) POCT U APPEAR (test code = 3267) [facility] [id number] 15:47:00 Test Item Value Reference Range Interpretation Comments POCT PREG (test code = 1605) Positive On board controls acceptable with C Yes Line (test code = 3574) POCT PREG LOT # (test code = 3575) POCT PREG TEST DATE (test code = 3576) [facility] URINALYSIS W SPECIFIC [id number] 15:47:00 Test Item Value Reference Range Interpretation Comments POCT U SP GRAV (test code = . 1.005-1.025 3255) POCT PH U (test code = 3254) 6 mg/dl 5-8 POCT U LEUK EST (test code = 1+ Negative - Negative 3263) POCT U NIT (test code = 3262) negative Negative - Negative POCT U PROT (test code = 3259) 1+ Negative - Negative POCT U GLU (test code = 3256) negative Negative - Negative POCT U KETONE (test code = 3258) negative Negative - Negative POCT U UROBILI (test code = . 0.2-1 3260) POCT U BILI (test code = 3261) . Negative - Negative POCT U BLD (test code = 3257) negative Negative - Negative POCT U COLOR (test code = 3266) POCT U APPEAR (test code = 3267) [facility] [id number] 14:05:00Surgical Pathology Report Case: [id number] Authorizing Provider: Mason Krause MD Collected: 01/05/2019 1709 Ordering Location: [facility] Received: 01/08/2019 0821 SERVICES Pathologist: Cecy Sam MD Specimen: Ga llbladder GALLBLADDER, CHOLECYSTECTOMY: - CHRONIC CHOLECYSTITIS WITH EROSION - CHOLELITHIASIS - ONE REACTIVE LYMPH NODESigning Pathologist Direct Phone Line: [phone] signed by Cecy Sam MD on 01/10/2019 at 2:05 [facility]/ [id number] and postoperative diagnosis: Choledocholithiasis.Gallbladder tissueReceived in one [...] code: Adventitial surface margin blue and duct blue.Resource Conservation Specialist sections are submitted in cassettes A1-A2 withthe margins included in cassette A1. KM/bc PerformedCOMPREHENSIVE METABOLIC [id number] 10:48:00 Test Item Value Reference Range Interpretation [...] 0-0 (BEAKER) (test code = 413) [place], [id number] 08:59:00Reason for exam:->bile duct diseaseIs the patient ?->NoWhen was patient's last menstrual cycle?->12/05/18FINAL REPORT A fluoroscopic unit was utilized for a procedure performed in the operating room. No interpretation was requested. Please refer to the operative report regarding findings. Please refer to PACS for patient radiation dose information. Signed: Adilene Muñoz MDReport Verified Date/Time: 01/05/2019 08:59:15 Reading Location: [facility] Radiology Reading Room REHENSIVE METABOLIC [id number] 05:12:00 Test Item Value Reference Range Interpretation [...] S NOT APPLICABLE FOR DIALYSIS PATIEN TS. [id number] 06:55:00 Test Item Value Reference Range Interpretation Comments LIPASE (BEAKER) (test code = 749) 30 U/L 8-78 COMPREHENSIVE METABOLIC [id number] 06:55:00 Test Item Value Reference Range Interpretation [...] NOT APPLICABLE FOR DIALYSIS PATIEN TS. PROTHROMBIN [id number] 06:49:00 Test Item Value Reference Range Interpretation [...] mechanical heart valves.CBC W/PLT COUNT & AUTO [id number] 06:09:00 Test Item Value Reference Range Interpretation [...] % 0-1 PERCENT (BEAKER) (test code = 6568)
== END ==
LOC: ER 10:26
DX: Z02.9 Encounter for administrative examinations, unspecified (principal)

== ENCOUNTER 2021-10-09 22:32 | Emergency (ER) | payer OTHER ==
--- OUTSIDE RECORDS SUMMARY | 2021-10-09 22:37 | XMS REPORT | Continuity of Care Document ---
:[address] [facility] t Address [address] [place] [address] Care Team Providers Name Role Phone G_Tonnys Attending Clinician Unavailable ISAÍAS OLIVAREZ Attending Clinician Unavailable Sandro BONDS, Ellen Villarreal Attending Clinician Laron Mandel Attending Clinician Unavailable PALLAVI MENDOZA Attending Clinician Unavailable Doctor Unassigned, [place] Attending Clinician Unavailable STEPHANIE CHEATHAM Attending Clinician Unavailable Stephanie De Los Santos Attending Clinician Ultrasound, Ang-Mfm Attending Clinician Unavailable Norma Coleman MD Attending Clinician Zina Mai Attending Clinician PAULA GRAYSON Attending Clinician Unavailable Vito_Radha Admitting Clinician Unavailable Physician, No Primary or Family Admitting Clinician UnavailPAULA Aranda Admitting Clinician Unavailable Payers Payer Name Policy Type Policy Number Effective Date Expiration Date [facility] [id number] [facility] (MEDICAID REPLACEMENT - HMO) [facility] [id number] 2019 CHOICE MEDICAID 00:00:00 MEDICAID [facility] [id number] 2019 00:00:00 MEDICAID PENDING PENDING 2019 00:00:00 Problems Condition Condition Condition Status Onset Resolution Last Treating Co mments Source Name Details Category Date Date Treatment Clinician Date Primary Primary Problem Active [place] dysmenorrh Dysmenorrh 422 da ea ea 00:00: Medical Group Menorrhagi Menorrhagi Problem Active [facility] a a 4-22 da 00:00: Medical Group Sterilizat Sterilizat Problem Active M [facility] ion ion 4-22 da requested Requested 00:00: [facility] 00 Group Obesity in Obesity in Disease Active 2019- U nivers 7 ity of 00:00: [place] [facility] Multiparit Multiparit Disease Active U nivers y y 7 ity of 00:00: [place] [facility] Nausea and Nausea and Disease Active U nivers vomiting vomiting 7 ity of during during 00:00: [place] 00 [facility] prior to prior to Branch 22 [...] of high-risk [place] [facility] [place] History of History of Disease Active U nivers miscarriag miscarriag 2-06 it y of e e 00:00: [place] [facility] Branch Cardiomyop Cardiomyop Disease Active Overview : Univers athy athy 2-06 As per ity of 00:00: patient [place] 00 diagnosed Medical in 2013, Branch last time seen by cardiolog ist was x1year ago Allergies, Adverse Reactions, Alerts Allergy Allergy Status Severity Reaction(s) Onset Inactive Treating Comm ents Source Name Type Date Date Clinician NO KNOWN Drug Active Univers ALLERGIE Class ity of S [facility] [place] Social History Social Habit Start Date Stop Date Quantity Comments Source ASSERTION 2019-06-13 University 00:00:[address] [facility] [place] Sex Assigned At Universit y of [facility] [place] Exposure to Not sure [facility] SARS-CoV-2 [facility] (event) Branch Tobacco use and 2019-08-30 2019-08-30 Never used Universit y of exposure 00:00:00 00:00:[address] [facility] [place] Alcohol intake 2019-08-30 2019-08-30 Current [facility] 00:00:00 00:00:00 non-drinker of [facility] alcohol Branch (finding) Smoking Status Start Date Stop Date Source Never smoker [facility] Medications Ordered Filled Start Stop Current Ordering Indication Dosage Frequency Signature Comments Components Source Medication Medication Date Date Medication? Clinician (SIG) Name Name ondansetron 2020-0 Yes [id number] 4mg Take 1 Univers (ZOFRAN) 4 7-02 tablet by ity of mg tablet 00:00: mouth [place] 00 every 8 Medical (eight) Branch hours as needed for Nausea and Vomiting (N/V). proMETHazin 2020-0 Yes [id number] 25mg Take 1 Univers e 25 mg 7-02 tablet by ity of tablet 00:00: mouth [place] 00 every 4 Medical (four) Branch hours as needed for Nausea and Vomiting (N/V). ondansetron 2020-0 Yes [id number] 4mg Take 1 Univers (ZOFRAN) 4 7-02 tablet by ity of mg tablet 00:00: mouth [place] 00 every 8 Medical (eight) Branch hours as needed for Nausea and Vomiting (N/V). ondansetron 2020-0 Yes [id number] 4mg Take 1 Univers (ZOFRAN) 4 7-02 tablet by ity of mg tablet 00:00: mouth [place] 00 every 8 Medical (eight) Branch hours as needed for Nausea and Vomiting (N/V). ondansetron 2020-0 Yes [id number] 4mg Take 1 Univers (ZOFRAN) 4 7-02 tablet by ity of mg tablet 00:00: mouth [place] 00 every 8 Medical (eight) Branch hours as needed for Nausea and Vomiting (N/V). ondansetron 2020-0 Yes [id number] 4mg Take 1 Univers (ZOFRAN) 4 7-02 tablet by ity of mg tablet 00:00: mouth [place] 00 every 8 Medical (eight) Branch hours as needed for Nausea and Vomiting (N/V). proMETHazin 0 2020- No [id number] 25mg Take 1 Univers e 25 mg 08-29 tablet by ity of tablet 00:00: 00:00 mouth [place] 00 :00 every 4 Medical (four) Branch hours as needed for Nausea and Vomiting (N/V). 2019-0 Yes [id number] 1{packe Take 1 Univers vit 6-10 t} Packet by ity of 33-iron-fol 00:00: mouth [place] ic-dha 00 daily. Medical (SELECT-OB Branch + DHA) 29 mg iron-1 mg -250 mg combo pack Yes [id number] 1{packe Take 1 Univers vit 6-10 t} Packet by ity of 33-iron-fol 00:00: mouth [place] ic-dha 00 daily. Medical (SELECT-OB Branch + DHA) 29 mg iron-1 mg -250 mg combo pack Yes [id number] 1{packe Take 1 Univers vit 6-10 t} Packet by ity of 33-iron-fol 00:00: mouth [place] ic-dha 00 daily. Medical (SELECT-OB Branch + DHA) 29 mg iron-1 mg -250 mg combo pack Yes [id number] 1{packe Take 1 Univers vit 6-10 t} Packet by ity of 33-iron-fol 00:00: mouth [place] ic-dha 00 daily. Medical (SELECT-OB Branch + DHA) 29 mg iron-1 mg -250 mg combo pack Yes [id number] 1{packe Take 1 Univers vit 6-10 t} Packet by ity of 33-iron-fol 00:00: mouth [place] ic-dha 00 daily. Medical (SELECT-OB Branch + DHA) 29 mg iron-1 mg -250 mg combo pack 2019-0 Yes [id number] 1{packe Take 1 Univers vit 6-10 t} Packet by ity of 33-iron-fol 00:00: mouth [place] ic-dha 00 daily. Medical (SELECT-OB Branch + DHA) 29 mg iron-1 mg -250 mg combo pack Yes [id number] 1{packe Take 1 Univers vit 6-10 t} Packet by ity of 33-iron-fol 00:00: mouth [place] ic-dha 00 daily. Medical (SELECT-OB Branch + DHA) 29 mg iron-1 mg -250 mg combo pack 2020-0 Yes [id number] 1{packe Take 1 Univers vit 6-10 t} [...] hours as Branch needed. ondansetron 2020-0 Yes [id number] 4mg Take 1 Univers (ZOFRAN) 4 6-05 tablet by ity of mg tablet 00:00: mouth [place] 00 every 8 Medical (eight) Branch hours as needed for Nausea and Vomiting (N/V). ondansetron 2020-0 Yes [id number] 4mg Take 1 Univers (ZOFRAN) 4 6-05 tablet by ity of mg tablet 00:00: mouth [place] 00 every 8 Medical (eight) Branch hours as needed for Nausea and Vomiting (N/V). ondansetron 2020-0 Yes [id number] 4mg Take 1 Univers (ZOFRAN) 4 6-05 tablet by ity of mg tablet 00:00: mouth [place] 00 every 8 Medical (eight) Branch hours as needed for Nausea and Vomiting (N/V). ondansetron 2020-0 Yes [id number] 4mg Take 1 Univers (ZOFRAN) 4 6-05 tablet by ity of mg tablet 00:00: mouth [place] 00 every 8 Medical (eight) Branch hours as needed for Nausea and Vomiting (N/V). ondansetron 2020-0 Yes [id number] 4mg Take 1 Univers (ZOFRAN) 4 6-05 tablet by ity of mg tablet 00:00: mouth [place] 00 every 8 Medical (eight) Branch hours as needed for Nausea and Vomiting (N/V). ondansetron 2020-0 Yes [id number] 4mg Take 1 Univers (ZOFRAN) 4 6-05 tablet by ity of mg tablet 00:00: mouth [place] 00 every 8 Medical (eight) Branch hours as needed for Nausea and Vomiting (N/V). ondansetron 2020-0 2020- No [id number] 4mg Take 1 Univers (ZOFRAN) 4 6-05 07-02 tablet by ity of mg tablet 00:00: 00:00 mouth [place] 00 :00 every 8 Medical (eight) Branch hours as needed for Nausea and Vomiting (N/V). ondansetron 2020-0 Yes 4mg Take 4 mg U nivers (ZOFRAN) 4 6-04 by mouth ity o f mg tablet 16:10: every 8 [place] [address] (eight) Medical hours as Branch needed. ondansetron 2020-0 Yes 4mg Take 4 mg U nivers (ZOFRAN) 4 6-04 by mouth ity o f mg tablet 16:10: every 8 [place] [address] (eight) Medical hours as Branch needed. ondansetron 2020-0 Yes 4mg Take 4 mg U nivers (ZOFRAN) 4 6-04 by mouth ity o f mg tablet 16:10: every 8 [place] [address] (eight) Medical hours as Branch needed. proMETHazin 2020-0 Yes [id number] 25mg Take 1 Univers e 25 mg 6-04 tablet by ity of tablet 00:00: mouth [place] 00 every 4 Medical (four) Branch hours as needed for Nausea and Vomiting (N/V). proMETHazin 2020-0 Yes [id number] 25mg Take 1 Univers e 25 mg 6-04 tablet by ity of tablet 00:00: mouth [place] 00 every 4 Medical (four) Branch hours as needed for Nausea and Vomiting (N/V). proMETHazin 2020-0 Yes [id number] 25mg Take 1 Univers e 25 mg 6-04 tablet by ity of tablet 00:00: mouth [place] 00 every 4 Medical (four) Branch hours as needed for Nausea and Vomiting (N/V). proMETHazin 2020-0 Yes [id number] 25mg Take 1 Univers e 25 mg 6-04 tablet by ity of tablet 00:00: mouth [place] 00 every 4 Medical (four) Branch hours as needed for Nausea and Vomiting (N/V). proMETHazin 2020-0 Yes [id number] 25mg Take 1 Univers e 25 mg 6-04 tablet by ity of tablet 00:00: mouth [place] 00 every 4 Medical (four) Branch hours as needed for Nausea and Vomiting (N/V). proMETHazin 2020-0 Yes [id number] 25mg Take 1 Univers e 25 mg 6-04 tablet by ity of tablet 00:00: mouth [place] 00 every 4 Medical (four) Branch hours as needed for Nausea and Vomiting (N/V). proMETHazin 2020-0 Yes [id number] 25mg Take 1 Univers e 25 mg 6-04 tablet by ity of tablet 00:00: mouth [place] 00 every 4 Medical (four) Branch hours as needed for Nausea and Vomiting (N/V). proMETHazin 2020-0 Yes [id number] 25mg Take 1 Univers e 25 mg 6-04 tablet by ity of tablet 00:00: mouth [place] 00 every 4 Medical (four) Branch hours as needed for Nausea and Vomiting (N/V). proMETHazin 2020-0 2020- No [id number] 25mg Take 1 Univers e 25 mg 6-04 07-02 tablet by ity of tablet 00:00: 00:00 mouth [place] 00 :00 every 4 Medical (four) Branch hours as needed for Nausea and Vomiting (N/V). LOESTRIN Yes [id number] 1{tbl} Take 1 Univers (MICROGESTI 7-15 tablet by ity of N FE 03/19) 00:00: mouth [place] 1 mg-20 mcg 00 daily. Medica l (21)/75 mg Branch (7) tablet LOESTRIN 2019- No [id number] 1{tbl} Take 1 Univers (MICROGESTI 7-15 06-04 tablet by it y of N FE 03/19) 00:00: 00:00 mouth [place] 1 mg-20 mcg 00 :00 daily. Medica l (21)/75 mg Branch (7) tablet LOESTRIN 2020- No [id number] 1{tbl} Take 1 Univers (MICROGESTI 7-15 06-04 tablet by it y of N 03/19) [...] Immunizations Ordered Filled Immunization Date Status Comments [facility] e Immunization Name Name SARS-COV-2 COVID-19 2020-04-10 Completed Unive rsity of PFIZER VACCINE 00:00:00 [facility] Influenza Virus 2017-04-11 Completed Universit y of Vaccine Quad IM 3+ 00:00:00 [facility] Influenza Virus 2017-04-11 Completed Universit y of Vaccine Quad IM 3+ 00:00:00 [facility] Influenza Virus 2017-04-11 Completed Universit y of Vaccine Quad IM 3+ 00:00:00 [facility] Influenza Virus 2017-04-11 Completed Universit y of Vaccine Quad IM 3+ 00:00:00 [facility] Influenza Virus 2017-04-11 Completed Universit y of Vaccine Quad IM 3+ 00:00:00 [facility] Influenza Virus 2017-04-11 Completed Universit y of Vaccine Quad IM 3+ 00:00:00 [facility] Influenza Virus 2017-04-11 Completed Universit y of Vaccine Quad IM 3+ 00:00:00 [facility] Influenza Virus 2017-04-11 Completed Universit y of Vaccine Quad IM 3+ 00:00:00 [facility] Influenza Virus 2017-04-11 Completed Universit y of Vaccine Quad IM 3+ 00:00:00 [facility] Influenza Virus 2017-04-11 Completed Universit y of Vaccine Quad IM 3+ 00:00:00 [facility] Influenza Virus 2017-04-11 Completed Universit y of Vaccine Quad IM 3+ 00:00:00 [facility] Influenza Virus 2017-04-11 Completed Universit y of Vaccine Quad IM 3+ 00:00:00 [facility] Influenza Virus 2017-04-11 Completed Universit y of Vaccine Quad IM 3+ 00:00:00 [facility] Influenza Virus 2017-04-11 Completed Universit y of Vaccine Quad IM 3+ 00:00:00 [facility] Td 2010-10-16 Completed University of 00:00:[address] [facility] Td 2010-10-16 Completed University of 00:00:[address] [facility] Td 2010-10-16 Completed University of 00:00:[address] [facility] Td 2010-10-16 Completed University of 00:00:[address] [facility] Td 2010-10-16 Completed University of 00:00:[address] [facility] Td 2010-10-16 Completed University of 00:00:[address] [facility] Td 2010-10-16 Completed University of 00:00:[address] [facility] Td 2010-10-16 Completed University of 00:00:[address] [facility] Td 2010-10-16 Completed University of 00:00:[address] [facility] Td 2010-10-16 Completed University of 00:00:[address] [facility] Td 2010-10-16 Completed University of 00:00:[address] [facility] Td 2010-10-16 Completed University of 00:00:[address] [facility] Td 2010-10-16 Completed University of 00:00:[address] [facility] Td 2010-10-16 Completed University of 00:00:[address] 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) Group BP Systolic 2020-07-11 00:00:00 [...] 2019-08-30 15:18:00 118 mm[Hg] Univer sity of [facility] Diastolic blood 2019-08-30 15:18:00 85 mm[Hg] Unive rsity of [facility] Heart rate 2019-08-30 15:18:00 79 /min [facility] Body temperature 2019-08-30 15:18:00 36.83 Esme [facility] Respiratory rate 2019-08-30 15:18:00 16 /min [facility] Body height 2019-08-30 15:18:00 160 cm [facility] Body weight 2019-08-30 15:18:00 80.967 kg [facility] BMI 2019-08-30 15:18:00 31.62 kg/m2 [facility] Systolic blood 2019-08-30 15:18:00 118 mm[Hg] Univer sity of pressure [facility] [place] Diastolic blood 2019-08-30 15:18:00 85 mm[Hg] Unive rsity of pressure [facility] [place] Heart rate 2019-08-30 15:18:00 79 /min Universi ty of [facility] [place] Body temperature 2019-08-30 15:18:00 36.83 Esme Univ ersity of [facility] [place] Respiratory rate 2019-08-30 15:18:00 16 /min Univ ersity of [facility] [place] Body height 2019-08-30 15:18:00 160 cm Universi ty of [facility] [place] Body weight 2019-08-30 15:18:00 80.967 kg Universi ty of [facility] [place] BMI 2019-08-30 15:18:00 31.62 kg/m2 Universi ty of [facility] Branch Systolic blood 2019-08-02 15:47:00 110 mm[Hg] Univer sity of pressure [facility] [place] Diastolic blood 2019-08-02 15:47:00 78 mm[Hg] Unive rsity of [facility] Heart rate 2019-08-02 15:47:00 78 /min Universi ty of [facility] [place] Body temperature 2019-08-02 15:47:00 36.11 Esme [facility] ersity of [facility] [place] Respiratory rate 2019-08-02 15:47:00 16 /min Univ ersity of [facility] [place] Body height 2019-08-02 15:47:00 160 cm Universi ty of [facility] [place] Body weight 2019-08-02 15:47:00 83.972 kg Universi ty of [place] [facility] BMI 2019-08-02 15:47:00 32.79 kg/m2 Universi ty of [facility] [place] Procedures Procedure Date / Time Performed Performing Clinician [facility] e EXTERNAL PROVIDER - 2019-10-01 05:01:00 [facility] 2019-08-30 15:20:00 [facility] POCT URINALYSIS 2019-08-02 15:47:00 [facility] POCT TEST 2019-08-02 15:46:00 [facility] OF 2019-08-02 05:01:00 Doctor Unassigned, No Un iversity [facility] Plan of Care Planned Activity Planned Date Details Comments Source Diagnostic Test 2020-07-11 test, [facility] Pending 00:00:00 urine [code = Group test, urine] Diagnostic Test 2020-07-11 urinalysis, Jose Me dical Pending 00:00:00 dipstick [code = Group urinalysis, dipstick] Encounters Start End Encounter Admission Attending Care Care Encounter Source Date/Time Date/Time Type Type Clinicians Facility Department ID 2020-07-11 2020-07-11 [id number] [place] 02:33:00 02:33:00 0514 [facility] 2020-07-11 2020-07-11 Outpatient G_Pappas MMG MMG [id number] 2020 [place] 02:33:00 02:33:00 0516 [facility] 2020-07-11 2020-07-11 [place] [id number] 2020 [place] 02:33:00 02:33:00 0623 [facility] 2020-07-11 2020-07-11 Outpatient G_Pappas MMG MMG [id number] 2020 [place] 02:33:00 02:33:00 0624 [facility] 2020-07-11 2020-07-11 David [facility] [place] - [id number] M atagor 00:00:00 00:00:00 Discovery pranay Garcia MD: [address] [place] [phone] , Ph. [phone] 2020-06-19 2020-06-19 [place] [id number] 2020 [place] 11:58:00 11:58:00 0422 [facility] 2020-06-19 2020-06-19 Outpatient G_Pappas MMG MMG [id number] 2020 [place] 11:58:00 11:58:00 0423 [facility] 2020-06-19 2020-06-19 David RAINEY [place] - [id number] M at[place]aty 00:00:00 00:00:00 Discovery pranay Garcia MD: [address] [place] [address] [address], [place] [address] , Ph. [phone] 2020-06-13 2020-06-13 Outpatient G_Pappas MMG [facility] [id number] 2020 [place] 10:58:00 10:58:00 0416 [facility] 2020-05-20 2020-05-20 Outpatient G_Pappas MMG [facility] [id number] 2020 [place] 08:10:00 08:10:00 0323 [facility] 2020-05-19 2020-05-19 Outpatient G_Pappas MMG [facility] [id number] 2020 [place] 04:57:00 04:57:00 0322 Medical Group 2020-05-19 2020-05-19 David [facility] [place] - [id number] M atagor 00:00:00 00:00:00 Discovery pranay Garcia MD: [address] [place] [phone] , Ph. [phone] 2020-05-01 2020-05-01 Outpatient Katy OLIVAREZ [facility] [id number] Univers 11:00:00 11:00:00 ISAÍAS michelle [facility] 2020-04-24 2020-04-24 [id number] [place] 11:10:00 11:10:00 0225 [facility] 2020-04-21 2020-04-21 Telephone Ellen Jo [facility] ..[id number] [facility] 00:00:00 00:00:00 Cam Happy [id number] i ty of [id number] Profess[place] [id number] Nh dical [address] 2020-04-21 2020-04-21 Telephone JoEllen [facility] [id number] 00:00:00 00:00:00 Cam Happy [id number] [place] [id number] Professio [id number] [address] 2020-04-10 2020-04-10 Outpatient [facility] [id number] Univers 11:00:00 11:00:00 [id number] ity [facility] 2020-04-10 2020-04-10 Outpatient R SHER, [facility] [id number] Univers 11:00:00 11:00:00 ISAÍAS ity [facility] 2020-01-30 2020-01-30 Outpatient MAHSA Mandel RADI [id number] [facility] 09:30:00 09:30:00 Ziad [id number] [facility] [place] 2019-10-23 2019-10-23 Outpatient R [facility] [id number] Univers 10:00:00 10:00:00 [id number] ity [facility] 2019-10-23 2019-10-23 Outpatient P [facility] [id number] Univers 09:45:00 09:45:00 ity [facility] 2019-10-12 2019-10-12 Outpatient Ministerio [facility] RADI [id number] [facility] 10:30:00 10:30:00 Ziad [id number] [facility] [place] 2019-10-08 2019-10-08 Outpatient R REJI, [facility] [id number] Univers 11:40:00 11:40:00 PALLAVI de anday o [facility] 2019-10-08 2019-10-08 Outpatient R REJI, [facility] [id number] Univers 11:40:00 11:40:00 PALLAVI ity o [facility] [place] [facility] 2019-10-01 2019-10-01 Orders Doctor SOSA [id number] Univers 00:00:00 00:00:00 Only Unassigned, DEXTER [id number] ity of [place] [facility] [id number] Sreekanth as [phone] [address] 2019-10-01 2019-10-01 Orders Doctor SOSA [id number] 00:00:00 00:00:00 Only Unassigned, DEXTER [id number] [place] [facility] [id number] [facility] 2019-09-27 2019-09-27 Outpatient R CHEATHAM, [facility] [id number] Univers 10:45:00 10:45:00 ROSHUNDA ity o shama [facility] [place] 2019-09-27 2019-09-27 Outpatient Katy CHEATHAM [facility] [id number] Univers 10:45:00 10:45:00 ROSHUNDA itgianna o shama 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 [id number] ity of REGIONAL [id number] Sreekanth as MATERNAL [phone] Med ical & CHILD [address] [place] [address] 2019-09-26 2019-09-26 [place] [facility] [id number] 00:00:00 00:00:00 Roshunda R ASSISTANT BOILER OPERATOR [id number] REGIONAL [id number] MATERNAL [id number] & CHILD 107 [facility] 2019-08-30 2019-08-30 Routine [facility] [id number] Univers 10:00:24 10:40:25 Roshunda R ASSISTANT BOILER OPERATOR [id number] ity of Visit REGIONAL [id number] Sreekanth as MATERNAL [phone] Med ical & CHILD [address] [place] [address] 2019-08-30 2019-08-30 Routine [facility] [id number] 10:00:24 10:40:25 Roshunda R ASSISTANT BOILER OPERATOR [id number] Visit REGIONAL [id number] MATERNAL [phone] & CHILD [address] [place] [address] 2019-08-30 2019-08-30 Outpatient Katy CHEATHAM [facility] [id number] Univers 10:15:00 10:15:00 ROSGENOVEVANDA ity o shama [facility] [place] 2019-08-30 2019-08-30 Outpatient Katy CHEATHAM [facility] [id number] Univers 10:15:00 10:15:00 ROSHUNDA ity o f [facility] [place] 2019-08-30 2019-08-30 Telephone [place] VTSEVERO [id number] [facility] 00:00:00 00:00:00 Stephanie R ASSISTANT BOILER OPERATOR [id number] ity of [facility] [id number] Sreekanth as MATERNAL [phone] Med ical & CHILD 107 [facility] 2019-08-30 2019-08-30 Telephone Che[place] [facility] [id number] 00:00:00 00:00:00 Stephanie R ASSISTANT BOILER OPERATOR [id number] REGIONAL [id number] MATERNAL [phone] & CHILD 107 [facility] 2019-08-22 2019-08-22 [employer] Officer Ultrasound, [facility] [id number] Univers 11:25:11 11:55:11 Visit Norma Coleman ASSISTANT BOILER OPERATOR [id number] ity of [facility] [id number] Sreekanth as MATERNAL [phone] Med ical & CHILD 369 [facility] 2019-08-22 2019-08-22 Worldwide Chief Creative Officer Javier, [facility] 1.2.840.114 [id number] 11:25:11 11:55:11 Visit [facility] ASSISTANT BOILER OPERATOR [id number] REGIONAL [id number] MATERNAL [id number] & CHILD 369 [facility] 2019-08-22 2019-08-22 Outpatient [facility] [id number] Univers 11:30:00 11:30:00 [id number] ity [facility] 2019-08-22 2019-08-22 Outpatient P [facility] [id number] Univers 11:30:00 11:30:00 ity [facility] 2019-08-07 2019-08-07 Telephone Pablo [facility] [id number] [facility] 00:00:00 00:00:00 Zina Jones ASSISTANT BOILER OPERATOR [id number] it y of REGIONAL [id number] Sreekanth as MATERNAL [phone] Med ical & CHILD 107 [facility] 2019-08-07 2019-08-07 [facility]phone [facility] 1.2.840.114 [id number] 00:00:00 00:00:00 Zina Robert ASSISTANT BOILER OPERATOR [id number] REGIONAL [id number] MATERNAL [phone] & [address] 2019-08-06 2019-08-06 Outpatient R [facility] [id number] Univers 08:30:00 08:30:00 ity [facility] 2019-08-06 2019-08-06 Out[facility] [id number] Univers 08:30:00 08:30:00 NIKHILNDA itgianna o f [facility] [place] 2019-08-03 2019-08-03 Outpatient R [facility] [id number] Univers 08:30:00 08:30:00 ity [facility] 2019-08-03 2019-08-03 Outpatient [facility] [id number] Univers 08:30:00 08:30:00 NIKHILNDA itgianna o f [facility] [place] 2019-08-03 2019-08-03 Telephone [facility] [id number] Univers 00:00:00 00:00:00 Roshunda R ASSISTANT BOILER OPERATOR [id number] ity of REGIONAL [id number] Sreekanth as MATERNAL [id number] [facility] & CHILD [address] [place] [address] 2019-08-02 2019-08-02 Initial [facility] 1.2.840.114 [id number] Univers 10:43:42 11:42:32 Roshunda R ASSISTANT BOILER OPERATOR 350.1.13.10 ity of Visit REGIONAL [id number] Sreekanth as MATERNAL [id number] [facility] & [address] 2019-08-02 2019-08-02 Outpatient R [facility] [id number] Univers 10:00:00 10:00:00 ity [facility] 2019-08-02 2019-08-02 Outpatient [facility] [id number] Univers 10:00:00 10:00:00 STEPHANIE de anday o f [facility] [place] 2019-08-02 2019-08-02 Orders Doctor [facility] [id number] Univers 00:00:00 00:00:00 Only Unassigned, DEXTER [id number] ity of [facility] [id number] Sreekanth as [id number] [address] 2019-07-24 2019-07-24 Outpatient R [facility] [id number] [facility] 12:45:00 12:45:00 [id number] ity of [facility] [place] Results Test Description Test Time Test Comments [...] Blood (test code = Blood) Negative Specific Waldo (test code = Specific Waldo) 1.025 Ketone (test code = Ketone) Negative Bilirubin (test code = Bilirubin) Negative Glucose (test code = Glucose) Negative Appearance (test code = Appearance) Clear Color (test code = Color) Yellow [facility] Grouppregnancy test, [id number] 14:04:02 Test Item Value Reference Range Interpretation Comments Test (test code = negative Test) [facility] - [id number] 11:01:18 Test Item Value Reference Range Interpretation Comments Leukocytes (test code = Leukocytes) Trace Nitrite (test code = Nitrite) negative Urobilinogen (test code = .2 Urobilinogen) Protein (test code = Protein) 100 pH (test code = pH) 5.0 Blood (test code = Blood) Large Specific Waldo (test code = 1.020 Specific Waldo) Ketone (test code = Ketone) Negative Bilirubin (test code = Bilirubin) Negative Glucose (test code = Glucose) Negative Appearance (test code = Appearance) Clear Color (test code = Color) Yellow [facility] (dipstick) panel - [id number] 11:01:18 Test Item Value Reference Range Interpretation Comments Leukocytes (test code = Leukocytes) Trace Nitrite (test code = Nitrite) negative Urobilinogen (test code = .2 Urobilinogen) Protein (test code = Protein) 100 pH (test code = pH) 5.0 Blood (test code = Blood) Large Specific Waldo (test code = 1.020 Specific Waldo) Ketone (test code = Ketone) Negative Bilirubin (test code = Bilirubin) Negative Glucose (test code = Glucose) Negative Appearance (test code = Appearance) Clear Color (test code = Color) Yellow [facility], [id number] 10:29:05 Test Item Value Reference Range Interpretation Comments Test (test code = negative Test) [facility], [id number] 10:29:05 Test Item Value Reference Range Interpretation Comments Test (test code = negative Test) [facility] W Auto Differential panel - [id number] 10:20:00 Test Item Value Reference Range Interpretation Comments white blood count (test code = 9.6 K/uL 4.0-11.5 white blood count) red blood count (test code = red 3.79 M/uL 3.80-5.20 L blood count) hemoglobin (test code = 11.1 g/dL 10.5-15.7 hemoglobin) hematocrit (test code = 34.5 % 34.0-50.0 hematocrit) MCV [Entitic volume] (test code = 91.0 fL 86-100 66511-8) mean corpuscular hemoglobin (test 29.3 pg 26.2-33.4 [...] 44.4-80.1 leukocytes in Blood (test code = 23272-4) Immature granulocytes [#/volume] 0.0 K/uL 0.0-0.03 in Blood (test code = 83768-7) lymphocyte% (test code = 20.3 % 10.0-50.0 lymphocyte%) mono % (test code = mono %) 5.4 % 3.6-12.0 eos % (test code = eos %) 1.0 % 0.0-5.4 Basophils/100 leukocytes in 0.3 % 0.1-1.2 Unspecified specimen (test code = 87316-7) Band form neutrophils [#/volume] 6.99 K/uL 1.56-6.13 H in Blood (test code = 28687-1) Lymphocytes [#/volume] in 2.0 K/uL 1.18-3.74 Unspecified specimen by Automated count (test code = 02663-3) mono # (test code = mono #) 0.52 K/uL 0.24-0.86 eos # (test code = eos #) 0.10 K/uL 0.04-0.36 basophil # (test code = basophil 0.03 K/uL 0.01-0.08 #) NRBC% (test code = NRBC%) 0 /100 WBC 0-0.2 NRBC# (test code = NRBC#) 0 K/uL [facility] URINALYSIS W SPECIFIC [id number] 15:20:00 Test Item Value Reference Range Interpretation [...] POCT U APPEAR (test code = 3267) [facility] [id number] 15:47:00 Test Item Value Reference Range Interpretation Comments POCT PREG (test code = 1605) Positive On board controls acceptable with C Yes Line (test code = 3574) POCT PREG LOT # (test code = 3575) POCT PREG TEST DATE (test code = 357) [facility] URINALYSIS W SPECIFIC [id number] 15:47:00 Test Item Value Reference Range Interpretation [...] POCT U APPEAR (test code = 3267) [facility] [id number] 15:47:00 Test Item Value Reference Range Interpretation Comments POCT PREG (test code = 1605) Positive On board controls acceptable with C Yes Line (test code = 3574) POCT PREG LOT # (test code = 3575) POCT PREG TEST DATE (test code = 3576) [facility] URINALYSIS W SPECIFIC [id number] 15:47:00 Test Item Value Reference Range Interpretation [...] POCT U APPEAR (test code = 3267) [facility] [id number] 14:05:00Surgical Pathology Report Case: [id number] Authorizing Provider: Mason Krause MD Collected: 01/05/2019 1709 Ordering Location: [facility] PERIOPERATIVE Received: 01/08/2019 0821 SERVICES Pathologist: Cecy Sam MD Specimen: Gallbladder GALLBLADDER, CHOLECYSTECTOMY: - CHRONIC CHOLECYSTITIS WITH EROSION - C HOLELITHIASIS - ONE REACTIVE LYMPH NODE Signing Pathologist Direct Phone Line: [phone] signed by Cecy Sam MD on 01/10/2019 at 2:05 [facility]/ [id number] and postoperative diagnosis: Choledocholithiasis.Gallbladder tissueReceived in one [...] discrete lesions are identified. The wall measures upto 0.2 cm thick.Ink code: Adventitial surface margin blue and duct blue.Inspector Aluminum Boat sections are submitted in cassettes A1-A2 with the margins included in cassette A1. KM/bc PerformedCOMPREHENSIVE METABOLIC [id number] 10:48:00 Test Item Value Reference Range Interpretation [...] 0-0 (BEAKER) (test code = 413) [place], [id number] 08:59:00Reason for exam:->bile duct diseaseIs the patient ?->NoWhen was patient's last menstrual cycle?->12/05/18FINAL REPORT A fluoroscopic unit was utilized for a procedure performed in the operating room. No interpretation was requested. Please refer to the operative report regarding findings. Please refer to PACS for patient radiation dose information. Signed: Adilene Muñoz [facility] Verified Date/Time: 01/05/2019 08:59:15 Reading Location: [facility] Radiology Reading Room COMPREHENSIVE METABOLIC [id number] 05:12:00 Test Item Value Reference Range Interpretation [...] S NOT APPLICABLE FOR DIALYSIS PATIEN TS. [id number] 06:55:00 Test Item Value Reference Range Interpretation Comments LIPASE (BEAKER) (test code = 749) 30 U/L 8-78 COMPREHENSIVE METABOLIC [id number] 06:55:00 Test Item Value Reference Range Interpretation [...] NOT APPLICABLE FOR DIALYSIS PATIEN TS. PROTHROMBIN [id number] 06:49:00 Test Item Value Reference Range Interpretation [...] is 2.5-3.5 for patients wiht mechanical heart valves.CBC W/PLT COUNT & AUTO [id number] 06:09:00 Test Item Value Reference Range Interpretation [...] % 0-1 PERCENT (BEAKER) (test code = 5943)
--- NOTE | 2021-10-09 23:21 | ER ---
Nurse's Notes [facility] Name: Haley Liu Age: 26 yrs Sex: Female : 1995 Arrival Date: 10/09/2021 Time: 22:35 Bed 20 Private MD: Diagnosis: Cisse's palsy Presentation: 10/09 22:51 Chief complaint: Patient states: the left side of her face "won't work" for the past 3 sm5 days. pt complaining of left sided numbness, unable to close L eye and a headache. Coronavirus screen: Vaccine status: Patient reports receiving the 2nd dose of the covid vaccine. Ebola Screen: No symptoms or risks identified at this time. Initial Sepsis Screen: Does the patient meet any 2 criteria? No. Patient's initial sepsis screen is negative. Does the patient have a suspected source of infection? No. Patient's initial sepsis screen is negative. Risk Assessment: Do you want to hurt yourself or someone else? Patient reports no desire to harm self or others. Onset of symptoms was October 06, 2021. 22:51 Method Of Arrival: Ambulatory 5 22:51 Acuity: SARAH 4 sm5 Triage Assessment: 22:53 General: Appears in no apparent distress. Behavior is cooperative. Pain: Complains of 5 pain in head. Neuro: Level of Consciousness is awake, alert, obeys commands, Oriented to person, place, time, situation, Facial droop on left. Cardiovascular: Capillary refill < 3 seconds Patient's skin is warm and dry. Respiratory: Airway is patent Trachea midline Respiratory effort is even, unlabored. 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 - Social history:: Smoking status: Patient denies any tobacco usage or history of. Patient uses alcohol, only on a social basis. Screenin:54 Abuse screen: Denies threats or abuse. Denies injuries from another. Nutritional 5 screening: No deficits noted. Tuberculosis screening: No symptoms or risk factors identified. Fall Risk None identified. Assessment: 23:00 Reassessment: see triage assessment. 5 Vital Signs: 22:51 BP 121 / 79; Pulse 61; Resp 17; Temp 98.0(TE); Pulse Ox 100% on R/A; Weight 74.84 kg; 5 Height 5 ft. 3 in. (160.02 cm); Pain 7/10; 23:34 BP 114 / 78; Pulse 65; Resp 16; Pulse Ox 100% on R/A; sm5 22:51 Body Mass Index 29.23 (74.84 kg, 160.02 cm) 5 ED Course: 22:35 Patient arrived in ED. ja2 22:40 Harsha Pineda DO is Attending Physician. ms3 22:48 Mary Frias, JIM is Primary Nurse. 5 22:53 Triage completed. 5 22:54 Arm band placed on right wrist. 5 22:54 Patient has correct armband on for positive identification. Bed in low position. Call 5 light in reach. Side rails up X2. 23:33 No provider procedures requiring assistance completed. Patient did not have IV access [facility] during this emergency room visit. Administered Medications: 23:33 Drug: predniSONE 60 mg Route: PO; 5 23:34 Follow up: Response: No adverse reaction [facility] Medication: 22:54 VIS not applicable for this client. [facility] Outcome: 23:20 Discharge ordered by . me3 23:33 Discharged to home ambulatory, with significant other. 5 23:33 Condition: stable 23:33 Discharge instructions given to patient, significant other, Instructed on discharge instructions, follow up and referral plans. medication usage, Demonstrated understanding of instructions, follow-up care, medications, Prescriptions given X 2. 23:36 Patient left the ED. [facility] Signatures: Harsha Pineda DO DO ms3 Catherine Aranda ja2 Mary Frias, RN RN [facility]
--- NOTE | 2021-10-09 23:21 | EDPHYS ---
Physician Documentation [facility] Name: Haley Liu Age: 26 yrs Sex: Female : 1995 Arrival Date: 10/09/2021 Time: 22:35 Bed 20 Private MD: ED Physician Harsha Pineda HPI: 10/09 23:20 This 26 yrs old Female presents to ER via Ambulatory with complaints of Parlysis of ms3 Left side of face. 23:20 The patient's problem is reported as a facial droop, on left. Onset: The ms3 symptoms/episode began/occurred 3 day(s) ago. Duration: The episode is continuous. The symptoms are alleviated by nothing. The symptoms are aggravated by nothing. Associated signs and symptoms: Pertinent negatives: chest pain, confusion, dizziness, lightheadedness, numbness, vertigo, vomiting, weakness. Severity of symptoms: At their worst the symptoms were moderate in the emergency department the symptoms are unchanged. Patient's baseline: Neuro: alert and fully oriented, Motor: no deficits, Ambulation: walks without assistance, Speech: normal. 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 - Social history:: Smoking status: Patient denies any tobacco usage or history of. Patient uses alcohol, only on a social basis. ROS: 23:20 Constitutional: Negative for fever, and chills. Neck: Negative for injury, pain, and ms3 swelling, Cardiovascular: Negative for chest pain, and palpitations. Respiratory: Negative for shortness of breath, cough, wheezing, and pleuritic chest pain, Abdomen/GI: Negative for abdominal pain, nausea, vomiting, diarrhea, and constipation. 23:20 Neuro: Positive for Facial numbness. 23:20 All other systems are negative. Exam: 23:20 Constitutional: This is a well developed, well nourished patient who is awake, alert, ms3 and in no acute distress. 23:20 Neck: Trachea midline, no cervical lymphadenopathy. Supple, full range of motion without nuchal rigidity, or vertebral point tenderness. No Meningismus. Chest/axilla: Normal chest wall appearance and motion. Nontender with no deformity. Cardiovascular: Regular rate and rhythm with a normal S1 and S2. No gallops, murmurs, or rubs. Normal PMI, no JVD. No pulse deficits. Respiratory: Lungs have equal breath sounds bilaterally, clear to auscultation and percussion. No rales, rhonchi or wheezes noted. No increased work of breathing, no retractions or nasal flaring. Abdomen/GI: Soft, non-tender, with normal bowel sounds. No distension or tympany. No guarding or rebound. No evidence of tenderness throughout. Skin: Warm, dry with normal turgor. Normal color with no rashes, no lesions, and no evidence of cellulitis. MS/ Extremity: Pulses equal, no cyanosis. Neurovascular intact. Full, normal range of motion. Psych: Awake, alert, with orientation to person, place and time. Behavior, mood, and affect are within normal limits. 23:20 Head/face: Noted is Left sided facial weakness with L forehead involvement.. 23:20 Neuro: Orientation: is normal, Mentation: is normal, Cranial nerves: facial droop noted on left, with forehead involved. Cerebellar function: is grossly normal, Motor: is normal, Sensation: is normal, Gait: is steady, at a normal pace. Vital Signs: 22:51 BP 121 / 79; Pulse 61; Resp 17; Temp 98.0(TE); Pulse Ox 100% on R/A; Weight 74.84 kg; sm5 Height 5 ft. 3 in. (160.02 cm); Pain 7/10; 23:34 BP 114 / 78; Pulse 65; Resp 16; Pulse Ox 100% on R/A; sm5 22:51 Body Mass Index 29.23 (74.84 kg, 160.02 cm) [facility] MDM: 23:18 Patient medically screened. ms3 23:20 Data reviewed: vital signs, nurses notes. Data reviewed: and as a result, I will ms3 discharge patient. Counseling: I had a detailed discussion with the patient and/or guardian regarding: the historical points, exam findings, and any diagnostic results supporting the discharge/admit diagnosis, the need for outpatient follow up, to return to the emergency department if symptoms worsen or persist or if there are any questions or concerns that arise at home. ED course: Patient instructed on lacrilube and taping eye closed at night. Patient given Rx for Prednisone and Acyclovir. Administered Medications: 23:33 Drug: predniSONE 60 mg Route: PO; 5 23:34 Follow up: Response: No adverse reaction 5 Disposition Summary: 10/09/21 23:20 Discharge Ordered Location: Home ms3 Condition: Stable ms3 Diagnosis - Cisse's palsy ms3 Discharge Instructions: - Discharge Summary Sheet ms3 - Cisse Palsy, Adult ms3 Forms: - Medication Reconciliation Form ms3 - Thank You Letter ms3 - Antibiotic Education ms3 - Prescription Opioid Use ms3 Prescriptions: - Prednisone 20 mg Oral Tablet - take 3 tablets by ORAL route once daily for 6 days; 18 tablet; Refills: 0, ms3 Product Selection Permitted - Acyclovir 400 mg Oral Tablet - take 1 tablet by ORAL route 5 times a day for 1 week; 35 tablet; Refills: 0, ms3 Product Selection Permitted Signatures: Harsha Pineda DO DO ms3 Mary Frias RN RN sm5 Corrections: (The following items were deleted from the chart) 10/10 04:55 04:53 This 26 yrs old Female presents to ER via Ambulatory with complaints of Parlysis ms3 of Left side of face. ms3
[2021-10-09] MEDS ORDERED: predniSONE 20 MG TAB ONE (23:39)
[2021-10-10 01:14] VITALS: O2SAT 100
[2021-10-10 01:18] VITALS: BP 121/79; TEMP 98
== END 2021-10-09 23:36 | disposition home or self-care (01) ==
LOC: ER 22:32
DX: G51.0 Bell's palsy (principal)
CPT/HCPCS: 99283; J7512